=== PATIENT | female | born 1930 | race Caucasian/White ===

== ENCOUNTER → 2017-01-18 | Outpatient (CLI) | payer BC, MEDICARE ==
[~2017-01-18] MED LIST: AMLO5TAB2 PO; ASP81TEC PO; CAND16TA12 PO; CAND8TAB PO; CAND8TAB4 PO; CHOL100011 PO; CHOL500014 PO; CLOP75TA PO; CLOP75TA28 PO; CPR500T PO; CRAN450T9 PO; HCT25T PO; LRT10T PO; LVF500T PO; MECL-124 PO; MECL25TA56 PO; METO-272 PO; OMEG1CAP74 PO; RNT150T PO
--- NOTE | 2017-01-18 19:19 | Diagnostic Imaging Report ---
PA and lateral views of the chest. INDICATION: Cough. FINDINGS: The lungs are hyperinflated but clear of focal infiltrates. There is mild prominence of the interstitial markings. The heart size is normal. There is no effusion or pneumothorax. The mediastinum and nazia appear unremarkable. Surgical clips in the upper right abdomen are seen. IMPRESSION: COPD. Dictated by: Dictated on workstation # [id number]
== END ==
LOC: RAD 11:57
PROVIDERS: ATTEND Nurse Practitioner Family
DX: J44.9 Chronic obstructive pulmonary disease, unspecified (principal)
CPT/HCPCS: 71020

== ENCOUNTER 2018-06-18 13:35 | Emergency (ER) | payer BC, MEDICARE ==
[~2018-06-18] VITALS: Ht 152.4 cm; Wt 51.7 kg
[~2018-06-18 13:35] MED LIST changes: -AMLO5TAB2 PO; +AMLO5TAB7 PO
--- NOTE | 2018-06-18 14:11 | Diagnostic Imaging Report ---
Indication: Lower respiratory infection. PA and lateral chest Heart size and pulmonary vascularity are normal. Lungs are clear. There are no effusions or pneumothoraces. Impression: Negative chest. Dictated by: Dictated on workstation # [id number]
[2018-06-18] MEDS ORDERED: BENZ100C18 PO (14:26)
[2018-06-18] MEDS ORDERED: CEFU250T80 PO (14:26)
--- NOTE | 2018-06-18 14:27 | ED Cough/URI ---
General Chief Complaint: Cough/Cold/Flu Symptoms Stated Complaint: COUGH Nursing Triage Note: PATIENT STATES SHE HAS NOT FELT WELL FOR 3 DAYS. SHE HAS A NAGGING COUGH WITH SOB. IT IS NON-PRODUCTIVE COUGH. SHE ALSO HAS A RUNNY NOSE. Source: patient Exam Limitations: no limitations History of Present Illness Date Seen by Provider: Jun 18, 2018 Time Seen by Provider: 14:24 Initial Comments To ER with the general malaise for 3 days nonproductive cough and rhinorrhea. No fevers. Timing/Duration: just prior to arrival, constant Severity/Quality: dry cough Prior Episodes/Possible Cause: no prior episodes Associated Symptoms: cough Allergies and Home Medications Allergies Coded Allergies: Sulfa (Sulfonamide Antibiotics) (Verified Allergy, Severe, ITCH, 12/30/12) codeine (Verified Adverse Reaction, Unknown, "LOOPY", 07/06/14) Home Medications Amlodipine Besylate 5 Mg Tablet, 5 MG PO DAILY Prescribed by: JENNI LYNCH on 11/09/15 1651 Aspirin 81 Mg Tabec, 81 MG PO DAILY, (Reported) Candesartan Cilexetil 16 Mg Tab, 4 MG PO DAILY Prescribed by: TOBI NANCE on 07/07/14 1654 Cholecalciferol 1,000 Unit Capsule, 1,000 UNIT PO DAILY, (Reported) Clopidogrel Bisulfate 75 Mg Tablet, 75 MG PO DAILY, (Reported) Cranberry Fruit 450 Mg Tablet, 450 MG PO DAILY, (Reported) Levofloxacin 500 Mg Tab, 500 MG PO DAILY, (Reported) 7 DAY SUPPLY FILLED 07-01-14 [place]-3/Dha/Epa/Fish Oil 1,000 Mg Capsule, 1,000 MG PO DAILY, (Reported) Ranitidine Hcl 150 Mg Tablet, 150 MG PO DAILY, (Reported) Patient Home Medication List Home Medication List Reviewed: Yes Review of Systems Review of Systems Constitutional: see HPI; No chills, No fever EENTM: see HPI Respiratory: see HPI, cough Cardiovascular: no symptoms reported Genitourinary: no symptoms reported Musculoskeletal: no symptoms reported Skin: no symptoms reported Psychiatric/Neurological: No Symptoms Reported Past Ejbppbr-Iosxdy-Cvlsgm Hx Patient Social History Alcohol Use: Denies Use Recreational Drug Use: No Smoking Status: Never a Smoker 2nd Hand Smoke Exposure: No Recent Foreign Travel: No Contact w/Someone Who Travel: No Recent Infectious Disease Expo: No Physical Abuse: No Sexual Abuse: No Immunizations Up To Date Date of Pneumonia Vaccine: Jul 18, 2005 Seasonal Allergies Seasonal Allergies: Yes Past Medical History Surgeries: Yes (benign growth on head. , carpal tunnel x 2, hital hernia, appendectomy, ) Respiratory: No Cardiac: Yes Hypertension Neurological: Yes Reproductive Disorders: No Genitourinary: Yes Renal Failure Gastrointestinal: No Musculoskeletal: Yes Arthritis Endocrine: No HEENT: No Cancer: No Psychosocial: No Integumentary: No Blood Disorders: No Adverse Reaction/Blood Tranf: No Family Medical History Arthritis Cardiovascular disease 19 FATHER Colon cancer 19 FATHER Diabetes mellitus G8 BROTHER Hypercholesterolemia 19 FATHER Hypertension 19 FATHER Myocardial infarction 19 FATHER Osteoporosis 19 MOTHER No Family History of: AIDS Abdominal aortic aneurysm [place]'s disease Alcoholism Alzheimer's disease Aphasia Asthma Cancer of mouth Cataracts Completed stroke Congenital disease Congenital heart disease Coronary thrombosis Cystic fibrosis Deafness or hearing loss Dementia Drug abuse Dysphasia Fibrocystic disease of breast Gastroenteritis Glaucoma Headache disorder Infertility Kidney disease Neoplasm Not obtainable due to adoption Parkinson's disease Prostate cancer Psychosocial problem Respiratory disorder Seizure disorder Severe allergy Thyroid disease Tuberculosis Visual disorder No Pertinent Family Hx Physical Exam Vital Signs - First Documented 06/18/18 06/18/18 13:41 13:57 Temp 98.8 Pulse 67 Resp 18 B/P (MAP) 144/59 (87) Pulse Ox 98 O2 Delivery Room Air Capillary Refill : Less Than 3 Seconds Height: 5'0" Weight: 114lbs. 0oz. 51.631193hk; BMI Method:Stated General Appearance: WD/WN, no apparent distress Eyes: Bilateral Eye Normal Inspection, Bilateral Eye PERRL, Bilateral Eye EOMI HEENT: PERRL/EOMI, normal ENT inspection Neck: non-tender, full range of motion Respiratory: normal breath sounds, no respiratory distress, no accessory muscle use; No crackles, No rhonchi, No wheezing Cardiovascular: regular rate, rhythm, no murmur Gastrointestinal: normal bowel sounds, non tender, soft Neurologic/Psychiatric: alert, normal mood/affect, oriented x 3 Skin: normal color, warm/dry Progress/Results/Core Measures Suspected Sepsis Recent Fever Within 48 Hours: No Infection Criteria Present: Suspected New Infection New/Unexplained Altered Menta: No Sepsis Screen: No Definite Risk SIRS Temperature:98.8 Pulse: 67 Respiratory Rate: 18 Blood Pressure 144 /59 Mean: 87 Results/Orders My Orders Orders - KACEY SELLERS APRN Chest Pa/Lat (2 View) (06/18/18 13:47) Vital Signs/I&O 06/18/18 06/18/18 13:41 13:57 Temp 98.8 Pulse 67 Resp 18 B/P (MAP) 144/59 (87) Pulse Ox 98 O2 Delivery Room Air Capillary Refill : Less Than 3 Seconds Blood Pressure Mean: 87 Departure Communication (Admissions) 1426-likely viral etiology given her structural lung disease by history I will prescribe Ceftin. Impression Primary Impression: Bronchitis Disposition: HOME, SELF-CARE Condition: Stable Departure-Patient Inst. Decision time for Depature: 14:25 Referrals: RICHARD PERALTA MD (PCP/Family) Primary Care Physician Patient Instructions: Acute Bronchitis, Adult (DC) Add. Discharge Instructions: 1. Medication as directed 2. Follow-up with Daily later this week. Return to ER for any concerns. All discharge instructions reviewed with patient and/or family. Voiced understanding. Scripts Benzonatate (TESSALON PERLES) 100 Mg Capsule 100 MG PO TID, #14 CAP Prov: KACEY SELLERS APRN 06/18/18 Cefuroxime Axetil (Cefuroxime) 250 Mg Tablet 250 MG PO BID, #10 TAB Prov: KACEY SELLERS APRN 06/18/18 KACEY SELLERS APRN Jun 18, 2018 14:27
[2018-06-18 14:33] VITALS: BP 144/59
== END 2018-06-18 14:34 | disposition home or self-care (01) ==
LOC: EDUNIT# 13:35 → ER 13:36
DX: J40 Bronchitis, not specified as acute or chronic (principal); I10 Essential (primary) hypertension; Z82.49 Family history of ischemic heart disease and other diseases of the circulatory system; Z80.0 Family history of malignant neoplasm of digestive organs; Z87.448 Personal history of other diseases of urinary system; Z88.2 Allergy status to sulfonamides; Z88.5 Allergy status to narcotic agent; Z79.82 Long term (current) use of aspirin; Z79.02 Long term (current) use of antithrombotics/antiplatelets; Z90.49 Acquired absence of other specified parts of digestive tract; Z98.890 Other specified postprocedural states
CPT/HCPCS: 71046

== ENCOUNTER 2018-06-29 21:06 | Inpatient (IN) | payer MEDICARE ==
[~2018-06-29] VITALS: Ht 157.5 cm; Wt 48.1 kg
[~2018-06-29 21:06] MED LIST changes: -AMLO5TAB7 PO; +AMLO5TAB9 PO; +BENZ100C18 PO; +CEFU250T80 PO
[2018-06-29] MEDS ORDERED: KETOROLAC 30 MG/ML VIAL IVP ONE (21:15)
[2018-06-29] MEDS ORDERED: ONDANSETRON 4 MG/2 ML (SDV) Z0FRAN IVP ONE (21:15)
[2018-06-29] MEDS ORDERED: NS IV 500 ML 500 ML IV SCH (21:15)
--- NOTE | 2018-06-29 21:18 | ED General ---
General Stated Complaint: VOMITING Source of Information: Patient, Family Exam Limitations: No Limitations History of Present Illness Date Seen by Provider: Jun 29, 2018 Time Seen by Provider: 21:16 Initial Comments To ER accompanied by her daughter with reports of vomiting. Patient was seen here on 06/18/18 for a three-day history of cough and rhinorrhea. She was given a prescription for Ceftin and Tessalon pearls. Since then she's had persistent coughing, she is now had a frontal headache rated a 5 out of 10 for the past 3 days, she's had vomiting as well as diarrhea. Denies abdominal pain. She has followed up with her primary care provider Dr. Martinez who added a Medrol dose pack. Timing/Duration: Other (11 days) Severity: Moderate Associated Systoms: Cough, Nausea/Vomiting Allergies and Home Medications Allergies Coded Allergies: Sulfa (Sulfonamide Antibiotics) (Verified Allergy, Severe, ITCH, 12/30/12) codeine (Verified Adverse Reaction, Unknown, "LOOPY", 07/06/14) Home Medications Amlodipine Besylate 5 Mg Tablet, 5 MG PO DAILY Prescribed by: JENNI LYNCH on 11/09/15 1651 Aspirin 81 Mg Tabec, 81 MG PO DAILY, (Reported) Benzonatate 100 Mg Capsule, 100 MG PO TID Prescribed by: KACEY SELLERS on 06/18/18 1426 Candesartan Cilexetil 16 Mg Tab, 4 MG PO DAILY Prescribed by: TOBI NANCE on 07/07/14 1654 Cefuroxime Axetil 250 Mg Tablet, 250 MG PO BID Prescribed by: KACEY SELLRES on 06/18/18 1426 Cholecalciferol 1,000 Unit Capsule, 1,000 UNIT PO DAILY, (Reported) Clopidogrel Bisulfate 75 Mg Tablet, 75 MG PO DAILY, (Reported) Cranberry Fruit 450 Mg Tablet, 450 MG PO DAILY, (Reported) Levofloxacin 500 Mg Tab, 500 MG PO DAILY, (Reported) 7 DAY SUPPLY FILLED 07-01-14 [place]-3/Dha/Epa/Fish Oil 1,000 Mg Capsule, 1,000 MG PO DAILY, (Reported) Ranitidine Hcl 150 Mg Tablet, 150 MG PO DAILY, (Reported) Patient Home Medication List Home Medication List Reviewed: Yes Review of Systems Review of Systems Constitutional: see HPI EENTM: see HPI Respiratory: no symptoms reported Cardiovascular: see HPI; No chest pain, No Hx of Intervention, No palpitations Gastrointestinal: No abdominal pain; diarrhea Genitourinary: no symptoms reported Musculoskeletal: no symptoms reported Skin: no symptoms reported Psychiatric/Neurological: No Symptoms Reported Hematologic/Lymphatic: No Symptoms Reported Past Iwrulbi-Lcsqse-Tuocpn Hx Patient Social History 2nd Hand Smoke Exposure: No Recent Foreign Travel: No Contact w/Someone Who Travel: No Immunizations Up To Date Date of Pneumonia Vaccine: Jul 18, 2005 Seasonal Allergies Seasonal Allergies: Yes Past Medical History Surgeries: Yes (benign growth on head. , carpal tunnel x 2, hital hernia, appendectomy, ) Respiratory: No Cardiac: Yes Hypertension Neurological: Yes Reproductive Disorders: No Genitourinary: Yes Renal Failure Gastrointestinal: No Musculoskeletal: Yes Arthritis Endocrine: No HEENT: No Cancer: No Psychosocial: No Integumentary: No Blood Disorders: No Adverse Reaction/Blood Tranf: No Family Medical History Arthritis Cardiovascular disease 19 FATHER Colon cancer 19 FATHER Diabetes mellitus G8 BROTHER Hypercholesterolemia 19 FATHER Hypertension 19 FATHER Myocardial infarction 19 FATHER Osteoporosis 19 MOTHER No Family History of: AIDS Abdominal aortic aneurysm [place]'s disease Alcoholism Alzheimer's disease Aphasia Asthma Cancer of mouth Cataracts Completed stroke Congenital disease Congenital heart disease Coronary thrombosis Cystic fibrosis Deafness or hearing loss Dementia Drug abuse Dysphasia Fibrocystic disease of breast Gastroenteritis Glaucoma Headache disorder Infertility Kidney disease Neoplasm Not obtainable due to adoption Parkinson's disease Prostate cancer Psychosocial problem Respiratory disorder Seizure disorder Severe allergy Thyroid disease Tuberculosis Visual disorder No Pertinent Family Hx Physical Exam Vital Signs Vital Signs - First Documented 06/29/18 21:11 Temp 98.9 Pulse 86 Resp 18 B/P (MAP) 144/70 (94) Pulse Ox 98 O2 Delivery Room Air Capillary Refill : Height, Weight, BMI Height: 5'0" Weight: 114lbs. 0oz. 51.744249zo; BMI Method:Stated General Appearance: No Apparent Distress, WD/WN Eyes: Bilateral Eye Normal Inspection, Bilateral Eye PERRL, Bilateral Eye EOMI HEENT: PERRL/EOMI, TMs Normal Neck: Full Range of Motion, Normal Inspection Respiratory: No Accessory Muscle Use, No Respiratory Distress Cardiovascular: Regular Rate, Rhythm Gastrointestinal: Normal Bowel Sounds, Non Tender, Soft Neurologic/Psychiatric: Alert, Oriented x3 Skin: Normal Color, Warm/Dry Progress/Results/Core Measures Suspected Sepsis SIRS Temperature: Pulse: Respiratory Rate: Laboratory Tests 06/29/18 21:15: White Blood Count 11.9H Blood Pressure / Mean: Laboratory Tests 06/29/18 21:15: Creatinine 1.99H, Platelet Count 308, Total Bilirubin 0.8 Results/Orders Lab Results Laboratory Tests Test 06/29/18 21:15 06/29/18 21:20 Range/Units White Blood Count 11.9 H 4.3-11.0 10^3/uL Red Blood Count 4.33 L 4.35-5.85 10^6/uL Hemoglobin 12.9 11.5-16.0 G/DL Hematocrit 35 35-52 % Mean Corpuscular Volume 82 80-99 FL Mean Corpuscular Hemoglobin 30 25-34 PG Mean Corpuscular Hemoglobin Concent 36 32-36 G/DL Red Cell Distribution Width 11.8 10.0-14.5 % Platelet Count 308 130-400 10^3/uL Mean Platelet Volume 8.9 7.4-10.4 FL Neutrophils (%) (Auto) 80 H 42-75 % Lymphocytes (%) (Auto) 10 L 12-44 % Monocytes (%) (Auto) 10 0-12 % Eosinophils (%) (Auto) 0 0-10 % Basophils (%) (Auto) 0 0-10 % Neutrophils # (Auto) 9.5 H 1.8-7.8 X 10^3 Lymphocytes # (Auto) 1.2 1.0-4.0 X 10^3 Monocytes # (Auto) 1.1 H 0.0-1.0 X 10^3 Eosinophils # (Auto) 0.0 0.0-0.3 10^3/uL Basophils # (Auto) 0.0 0.0-0.1 10^3/uL Sodium Level 120 *L 135-145 MMOL/L Potassium Level 4.0 3.6-5.0 MMOL/L Chloride Level 85 L 98-107 MMOL/L Carbon Dioxide Level 20 L 21-32 MMOL/L Anion Gap 15 H 5-14 MMOL/L Blood Urea Nitrogen 27 H 7-18 MG/DL Creatinine 1.99 H 0.60-1.30 MG/DL Estimat Glomerular Filtration Rate 24 BUN/Creatinine Ratio 14 Glucose Level 126 H 70-105 MG/DL Calcium Level 10.1 8.5-10.1 MG/DL Corrected Calcium 9.7 8.5-10.1 MG/DL Total Bilirubin 0.8 0.1-1.0 MG/DL Aspartate Amino Transf (AST/SGOT) 15 5-34 U/L Alanine Aminotransferase (ALT/SGPT) 7 0-55 U/L Alkaline Phosphatase 63 40-136 U/L Troponin I < 0.028 <0.028 NG/ML Total Protein 7.1 6.4-8.2 GM/DL Albumin 4.5 3.2-4.5 GM/DL Lipase 26 8-78 U/L Urine Color YELLOW Urine Clarity SLIGHTLY CLOUDY Urine pH 6.5 5-9 Urine Specific [place] 1.010 L 1.016-1.022 Urine Protein 2+ H NEGATIVE Urine Glucose (UA) NEGATIVE NEGATIVE Urine Ketones NEGATIVE NEGATIVE Urine Nitrite NEGATIVE NEGATIVE Urine Bilirubin NEGATIVE NEGATIVE Urine Urobilinogen 1 NORMAL MG/DL Urine Leukocyte Esterase 3+ H NEGATIVE Urine RBC (Auto) 1+ H NEGATIVE Urine RBC 0-2 /HPF Urine WBC 25-50 H /HPF Urine Squamous Epithelial Cells 2-5 /HPF Urine Crystals NONE /LPF Urine Bacteria LARGE H /HPF Urine Casts NONE /LPF Urine Mucus NEGATIVE /LPF Urine Culture Indicated YES My Orders Orders - KACEY SELLERS APRN Troponin I (06/29/18 21:08) Cbc With Automated Diff (06/29/18 21:08) Comprehensive Metabolic Panel (06/29/18 21:08) Lipase (06/29/18 21:08) Ua Culture If Indicated (06/29/18 21:08) Iv He[place]ock-Insert (Order) (06/29/18 21:08) Ondansetron Injection (Zofran Injectio (06/29/18 21:15) Ns Iv 500 Ml (Sodium Chloride 0.9%) (06/29/18 21:15) Chest Pa/Lat (2 View) (06/29/18 21:14) Ct Head Wo (06/29/18 21:14) Ketorolac Injection (Toradol Injection) (06/29/18 21:15) Urine Culture (06/29/18 21:20) Ceftriaxone For Iv Use (Rocephin For I (06/29/18 21:45) Medications Given in ED Current Medications Medications Dose Ordered Sig/Pradeep Route Start Time Stop Time Status Last Admin Dose Admin Ceftriaxone Sodium 1000 mg/ Sodium Chloride 50 ml @ 100 mls/hr ONCE ONCE IV 06/29/18 21:45 06/29/18 22:14 06/29/18 21:46 100 MLS/HR Ketorolac Tromethamine 15 mg ONCE ONCE IVP 06/29/18 21:15 06/29/18 21:16 DC 06/29/18 21:19 15 MG Ondansetron HCl 4 mg ONCE ONCE IVP 06/29/18 21:15 06/29/18 21:16 DC 06/29/18 21:17 4 MG Vital Signs/I&O 06/29/18 21:11 Temp 98.9 Pulse 86 Resp 18 B/P (MAP) 144/70 (94) Pulse Ox 98 O2 Delivery Room Air Capillary Refill : Diagnostic Imaging Diagonstic Imaging: CT Comments NAME: RONAN GOTTI MED REC#: [id number] PT STATUS: REG ER : 1930 PHYSICIAN: KACEY SELLERS APRN ADMIT DATE: 06/29/18/ER Draft Date of Exam:06/29/18 CT HEAD WO PROCEDURE: CT head without contrast. TECHNIQUE: Multiple contiguous axial images were obtained through the brain without the use of intravenous contrast. INDICATION: Vomiting. COMPARISON: CT head without contrast 07/06/2014. 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 Moderate generalized cerebral and cerebellar parenchymal volume loss. Moderate leukoaraiosis. No CT evidence of a territorial infarction. No intracranial hemorrhage, mass effect, hydrocephalus or extra-axial fluid collections. No acute osseous findings. The paranasal sinuses and mastoids are clear. IMPRESSION: No acute intracranial CT findings. Chronic findings as above. Dictated on workstation # [id number] Dict: 06/29/[id number] Trans: 06/29/18 2147 [facility] [id number] Interpreted by: SHIRLEY ALCAZAR MD Electronically signed by: Departure Communication (Admissions) Time/Spoke to Admitting Phy: 21:[address] Mitchell who is on-call for Dr. Verdugo. We will admit the patient , free water restriction, IV normal saline. I will not give her hypertonic saline to rapidly replenish the sodium as I do not know how quickly it dropped. She is alert and oriented though a bit fatigued. I discussed the plan with the patient to be admitted, limit water intake and give IV antibiotics as well as IV saline. Patient states that she does not want to stay but is agreeable to staying. Discussed CODE STATUS with patient. She states "I do not want to be resuscitated" so she will be DO NOT RESUSCITATE status. Impression Primary Impression: Hyponatremia Additional Impressions: Urinary tract infection Qualified Codes: N30.00 - Acute cystitis without hematuria General weakness Bronchitis Disposition: ADMITTED INPATIENT Condition: Stable Admissions Decision to Admit Reason: Admit from ER (General) Decision to Admit/Date: Jun 29, 2018 Time/Decision to Admit Time: 21:44 Departure-Patient Inst. Referrals: RICHARD VERDUGO MD (PCP/Family) Primary Care Physician KACEY SELLERS APRN Jun 29, 2018 21:18
[2018-06-29 21:22] LABS: BASOPHILS % (AUTO) 0 % (0-10); EOSINOPHILS % (AUTO) 0 % (0-10); HEMATOCRIT 35 % (35-52); HEMOGLOBIN 12.9 G/DL (11.5-16.0); LYMPHOCYTES # (AUTO) 1.2 X 10^3 (1.0-4.0); LYMPHOCYTES % (AUTO) 10 % (12-44); MEAN CORPUSCULAR HEMOGLOBIN 30 PG (25-34); MEAN CORPUSCULAR HGB CONC 36 G/DL (32-36); MEAN CORPUSCULAR VOLUME 82 FL (80-99); MEAN PLATELET VOLUME 8.9 FL (7.4-10.4); MONOCYTES # (AUTO) 1.1 X 10^3 (0.0-1.0); MONOCYTES % (AUTO) 10 % (0-12); NEUTROPHILS # (AUTO) 9.5 X 10^3 (1.8-7.8); NEUTROPHILS % (AUTO) 80 % (42-75); PLATELET COUNT 308 10^3/uL (130-400); RED CELL DISTRIBUTION WIDTH 11.8 % (10.0-14.5); WHITE BLOOD COUNT 11.9 10^3/uL (4.3-11.0)
[2018-06-29 21:29] LABS: BILIRUBIN,URINE NEGATIVE (NEGATIVE); CLARITY,URINE SLIGHTLY CLOUDY; COLOR,URINE YELLOW; GLUCOSE, URINE (UA) NEGATIVE (NEGATIVE); KETONES,URINE NEGATIVE (NEGATIVE); LEUKOCYTE ESTERASE ,URINE 3+ (NEGATIVE); NITRITE,URINE NEGATIVE (NEGATIVE); PH,URINE 6.5 (5-9); PROTEIN,URINE 2+ (NEGATIVE); UROBILINOGEN,URINE 1 MG/DL (NORMAL)
[2018-06-29 21:36] LABS: BACTERIA,URINE LARGE /HPF; RBC,URINE 0-2 /HPF; WBC,URINE 25-50 /HPF
[2018-06-29 21:43] LABS: ALANINE AMINOTRANSFERASE 7 U/L (0-55); ALBUMIN 4.5 GM/DL (3.2-4.5); ALKALINE PHOSPHATASE 63 U/L (40-136); BILIRUBIN,TOTAL 0.8 MG/DL (0.1-1.0); BUN/CREATININE RATIO 14; CALCIUM 10.1 MG/DL (8.5-10.1); CARBON DIOXIDE 20 MMOL/L (21-32); CHLORIDE 85 MMOL/L (98-107); CREATININE SERUM 1.99 MG/DL (0.60-1.30); GFR ESTIMATED 24; GLUCOSE 126 MG/DL (70-105); LIPASE 26 U/L (8-78); TOTAL PROTEIN 7.1 GM/DL (6.4-8.2)
[2018-06-29 21:44] LABS: SODIUM 120 MMOL/L (135-145)
[2018-06-29] MEDS ORDERED: cefTRIAXone FOR IV USE 1,000 MG in NS (IVPB) 50 ML IV ONE (21:45)
--- NOTE | 2018-06-29 21:46 | Diagnostic Imaging Report ---
EXAM: Chest PA/LAT (2 view) INDICATION: Vomiting. COMPARISON: Chest regress 06/18/2017. FINDINGS: Normal heart size and central pulmonary vascularity. Calcified aorta. No focal pulmonary opacity, pleural effusion or pneumothorax. No acute osseous findings. Cholecystectomy clips. IMPRESSION: No acute cardiopulmonary findings. Dictated by: Dictated on workstation # [id number]
--- NOTE | 2018-06-29 21:47 | Diagnostic Imaging Report ---
PROCEDURE: CT head without contrast. TECHNIQUE: Multiple contiguous axial images were obtained through the brain without the use of intravenous contrast. INDICATION: Vomiting. COMPARISON: CT head without contrast 07/06/2014. 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 Moderate generalized cerebral and cerebellar parenchymal volume loss. Moderate leukoaraiosis. No CT evidence of a territorial infarction. No intracranial hemorrhage, mass effect, hydrocephalus or extra-axial fluid collections. No acute osseous findings. The paranasal sinuses and mastoids are clear. IMPRESSION: No acute intracranial CT findings. Chronic findings as above. Dictated by: Dictated on workstation # [id number]
[2018-06-29] MEDS ORDERED: ONDANSETRON 4 MG/2 ML (SDV) Z0FRAN IV PRN (23:15)
[2018-06-29] MEDS ORDERED: cefTRIAXone 1 GM/NS 50 ML IVPB IV SCH ×2 (23:15)
[2018-06-29] MEDS: NS IV 1000 ML 1,000 ML IV SCH (23:30)
[2018-06-30] VITALS: BP 147/57
[2018-06-30] MEDS ORDERED: RT-ALBUTEROL/IPRATROPIUM 3 ML (DUONEB) VIAL INH PRN (00:15)
[2018-06-30 00:45] VITALS: BP 152/76
[2018-06-30 03:49] VITALS: BP 118/78
[2018-06-30 04:35] LABS: BASOPHILS % (AUTO) 0 % (0-10); EOSINOPHILS % (AUTO) 1 % (0-10); HEMATOCRIT 29 % (35-52); HEMOGLOBIN 10.6 G/DL (11.5-16.0); LYMPHOCYTES # (AUTO) 1.2 X 10^3 (1.0-4.0); LYMPHOCYTES % (AUTO) 15 % (12-44); MEAN CORPUSCULAR HEMOGLOBIN 30 PG (25-34); MEAN CORPUSCULAR HGB CONC 36 G/DL (32-36); MEAN CORPUSCULAR VOLUME 84 FL (80-99); MEAN PLATELET VOLUME 8.9 FL (7.4-10.4); MONOCYTES % (AUTO) 14 % (0-12); NEUTROPHILS # (AUTO) 5.5 X 10^3 (1.8-7.8); NEUTROPHILS % (AUTO) 71 % (42-75); PLATELET COUNT 255 10^3/uL (130-400); WHITE BLOOD COUNT 7.7 10^3/uL (4.3-11.0)
[2018-06-30 04:49] LABS: CALCIUM 8.6 MG/DL (8.5-10.1); CREATININE SERUM 1.8 MG/DL (0.60-1.30); POTASSIUM 3.6 MMOL/L (3.6-5.0)
[2018-06-30] MEDS ORDERED: FLU QUADRIvalent (5+ YOA) 2018-2019 (AFLURIA) 0.5 ML IM ONE (07:30)
[2018-06-30 08:09] VITALS: BP 161/70
--- NOTE | 2018-06-30 09:02 | History & Physicial ---
History of Present Illness History of Present Illness Reason for visit/HPI PT IS AN 87 Y/O FEMALE WHO WAS A PREVIOUS PATIENT OF MY PRACTICE. SHE IS NOW SEEING DR. OCHOA IN [place] FOR HER PRIMARY CARE. SHE REPORTS THAT HE HAD PLACED HER ON ORAL ANTIBIOTICS AND SHE DID NOT IMPROVE AND SHE WAS AT THE ER IN [place] WHERE SHE GOT MEDICATION FOR NAUSEA AND HER COUGH. SHE HAS HISTORY OF RECENT URI WITH TREATMENT WITH ANTIBIOTICS, THEN SHE PRESENTED TO THE EMERGENCY DEPARTMENT WITH NAUSEA AND EMESIS WELL SOME LOOSE STOOLS AND WAS FOUND TO HAVE A SODIUM LEVEL OF 120. SHE WAS THUS ADMITTED TO THE HOSPITAL FOR IV HYDRATION, SODIUM REPLACEMENT, AND MONITORING OF SYMPTOMS. Date of Admission Jun 29, 2018 at 21:50 Date Seen by a Provider: Jun 30, 2018 Time Seen by a Provider: 09:10 I consulted on this patient on 06/30/18 08:57 Attending Physician RICHARD VERDUGO MD Admitting Physician Richard Verdugo MD Consult Allergies and Home Medications Allergies Coded Allergies: Sulfa (Sulfonamide Antibiotics) (Verified Allergy, Severe, ITCH, 12/30/12) codeine (Verified Adverse Reaction, Unknown, "LOOPY", 07/06/14) Home Medications Amlodipine Besylate 5 Mg Tablet, 5 MG PO DAILY, (Reported) Aspirin 81 Mg Tablet.dr, 81 MG PO DAILY, (Reported) Candesartan Cilexetil 8 Mg Tablet, 12 MG PO DAILY, (Reported) TAKES 1 & 1/2 (8MG) TABLET Cetirizine HCl 10 Mg Tablet, 10 MG PO DAILY, (Reported) Cholecalciferol (Vitamin D3) 5,000 Unit Capsule, 5,000 UNIT PO DAILY, (Reported) Clopidogrel Bisulfate 75 Mg Tablet, 75 MG PO DAILY, (Reported) Cranberry Conc/C/Bacill Coag 1 Each Tablet, 1 TAB PO DAILY, (Reported) Hydrochlorothiazide 25 Mg Tablet, 25 MG PO DAILY, (Reported) Levothyroxine Sodium 50 Mcg Tablet, 50 MCG PO DAILY, (Reported) [place]-3/Dha/Epa/Fish Oil 1 Each Capsule, 1 CAP PO DAILY, (Reported) Ondansetron 4 Mg Tab.rapdis, 4 MG PO Q4H PRN for NAUSEA/VOMITING-1ST LINE, ( Reported) Ranitidine HCl 150 Mg Tablet, 150 MG PO DAILY, (Reported) Patient Home Medication List Home Medication List Reviewed: Yes Past [place] Hx Patient Social History Marrital Status: Employed/Student: retired Alcohol Use: Denies Use Recreational Drug Use: No Smoking Status: Former Smoker Former Smoker, Quit: Jun 17, 1985 Type Used: Cigarettes 2nd Hand Smoke Exposure: No Physical Abuse Screen: No Sexual Abuse: No Recent Foreign Travel: No Contact w/other who traveled: No Recent Hopitalizations: No Recent Infectious Disease Expo: No Immunizations Up To Date Date of Pneumonia Vaccine: Jul 18, 2005 Seasonal Allergies Seasonal Allergies: Yes Surgeries Yes (benign growth on head. , carpal tunnel x 2, hital hernia, appendectomy, ) Respiratory Yes Cardiovascular Yes Hypertension Neurological Yes Reproductive System Hx Reproductive Disorders: No Genitourinary Yes Renal Failure Gastrointestinal No Musculoskeletal Yes Arthritis Endocrine History of Endocrine Disorders: No HEENT History of HEENT Disorders: No Cancer No Psychosocial History of Psychiatric Problem: No Integumentary History of Skin or Integumenta: No Blood Transfusions History of Blood Disorders: No Adverse Reaction to a Blood Tr: No Reviewed Nursing Assessment Reviewed/Agree w Nursing PMH: Yes Family Medical History Significant Family History: Heart Disease, Cancer, Diabetes, Hypertension Family Hx: Arthritis Cardiovascular disease 19 FATHER Colon cancer 19 FATHER Diabetes mellitus G8 BROTHER Hypercholesterolemia 19 FATHER Hypertension 19 FATHER Myocardial infarction 19 FATHER Osteoporosis 19 MOTHER No Family History of: AIDS Abdominal aortic aneurysm Justice's disease Alcoholism Alzheimer's disease Aphasia Asthma Cancer of mouth Cataracts Completed stroke Congenital disease Congenital heart disease Coronary thrombosis Cystic fibrosis Deafness or hearing loss Dementia Drug abuse Dysphasia Fibrocystic disease of breast Gastroenteritis Glaucoma Headache disorder Infertility Kidney disease Neoplasm Not obtainable due to adoption Parkinson's disease Prostate cancer Psychosocial problem Respiratory disorder Seizure disorder Severe allergy Thyroid disease Tuberculosis Visual disorder Review of Systems Constitutional: No chills, No fever; malaise, weakness EENTM: hoarseness, throat pain Respiratory: cough, short of breath Cardiovascular: No chest pain, No edema, No palpitations Gastrointestinal: No abdominal pain, No constipation, No loss of appetite Genitourinary: no symptoms reported Musculoskeletal: No back pain; muscle weakness Skin: no symptoms reported Psychiatric/Neurological: Denies Anxiety, Denies Depressed; Weakness All Other Systems Reviewed Negative Unless Noted: Yes Physical Exam Vital Signs Vital Signs - First Documented 06/29/18 06/30/18 21:11 00:00 Temp 98.9 Pulse 86 Resp 18 B/P (MAP) 144/70 (94) Pulse Ox 98 O2 Delivery Room Air FiO2 21 Capillary Refill : Less Than 3 Seconds Height, Weight, BMI Height: 5'2.00" Weight: 106lbs. 0.0oz. 48.965342br; 19.4 BMI Method:Stated General Appearance: WD/WN, Mild Distress (DUE TO COUGHING) Eyes: Bilateral Eye Normal Inspection, Bilateral Eye PERRL, Bilateral Eye EOMI HEENT: PERRL/EOMI, Pharynx Normal Neck: Full Range of Motion, Non Tender, Supple Respiratory: Chest Non Tender, Decreased Breath Sounds Cardiovascular: Regular Rate, Rhythm Gastrointestinal: Normal Bowel Sounds, No Organomegaly, No Pulsatile Mass, Non Tender, Soft Rectal: Deferred Back: Normal Inspection, No CVA Tenderness, No Vertebral Tenderness Extremity: Normal Capillary Refill, Normal Inspection, Normal Range of Motion, Non Tender, No Calf Tenderness, No Pedal Edema Neurologic/Psychiatric: Alert, Oriented x3, No Motor/Sensory Deficits, Normal 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 NAUSEA WITH POST-TUSSIVE EMESIS - ZOFRAN- MONITOR SYMPTOMS. COUGH - START TESSALON PERLES, ROBITUSSIN, MONITOR SYMPTOMS. LOOSE STOOLS - IF STOOLS WORSEN INTO DIARRHEA - THEN WE WILL CONSIDER CDIFF CHECK. HYPERTENSION - RESUME HOME MEDICATIONS. Admission Diagnosis SEVERE HYPONATREMIA NAUSEA POST-TUSSIVE EMESIS COUGH LOOSE STOOLS HYPERTENSION Admission Status: Inpatient Order (span 2 midnights) Reason for Inpatient Admission: PT ADMITTED TO THE HOSPITAL FOR SEVERE HYPONATREMIA - NEEDS GENTLE SLOW HYDRATION TO AVOID CEREBRAL EDEMA Clinical Quality Measures DVT/VTE Risk/Contraindication: Risk Factor Score Per Nursin RFS Level Per Nursing on Admit: 1=Low/No VTE PPX RICHARD VERDUGO MD Jun 30, 2018 09:02
[2018-06-30] MEDS ORDERED: methylPREDNISolone 125 MG (Solu-MEDROL) VIAL IV NR (09:45)
[2018-06-30] MEDS ORDERED: methylPREDNISolone 125 MG (Solu-MEDROL) VIAL IM NR (09:45)
[2018-06-30] MEDS: NS IV 1000 ML 1,000 ML IV SCH ×2 (10:14→19:45)
[2018-06-30] MEDS: amLODIPine 5 MG (NORVASC) TAB PO SCH (10:14)
[2018-06-30] MEDS: BENZONATATE 100 MG (TESSALON) CAPSULE PO SCH ×3 (10:14→21:34)
[2018-06-30] MEDS: ENOXAPARIN 30 MG/0.3 ML (LOVENOX) SYR SC SCH (10:15)
[2018-06-30] MEDS: guaiFENesin/DM (ROBITUSSIN DM) 10 ML UDC PO SCH ×4 (10:16→21:34)
[2018-06-30] MEDS ORDERED: CRAN1TAB4 PO (11:48)
[2018-06-30] MEDS ORDERED: RANI150T11 PO (11:48)
[2018-06-30] MEDS ORDERED: CHOL5000 PO (11:48)
[2018-06-30] MEDS ORDERED: ONDA4TAB11 PO (11:48)
[2018-06-30] MEDS ORDERED: OMEG-164 PO (11:48)
[2018-06-30] MEDS ORDERED: ASPI-983 PO (11:48)
[2018-06-30] MEDS ORDERED: CETI10TA20 PO (11:49)
[2018-06-30] MEDS ORDERED: LEVO50TA6 PO (11:49)
[2018-06-30] MEDS ORDERED: AMLO5TAB9 PO (11:49)
[2018-06-30] MEDS ORDERED: CLOP75TA28 PO (11:49)
[2018-06-30] MEDS ORDERED: CAND8TAB4 PO (11:49)
[2018-06-30] MEDS ORDERED: HYDR25TA4 PO (11:52)
--- NOTE | 2018-06-30 11:53 | NUR ---
WENT OVER THE EXT MED HX WITH THE PATIENT, SHE ALSO HAD A LIST WITH HER. SHE VERIFIED WHAT SHE IS TAKING. IN ADDITION TO WHAT IS SHOWN ON THE EXT MED HX [facility] HAS FILLED HCTZ 25MG DAILY #90 --. PATIENT TAKES THE FOLLOWING OTC: ASPIRIN 81MG DAILY ZYRTEC 10MG DAILY VITAMIN D 5000 UNITS DAILY AZO CRANBERRY DAILY FISH OIL DAILY ZANTAC 150MG DAILY
[2018-06-30 12:00] VITALS: BP 140/68
[2018-06-30 16:00] VITALS: BP 139/55
[2018-06-30] MEDS: methylPREDNISolone 125 MG (Solu-MEDROL) VIAL IVP SCH (17:34)
[2018-06-30] MEDS: cefTRIAXone 1 GM/NS 50 ML IVPB IV SCH ×2 (21:35)
[2018-07-01] VITALS: BP 128/57
[2018-07-01] MEDS: guaiFENesin/DM (ROBITUSSIN DM) 10 ML UDC PO SCH ×6 (00:13→21:26)
[2018-07-01] MEDS: methylPREDNISolone 125 MG (Solu-MEDROL) VIAL IVP SCH ×4 (00:13→18:38)
[2018-07-01 04:00] VITALS: BP 134/64
[2018-07-01] MEDS: NS IV 1000 ML 1,000 ML IV SCH ×2 (05:47→15:13)
[2018-07-01 06:11] LABS: HEMOGLOBIN 10.6 G/DL (11.5-16.0); MEAN PLATELET VOLUME 9.3 FL (7.4-10.4); WHITE BLOOD COUNT 5.9 10^3/uL (4.3-11.0)
[2018-07-01 06:39] LABS: ALBUMIN 3.6 GM/DL (3.2-4.5); BILIRUBIN,TOTAL 0.3 MG/DL (0.1-1.0); CALCIUM 8.4 MG/DL (8.5-10.1); CREATININE SERUM 1.46 MG/DL (0.60-1.30); MAGNESIUM 1.8 MG/DL (1.8-2.4); POTASSIUM 3.5 MMOL/L (3.6-5.0); TOTAL PROTEIN 5.6 GM/DL (6.4-8.2)
[2018-07-01 08:00] VITALS: BP 174/79
[2018-07-01] MEDS: BENZONATATE 100 MG (TESSALON) CAPSULE PO SCH ×3 (08:11→21:25)
[2018-07-01] MEDS: amLODIPine 5 MG (NORVASC) TAB PO SCH (08:11)
[2018-07-01] MEDS: ENOXAPARIN 30 MG/0.3 ML (LOVENOX) SYR SC SCH (08:12)
[2018-07-01] MEDS ORDERED: ONDANSETRON 4 MG (ZOFRAN) ORAL DISSOLVE TAB PO PRN (09:00)
--- NOTE | 2018-07-01 09:04 | Progress Note ---
Subjective Date Seen by a Provider: Jul 01, 2018 Time Seen by a Provider: 09:00 Subjective/Events-last exam PT IRRITABLE, DOES NOT ORIENT, PT CANNOT PARTICIPATE IN ROS OR HPI Review of Systems General: Fatigue Neurological: Weakness, Confusion Objective Exam Last Set of Vital Signs Vital Signs Date Time Temp Pulse Resp B/P (MAP) Pulse Ox O2 Delivery O2 Flow Rate FiO2 07/01/18 04:00 98.7 84 18 134/64 (87) 96 Room Air 06/30/18 00:00 21 Capillary Refill : Less Than 3 Seconds I&O Intake and Output 07/01/18 00:00 Intake Total 250 ml Output Total 660 ml Balance -410 ml Intake Oral 250 ml Output Urine Total 660 ml # Voids 8 General: Alert, Other (NOT ORIENTED) HEENT: Atraumatic Lungs: Clear to Auscultation, Other (POOR EFFORT) Heart: Regular Rate Abdomen: Normal Bowel Sounds, Soft Psych/Mental Status: Other (ALERT, NOT ORIENTED) Results Lab Laboratory Tests 07/01/18 05:45: White Blood Count 5.9, Red Blood Count 3.49L, Hemoglobin 10.6L, Hematocrit 30L, Mean Corpuscular Volume 85, Mean Corpuscular Hemoglobin 30, Mean Corpuscular Hemoglobin Concent 36, Red Cell Distribution Width 12.0, Platelet Count 240, Mean Platelet Volume 9.3, Sodium Level 131L, Potassium Level 3.5L, Chloride Level 103, Carbon Dioxide Level 18L, Anion Gap 10, Blood Urea Nitrogen 20H, Creatinine 1.46H, Estimat Glomerular Filtration Rate 34, BUN/Creatinine Ratio 14 , Glucose Level 162H, Calcium Level 8.4L, Corrected Calcium 8.7, Magnesium Level 1.8, Total Bilirubin 0.3, Aspartate Amino Transf (AST/SGOT) 11, Alanine Aminotransferase (ALT/SGPT) 6, Alkaline Phosphatase 50, Total Protein 5.6L, Albumin 3.6 Microbiology 06/29/18 Urine Culture - Preliminary, Resulted Escherichia coli Assessment/Plan Assessment/Plan Assess & Plan/Chief Complaint SEPSIS NITRITE POSITIVE UTI ADVANCED DEMENTIA INFILTRATED IV WITH RIGHT ARM PAIN HYPERGLYCEMIA LEUKOCYTOSIS SEPSIS FROM NITRITE POSITIVE UTI- CONTINUE WITH IV ANTIBIOTICS - SUPPORTIVE CARE MONITOR SYMPTOMS. ADVANCED DEMENTIA - SUPPORTIVE CARE INFILTRATED IV WITH RIGHT ARM PAIN - CHANGE IV SITE HYPERGLYCEMIA - NO TREATMENT CHANGES AT THIS TIME LEUKOCYTOSIS Clinical Quality Measures Admission Status Admission Dx SEVERE HYPONATREMIA NAUSEA POST-TUSSIVE EMESIS COUGH LOOSE STOOLS HYPERTENSION DVT/VTE Risk/Contraindication: Risk Factor Score Per Nursin RFS Level Per Nursing on Admit: 1=Low/No VTE PPX RICHARD PERALTA MD Jul 01, 2018 09:04
[2018-07-01] MEDS: ASPIRIN E.C. 81 MG (ECOTRIN) TAB PO SCH (10:46)
[2018-07-01] MEDS: LORATADINE (CLARITIN) 10 MG TAB PO SCH (10:46)
[2018-07-01] MEDS: FAMOTIDINE 20 MG (PEPCID) TABLET PO SCH (10:46)
[2018-07-01] MEDS: VITAMIN D3 5,000 UNITS (CHOLECALCIFEROL ) CAPSULE PO SCH (10:47)
[2018-07-01] MEDS: CLOPIDOGREL 75 MG (PLAVIX) TABLET PO SCH (10:47)
[2018-07-01] MEDS: LOSARTAN 50 MG (COZAAR) TAB PO SCH (10:47)
[2018-07-01] MEDS: LEVOTHYROXINE 50 MCG (LEVOTHROID) TAB PO SCH (11:43)
--- NOTE | 2018-07-01 12:41 | Physician Query Clarification ---
PQ-Uncertain Diagnosis Admission/Discharge Admission Date: Jun 29, 2018 at 21:50 Discharge Date: The medical record reflects the following clinical scenario: History/Risk Factors: Personal history of renal failure. Acute cystitis without hematuria diagnosed by Colt Sainz APRN in ED. Clinical Findings: UA showed Urine Specific [place] 1.010, Urine protein 2+, Urine leuocyte esterase 3+, Urine RBC 1+, Urine WBC 25-50, Urine bacteria Large. Urine culture-showing Escherichia coli >100,000/ML. Treatment: IV Ceftriaxone Sodium 1,000mg/Sodium Chloride. Question: Is Acute cystitis without hematuria a clinically valid diagnosis? was documented in the ED Impression by Colt Sainz APRN. Please document a response below. PHYSICIAN RESPONSE Diagnosis clinically valid: Yes, Conditon resolved In responding to this query, please exercise your independent professional judgment. The purpose of this communication is to more accurately reflect the complexity of your patients condition. The fact that a question is asked does not imply that any particular answer is desired or expected. Thank you for your timely response to this clarification. Requestors name: Bita Mc [facility] Phone # ext [phone] or [phone] THIS PHYSICIAN QUERY FORM IS A PERMANENT PART OF THE MEDICAL RECORD [facility] Jul 01, 2018 12:41 RICHARD PERALTA MD Jul 15, 2018 17:13
--- NOTE | 2018-07-01 12:55 | Physician Query Clarification ---
PQ-Uncertain Diagnosis Admission/Discharge Admission Date: Jun 29, 2018 at 21:50 Discharge Date: The medical record reflects the following clinical scenario: History/Risk Factors: History of recent URI. Clinical Findings: Cough, Post-tussive Emesis, Nausea. Treatment:IV Solu Medrol, Robitussin DM syrup, Tessalon Perles and IV Ceftriaxone Sodium. Question: Is Bronchitis a clinically valid diagnosis? Bronchitis was documented in the ED record impression by Colt Sainz APRN. Please document a response below. PHYSICIAN RESPONSE Diagnosis clinically valid: Yes, Conditon resolved In responding to this query, please exercise your independent professional judgment. The purpose of this communication is to more accurately reflect the complexity of your patients condition. The fact that a question is asked does not imply that any particular answer is desired or expected. Thank you for your timely response to this clarification. Requestors name: Bita Mc [facility] Phone # ext [phone] or [phone] THIS PHYSICIAN QUERY FORM IS A PERMANENT PART OF THE MEDICAL RECORD [facility] Jul 01, 2018 12:55 RICHARD PERALTA MD Jul 15, 2018 17:14
--- NOTE | 2018-07-01 14:31 | Physical Therapy Evaluation ---
PT Evaluation-General Medical Diagnosis Admission Date Jun 29, 2018 at 21:50 Medical Diagnosis: UTI/weakness/hyponatremia Onset Date: Jun 29, 2018 Therapy Diagnosis Therapy Diagnosis: debility Height/Weight Height (Feet): 5 Height (Inches): 2.00 Weight (Pounds): 106 Weight (Ounces): 0.0 Precautions Precautions/Isolations: Fall Prevention, Standard Precautions Referral Physician: Kartik Reason for Referral: Evaluation/Treatment Medical History Pertinent Medical History: HTN, Renal Insufficiency Current History ER secondary to vomiting/cough Reviewed History: Yes Social History Home: Single Level Current Living Status: Other Family Entry Into Home: Stairs With Railing PT Steps Into Home: 2 Prior/Core FIM Prior Level of Function Therapy Code Descriptions/Definitions Functional [place] Measure: 0=Not Assessed/NA 4=Minimal Assistance 1=Total Assistance 5=Supervision or Setup 2=Maximal Assistance 6=Modified [place] 3=Moderate Assistance 7=Complete [place] Therapy Quality Codes: 6 Independent with activity with or without an assistive device 5 Patient requires set up or clean up by helper. Patient completes activity by themselves 4 Supervision or touching assist (CGA). Tiger provide cues , steadying assist 3 The helper provides less than half the effort to complete the activity 2 The helper provides more than half the effort to complete the activity 1 Dependent. The helper does all the effort to complete an activity 7 Patient refused to complete or attempt activity 9 The patient did not perform the activity before the current illness or injury 88 Not attempted due to Medical conditions or safety concerns Functional Abilities and Goals: Independent: Patient completed the activities by him/herself, with or without an assistive device, with no assistance from a helper. Needed Some Help: Patient needed partial assistance from another person to complete activities. Dependent: A helper completed the activities for the patient. Unknown: Not Applicable: Bed Mobility: 7 Transfers (B,C,W/C) (FIM): 7 Gait: 7 Indoor Mobility (Ambulation): Independent Stairs: Independent Prior Devices Use: None PT Evaluation-Current Subjective Patient agrees to PT. Objective Patient Orientation: Normal For Age Problem Solving: Good Attachments: IV ROM/Strength ROM Lower Extremities bilateral LE WFL Strength Lower Extremities 4/5 grossly bilaterally Integumentary/Posture Bowel Incontinence: No Bladder Incontinence: No Posture kyphotic Neuromuscular (Tone, Coordination, Reflexes) grossly intact Sensory Vision: Wears Glasses Hearing: Functional Sensation Right Lower Extremit: Intact Sensation Left Lower Extremity: Intact Transfers Therapy Code Descriptions/Definitions Functional [place] Measure: 0=Not Assessed/NA 4=Minimal Assistance 1=Total Assistance 5=Supervision or Setup 2=Maximal Assistance 6=Modified [place] 3=Moderate Assistance 7=Complete [place] Transfers (B, C, W/C) (FIM): 7 Scootin Rollin Supine to/from Sit: 7 Sit to/from Stand: 7 Gait Mode of Locomotion: Walk Anticipated Mode of Locomotion: Walk Gait (FIM): 7 Distance (FIM): 3=150 ft Distance: >400' Gait Level of Assist: 7 Gait Assistive Device: None Comments/Gait Description safe and functional Balance Sitting Static: Normal Sitting Dynamic: Normal Standing Static: Normal Standing Dynamic: Normal Assessment/Needs 87 y.o. female, is currently at [facility] with all gross motor skills and does not require skilled PT intervention. Patient has been instructed to ambulate PRN in hallway. Rehab Potential: Fair PT Plan Treatment/Plan Treatment Plan: Continue Plan of Care Treatment Plan: Other Treatment Duration: Jul 01, 2018 Frequency: 1 time per week Estimated Hrs Per Day: .25 hour per day Patient and/or Family Agrees t: Yes Discharge Recommendations Therapy D/C Recommendations: Home w/ Family Support Time/GCodes Time In: 1325 Time Out: 1335 Total Billed Treatment Time: 10 Total Billed Treatment 1 visit EVLow 10 min MARIANNE ZAMAN PT Jul 01, 2018 14:31
[2018-07-01 16:00] VITALS: BP 153/69
[2018-07-01] MEDS: cefTRIAXone 1 GM/NS 50 ML IVPB IV SCH ×2 (21:27)
[2018-07-02 00:15] VITALS: BP 156/66
[2018-07-02] MEDS: methylPREDNISolone 125 MG (Solu-MEDROL) VIAL IVP SCH ×2 (00:53→06:24)
[2018-07-02] MEDS: guaiFENesin/DM (ROBITUSSIN DM) 10 ML UDC PO SCH ×6 (00:58→21:20)
[2018-07-02] MEDS: NS IV 1000 ML 1,000 ML IV SCH ×3 (00:58→21:20)
[2018-07-02 05:46] LABS: HEMOGLOBIN 9.5 G/DL (11.5-16.0); MEAN PLATELET VOLUME 9.1 FL (7.4-10.4); RED CELL DISTRIBUTION WIDTH 12.6 % (10.0-14.5); WHITE BLOOD COUNT 10.1 10^3/uL (4.3-11.0)
[2018-07-02 06:04] LABS: ALBUMIN 3.1 GM/DL (3.2-4.5); BILIRUBIN,TOTAL 0.2 MG/DL (0.1-1.0); CALCIUM 8.1 MG/DL (8.5-10.1); CREATININE SERUM 1.18 MG/DL (0.60-1.30); POTASSIUM 3.6 MMOL/L (3.6-5.0); TOTAL PROTEIN 4.9 GM/DL (6.4-8.2)
[2018-07-02] MEDS: LEVOTHYROXINE 50 MCG (LEVOTHROID) TAB PO SCH (06:29)
[2018-07-02 08:26] VITALS: BP 172/76
--- NOTE | 2018-07-02 09:10 | Progress Note ---
Subjective Date Seen by a Provider: Jul 02, 2018 Time Seen by a Provider: 09:00 Subjective/Events-last exam PT REPORTS THAT SHE IS OKAY - BUT STAFF REPORTS THAT SHE IS CONFUSED. Review of Systems General: Fatigue, Malaise Pulmonary: No Dyspnea; Cough Cardiovascular: No: Chest Pain Gastrointestinal: No: Nausea, Abdominal Pain Neurological: Weakness, Confusion Objective Exam Last Set of Vital Signs Vital Signs Date Time Temp Pulse Resp B/P (MAP) Pulse Ox O2 Delivery O2 Flow Rate FiO2 07/02/18 08:26 98.9 92 18 172/76 (108) 98 Room Air 06/30/18 00:00 21 Capillary Refill : Less Than 3 Seconds I&O Intake and Output 07/02/18 00:00 Intake Total 1950 ml Balance 1950 ml Intake Oral 950 ml IV Total 1000 ml # Voids 8 # Bowel Movements 1 General: Alert, Cooperative, No Acute Distress HEENT: Atraumatic Neck: Supple Lungs: Clear to Auscultation Heart: Regular Rate Abdomen: Normal Bowel Sounds, Soft Psych/Mental Status: Mood NL, Other (CONFUSED) Results Lab Laboratory Tests 07/02/18 05:35: White Blood Count 10.1, Red Blood Count 3.11L, Hemoglobin 9.5L, Hematocrit 27L, Mean Corpuscular Volume 86, Mean Corpuscular Hemoglobin 31, Mean Corpuscular Hemoglobin Concent 35, Red Cell Distribution Width 12.6, Platelet Count 254, Mean Platelet Volume 9.1, Sodium Level 134L, Potassium Level 3.6, Chloride Level 106, Carbon Dioxide Level 19L, Anion Gap 9, Blood Urea Nitrogen 19H, Creatinine 1.18, Estimat Glomerular Filtration Rate 44, BUN/Creatinine Ratio 16 , Glucose Level 161H, Calcium Level 8.1L, Corrected Calcium 8.8, Total Bilirubin 0.2, Aspartate Amino Transf (AST/SGOT) 13, Alanine Aminotransferase ( ALT/SGPT) 6, Alkaline Phosphatase 60, Total Protein 4.9L, Albumin 3.1L Microbiology 06/29/18 Urine Culture - Final, Complete Escherichia coli Mixed Bacterial Caron Assessment/Plan Assessment/Plan Assess & Plan/Chief Complaint SEPSIS NITRITE POSITIVE UTI ADVANCED DEMENTIA INFILTRATED IV WITH RIGHT ARM PAIN HYPERGLYCEMIA LEUKOCYTOSIS SEPSIS FROM NITRITE POSITIVE UTI- CONTINUE WITH IV ANTIBIOTICS - SUPPORTIVE CARE MONITOR SYMPTOMS. ADVANCED DEMENTIA - SUPPORTIVE CARE INFILTRATED IV WITH RIGHT ARM PAIN - CHANGED IV SITE - MONITOR SYMPTOMS HYPERGLYCEMIA - NO TREATMENT CHANGES AT THIS TIME LEUKOCYTOSIS Clinical Quality Measures Admission Status Admission Dx SEVERE HYPONATREMIA NAUSEA POST-TUSSIVE EMESIS COUGH LOOSE STOOLS HYPERTENSION DVT/VTE Risk/Contraindication: Risk Factor Score Per Nursin RFS Level Per Nursing on Admit: 1=Low/No VTE PPX RICHARD PERALTA MD Jul 02, 2018 09:10
[2018-07-02] MEDS: FAMOTIDINE 20 MG (PEPCID) TABLET PO SCH ×2 (09:11→11:00)
[2018-07-02] MEDS: CLOPIDOGREL 75 MG (PLAVIX) TABLET PO SCH (09:11)
[2018-07-02] MEDS: BENZONATATE 100 MG (TESSALON) CAPSULE PO SCH ×3 (09:11→21:16)
[2018-07-02] MEDS: amLODIPine 5 MG (NORVASC) TAB PO SCH (09:11)
[2018-07-02] MEDS: LORATADINE (CLARITIN) 10 MG TAB PO SCH (09:11)
[2018-07-02] MEDS: LOSARTAN 50 MG (COZAAR) TAB PO SCH (09:11)
[2018-07-02] MEDS: ASPIRIN E.C. 81 MG (ECOTRIN) TAB PO SCH (09:11)
[2018-07-02] MEDS: ENOXAPARIN 30 MG/0.3 ML (LOVENOX) SYR SC SCH (09:12)
[2018-07-02] MEDS: VITAMIN D3 5,000 UNITS (CHOLECALCIFEROL ) CAPSULE PO SCH (09:24)
[2018-07-02] MEDS: SUCRALFATE 1 GM (CARAFATE) TAB PO SCH ×4 (11:00→21:16)
--- NOTE | 2018-07-02 11:15 | NUR ---
REPORT RECEIVED FROM ALLISON ROSARIO RN, THIS RN TO ASSUME PATIENT CARE.
[2018-07-02 14:25] VITALS: BP 172/76
[2018-07-02 16:00] VITALS: BP 158/74
[2018-07-02] MEDS ORDERED: methylPREDNISolone 125 MG (Solu-MEDROL) VIAL IVP SCH (21:00)
[2018-07-02] MEDS: cefTRIAXone 1 GM/NS 50 ML IVPB IV SCH ×2 (22:32)
[2018-07-03] VITALS: BP 187/80
[2018-07-03] MEDS: guaiFENesin/DM (ROBITUSSIN DM) 10 ML UDC PO SCH ×3 (00:39→08:47)
[2018-07-03 05:54] LABS: HEMOGLOBIN 10.5 G/DL (11.5-16.0); RED CELL DISTRIBUTION WIDTH 12.7 % (10.0-14.5); WHITE BLOOD COUNT 10.1 10^3/uL (4.3-11.0)
[2018-07-03 06:15] LABS: ALANINE AMINOTRANSFERASE < 6 U/L (0-55); ALBUMIN 3.3 GM/DL (3.2-4.5); ALKALINE PHOSPHATASE 60 U/L (40-136); BILIRUBIN,TOTAL 0.2 MG/DL (0.1-1.0); BUN/CREATININE RATIO 16; CALCIUM 8.3 MG/DL (8.5-10.1); CARBON DIOXIDE 21 MMOL/L (21-32); CHLORIDE 106 MMOL/L (98-107); CREATININE SERUM 1.15 MG/DL (0.60-1.30); GFR ESTIMATED 45; GLUCOSE 147 MG/DL (70-105); POTASSIUM 3.2 MMOL/L (3.6-5.0); SODIUM 136 MMOL/L (135-145); TOTAL PROTEIN 5.3 GM/DL (6.4-8.2)
[2018-07-03] MEDS: SUCRALFATE 1 GM (CARAFATE) TAB PO SCH (06:28)
[2018-07-03] MEDS: LEVOTHYROXINE 50 MCG (LEVOTHROID) TAB PO SCH (06:28)
[2018-07-03] MEDS ORDERED: predniSONE 20 MG TAB PO SCH (07:00)
[2018-07-03] MEDS: NS IV 1000 ML 1,000 ML IV SCH (07:27)
[2018-07-03 07:38] VITALS: BP 198/81
[2018-07-03] MEDS ORDERED: KCL 20 MEQ TAB (K-DUR) PO NR (08:45)
[2018-07-03] MEDS ORDERED: amLODIPine 5 MG (NORVASC) TAB PO NR (08:45)
[2018-07-03] MEDS: CLOPIDOGREL 75 MG (PLAVIX) TABLET PO SCH (08:46)
[2018-07-03] MEDS: amLODIPine 5 MG (NORVASC) TAB PO SCH (08:46)
[2018-07-03] MEDS: BENZONATATE 100 MG (TESSALON) CAPSULE PO SCH (08:46)
[2018-07-03] MEDS: LOSARTAN 50 MG (COZAAR) TAB PO SCH (08:46)
[2018-07-03] MEDS: LORATADINE (CLARITIN) 10 MG TAB PO SCH (08:46)
[2018-07-03] MEDS: ASPIRIN E.C. 81 MG (ECOTRIN) TAB PO SCH (08:46)
[2018-07-03] MEDS: FAMOTIDINE 20 MG (PEPCID) TABLET PO SCH (08:46)
[2018-07-03] MEDS: VITAMIN D3 5,000 UNITS (CHOLECALCIFEROL ) CAPSULE PO SCH (08:55)
[2018-07-03] MEDS: ENOXAPARIN 30 MG/0.3 ML (LOVENOX) SYR SC SCH (09:11)
--- NOTE | 2018-07-03 09:21 | Discharge Summary ---
Diagnosis/Chief Complaint Date of Admission Jun 29, 2018 at 21:50 Date of Discharge Discharge Date: Jul 03, 2018 Discharge Time: 09:20 Admission Diagnosis Admission Diagnosis SEPSIS NITRITE POSITIVE UTI ADVANCED DEMENTIA INFILTRATED IV WITH RIGHT ARM PAIN HYPERGLYCEMIA LEUKOCYTOSIS Discharge Diagnosis SEPSIS NITRITE POSITIVE UTI ADVANCED DEMENTIA INFILTRATED IV WITH RIGHT ARM PAIN HYPERGLYCEMIA LEUKOCYTOSIS Reason Hospital Visit PT IS AN 87 Y/O FEMALE WHO WAS A PREVIOUS PATIENT OF MY PRACTICE. SHE IS NOW SEEING DR. OCHOA IN [place] FOR HER PRIMARY CARE. SHE REPORTS THAT HE HAD PLACED HER ON ORAL ANTIBIOTICS AND SHE DID NOT IMPROVE AND SHE WAS AT THE ER IN [place] WHERE SHE GOT MEDICATION FOR NAUSEA AND HER COUGH. SHE HAS HISTORY OF RECENT URI WITH TREATMENT WITH ANTIBIOTICS, THEN SHE PRESENTED TO THE EMERGENCY DEPARTMENT WITH NAUSEA AND EMESIS WELL SOME LOOSE STOOLS AND WAS FOUND TO HAVE A SODIUM LEVEL OF 120. SHE WAS THUS ADMITTED TO THE HOSPITAL FOR IV HYDRATION, SODIUM REPLACEMENT, AND MONITORING OF SYMPTOMS. Discharge Summary Discharge Physical Examination Allergies: Coded Allergies: Sulfa (Sulfonamide Antibiotics) (Verified Allergy, Severe, ITCH, 12/30/12) codeine (Verified Adverse Reaction, Unknown, "LOOPY", 07/06/14) Vitals & I&Os General Appearance: Alert, Oriented X3, Cooperative HEENT: Atraumatic Respiratory: Clear to Auscultation Cardiovascular: Regular Rate Abdominal: Normal Bowel Sounds, Soft, No Tenderness Extremities: No Clubbing, No Cyanosis Skin: No Rashes, No Breakdown Neuro: Strength at 5/5 X4 Ext, Cranial Nerves 3-12 NL Psych/Mental Status: Mental Status NL, Mood NL Hospital Course SEPSIS NITRITE POSITIVE UTI ADVANCED DEMENTIA INFILTRATED IV WITH RIGHT ARM PAIN HYPERGLYCEMIA LEUKOCYTOSIS SEPSIS FROM NITRITE POSITIVE UTI- CONTINUE WITH IV ANTIBIOTICS - SUPPORTIVE CARE MONITOR SYMPTOMS. - FINISH ROUND OF ANTIBIOTIC - PT WILL CONTINUE WITH PROBIOTICS AND REPEAT LABS. ADVANCED DEMENTIA - SUPPORTIVE CARE INFILTRATED IV WITH RIGHT ARM PAIN - CHANGED IV SITE HYPERGLYCEMIA - NO TREATMENT CHANGES AT THIS TIME LEUKOCYTOSIS - IMPROVING. Pending Labs Discharge Condition at discharge IMPROVING Instructions to patient/family Please see electronic discharge instructions given to patient. Discharge Medications Reviewed and agree with Discharge Medication list on patient's Discharge Instruction sheet Clinical Quality Measures DVT/VTE Risk/Contraindication: Risk Factor Score Per Nursin RFS Level Per Nursing on Admit: 1=Low/No VTE PPX RICHARD PERALTA MD Jul 03, 2018 09:21
[2018-07-03] MEDS ORDERED: LACT1CAP87 PO (09:26)
[2018-07-03] MEDS ORDERED: CEPH-507 PO (09:26)
[2018-07-03] MEDS ORDERED: SUCR1TAB PO (09:26)
--- NOTE | 2018-07-03 09:28 | Discharge Inst-Complex ---
PDI Med Rec & Follow Up Appt. New Medications: Cephalexin (Keflex) 500 Mg Capsule 500 MG PO QID, #28 CAP Lactobacillus Acidophilus (Acidophilus Lactobacilli) 1 Each Capsule 1 EACH PO TID, #30 CAP Sucralfate (Sucralfate) 1 Gm Tablet 1 GM PO ACHS, #120 TAB 1 Refill DISSOLVE IN 2 TABLESPOONS WATER THEN DRINK THE DISSOLVED PILLS Continued Medications: Amlodipine Besylate (Amlodipine Besylate) 5 Mg Tablet 5 MG PO DAILY, TAB Aspirin (Aspirin EC) 81 Mg Tablet.dr 81 MG PO DAILY, TAB Candesartan Cilexetil (Candesartan Cilexetil) 8 Mg Tablet 12 MG PO DAILY, TAB TAKES 1 & 1/2 (8MG) TABLET Cetirizine HCl (Zyrtec) 10 Mg Tablet 10 MG PO DAILY, TAB Cholecalciferol (Vitamin D3) (Vitamin D3) 5,000 Unit Capsule 5000 UNIT PO DAILY, CAP Clopidogrel Bisulfate (Clopidogrel) 75 Mg Tablet 75 MG PO DAILY, TAB Cranberry Conc/C/Bacill Coag (Azo Cranberry Tablet) 1 Each Tablet 1 TAB PO DAILY, TAB Levothyroxine Sodium (Levothyroxine Sodium) 50 Mcg Tablet 50 MCG PO DAILY, TAB [place]-3/Dha/Epa/Fish Oil (Fish Oil 1,360 mg Softgel) 1 Each Capsule 1 CAP PO DAILY, CAP Ondansetron (Ondansetron Odt) 4 Mg Tab.rapdis 4 MG PO Q4H PRN for NAUSEA/VOMITING-1ST LINE, TAB Ranitidine HCl (Ranitidine HCl) 150 Mg Tablet 150 MG PO DAILY, TAB Discontinued Medications: Hydrochlorothiazide (Hydrochlorothiazide) 25 Mg Tablet 25 MG PO DAILY, TAB Prescription: Transmitted to Pharmacy Patient Instructions: GET A CHEMISTRY PANEL AT MY OFFICE IN ONE WEEK FROM DISCHARGE AND YOUR FOLLOW UP APPT IS IN 10 DAYS FROM DISCHARGE 07/14/18 @ 2:45pm WITH dR. PERALTA Activity, Diet and PDI Resume Normal Activity: Yes Discharge Diet: Regular Diet Drink 6-8 Glasses of Fluid/Day: Yes Symptoms to Reoprt to : Appetite Changes, Fever Over 101 Degrees F, Pain/ Pressure in Chest, Shortness of Breath For Problems or Questions: Contact Your Physician, Go to Emergency Room Infection Signs and Symptoms: Temperature Above 101 F RICHARD PERALTA MD Jul 03, 2018 09:28
[2018-07-03 10:45] VITALS: BP 168/88
--- NOTE | 2018-07-03 10:45 | NUR ---
RONAN GOTTI demonstrates understanding of discharge instructions and accurately returns instructions upon questioning. Copy of Post-Discharge Instructions given to PT. RONAN GOTTI is able to manage continuing needs after discharge. Patients belongings returned to PT. Patient discharged from [facility]- on 07/03/17 at 10:45. RONAN GOTTI left floor via W/C, accompanied by STAFF AND S-I-L.
--- NOTE | 2018-07-22 13:20 | Physician Query Clarification ---
PQ-Uncertain Diagnosis Admission/Discharge Admission Date: Jun 29, 2018 at 21:50 Discharge Date: Jul 03, 2018 at 10:45 The medical record reflects the following clinical scenario: History/Risk Factors: Hyponatremia, UTI Clinical Findings: T 98.9, P 86, R 18, WBC 11.9 Treatment: IV Ceftriaxone Question: Is Sepsis a clinically valid diagnosis? Sepsis was documented in the 07/01 PN with no further documentation in the medical record. If yes, was it present on admission or developed after admission ? Please document a response below. PHYSICIAN RESPONSE Diagnosis clinically valid: Yes, Conditon resolved In responding to this query, please exercise your independent professional judgment. The purpose of this communication is to more accurately reflect the complexity of your patients condition. The fact that a question is asked does not imply that any particular answer is desired or expected. Thank you for your timely response to this clarification. Requestors name: Luis THIS PHYSICIAN QUERY FORM IS A PERMANENT PART OF THE MEDICAL RECORD LUIS PETERSON Jul 22, 2018 13:20 RICHARD PERALTA MD Jul 23, 2018 12:32
== END 2018-07-03 10:45 | disposition home or self-care (01) | DRG 872 ==
LOC: EDUNIT# 21:06 → ER 21:07 → 4TH 21:50 → EDPENDDISTM 07-03 09:20
PROVIDERS: ADMIT Internal Medicine; ATTEND Internal Medicine
DX: A41.9 Sepsis, unspecified organism (principal); N30.00 Acute cystitis without hematuria; E87.1 Hypo-osmolality and hyponatremia; J40 Bronchitis, not specified as acute or chronic; I10 Essential (primary) hypertension; F03.90 Unspecified dementia, unspecified severity, without behavioral disturbance, psychotic disturbance, mood disturbance, and anxiety; R73.9 Hyperglycemia, unspecified; T80.1XXA Vascular complications following infusion, transfusion and therapeutic injection, initial encounter; Z66 Do not resuscitate; M79.601 Pain in right arm; R19.8 Other specified symptoms and signs involving the digestive system and abdomen; J34.89 Other specified disorders of nose and nasal sinuses; M19.91 Primary osteoarthritis, unspecified site; J30.2 Other seasonal allergic rhinitis; B96.20 Unspecified Escherichia coli [E. coli] as the cause of diseases classified elsewhere; Z87.891 Personal history of nicotine dependence; Z88.2 Allergy status to sulfonamides; Z88.5 Allergy status to narcotic agent
CPT/HCPCS: 36415; 70450; 71046; 80048; 80053; 81000; 83690; 83735; 84484; 85025; 85027; 86738; 87077; 87088; 87186; 96361; 96365; 96375

== ENCOUNTER 2018-09-26 05:52 | Outpatient (CLI) | payer MEDICARE ==
[~2018-09-26] VITALS: Ht 157.5 cm; Wt 48.1 kg
[~2018-09-26 05:52] MED LIST changes: +ASPI-983 PO; +CEPH-507 PO; +CETI10TA20 PO; +CHOL5000 PO; +CRAN1TAB4 PO; +HYDR25TA4 PO; +LACT1CAP87 PO; +LEVO50TA6 PO; +OMEG-164 PO; +ONDA4TAB11 PO; +RANI150T11 PO; +SUCR1TAB PO
== END 2018-09-26 11:35 | disposition home or self-care (01) ==
LOC: PREOP 05:52
PROVIDERS: ATTEND Surgery
DX: Z01.818 Encounter for other preprocedural examination (principal)

== ENCOUNTER 2018-10-01 10:35 | Day surgery (SDC) | payer MEDICARE ==
[~2018-10-01] VITALS: Ht 157.5 cm; Wt 48.1 kg
[2018-10-01] MEDS ORDERED: LIDOCAINE JELLY 2% 6 ML SYRINGE MM PRN (10:45)
[2018-10-01] MEDS ORDERED: MIDAZOLAM 2 MG/2 ML (VERSED) VIAL IVP ONE (10:45)
[2018-10-01] MEDS ORDERED: fentaNYL INJECTION 100 MCG/2 ML AMP IVP ONE (10:45)
[2018-10-01] MEDS: NS IV 500 ML 500 ML IV PRN ×2 (11:10→14:02)
[2018-10-01 11:20] VITALS: BP 172/81
--- NOTE | 2018-10-01 11:27 | Conscious Sedation/ASA ---
Conscious Sedation Pre-Proced Time 11:20 ASA Score 2 For ASA 3 and 4: Consider anesthesia and medical clearance. Also, for patients with a history of failed moderate sedation consider anesthesia. Airway Lungs Heart ASA score ASA 1: a normal healthy patient ASA 2: a patient with a mild systemic disease (mid diabetes, controlled hypertension, obesity ASA 3: a patient with a severe systemic disease that limits activity (angina , COPD, prior Myocardial infarction) ASA 4: a patient with an incapacitating disease that is a constant threat to life (CHF, renal failure) ASA 5: a moribund patient not expected to survive 24 hrs. (ruptured aneurysm) ASA 6: a declared brain- patient whose organs are being harvested. For emergent operations, add the letter E after the classification Mallampati Classification Grade 2 Sedation Plan Analgesia, Amnesia, Plan communicated to team members, Discussed options with patient/fam, Discussed risks with patient/fam The patient is an appropriate candidate to undergo the planned procedure, sedation, and anesthesia. The patient immediately re-assessed prior to indication. RADHA CUBA MD Oct 01, 2018 11:27
--- NOTE | 2018-10-01 11:29 | Progress Note-Pre Operative ---
Pre-Operative Progress Note H&P Reviewed The H&P was reviewed, patient examined and no changes noted. Date Seen by Provider: Oct 01, 2018 Time Seen by Provider: 11:20 Date H&P Reviewed: Oct 01, 2018 Time H&P Reviewed: :20 Pre-Operative Diagnosis: rectal bleed, family hx colon ca RADHA CUBA MD Oct 01, 2018 11:28
[2018-10-01] MEDS ORDERED: ONDANSETRON 4 MG/2 ML (SDV) Z0FRAN IV PRN (11:30)
[2018-10-01] MEDS ORDERED: morphine INJ 10 MG/ML 1ML (SYR OR VIAL) IV PRN (11:30)
[2018-10-01] MEDS ORDERED: ACETAMINOPHEN 325 MG TABLET PO PRN (11:30)
[2018-10-01] MEDS ORDERED: HYDROcodone/APAP 5 MG/325 MG (LORTAB) TAB PO PRN (11:30)
--- NOTE | 2018-10-01 11:30 | Discharge Inst-Surgical ---
D/C Lap Instructions-BEREKET Follow Up Activity as tolerated High Fiber Diet 25g or more per day Avoid Alcohol, Caffeine, Spicy [place] and Acid foods. Drink 64 fluid oz or more of fluids per day. Symptoms to Report: Fever over 101 degree F, Nausea/Vomiting If any problems/questions: Contact your physician or go to Emergency Room RADHA CUBA MD Oct 01, 2018 11:30
[2018-10-01] MEDS ORDERED: NS IV 500 ML 500 ML ONE (13:36)
[2018-10-01] MEDS ORDERED: fentaNYL INJECTION 100 MCG/2 ML AMP ONE (13:37)
[2018-10-01] MEDS ORDERED: MIDAZOLAM 2 MG/2 ML (VERSED) VIAL ONE ×4 (13:37→13:38)
[2018-10-01] MEDS ORDERED: LIDOCAINE JELLY 2% 6 ML SYRINGE ONE (13:38)
--- NOTE | 2018-10-01 14:47 | Progress Note-Post Operative ---
Post-Operative Progess Note Surgeon (s)/Passenger Brakeman (s) Surgeon RADHA CUBA MD Passenger Brakeman: none Pre-Operative Diagnosis rectal bleed, family hx colon ca Post-Operative Diagnosis chronic stage 2 ext and int hemorrhoids, moderate sigmoid diverticulosis. Procedure & Operative Findings Date of Procedure 10/01/18 Procedure Performed/Findings Colonoscopy. Anesthesia Type cs Estimated Blood Loss Estimated blood loss (mL): minimal Specimens/Packing Specimens Removed none RADHA CUBA MD Oct 01, 2018 14:47
[2018-10-01 14:55] VITALS: BP 106/56
[2018-10-01 15:21] VITALS: BP 134/77
[2018-10-01 15:24] VITALS: BP 134/77
--- NOTE | 2018-10-02 01:16 | OPERATIVE REPORT ---
DATE OF SERVICE: 10/01/2018 ATTENDING PRIMARY CARE PHYSICIAN: Alena Verdugo MD. PREOPERATIVE DIAGNOSIS: Rectal bleeding, family history of colon cancer. POSTOPERATIVE DIAGNOSIS: Chronic stage II external and internal hemorrhoids, moderate sigmoid diverticulosis, no active bleeding sources identified. PROCEDURE: Colonoscopy. SURGEON: Radha Cuba MD. ANESTHESIA: Conscious sedation. ESTIMATED BLOOD LOSS: Minimal. FINDINGS: Chronic stage II external and internal hemorrhoids with mild edema of the internal hemorrhoidal cushion; however, there was no active bleeding identified. There was moderate sigmoid diverticulosis with no mucosal inflammatory change to indicate any active diverticulitis. There was also no bleeding identified. DISPOSITION: The patient tolerated the procedure well. INDICATIONS: The patient is an 87-year-old female referred over to us for a colonoscopy. In a period of 10 days, she had two episodes of bright red blood per rectum. She was seen by her physician and a Hemoccult stool had been done, which was positive. She also does report a family history of colon cancer with her father having the disease. She states it has been several years since her last colonoscopy. She is on anticoagulation with aspirin and Plavix. DESCRIPTION OF PROCEDURE: The patient was brought to the endoscopy suite, laid in the left lateral decubitus position. After adequate IV pain and sedative medications and conscious sedation anesthesia, a digital rectal examination was performed. Chronic stage II external and internal hemorrhoids were identified with some mild edema of an internal hemorrhoidal cushion; however, no bleeding. Normal sphincter tone was felt and there were no palpable masses. The endoscope was then intubated to the anus and rectum gently insufflated. The endoscope was then advanced to the valves of [place] in the rectum with no polyps or any neoplasms identified. Through the sigmoid colon, a moderate sigmoid diverticulosis identified. There were no mucosal inflammatory changes to indicate any active diverticulitis as well as no chronic or acute bleeding. The endoscope was then advanced to the remainder of the descending, transverse and ascending colon to cecum. These segments were normal. There were no polyps or any neoplasms or any active bleeding source identified throughout the entire colon or rectum. The endoscope was then slowly withdrawn while taking a second look and suctioning residual air with no additional findings. The patient tolerated the procedure well. Most likely etiology of bleeding was internal hemorrhoidal irritation as well as being on anticoagulation. We will recommend conservative management with a high fiber diet with at least 25 to 30 grams of fiber supplementation on a daily basis to promote a soft stool on a daily basis as well. Most likely etiology of her bleeding was the internal hemorrhoidal cushion. However, may also be due to diverticulosis; however, both are treated with soft stools and high fiber. If she wants to proceed with the colonoscopy, we will recommend another one in 5 years. Job ID: [id number] DocumentID: [id number] Dictated Date: 10/01/2018 14:52:36 Cylinder Dyer Date: 10/02/2018 01:15:44 Dictated By: RADHA CUBA MD
== END 2018-10-01 15:26 | disposition home or self-care (01) ==
LOC: ENDO 10:35
PROVIDERS: ATTEND Surgery
DX: K57.30 Diverticulosis of large intestine without perforation or abscess without bleeding (principal); K64.1 Second degree hemorrhoids; R19.5 Other fecal abnormalities; K62.5 Hemorrhage of anus and rectum; Z80.0 Family history of malignant neoplasm of digestive organs; I12.9 Hypertensive chronic kidney disease with stage 1 through stage 4 chronic kidney disease, or unspecified chronic kidney disease; N18.9 Chronic kidney disease, unspecified; J44.9 Chronic obstructive pulmonary disease, unspecified; E03.9 Hypothyroidism, unspecified; Z87.19 Personal history of other diseases of the digestive system; Z88.2 Allergy status to sulfonamides; Z88.5 Allergy status to narcotic agent; Z79.899 Other long term (current) drug therapy; Z79.82 Long term (current) use of aspirin; Z87.891 Personal history of nicotine dependence

== ENCOUNTER 2019-04-23 13:26 | Emergency (ER) | payer MEDICARE ==
[~2019-04-23] VITALS: Ht 157 cm; Wt 50.0 kg
[2019-04-23] MEDS ORDERED: ASPIRIN 81 MG CHEW (CHILDREN'S ASA) PO ONE (13:30)
[2019-04-23] MEDS ORDERED: methylPREDNISolone 125 MG (Solu-MEDROL) VIAL IV STA (13:35)
--- NOTE | 2019-04-23 13:39 | ED Chest Pain ---
General Chief Complaint: Chest Pain Stated Complaint: CP Source: patient History of Present Illness Date Seen by Provider: Apr 23, 2019 Time Seen by Provider: 13:30 Initial Comments 88-year-old female presents with chest pain. Reports the chest pain started today. Reports that she's been having a cough that makes it worse for about 3 days. She has inhalers at home with a history of COPD. She denies any fevers or chills. She does have some bruising on her forehead from a fall a few days ago. She does report that she is on a blood thinner. Patient reports some chills but no known fever. She has some mild congestion. No abdominal pain, nausea vomiting or diarrhea. Allergies and Home Medications Allergies Coded Allergies: Sulfa (Sulfonamide Antibiotics) (Verified Allergy, Severe, ITCH, 12/30/12) codeine (Verified Adverse Reaction, Unknown, "LOOPY", 07/06/14) Home Medications Amlodipine Besylate 5 Mg Tablet, 5 MG PO DAILY, (Reported) Aspirin 81 Mg Tablet.dr, 81 MG PO DAILY, (Reported) Azithromycin 250 Mg Tablet, 250 MG PO UD TAKE 2 TABLETS ON DAY ONE THEN TAKE 1 TABLET DAILY FOR FOUR MORE DAYS Prescribed by: ISRRAEL DALE on 04/23/19 161 Candesartan Cilexetil 8 Mg Tablet, 12 MG PO DAILY, (Reported) TAKES 1 & 1/2 (8MG) TABLET Cetirizine HCl 10 Mg Tablet, 10 MG PO DAILY, (Reported) Cholecalciferol (Vitamin D3) 5,000 Unit Capsule, 5,000 UNIT PO DAILY, (Reported) Clopidogrel Bisulfate 75 Mg Tablet, 75 MG PO DAILY, (Reported) Cranberry Conc/C/Bacill Coag 1 Each Tablet, 1 TAB PO DAILY, (Reported) Levothyroxine Sodium 50 Mcg Tablet, 50 MCG PO DAILY, (Reported) Laurel-3/Dha/Epa/Fish Oil 1 Each Capsule, 1 CAP PO DAILY, (Reported) Prednisone 20 Mg Tab, 40 MG PO DAILY Prescribed by: ISRRAEL DALE on 04/23/19 1615 Ranitidine HCl 150 Mg Tablet, 150 MG PO DAILY, (Reported) Sucralfate 1 Gm Tablet, 1 GM PO ACHS DISSOLVE IN 2 TABLESPOONS WATER THEN DRINK THE DISSOLVED PILLS Prescribed by: RICHARD PERALTA on 07/03/18 3592 Patient Home Medication List Home Medication List Reviewed: Yes Review of Systems Review of Systems Constitutional: chills; No fever; malaise Respiratory: Cough, Shortness of Air Cardiovascular: Chest Pain Gastrointestinal: Denies Blood Streaked Stools, Denies Diarrhea, Denies Nausea, Denies Vomiting Skin: no symptoms reported Psychiatric/Neurological: No Symptoms Reported Past Jzsdtiw-Abtqwi-Rltepa Hx Past Med/Social Hx: Reviewed Nursing Past Med/Soc Hx Patient Social History Type Used: Cigarettes Former Smoker, Quit: Jun 17, 1985 2nd Hand Smoke Exposure: No Recent Hopitalizations: No Immunizations Up To Date Date of Pneumonia Vaccine: Jul 18, 2005 Date of Influenza Vaccine: Mar 17, 2018 Seasonal Allergies Seasonal Allergies: Yes Past Medical History Surgeries: Yes (benign growth on head. , carpal tunnel x 2, hital hernia, appendectomy, ) Respiratory: Yes Asthma Cardiac: Yes Hypertension Neurological: Yes Reproductive Disorders: No Genitourinary: Yes Renal Failure Gastrointestinal: No Musculoskeletal: Yes Arthritis Endocrine: No HEENT: No Cancer: No Psychosocial: No Integumentary: No Blood Disorders: No Adverse Reaction/Blood Tranf: No Family Medical History Arthritis Cardiovascular disease 19 FATHER Colon cancer 19 FATHER Diabetes mellitus G8 BROTHER Hypercholesterolemia 19 FATHER Hypertension 19 FATHER Myocardial infarction 19 FATHER Osteoporosis 19 MOTHER No Family History of: AIDS Abdominal aortic aneurysm Central's disease Alcoholism Alzheimer's disease Aphasia Asthma Cancer of mouth Cataracts Completed stroke Congenital disease Congenital heart disease Coronary thrombosis Cystic fibrosis Deafness or hearing loss Dementia Drug abuse Dysphasia Fibrocystic disease of breast Gastroenteritis Glaucoma Headache disorder Infertility Kidney disease Neoplasm Not obtainable due to adoption Parkinson's disease Prostate cancer Psychosocial problem Respiratory disorder Seizure disorder Severe allergy Thyroid disease Tuberculosis Visual disorder Heart Disease, Cancer, Diabetes, Hypertension Physical Exam Vital Signs Vital Signs - First Documented 04/23/19 13:30 Temp 36.6 Pulse 90 Resp 22 B/P (MAP) 195/85 (121) O2 Delivery Room Air Capillary Refill : Height, Weight, BMI Height: 5'2.00" Weight: 106lbs. 0.0oz. 48.773664ji; 19.4 BMI Method:Stated General Appearance: Other (Frail ) HEENT: PERRL/EOMI, TMs Normal Respiratory: Decreased Breath Sounds (mild diffuse ) Cardiovascular: Regular Rate, Rhythm, No Edema Gastrointestinal: Non Tender Extremity: Normal Capillary Refill Skin: Normal Color, Warm/Dry, Ecchymosis (forehead ) Progress/Results/Core Measures Results/Orders Lab Results Laboratory Tests Test 04/23/19 13:35 04/23/19 15:39 Range/Units White Blood Count 5.4 4.3-11.0 10^3/uL Red Blood Count 3.91 L 4.35-5.85 10^6/uL Hemoglobin 11.8 11.5-16.0 G/DL Hematocrit 34 L 35-52 % Mean Corpuscular Volume 88 80-99 FL Mean Corpuscular Hemoglobin 30 25-34 PG Mean Corpuscular Hemoglobin Concent 34 32-36 G/DL Red Cell Distribution Width 12.8 10.0-14.5 % Platelet Count 241 130-400 10^3/uL Mean Platelet Volume 8.9 7.4-10.4 FL Neutrophils (%) (Auto) 53 42-75 % Lymphocytes (%) (Auto) 28 12-44 % Monocytes (%) (Auto) 14 H 0-12 % Eosinophils (%) (Auto) 5 0-10 % Basophils (%) (Auto) 1 0-10 % Neutrophils # (Auto) 2.9 1.8-7.8 X 10^3 Lymphocytes # (Auto) 1.5 1.0-4.0 X 10^3 Monocytes # (Auto) 0.7 0.0-1.0 X 10^3 Eosinophils # (Auto) 0.3 0.0-0.3 10^3/uL Basophils # (Auto) 0.0 0.0-0.1 10^3/uL Prothrombin Time 12.9 12.2-14.7 SEC INR Comment 0.9 0.8-1.4 Activated Partial Thromboplast Time 35 24-35 SEC Sodium Level 131 L 135-145 MMOL/L Potassium Level 4.2 3.6-5.0 MMOL/L Chloride Level 99 98-107 MMOL/L Carbon Dioxide Level 21 21-32 MMOL/L Anion Gap 11 5-14 MMOL/L Blood Urea Nitrogen 17 7-18 MG/DL Creatinine 1.41 H 0.60-1.30 MG/DL Estimat Glomerular Filtration Rate 35 BUN/Creatinine Ratio 12 Glucose Level 109 H 70-105 MG/DL Calcium Level 10.2 H 8.5-10.1 MG/DL Corrected Calcium 10.0 8.5-10.1 MG/DL Magnesium Level 2.0 1.6-2.4 MG/DL Total Bilirubin 0.4 0.1-1.0 MG/DL Aspartate Amino Transf (AST/SGOT) 20 5-34 U/L Alanine Aminotransferase (ALT/SGPT) 12 0-55 U/L Alkaline Phosphatase 86 40-136 U/L Troponin I < 0.028 < 0.028 <0.028 NG/ML Total Protein 6.7 6.4-8.2 GM/DL Albumin 4.3 3.2-4.5 GM/DL Micro Results Microbiology 04/23/19 Influenza Types A,B Antigen (SACHIN) - Final, Complete My Orders Orders - DALECIROISRRAEL L DO Ekg Tracing (04/23/19 13:28) Cbc With Automated Diff (04/23/19 13:30) Magnesium (04/23/19 13:30) Chest 1 View, Ap/Pa Only (04/23/19 13:30) Cardiac Profile 1 (04/23/19 13:30) Comprehensive Metabolic Panel (04/23/19 13:30) Protime With Inr (04/23/19 13:30) Partial Thromboplastin Time (04/23/19 13:30) Monitor-Rhythm Ecg Trace Only (04/23/19 13:30) Ed Iv/Invasive Line Start (04/23/19 13:30) Aspirin Chewable Tablet (Baby Aspirin Ch (04/23/19 13:30) Albuterol/Ipra Inhalation Soln (Duoneb I (04/23/19 13:45) Methylprednisolone Sod Succ (Solu-Medrol (04/23/19 13:35) Svn Small Volume Nebulizer (04/23/19 13:35) Influenza A And B Antigens (04/23/19 13:35) Ct Head Wo (04/23/19 13:39) Troponin I (04/23/19 15:29) Albuterol/Ipra Inhalation Soln (Duoneb I (04/23/19 15:30) Svn Small Volume Nebulizer (04/23/19 15:29) Medications Given in ED Current Medications Medications Dose Ordered Sig/Pradeep Route Start Time Stop Time Status Last Admin Dose Admin Albuterol/ Ipratropium 3 ml ONCE ONCE INH 04/23/19 13:45 04/23/19 13:46 DC 04/23/19 13:53 3 ML Albuterol/ Ipratropium 3 ml ONCE ONCE INH 04/23/19 15:30 04/23/19 15:31 DC 04/23/19 15:44 3 ML Aspirin 324 mg ONCE ONCE PO 04/23/19 13:30 04/23/19 13:33 DC 04/23/19 13:42 324 MG Vital Signs/I&O 04/23/19 04/23/19 13:30 13:50 Temp 36.6 Pulse 90 Resp 22 B/P (MAP) 195/85 (121) O2 Delivery Room Air Room Air Progress Progress Note : Time: 16:13 Progress Note Patient symptoms improved with DuoNeb have a steroid. Patient with 2 negative troponins and a negative EKG. Patient doing seemingly better. Patient with what appears to be a COPD exacerbation. We will start her on azithromycin and prednisone she will be discharged home in stable condition. Initial ECG Impression Date: Apr 23, 2019 Initial ECG Impression Time: 13:32 Initial ECG Rhythm: Normal Sinus Initial ECG Intervals: Normal Initial ECG Impression: Nonspecific Changes Departure Impression Primary Impression: COPD (chronic obstructive pulmonary disease) with acute bronchitis Disposition: 01 HOME, SELF-CARE Condition: Improved Departure-Patient Inst. Referrals: ESTRELLA TREVIÑO MD (PCP/Family) Primary Care Physician Patient Instructions: COPD Including Emphysema (DC), Exacerbation of COPD Scripts Azithromycin (Azithromycin) 250 Mg Tablet 250 MG PO UD, #6 TAB TAKE 2 TABLETS ON DAY ONE THEN TAKE 1 TABLET DAILY FOR FOUR MORE DAYS Prov: ISRRAEL DALE DO 04/23/19 Prednisone (Prednisone) 20 Mg Tab 40 MG PO DAILY, #6 TAB 0 Refills Prov: ISRRAEL DALE DO 04/23/19 ISRRAEL DALE DO Apr 23, 2019 13:39 POS
[2019-04-23] MEDS ORDERED: RT-ALBUTEROL/IPRATROPIUM 3 ML (DUONEB) VIAL INH ONE ×2 (13:45→15:30)
[2019-04-23 13:47] LABS: BASOPHILS % (AUTO) 1 % (0-10); EOSINOPHILS # (AUTO) 0.3 10^3/uL (0.0-0.3); EOSINOPHILS % (AUTO) 5 % (0-10); HEMATOCRIT 34 % (35-52); HEMOGLOBIN 11.8 G/DL (11.5-16.0); LYMPHOCYTES # (AUTO) 1.5 X 10^3 (1.0-4.0); LYMPHOCYTES % (AUTO) 28 % (12-44); MEAN CORPUSCULAR HEMOGLOBIN 30 PG (25-34); MEAN CORPUSCULAR HGB CONC 34 G/DL (32-36); MEAN CORPUSCULAR VOLUME 88 FL (80-99); MEAN PLATELET VOLUME 8.9 FL (7.4-10.4); MONOCYTES # (AUTO) 0.7 X 10^3 (0.0-1.0); MONOCYTES % (AUTO) 14 % (0-12); NEUTROPHILS # (AUTO) 2.9 X 10^3 (1.8-7.8); NEUTROPHILS % (AUTO) 53 % (42-75); PLATELET COUNT 241 10^3/uL (130-400); RED CELL DISTRIBUTION WIDTH 12.8 % (10.0-14.5); WHITE BLOOD COUNT 5.4 10^3/uL (4.3-11.0)
[2019-04-23 14:04] LABS: ALANINE AMINOTRANSFERASE 12 U/L (0-55); ALBUMIN 4.3 GM/DL (3.2-4.5); ALKALINE PHOSPHATASE 86 U/L (40-136); BILIRUBIN,TOTAL 0.4 MG/DL (0.1-1.0); BUN/CREATININE RATIO 12; CALCIUM 10.2 MG/DL (8.5-10.1); CARBON DIOXIDE 21 MMOL/L (21-32); CHLORIDE 99 MMOL/L (98-107); CREATININE SERUM 1.41 MG/DL (0.60-1.30); GFR ESTIMATED 35; GLUCOSE 109 MG/DL (70-105); INR 0.9 (0.8-1.4); POTASSIUM 4.2 MMOL/L (3.6-5.0); PROTHROMBIN TIME PATIENT 12.9 SEC (12.2-14.7); SODIUM 131 MMOL/L (135-145); TOTAL PROTEIN 6.7 GM/DL (6.4-8.2)
--- NOTE | 2019-04-23 14:07 | Diagnostic Imaging Report ---
INDICATION: Cough, left chest pain. FINDINGS: The lungs are clear. The heart size and vascularity normal. There is no effusion or pneumothorax. IMPRESSION: No acute-appearing abnormality. Dictated by: Dictated on workstation # [id number]
--- NOTE | 2019-04-23 14:48 | Diagnostic Imaging Report ---
PROCEDURE: CT head without contrast. TECHNIQUE: Multiple contiguous axial images were obtained through the brain without the use of intravenous contrast. Auto Exposure Controls were utilized during the CT exam to meet ALARA standards for radiation dose reduction. INDICATION: Recent fall. History of previous surgery. COMPARISON: 06/29/2018. FINDINGS: Patient is status post suboccipital craniectomy on the right. 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 Adjacent surgical clips are noted. Overall, appearance is stable compared to prior exam. There is no new loss of wong-white matter junction differentiation to suggest new acute territorial infarct. There are scattered and confluent areas of decreased attenuation within the periventricular and subcortical deep white matter consistent with underlying chronic small vessel ischemic changes. Ventricles and cortical sulci are also mildly diffusely prominent consistent with background age-related parenchymal volume loss. There is no new mass effect or midline shift. No evidence of intra- or extra-axial intracranial hemorrhage is seen. No other extra-axial masses or fluid collections are identified. The remainder of the bony calvarium is intact. Included portions of the paranasal sinuses and mastoid air cells are clear. IMPRESSION: 1. 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 2. No new acute infarct, mass, nor hemorrhage. 3. Background age-related parenchymal volume loss and chronic small vessel ischemic changes. Dictated by: Dictated on workstation # [id number]
[2019-04-23] MEDS ORDERED: PRD20T PO (16:15)
[2019-04-23] MEDS ORDERED: AZIT250T12 PO (16:15)
[2019-04-23 16:26] VITALS: BP 126/53
== END 2019-04-23 16:26 | disposition home or self-care (01) ==
LOC: EDUNIT# 13:26 → ER 13:27
DX: J44.0 Chronic obstructive pulmonary disease with (acute) lower respiratory infection (principal); J20.9 Acute bronchitis, unspecified; J45.909 Unspecified asthma, uncomplicated; I10 Essential (primary) hypertension; Z90.49 Acquired absence of other specified parts of digestive tract; Z88.2 Allergy status to sulfonamides; Z88.5 Allergy status to narcotic agent; Z79.82 Long term (current) use of aspirin; Z79.02 Long term (current) use of antithrombotics/antiplatelets; Z87.891 Personal history of nicotine dependence; Z82.49 Family history of ischemic heart disease and other diseases of the circulatory system; Z80.0 Family history of malignant neoplasm of digestive organs
CPT/HCPCS: 36415; 70450; 71045; 80053; 83735; 84484; 85025; 85610; 85730; 87804; 93005; 93041

== ENCOUNTER → 2019-11-05 | Outpatient (CLI) | payer MEDICARE ==
[~2019-11-05] MED LIST changes: +AZIT250T12 PO; -CETI10TA20 PO; +CETI10TA21 PO; +FISH OIL 1,3601 EACH PO; -OMEG-164 PO; +PRD20T PO
--- NOTE | 2019-11-05 11:30 | Diagnostic Imaging Report ---
EXAMINATION: Chest 2 view INDICATION: Persistent cough. History of COPD. COMPARISON: Chest radiograph on 04/23/2019. FINDINGS: The lung volumes are hyperexpanded. No focal consolidation is seen. No large pleural effusion or pneumothorax is seen. The cardiomediastinal silhouette is normal in size and contour. No acute osseous abnormality is seen. IMPRESSION: 1. No acute pleuroparenchymal process. 2. Hyperexpanded lungs, which can be seen with COPD. Dictated by: Dictated on workstation # [id number]
== END ==
LOC: RAD 11:12
PROVIDERS: ATTEND Family Medicine
DX: J44.9 Chronic obstructive pulmonary disease, unspecified (principal)
CPT/HCPCS: 71046

== ENCOUNTER 2021-04-13 17:51 | Inpatient (IN) | payer MEDICARE ==
[~2021-04-13] VITALS: Ht 157.5 cm; Wt 56.0 kg
[~2021-04-13 17:51] MED LIST changes: +ACET-2267 PO; +ACYC400T21 PO; +AMLO-250 PO; -AMLO5TAB9 PO; +ASPI-1238 PO; -ASPI-983 PO; +CARB200T6; +CEFU500T63 PO; -CETI10TA21 PO; +CETI10TA49 PO; +CHOL200074 PO; +GUAI5SYR PO; +LACT1CAP57 PO; +Lidocaine 4% Patch TOP; +OMEG-109 PO; +PANT40TA52 PO
--- NOTE | 2021-04-13 18:07 | ED Cough/URI ---
General Chief Complaint: Respiratory Problems Stated Complaint: SOB Nursing Triage Note: PT TO RM 9 BY WHEELCHAIR WITH COMPLAINT OF DIFFICULTY BREATHING, COUGH, LOW O2 FOR TWO DAYS. PT HAD PACEMAKER PLACED SATURDAY. Source: patient Exam Limitations: no limitations History of Present Illness Date Seen by Provider: Apr 13, 2021 Time Seen by Provider: 18:04 Initial Comments To ER by family per private vehicle with reports of shortness of breath and cough for 2 days. No fever. She was admitted here from 04/01/2021 to 04/07/2021 for hyponatremia with metabolic encephalopathy and bradycardia from [facility]. She underwent permanent pacemaker placement by Dr. Lara here on 04/06/2021. Timing/Duration: just prior to arrival Severity/Quality: severe Prior Episodes/Possible Cause: no prior episodes Associated Symptoms: cough, shortness of breath Allergies and Home Medications Allergies Coded Allergies: Sulfa (Sulfonamide Antibiotics) (Verified Allergy, Severe, ITCH, 12/30/12) carbamazepine (Verified Adverse Reaction, Severe, 04/05/21) codeine (Verified Adverse Reaction, Unknown, "LOOPY", 07/06/14) Patient Home Medication List Home Medication List Reviewed: Yes Acetaminophen (Tylenol Extra Strength) 500 Mg Tablet, 1,000 MG PO Q8H PRN for PAIN-MILD (1-4), (Reported) Entered as Reported by: ANNEL MANN on 04/03/21 1034 Acyclovir (Acyclovir) 400 Mg Tablet, 800 MG PO TID Prescribed by: RICHARD VERDUGO on 04/07/21 0947 Amlodipine Besylate (Amlodipine Besylate) 5 Mg Tablet, 10 MG PO DAILY Prescribed by: RICHARD VERDUGO on 04/07/21 0947 Aspirin (Aspirin EC) 81 Mg Tablet.dr, 81 MG PO DAILY, (Reported) Entered as Reported by: ANNEL MANN on 04/03/21 1034 Candesartan Cilexetil (Candesartan Cilexetil) 8 Mg Tablet, 8 MG PO DAILY, (Reported) Entered as Reported by: TO AMBROSIO on 06/30/18 1149 Cefuroxime Axetil (Cefuroxime) 500 Mg Tablet, 500 MG PO BID Prescribed by: RICHARD VERDUGO on 04/07/21 0947 Cetirizine HCl (Zyrtec) 10 Mg Tablet, 10 MG PO DAILY, (Reported) Entered as Reported by: TO AMBROSIO on 06/30/18 1149 Cholecalciferol (Vitamin D3) (Vitamin D3) 50 Mcg Capsule, 50 MCG PO DAILY, (Reported) Entered as Reported by: ANNEL MANN on 04/03/21 103 Clopidogrel Bisulfate (Clopidogrel) 75 Mg Tablet, 75 MG PO DAILY, (Reported) Entered as Reported by: TO AMBROSIO on 06/30/18 1149 Cranberry Conc/C/Bacill Coag (Azo Cranberry Tablet) 1 Each Tablet, 1 TAB PO DAILY, (Reported) Entered as Reported by: TO AMBROSIO on 06/30/18 1148 Guaifenesin/Dextromethorphan (Guaifenesin Dm Syrup) 5 Ml Syrup, 10 ML PO Q4H PRN for COUGH Prescribed by: RICHARD VERDUGO on 04/07/21 09 Lactobac Cmb #3/Fos/Pantethine (Probiotic & Acidophilus Cap) 1 Each Capsule, 1 EACH PO BID Prescribed by: RICHARD VERDUGO on 04/07/21 09 Levothyroxine Sodium (Levothyroxine Sodium) 50 Mcg Tablet, 50 MCG PO DAILY, (Reported) Entered as Reported by: TO AMBROSIO on 06/30/18 114 [place]-3 Fatty Acids/Fish Oil (Fish Oil 1,200 mg Softgel) 1 Each Capsule, 1 EACH PO DAILY, (Reported) Entered as Reported by: ANNEL MANN on 04/03/21 103 Pantoprazole Sodium (Pantoprazole Sodium) 40 Mg Tablet.dr, 40 MG PO BID Prescribed by: RICHARD VERDUGO on 04/07/21946 Sucralfate (Sucralfate) 1 Gm Tablet, 1 GM PO ACHS Prescribed by: RICHARD VERDUGO on 04/07/21946 [Lidocaine 4% Patch] 1 EA PATCH, 1 EA TOP DAILY Prescribed by: RICHARD VERDUGO on 04/07/21946 Discontinued Medications Amlodipine Besylate (Amlodipine Besylate) 5 Mg Tablet, 5 MG PO DAILY, (Reported) Entered as Reported by: TO AMBROSIO on 06/30/18 114 Review of Systems Review of Systems Constitutional: see HPI, chills, fever EENTM: see HPI Respiratory: see HPI, cough, short of breath Cardiovascular: no symptoms reported Genitourinary: no symptoms reported Musculoskeletal: no symptoms reported Skin: no symptoms reported Psychiatric/Neurological: No Symptoms Reported Hematologic/Lymphatic: No Symptoms Reported Immunological/Allergic: no symptoms reported Past Egrschp-Galdis-Iarifa Hx Patient Social History Tobacco Use?: No Use of E-Cig and/or Vaping dev: No Substance use?: No Alcohol Use?: No Pt feels they are or have been: No Immunizations Up To Date First/Initial COVID19 Vaccinat: SEPTEMBER 2020 Second COVID19 Vaccination Celestine: SEPTEMBER 2020 Third COVID19 Vaccination Date: SEPTEMBER 2020 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 , carpal tunnel x 2, hital hernia, appendectomy, ) Abdominal, Appendectomy, Gallbladder Respiratory: Yes Asthma Cardiac: Yes Hypertension Neurological: Yes Stroke Reproductive Disorders: No Genitourinary: Yes Renal Failure Gastrointestinal: No Musculoskeletal: Yes Arthritis Endocrine: No HEENT: No Cancer: No Psychosocial: No Integumentary: No Blood Disorders: No Adverse Reaction/Blood Tranf: No Family Medical History Arthritis Cardiovascular disease 19 FATHER Colon cancer 19 FATHER Diabetes mellitus G8 BROTHER Hypercholesterolemia 19 FATHER Hypertension 19 FATHER Myocardial infarction 19 FATHER Osteoporosis 19 MOTHER No Family History of: AIDS Abdominal aortic aneurysm Richard's disease Alcoholism Alzheimer's disease Aphasia Asthma Cancer of mouth Cataracts Completed stroke Congenital disease Congenital heart disease Coronary thrombosis Cystic fibrosis Deafness or hearing loss Dementia Drug abuse Dysphasia Fibrocystic disease of breast Gastroenteritis Glaucoma Headache disorder Infertility Kidney disease Neoplasm Not obtainable due to adoption Parkinson's disease Prostate cancer Psychosocial problem Respiratory disorder Seizure disorder Severe allergy Thyroid disease Tuberculosis Visual disorder Heart Disease, Cancer, Diabetes, Hypertension Physical Exam Vital Signs - First Documented 04/13/21 17:54 Pulse 119 Resp 25 B/P (MAP) 123/63 (83) Pulse Ox 94 O2 Delivery Room Air Capillary Refill : Less Than 3 Seconds Height: 5'2.00" Weight: 106lbs. 0.0oz. 48.734530ky; 23.00 BMI Method:Stated General Appearance: WD/WN, no apparent distress, thin (Frail alert oriented), other (On arrival to the room her oxygen saturation is 92% on room air) Eyes: Bilateral Eye Normal Inspection, Bilateral Eye PERRL, Bilateral Eye EOMI HEENT: PERRL/EOMI, normal ENT inspection Neck: non-tender, full range of motion Respiratory: no respiratory distress, no accessory muscle use, other (Bibasilar crackles but otherwise equal lung sounds bilaterally) Cardiovascular: tachycardia, irregularly irregular Gastrointestinal: normal bowel sounds, non tender, soft Neurologic/Psychiatric: alert, normal mood/affect, oriented x 3 Skin: normal color, warm/dry, other (Crusted lesion to the right cheek without surrounding erythema at the previous site of her herpes zoster) Focused Exam Lactate Level 04/13/21 17:59: Lactic Acid Level 0.93 Lactic Acid Level Laboratory Tests Test 04/13/21 17:59 Lactic Acid Level 0.93 MMOL/L (0.50-2.00) Progress/Results/Core Measures Suspected Sepsis SIRS Temperature: Pulse: 119 Respiratory Rate: 25 Laboratory Tests 04/13/21 17:59: White Blood Count 8.1 Blood Pressure 123 /63 Mean: 83 04/13/21 17:59: Lactic Acid Level 0.93 Laboratory Tests 04/13/21 17:59: Creatinine 1.76H, INR Comment 1.1, Platelet Count 338, Total Bilirubin 0.5 Results/Orders Lab Results Laboratory Tests Test 04/13/21 17:59 Range/Units White Blood Count 8.1 4.3-11.0 10^3/uL Red Blood Count 2.41 L 3.80-5.11 10^6/uL Hemoglobin 7.4 L 11.5-16.0 g/dL Hematocrit 21 L 35-52 % Mean Corpuscular Volume 89 80-99 fL Mean Corpuscular Hemoglobin 31 25-34 pg Mean Corpuscular Hemoglobin Concent 35 32-36 g/dL Red Cell Distribution Width 13.5 10.0-14.5 % Platelet Count 338 130-400 10^3/uL Mean Platelet Volume 9.6 9.0-12.2 fL Immature Granulocyte % (Auto) 1 % Neutrophils (%) (Auto) 72 42-75 % Lymphocytes (%) (Auto) 11 L 12-44 % Monocytes (%) (Auto) 15 H 0-12 % Eosinophils (%) (Auto) 1 0-10 % Basophils (%) (Auto) 0 0-10 % Neutrophils # (Auto) 5.8 1.8-7.8 10^3/uL Lymphocytes # (Auto) 0.9 L 1.0-4.0 10^3/uL Monocytes # (Auto) 1.3 H 0.0-1.0 10^3/uL Eosinophils # (Auto) 0.1 0.0-0.3 10^3/uL Basophils # (Auto) 0.0 0.0-0.1 10^3/uL Immature Granulocyte # (Auto) 0.1 0.0-0.1 10^3/uL Prothrombin Time 14.3 12.2-14.7 SEC INR Comment 1.1 0.8-1.4 Activated Partial Thromboplast Time 40 H 24-35 SEC Sodium Level 121 *L 135-145 MMOL/L Potassium Level 5.1 H 3.6-5.0 MMOL/L Chloride Level 92 L 98-107 MMOL/L Carbon Dioxide Level 18 L 21-32 MMOL/L Anion Gap 11 5-14 MMOL/L Blood Urea Nitrogen 41 H 7-18 MG/DL Creatinine 1.76 H 0.60-1.30 MG/DL Estimat Glomerular Filtration Rate 27 BUN/Creatinine Ratio 23 Glucose Level 114 H 70-105 MG/DL Lactic Acid Level 0.93 0.50-2.00 MMOL/L Calcium Level 10.3 H 8.5-10.1 MG/DL Corrected Calcium 10.9 H 8.5-10.1 MG/DL Total Bilirubin 0.5 0.1-1.0 MG/DL Aspartate Amino Transf (AST/SGOT) 20 5-34 U/L Alanine Aminotransferase (ALT/SGPT) 9 0-55 U/L Alkaline Phosphatase 63 40-136 U/L B-Type Natriuretic Peptide 386.5 H <100.0 PG/ML Total Protein 6.2 L 6.4-8.2 GM/DL Albumin 3.3 3.2-4.5 GM/DL SARS-CoV-2 RNA (RT-PCR) Not Detected Not Detecte My Orders Orders - KACEY SELLERS APRN Cbc With Automated Diff (04/13/21 18:00) Comprehensive Metabolic Panel (04/13/21 18:00) Blood Culture (04/13/21 18:00) Sputum Culture (04/13/21 18:00) Urinalysis (04/13/21 18:00) Urine Culture (04/13/21 18:00) Protime With Inr (04/13/21 18:00) Partial Thromboplastin Time (04/13/21 18:00) Chest 1 View, Ap/Pa Only (04/13/21 18:00) Ed Iv/Invasive Line Start (04/13/21 18:00) Ed Iv/Invasive Line Start (04/13/21 18:00) Vital Signs Adult Sepsis Patie Q15M (04/13/21 18:00) O2 (04/13/21 18:00) Remove Rings In Anticipation O (04/13/21 18:00) Lactic Acid Analyzer (04/13/21 18:00) BNP (04/13/21 18:00) Covid 19 Inhouse Test (04/13/21 18:00) Ekg Tracing (04/13/21 18:10) Diltiazem Drip Pre-Mix (Cardizem Drip Pr (04/13/21 18:15) Iron Tibc %Sat & Ferritin (04/13/21 18:59) Iron Test (Fe) (04/13/21 18:59) Reticulocyte Count (04/13/21 18:59) Occult Blood Stool (04/13/21 19:29) Vital Signs/I&O 04/13/21 04/13/21 17:54 17:54 Pulse 119 Resp 25 B/P (MAP) 123/63 (83) Pulse Ox 94 O2 Delivery Room Air Room Air Capillary Refill : Less Than 3 Seconds 2 Blood Pressure Mean: 83 Diagnostic Imaging Diagonstic Imaging: Xray Plain Films/CT/US/NM/MRI: chest Comments NAME: RONAN GOTTI MED REC#: [id number] PT STATUS: REG ER : 1932 PHYSICIAN: KACEY SELLERS APRN ADMIT DATE: 04/13/21/ER Draft Date of Exam:04/13/21 CHEST 1 VIEW, AP/PA ONLY INDICATION: Sepsis and cough. Comparison made to the prior study from April 06, 2021. FINDINGS: Pacemaker device is present. There is enlargement of the cardiac silhouette. There are chronic interstitial changes within the lungs and there appears to be some mild central pulmonary vascular congestion. There are minimal discoid opacities at the left base likely reflecting atelectasis. There is no dense alveolar consolidation suggesting a pneumonia. No large effusion is evident. No findings of a pneumothorax. IMPRESSION: Enlarged cardiac silhouette and central pulmonary vascular congestion and background interstitial changes within the lungs without significant change from prior exam. There appears to be some minimal discoid atelectasis at the left base. There is no dense consolidation or large effusion evident. Dictated on workstation # [id number] Dict: 04/13/211829 Trans: 04/13/211832 CVB [id number] Interpreted by: JALYN FLOOD MD Electronically signed by: Departure Communication (Admissions) 1822-EKG shows atrial flutter with a rate varying between 113 and 145. Blood pressure is adequate at 130 systolic. She has not anticoagulated and has no history of this. Because of her low weight and advanced age she will get a low dose of Eliquis and we have initiated Cardizem drip. 1825-patient is alert and oriented to person place time and situation. She states that she is not short of breath if she lays flat. I discussed with her that she will need to be admitted. I posed the question "if your heart stops unexpectedly to you want us to try to bring you back or let you go?". She replies "just let me go". As such we will make her DO NOT RESUSCITATE status. 1909-I discussed with Dr. Verdugo will admit the patient, limit free water and replace sodium IV. Discussed with Dr. Guerrero, will withhold anticoagulation at this time until we determine the cause of the progressive anemia. Her fecal o ccult blood test in the emergency room is positive. Impression Primary Impression: Atrial flutter with rapid ventricular response Disposition: ADMITTED INPATIENT Condition: Stable Admissions Decision to Admit Reason: Admit from ER (General) Decision to Admit/Date: Apr 13, 2021 Time/Decision to Admit Time: 18:23 Departure-Patient Inst. Referrals: RICHARD VERDUGO MD (PCP/Family) Primary Care Physician KACEY SELLERS APRN Apr 13, 2021 18:07
[2021-04-13] MEDS ORDERED: dilTIAZem DRIP PRE-MIX 125 ML IV SCH ×2 (18:15→20:15)
[2021-04-13 18:19] LABS: BASOPHILS % (AUTO) 0 % (0-10); EOSINOPHILS # (AUTO) 0.1 10^3/uL (0.0-0.3); EOSINOPHILS % (AUTO) 1 % (0-10); HEMATOCRIT 21 % (35-52); HEMOGLOBIN 7.4 g/dL (11.5-16.0); LYMPHOCYTES # (AUTO) 0.9 10^3/uL (1.0-4.0); LYMPHOCYTES % (AUTO) 11 % (12-44); MEAN CORPUSCULAR HEMOGLOBIN 31 pg (25-34); MEAN CORPUSCULAR HGB CONC 35 g/dL (32-36); MEAN CORPUSCULAR VOLUME 89 fL (80-99); MEAN PLATELET VOLUME 9.6 fL (9.0-12.2); MONOCYTES # (AUTO) 1.3 10^3/uL (0.0-1.0); MONOCYTES % (AUTO) 15 % (0-12); NEUTROPHILS # (AUTO) 5.8 10^3/uL (1.8-7.8); NEUTROPHILS % (AUTO) 72 % (42-75); PLATELET COUNT 338 10^3/uL (130-400); WHITE BLOOD COUNT 8.1 10^3/uL (4.3-11.0)
[2021-04-13 18:30] LABS: ALBUMIN 3.3 GM/DL (3.2-4.5); POTASSIUM 5.1 MMOL/L (3.6-5.0)
[2021-04-13 18:31] LABS: CALCIUM 10.3 MG/DL (8.5-10.1); INR 1.1 (0.8-1.4); PROTHROMBIN TIME PATIENT 14.3 SEC (12.2-14.7)
[2021-04-13 18:32] LABS: TOTAL PROTEIN 6.2 GM/DL (6.4-8.2)
--- NOTE | 2021-04-13 18:33 | Diagnostic Imaging Report ---
INDICATION: Sepsis and cough. Comparison made to the prior study from April 06, 2021. FINDINGS: Pacemaker device is present. There is enlargement of the cardiac silhouette. There are chronic interstitial changes within the lungs and there appears to be some mild central pulmonary vascular congestion. There are minimal discoid opacities at the left base likely reflecting atelectasis. There is no dense alveolar consolidation suggesting a pneumonia. No large effusion is evident. No findings of a pneumothorax. IMPRESSION: Enlarged cardiac silhouette and central pulmonary vascular congestion and background interstitial changes within the lungs without significant change from prior exam. There appears to be some minimal discoid atelectasis at the left base. There is no dense consolidation or large effusion evident. Dictated by: Dictated on workstation # [id number]
[2021-04-13 18:34] LABS: BILIRUBIN,TOTAL 0.5 MG/DL (0.1-1.0)
[2021-04-13 18:36] LABS: CREATININE SERUM 1.76 MG/DL (0.60-1.30)
--- NOTE | 2021-04-13 20:10 | Tele-ICU Consult ---
History of Present Illness History of Present Illness Date Seen by Provider: Apr 13, 2021 Time Seen by Provider: 19:45 Date of Admission This virtual visit was conducted using real time audio/video. Thank you for asking us to see this patient for afib/RVR, anemia and hyponatremia. PMH: PM, asthma, htn., hypothyroid, CVA, CKD. SH: No smoking history. FH: Non-contributory. ROS: as in HPI. PE: Frail, cachectic. HR 121 irreg. BP 123/63 RR 20 O2 sat 94% on RA HEENT: No obvious masses, adenopathy or JVD. Chest: crackles on auscultation. CV: Irreg S1 S2 No murmur or added sounds. Abd: Non-tender. Bowel sounds Y. : Unremarkable. 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 No obvious focal findings. Extremities: edema. Capillary refill < 3 seconds. Skin: pale. Results: Elevated K 5.1, BUN 41, Creat. 1.76. Decreased HB 7.4. CXR w CM, vasc. congestion. A/P: Available chart/ vitals / labs / images reviewed. Video assessment done using teleICU camera, rest of exam as per RN. Monitor for any increasing oxygenation needs. Critical Care: critically ill patient. Cont Diltiazem, anticoags held due to anemia. IVF for low NA. Discussed with HARRISON Ramesh. Asked RN to reach out to eICU if any questions or concerns later. Time spent with patient/coordination of care with other health professionals (mins):25 Allergies and Home Medications Allergies Coded Allergies: Sulfa (Sulfonamide Antibiotics) (Verified Allergy, Severe, ITCH, 12/30/12) carbamazepine (Verified Adverse Reaction, Severe, 04/05/21) codeine (Verified Adverse Reaction, Unknown, "LOOPY", 07/06/14) Home Medications Acetaminophen 500 Mg Tablet, 1,000 MG PO Q8H PRN for PAIN-MILD (1-4), (Reported) Acyclovir 400 Mg Tablet, 800 MG PO TID Prescribed by: RICHARD PERALTA on 04/07/21 09 Amlodipine Besylate 5 Mg Tablet, 10 MG PO DAILY Prescribed by: RICHARD PERALTA on 04/07/21 0947 Aspirin 81 Mg Tablet.dr, 81 MG PO DAILY, (Reported) Candesartan Cilexetil 8 Mg Tablet, 8 MG PO DAILY, (Reported) Cefuroxime Axetil 500 Mg Tablet, 500 MG PO BID Prescribed by: RICHARD PERALTA on 04/07/21946 Cetirizine HCl 10 Mg Tablet, 10 MG PO DAILY, (Reported) Cholecalciferol (Vitamin D3) 50 Mcg Capsule, 50 MCG PO DAILY, (Reported) Clopidogrel Bisulfate 75 Mg Tablet, 75 MG PO DAILY, (Reported) Cranberry Conc/C/Bacill Coag 1 Each Tablet, 1 TAB PO DAILY, (Reported) Guaifenesin/Dextromethorphan 5 Ml Syrup, 10 ML PO Q4H PRN for COUGH Prescribed by: RICHARD PERALTA on 04/07/21946 Lactobac Cmb #3/Fos/Pantethine 1 Each Capsule, 1 EACH PO BID Prescribed by: RICHARD PERALTA on 04/07/21946 Levothyroxine Sodium 50 Mcg Tablet, 50 MCG PO DAILY, (Reported) [place]-3 Fatty Acids/Fish Oil 1 Each Capsule, 1 EACH PO DAILY, (Reported) Pantoprazole Sodium 40 Mg Tablet.dr, 40 MG PO BID Prescribed by: RICHARD PERALTA on 04/07/21946 Sucralfate 1 Gm Tablet, 1 GM PO ACHS Prescribed by: RICHARD PERALTA on 04/07/21946 [Lidocaine 4% Patch] 1 EA PATCH, 1 EA TOP DAILY CUT TO FIT ON RIGHT CHEEK - LEAVE ON FOR 12 HOURS, OFF FOR 12 HOURS Prescribed by: RICHARD PERALTA on 04/07/21946 Past Medical/Social/Family Hx Patient Social History Tobacco Use?: No Use of E-Cig and/or Vaping dev: No Substance use?: No Alcohol Use?: No Pt stated abuse/neglect: No Immunizations Up To Date First/Initial COVID19 Vaccinat: SEPTEMBER 2020 Second COVID19 Vaccination Celestine: SEPTEMBER 2020 Tetanus Booster (TDap): Unknown Date of Pneumonia Vaccine: Jul 18, 2005 Current Status status: No Advance Directives: No Primary Language: [place] Preferred Spoken Language: [place] Review of Systems Constitutional: see HPI EENTM: see HPI Respiratory: dyspnea on exertion (see free text) Cardiovascular: see HPI Gastrointestinal: see HPI Genitourinary: see HPI Musculoskeletal: see HPI Skin: see HPI Psychiatric/Neurological: See HPI (see free text) Sepsis Event Evaluation Height, Weight, BMI Height: 5'2.00" Weight: 106lbs. 0.0oz. 48.198197vf; 23.00 BMI Method:Stated Exam Exam Patient acknowledged, consented, and participated in this virtual visit which was conducted using real time audio/video Vital Signs Date Time Temp Pulse Resp B/P (MAP) Pulse Ox O2 Delivery O2 Flow Rate FiO2 04/13/21 19:56 36.6 86 18 123/47 93 Room Air 04/13/21 17:54 119 25 123/63 (83) 94 Room Air 04/13/21 17:54 Room Air Height & Weight Height: 5'2.00" Weight: 106lbs. 0.0oz. 48.676761hp; 23.00 BMI Method:Stated General Appearance: Chronically ill, Cachetic Capillary Refill: Less Than 3 Seconds Peripheral Pulses: 1+ Dorsalis Pedis (R), 1+ Left Dors-Pedis (L) Gastrointestinal: normal bowel sounds, non tender, soft Results Lab Laboratory Tests 04/13/21 17:59 Assessment/Plan Assessment/Plan See free text Critical Care: Critically Ill Patient ALVARO STROUD MD Apr 13, 2021 20:10
[2021-04-13 20:11] LABS: BILIRUBIN,URINE NEGATIVE (NEGATIVE); CLARITY,URINE CLEAR; COLOR,URINE YELLOW; GLUCOSE, URINE (UA) NEGATIVE (NEGATIVE); KETONES,URINE NEGATIVE (NEGATIVE); LEUKOCYTE ESTERASE ,URINE NEGATIVE (NEGATIVE); NITRITE,URINE NEGATIVE (NEGATIVE); PH,URINE 5.5 (5-9); PROTEIN,URINE TRACE (NEGATIVE)
[2021-04-13 20:11] LABS: RETICULOCYTE % 2.88 % (0.50-2.40)
[2021-04-13] MEDS ORDERED: CATHETER FLUSH 10 ML SYR IV PRN (20:15)
[2021-04-13 20:18] LABS: BACTERIA,URINE TRACE /HPF
[2021-04-13 20:19] LABS: HYALINE CASTS, URINE 0-2 /LPF
[2021-04-13] MEDS: NS IV 1000 ML 1,000 ML IV SCH (20:26)
--- NOTE | 2021-04-13 21:29 | CONSULTATION REPORT ---
DATE OF SERVICE: 04/13/2021 ATTENDING PRIMARY CARE PHYSICIAN: Alena Verdugo MD. HISTORY OF PRESENT ILLNESS: The patient is an 89-year-old female, who was brought by her family members to the Emergency Department for shortness of breath and cough for the past two days. She does not report any fever, no chills as well as no sputum production. She was here recently for hyponatremia as well as metabolic encephalopathy as well as bradycardia from sick sinus syndrome. She underwent a pacemaker implantation on 04/06/2021. She again presented with shortness of breath. A chest x-ray did show central pulmonary consolidation as well as atelectasis. Coronavirus-19 testing was negative. She was also found to be anemic with a hemoglobin of 7.4 and a Hemoccult test that was positive. She does not report any red blood per rectum nor any dark tarry stools. She does have a history of gastroesophageal reflux disease and peptic ulcer disease. She does not remember when her last colonoscopy was. PAST MEDICAL HISTORY: History of brain aneurysm, hypertension, renal failure, history of cerebrovascular accident, degenerative joint disease, sick sinus syndrome, asthma, and history of metabolic encephalopathy. PAST SURGICAL HISTORY: Bilateral carpal tunnel release, hiatal hernia repair, appendectomy, and cholecystectomy. ALLERGIES: SULFA, CARBAMAZEPINE, and CODEINE. MEDICATIONS: Acyclovir 800 mg t.i.d., amlodipine 5 mg daily, aspirin 81 mg daily, candesartan 8 mg daily, cefuroxime 500 mg b.i.d., cetirizine 10 mg daily, Plavix 75 mg daily, levothyroxine 50 mcg daily, Protonix 40 mg b.i.d., Carafate 1 gram q.i.d., and amlodipine 5 mg daily. SOCIAL HISTORY: Negative smoke and negative alcohol. FAMILY HISTORY: Father, colon cancer and myocardial infarction. REVIEW OF SYSTEMS: This is a well-nourished female, currently in no acute distress. She is not experiencing any shortness of breath or difficulty in breathing. No chest pain, palpitations or diaphoresis. No nausea or vomiting. No hematemesis and no coffee ground emesis. She does not report any red blood per rectum nor any dark tarry stools. No fever, chills, no recent inadvertent weight loss. All other review of systems negative. PHYSICAL EXAMINATION: VITAL SIGNS: Temperature 36.6, blood pressure 123/61, pulse 107, respirations 24, and pulse ox 94% on 2 liters nasal cannula. CHEST: A few scattered rales and rhonchi bilaterally. HEART: Regular and no murmurs. EXTREMITIES: A +1/3 bilateral lower extremity edema and negative Homans sign. HEENT: No scleral icterus. NECK: No cervical lymphadenopathy. ABDOMEN: Soft, nontender, and nondistended. SKIN: Warm and dry. LABORATORY DATA: WBC 8.1, hemoglobin 7.4, hematocrit 21, and platelets 338. Sodium 121, potassium 5.1, BUN 41, and creatinine 1.76. ASSESSMENT AND PLAN: An 89-year-old female with blood loss anemia as well as cough and worsening shortness of breath and hyponatremia. Once she is resuscitated and her electrolytes are corrected and hemoglobin stable at some point on this admission, we will proceed with an EGD and colonoscopy to look for potential blood loss sources and potential intervention or therapeutics. 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
[2021-04-13] MEDS: guaiFENesin/DM (ROBITUSSIN DM) 10 ML UDC PO PRN (23:21)
[2021-04-14 05:02] LABS: BASOPHILS % (AUTO) 0 % (0-10); EOSINOPHILS # (AUTO) 0.2 10^3/uL (0.0-0.3); EOSINOPHILS % (AUTO) 2 % (0-10); LYMPHOCYTES # (AUTO) 0.8 10^3/uL (1.0-4.0); LYMPHOCYTES % (AUTO) 11 % (12-44); MEAN CORPUSCULAR HEMOGLOBIN 31 pg (25-34); MEAN CORPUSCULAR HGB CONC 34 g/dL (32-36); MEAN CORPUSCULAR VOLUME 89 fL (80-99); MEAN PLATELET VOLUME 9.4 fL (9.0-12.2); MONOCYTES # (AUTO) 1.1 10^3/uL (0.0-1.0); MONOCYTES % (AUTO) 15 % (0-12); NEUTROPHILS # (AUTO) 5.1 10^3/uL (1.8-7.8); NEUTROPHILS % (AUTO) 72 % (42-75); PLATELET COUNT 313 10^3/uL (130-400); WHITE BLOOD COUNT 7.1 10^3/uL (4.3-11.0)
[2021-04-14 05:03] LABS: HEMATOCRIT 21 % (35-52)
[2021-04-14 05:13] LABS: ALBUMIN 3.1 GM/DL (3.2-4.5)
[2021-04-14 05:14] LABS: POTASSIUM 4.3 MMOL/L (3.6-5.0)
[2021-04-14 05:15] LABS: CALCIUM 9.6 MG/DL (8.5-10.1)
[2021-04-14 05:16] LABS: TOTAL PROTEIN 5.6 GM/DL (6.4-8.2)
[2021-04-14 05:18] LABS: BILIRUBIN,TOTAL 0.5 MG/DL (0.1-1.0)
[2021-04-14 05:19] LABS: PHOSPHORUS 3.1 MG/DL (2.3-4.7)
[2021-04-14 05:20] LABS: CREATININE SERUM 1.59 MG/DL (0.60-1.30)
[2021-04-14 05:23] LABS: MAGNESIUM 2.3 MG/DL (1.6-2.4)
[2021-04-14] MEDS: POTASSIUM CL 10MEQ/50ML IVPB 50 ML IV SCH (05:32)
[2021-04-14] MEDS: KCL 20 MEQ TAB (K-DUR) PO SCH (05:32)
[2021-04-14] MEDS: MAGNESIUM 1 GM/100 ML IVPB 100 ML IV SCH (05:32)
[2021-04-14] MEDS: guaiFENesin/DM (ROBITUSSIN DM) 10 ML UDC PO PRN (05:35)
[2021-04-14] MEDS: NS IV 1000 ML 1,000 ML IV SCH ×2 (05:42→17:13)
--- NOTE | 2021-04-14 09:51 | History & Physical ---
History of Present Illness History of Present Illness Reason for visit/HPI PT IS AN 89 Y/O FEMALE WHO IS KNOWN TO ME FROM CLINIC. SHE PRESENTED TO THE HOSPITAL FOR WEAKNESS, PERSISTENT COUGH AND SHORTNESS OF BREATH. SHE WAS FOUND TO HAVE A PERICARDIAL EFFUSION ON IMAGING WELL HAS HAVING RECURRENT HYPONATREMIA. PT HAD AN EPISODE ABOUT A WEEK AGO WITH HYPONATREMIA THAT WAS ATTRIBUTED TO CARBAMAZEPINE, BUT THIS IS NOT LIKELY TO BE THE SOURCE SINCE SHE HAS HAD A RECURRENT EPISODE OFF OF THE MEDICATION. Date of Admission Apr 13, 2021 at 19:12 Date Seen by a Provider: Apr 14, 2021 Time Seen by a Provider: 09:40 Attending Physician Richard Verdugo MD Admitting Physician Richard Verdugo MD Consult PULMONARY CRITICAL TELEMED PHYSICIAN DR. LUNA, CARDIOLOGY DR. CUBA, SURGEON Allergies and Home Medications Allergies Coded Allergies: Sulfa (Sulfonamide Antibiotics) (Verified Allergy, Severe, ITCH, 12/30/12) carbamazepine (Verified Adverse Reaction, Severe, 04/05/21) codeine (Verified Adverse Reaction, Unknown, "LOOPY", 07/06/14) Patient Home Medication List Home Medication List Reviewed: Yes Acetaminophen (Tylenol Extra Strength) 500 Mg Tablet, 1,000 MG PO Q8H PRN for PAIN-MILD (1-4), (Reported) Entered as Reported by: ANNEL MANN on 04/03/21 1034 Last Action: Reviewed Amlodipine Besylate (Amlodipine Besylate) 5 Mg Tablet, 10 MG PO DAILY, (Reported) Entered as Reported by: ANNEL MANN on 04/14/21 1155 Last Action: Reviewed Aspirin (Aspirin EC) 81 Mg Tablet., 81 MG PO DAILY, (Reported) Entered as Reported by: ANNEL MANN on 04/03/21 1034 Last Action: Reviewed Candesartan Cilexetil (Candesartan Cilexetil) 8 Mg Tablet, 8 MG PO DAILY, (Reported) Entered as Reported by: TO AMBROSIO on 06/30/18 1149 Last Action: Reviewed Cetirizine HCl (Zyrtec) 10 Mg Tablet, 10 MG PO DAILY, (Reported) Entered as Reported by: TO AMBROSIO on 06/30/18 1149 Last Action: Reviewed Cholecalciferol (Vitamin D3) (Vitamin D3) 50 Mcg Capsule, 50 MCG PO DAILY, (Reported) Entered as Reported by: ANNEL MANN on 04/03/21 1034 Last Action: Reviewed Clopidogrel Bisulfate (Clopidogrel) 75 Mg Tablet, 75 MG PO DAILY, (Reported) Entered as Reported by: TO AMBROSIO on 06/30/18 1149 Last Action: Reviewed Cranberry Conc/C/Bacill Coag (Azo Cranberry Tablet) 1 Each Tablet, 1 TAB PO DAILY, (Reported) Entered as Reported by: TO AMBROSIO on 06/30/18 1148 Last Action: Reviewed Guaifenesin/Dextromethorphan (Guaifenesin Dm Syrup) 5 Ml Syrup, 10 ML PO Q4H PRN for COUGH, (Reported) Entered as Reported by: ANNEL MANN on 04/14/21 115 Last Action: Reviewed Levalbuterol Tartrate (Levalbuterol Tartrate Hfa) 15 Gm Hfa.aer.ad, 2 PUFF INH Q6H PRN for SHORTNESS OF BREATH, (Reported) Entered as Reported by: ANNEL MANN on 04/14/21 1200 Last Action: Reviewed Levothyroxine Sodium (Levothyroxine Sodium) 50 Mcg Tablet, 50 MCG PO DAILY, (Reported) Entered as Reported by: TO AMBROSIO on 06/30/18 1149 Last Action: Reviewed [place]-3 Fatty Acids/Fish Oil (Fish Oil 1,200 mg Softgel) 1 Each Capsule, 1 EACH PO DAILY, (Reported) Entered as Reported by: ANNEL MANN on 04/03/21 1034 Last Action: Reviewed Pantoprazole Sodium (Pantoprazole Sodium) 40 Mg Tablet.dr, 40 MG PO BID, (Reported) Entered as Reported by: ANNEL MANN on 04/14/21 115 Last Action: Reviewed Sucralfate (Carafate) 1 Gm Tablet, 1 GM PO ACHS, (Reported) Entered as Reported by: ANNEL MANN on 04/14/21 115 Last Action: Reviewed Discontinued Medications Acyclovir (Acyclovir) 400 Mg Tablet, 800 MG PO TID Discontinued Reason: No Longer Taking Prescribed by: RICHARD VERDUGO on 04/07/21 0928 Last Action: Discontinued Amlodipine Besylate (Amlodipine Besylate) 5 Mg Tablet, 5 MG PO DAILY, (Reported) Entered as Reported by: TO AMBROSIO on 06/30/18 1149 Amlodipine Besylate (Amlodipine Besylate) 5 Mg Tablet, 10 MG PO DAILY Discontinued Reason: Duplicate Order Prescribed by: RICHARD VERDUGO on 04/07/21946 Last Action: Discontinued Cefuroxime Axetil (Cefuroxime) 500 Mg Tablet, 500 MG PO BID Discontinued Reason: No Longer Taking Prescribed by: RICHARD VERDUGO on 04/07/21946 Last Action: Discontinued Guaifenesin/Dextromethorphan (Guaifenesin Dm Syrup) 5 Ml Syrup, 10 ML PO Q4H PRN for COUGH Discontinued Reason: Duplicate Order Prescribed by: RICHARD VERDUGO on 04/07/21946 Last Action: Discontinued Lactobac Cmb #3/Fos/Pantethine (Probiotic & Acidophilus Cap) 1 Each Capsule, 1 EACH PO BID Discontinued Reason: No Longer Taking Prescribed by: RICHARD VERDUGO on 04/07/21946 Last Action: Discontinued Pantoprazole Sodium (Pantoprazole Sodium) 40 Mg Tablet.dr, 40 MG PO BID Discontinued Reason: Duplicate Order Prescribed by: RICHARD VERDUGO on 04/07/21946 Last Action: Discontinued Sucralfate (Sucralfate) 1 Gm Tablet, 1 GM PO ACHS Discontinued Reason: Duplicate Order Prescribed by: RICHARD VERDUGO on 04/07/21946 Last Action: Discontinued [Lidocaine 4% Patch] 1 EA PATCH, 1 EA TOP DAILY Discontinued Reason: Duplicate Order Prescribed by: RICHARD VERDUGO on 04/07/21946 Last Action: Discontinued Past Cfufbut-Fvlfvp-Fbzbqk Hx Patient Social History Marrital Status: Living Status: LIVES WITH HER DTR IN THEIR SHARED HOME Employed/Student: retired Tobacco Use?: No Smoking Status: Former Smoker Use of E-Cig and/or Vaping dev: No Use of E-Cig and/or Vaping Alvin: Never a User Substance use?: No Alcohol Use?: No Pt feels they are or have been: No Immunizations Up To Date Date of Influenza Vaccine: Mar 17, 2018 First/Initial COVID19 Vaccinat: SEPTEMBER 2020 Second COVID19 Vaccination Celestine: SEPTEMBER 2020 Tetanus Booster (TDap): Unknown Date of Pneumonia Vaccine: Jul 18, 2005 Seasonal Allergies Seasonal Allergies: Yes Current Status status: No Advance Directives: No Primary Language: [place] Preferred Spoken Language: [place] Sensory deficits: Vision impairment, Hearing impairment Implanted or Applied Medical D: Pacemaker (PLACED MARCH 2021) Past Medical History Surgeries: Abdominal, Appendectomy, Gallbladder Asthma Currently Using CPAP: No Currently Using BIPAP: No Hypertension Stroke Renal Failure Arthritis Hearing Impairment: Hard of Hearing Blood Disorders: No Adverse Reaction/Blood Tranf: No Family Medical History Reviewed and Corrections made Arthritis Cardiovascular disease 19 FATHER Colon cancer 19 FATHER Diabetes mellitus G8 BROTHER Hypercholesterolemia 19 FATHER Hypertension 19 FATHER Myocardial infarction 19 FATHER Osteoporosis 19 MOTHER No Family History of: AIDS Abdominal aortic aneurysm Rich's disease Alcoholism Alzheimer's disease Aphasia Asthma Cancer of mouth Cataracts Completed stroke Congenital disease Congenital heart disease Coronary thrombosis Cystic fibrosis Deafness or hearing loss Dementia Drug abuse Dysphasia Fibrocystic disease of breast Gastroenteritis Glaucoma Headache disorder Infertility Kidney disease Neoplasm Not obtainable due to adoption Parkinson's disease Prostate cancer Psychosocial problem Respiratory disorder Seizure disorder Severe allergy Thyroid disease Tuberculosis Visual disorder Heart Disease, Cancer, COPD, Diabetes, Hypertension, Other Conditions/Hx (OSTEOPOROSIS) Review of Systems Constitutional: No chills, No fever; malaise, weakness EENTM: hearing loss; No hoarseness, No throat pain Respiratory: cough; No dyspnea on exertion, No hemoptysis; short of breath Cardiovascular: No edema; Hx of Intervention (RECENT PACEMAKER), palpitations; No syncope Gastrointestinal: No abdominal pain, No constipation, No diarrhea, No dysphagia, No hematemesis, No heartburn, No melena, No nausea, No vomiting; other (DECREASED APPETITE) Genitourinary: no symptoms reported Musculoskeletal: muscle weakness (GENERALIZED) Skin: lesions (SCABBED LESION ON RIGHT CHEEK AND CHIN); No rash Psychiatric/Neurological: Denies Anxiety, Denies Depressed, Denies Headache; Weakness (FATIGUE/WEAKNESS) All Other Systems Reviewed Negative Unless Noted: Yes Physical Exam Vital Signs Vital Signs - First Documented 04/13/21 04/13/21 04/13/21 17:54 19:56 20:14 Temp 36.6 Pulse 119 Resp 25 B/P (MAP) 123/63 (83) Pulse Ox 94 O2 Delivery Room Air O2 Flow Rate 2.00 Capillary Refill : Less Than 3 Seconds Height, Weight, BMI Height: 5'2.00" Weight: 106lbs. 0.0oz. 48.701142og; 23.78 BMI Method:Stated General Appearance: WD/WN, Other (PERSISTENT COUGHING) Eyes: Bilateral Eye Normal Inspection, Bilateral Eye PERRL, Bilateral Eye EOMI HEENT: PERRL/EOMI Neck: Full Range of Motion, Non Tender, Supple Respiratory: Chest Non Tender, No Accessory Muscle Use, Decreased Breath Sounds (DIFFUSELY DECREASED, DISTANT BREATH SOUNDS THROUGHOUT); No Respiratory Distress, No Rhonci, No Wheezing Cardiovascular: Normal Peripheral Pulses, Irregularly Irregular, Other (PERICARDIAL RUB) Gastrointestinal: Normal Bowel Sounds, Non Tender, Soft Rectal: Deferred Back: Normal Inspection Extremity: Non Tender, No Pedal Edema Neurologic/Psychiatric: Alert, Oriented x3, No Motor/Sensory Deficits, Normal Mood/Affect, scientist engineer II-XII Norm as Tested (HEARING LOSS, FULL FACIAL MOTION, EYE MOTION NORMAL, NORMAL MOVEMENT HEAD/NECK, SCAB ON CHIN AND CHEEK ON RIGHT, NORMAL SENSATION) Skin: Normal Color, Warm/Dry, Other (SCAB ON CHEEK AND CHIN) Lymphatic: No Adenopathy Assessment/Plan Assessment and Plan ACUTE ATRIAL FIBRILLATION ACUTE ANEMIA PERICARDIAL EFFUSION HYPONATREMIA CHRONIC COUGH DYSPNEA ON EXERTION ACUTE RENAL INSUFFICIENCY ELEVATED BNP ACUTE ATRIAL FIBRILLATION - DEFER TO CARDIOLOGY - PT WAS STARTED ON CARDIZEM DRIP ON ADMISSION ACUTE ANEMIA - CONSULT TO SURGEON - WILL WAIT ON EGD AND COLONOSCOPE AFTER PATIENT IS MEDICALLY STABLE. - TRANSFUSE ONE UNIT PRBC TODAY - REPEAT H AND H THIS EVENING AND IF NEEDED WILL REPEAT A ONE UNIT TRANSFUSION. - HEMOCCULT STOOLS PERICARDIAL EFFUSION - DEFER TO DR. LUNA - CARDIOLOGY - - PLANNING ON INTERVENTION IN INJECTION MOLD TECHNICIAN TODAY WITH DRAIN TO BE PLACED TO SLOWLY DRAIN THE EFFUSION HYPONATREMIA - DISCUSSED WITH PT AND HER DTR - WE WILL CONTINUE TO WORK THIS UP - FLUID RESTRICTION ORALLY - MONITOR LABS CHRONIC COUGH WITH DYSPNEA ON EXERTION - PT ON OXYGEN - CT ON LAST ADMISSION NEGATIVE ACUTE RENAL INSUFFICIENCY - IMPROVED - MONITOR LABS SINCE PT HAS BEEN PLACED ON IV FLUID ELEVATED BNP - DUE TO AFIB AND PERICARDIAL EFFUSION. CANNOT START ANTICOAG DUE TO ANEMIA AND CONCERN FOR GI BLEED. GI PROPHYLAXIS WITH PPI AND CARAFATE. Admission Diagnosis ACUTE ATRIAL FIBRILLATION ACUTE ANEMIA PERICARDIAL EFFUSION HYPONATREMIA CHRONIC COUGH DYSPNEA ON EXERTION ACUTE RENAL INSUFFICIENCY ELEVATED BNP Admission Status: Inpatient Order (span 2 midnights) Reason for Inpatient Admission: INPT ADMISSION FOR PERICARDIAL EFFUSION, ACUTE ATRIAL FIBRILLATION AND ANEMIA RICHARD VERDUGO MD Apr 14, 2021 09:51
--- NOTE | 2021-04-14 09:53 | Tele-ICU Consult ---
History of Present Illness History of Present Illness Date Seen by Provider: Apr 14, 2021 Time Seen by Provider: 08:18 Date of Admission Allergies and Home Medications Allergies Coded Allergies: Sulfa (Sulfonamide Antibiotics) (Verified Allergy, Severe, ITCH, 12/30/12) carbamazepine (Verified Adverse Reaction, Severe, 04/05/21) codeine (Verified Adverse Reaction, Unknown, "LOOPY", 07/06/14) Home Medications Acetaminophen 500 Mg Tablet, 1,000 MG PO Q8H PRN for PAIN-MILD (1-4), (Reported) Acyclovir 400 Mg Tablet, 800 MG PO TID Prescribed by: RICHARD PERALTA on 04/07/21946 Amlodipine Besylate 5 Mg Tablet, 10 MG PO DAILY Prescribed by: RICHARD PERALTA on 04/07/21946 Aspirin 81 Mg Tablet.dr, 81 MG PO DAILY, (Reported) Candesartan Cilexetil 8 Mg Tablet, 8 MG PO DAILY, (Reported) Cefuroxime Axetil 500 Mg Tablet, 500 MG PO BID Prescribed by: RICHARD PERALTA on 04/07/21946 Cetirizine HCl 10 Mg Tablet, 10 MG PO DAILY, (Reported) Cholecalciferol (Vitamin D3) 50 Mcg Capsule, 50 MCG PO DAILY, (Reported) Clopidogrel Bisulfate 75 Mg Tablet, 75 MG PO DAILY, (Reported) Cranberry Conc/C/Bacill Coag 1 Each Tablet, 1 TAB PO DAILY, (Reported) Guaifenesin/Dextromethorphan 5 Ml Syrup, 10 ML PO Q4H PRN for COUGH Prescribed by: RICHARD PERALTA on 04/07/21946 Lactobac Cmb #3/Fos/Pantethine 1 Each Capsule, 1 EACH PO BID Prescribed by: RICHARD PERALTA on 04/07/21946 Levothyroxine Sodium 50 Mcg Tablet, 50 MCG PO DAILY, (Reported) [place]-3 Fatty Acids/Fish Oil 1 Each Capsule, 1 EACH PO DAILY, (Reported) Pantoprazole Sodium 40 Mg Tablet.dr, 40 MG PO BID Prescribed by: RICHARD PERALTA on 04/07/21946 Sucralfate 1 Gm Tablet, 1 GM PO ACHS Prescribed by: RICHARD PERALTA on 04/07/21946 [Lidocaine 4% Patch] 1 EA PATCH, 1 EA TOP DAILY CUT TO FIT ON RIGHT CHEEK - LEAVE ON FOR 12 HOURS, OFF FOR 12 HOURS Prescribed by: RICHARD PERALTA on 04/07/21 0983 Past Medical/Social/Family Hx Patient Social History Tobacco Use?: No Use of E-Cig and/or Vaping dev: No Substance use?: No Alcohol Use?: No Pt stated abuse/neglect: No Immunizations Up To Date Influenza Vaccine Up-to-Date: Yes; Up-to-Date First/Initial COVID19 Vaccinat: SEPTEMBER 2020 Second COVID19 Vaccination Celestine: SEPTEMBER 2020 Tetanus Booster (TDap): Unknown Date of Pneumonia Vaccine: Jul 18, 2005 Current Status status: No Advance Directives: No Primary Language: Ghanaian Preferred Spoken Language: Ghanaian Sensory deficits: Vision impairment, Hearing impairment Implanted or Applied Medical D: Pacemaker Review of Systems Constitutional: see HPI Sepsis Event Evaluation Height, Weight, BMI Height: 5'2.00" Weight: 106lbs. 0.0oz. 48.541260jo; 23.78 BMI Method:Stated Exam Exam Patient acknowledged, consented, and participated in this virtual visit which was conducted using real time audio/video Vital Signs Date Time Temp Pulse Resp B/P (MAP) Pulse Ox O2 Delivery O2 Flow Rate FiO2 04/14/21 09:00 71 28 122/52 95 Nasal Cannula 2.00 04/14/21 08:00 69 19 118/69 96 Nasal Cannula 2.00 04/14/21 07:45 36.4 04/14/21 07:00 79 20 125/62 96 Nasal Cannula 2.00 04/14/21 07:00 86 04/14/21 06:00 78 22 121/60 96 Nasal Cannula 2.00 04/14/21 05:00 90 26 121/62 97 Nasal Cannula 2.00 04/14/21 04:57 36.8 04/14/21 04:32 Nasal Cannula 2.00 04/14/21 04:00 88 23 119/56 95 Nasal Cannula 2.00 04/14/21 03:00 86 28 126/66 96 Nasal Cannula 2.00 04/14/21 02:00 87 27 115/54 94 Nasal Cannula 2.00 04/14/21 01:00 82 20 114/60 91 Nasal Cannula 2.00 04/14/21 01:00 82 04/14/21 00:00 81 27 110/60 98 Nasal Cannula 2.00 04/13/21 23:23 Nasal Cannula 2.00 04/13/21 23:00 90 28 109/67 97 Nasal Cannula 2.00 04/13/21 22:00 98 20 97/51 90 Nasal Cannula 2.00 04/13/21 21:30 80 20 73/58 98 Nasal Cannula 2.00 04/13/21 21:00 93 18 108/67 91 Nasal Cannula 2.00 04/13/21 20:45 94 18 113/61 91 Nasal Cannula 2.00 04/13/21 20:45 Nasal Cannula 2.00 04/13/21 20:30 94 20 121/55 95 Nasal Cannula 2.00 04/13/21 20:15 96 20 129/54 94 Nasal Cannula 2.00 04/13/21 20:14 36.4 107 24 123/61 94 Nasal Cannula 2.00 04/13/21 20:11 100 04/13/21 19:56 36.6 86 18 123/47 93 Room Air 04/13/21 17:54 119 25 123/63 (83) 94 Room Air 04/13/21 17:54 Room Air I & O 04/14/21 07:00 Intake Total 400 ml Output Total 225 ml Balance 175 ml Height & Weight Height: 5'2.00" Weight: 106lbs. 0.0oz. 48.324850rs; 23.78 BMI Method:Stated General Appearance: No Apparent Distress, Chronically ill, Cachetic, Mild Distress Capillary Refill: Less Than 3 Seconds Peripheral Pulses: 1+ Dorsalis Pedis (R), 1+ Left Dors-Pedis (L) Gastrointestinal: normal bowel sounds, non tender, soft Results Lab Laboratory Tests 04/13/21 17:59 04/14/21 04:13 Assessment/Plan Assessment/Plan (Tele-ICU Physician , consultation) Available chart/ vitals / labs / Images reviewed H&P is from ER notes Patient's information available about PMH, Shx, Fhx allergy reviewed in EMR. ROS as per chart and RN report Now in ICU, hemodynamically stable , 2 L nc Video assessment done using teleICU camera, rest of exam as per RN Discussed with RN. Consultants: cards Hospital course: 04/13 ER to ICU with afib/RVR, anemia and hyponatremia. A/P A fib RVR with recent admission with SSS - s/p pacemaker 04/06/21- SINUS now - cards consulted - cardizem gtt - ECHO pending - AC on hold with anemia Anemia Acute on chronic - ECHO pending ( post pacemaker ) - ? 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 ICS/LABA trail - as per PCP Lines : periph (Central Line Necessity Reviewed) Carrera: + OG: Nutrition: Analgesia: Anxiety/ delirium VTE Prophylaxis: scd , AC on hold Stress Ulcer Prophylaxis: Glycemic Control: Plans in collaboration with bedside consultants and IM MDs. Discussed with RN to reach out if any questions or concerns A total of 35 minutes of critical care time was devoted to this patient today, required to treat and/or prevent further deterioration of critical care condition ( as above ) . GEOVANNY PIERCE MD Apr 14, 2021 09:53
[2021-04-14] MEDS ORDERED: FUROSEMIDE 40 MG/4 ML INJ (LASIX) ONE (10:04)
[2021-04-14] MEDS ORDERED: FUROSEMIDE 40 MG/4 ML INJ (LASIX) IVP NR (10:30)
--- NOTE | 2021-04-14 10:58 | Consultation-Cardiology ---
HPI-Cardiology Cardiology Consultation: Date of Consultation 04/14/2021 Date of Admission 04/13/2021 Attending Physician Richard Verdugo MD Admitting Physician Richard Verdugo MD Consulting Physician ADALBERTO LUNA JR, MD HPI: Time Seen by a Provider: 10:00 Chief Complaint: Reason for consultation: Atrial flutter I had the pleasure of seeing Marcia in the intensive care unit at [facility] in [place], [place] this morning. I know her from a previous hospitalization last week when she was found to have sick sinus syndrome and underwent permanent pacemaker implantation on 04/07/2021. She was discharged home the following day. When she first went home, she felt fine. However, over the past few days she has been developing increasing dyspnea on exertion as well as paroxysmal nocturnal dyspnea and orthopnea. She has had a chronic cough but this became worse. Last evening she was so short of breath she came to the hospital for further evaluation. She was found to be in atrial flutter. She was started on intravenous diltiazem and admitted to the intensive care unit for further evaluation. Overnight, she converted to sinus rhythm. She is still fairly short of breath. She denies any chest discomfort. She denies palpitations. She has had some lightheaded spells but denies any syncope. She denies any lower extremity edema. Certain portions of this document may have been dictated utilizing voice recognition technology. Inherent to this technology, typographical and grammatical errors may exist. As much as I am diligent to identify and correct these mistakes, some errors may remain in the document. Review of Systems-Cardiology Review of Systems Other comments Review of 10 organ systems is as per the history of present illness, otherwise negative. [id number] Hx Patient Social History Former smoker/When Quit: Jun 17, 1985 2nd Hand Smoke Exposure: No Have you traveled recently?: No Alcohol Use?: No Pt feels they are or have been: No Immunizations Up To Date Date of Pneumonia Vaccine: Jul 18, 2005 Date of Influenza Vaccine: Mar 17, 2018 Past Medical History PMH As described under Assessment. Family Medical History Family History: Arthritis Cardiovascular disease 19 FATHER Colon cancer 19 FATHER Diabetes mellitus G8 BROTHER Hypercholesterolemia 19 FATHER Hypertension 19 FATHER Myocardial infarction 19 FATHER Osteoporosis 19 MOTHER No Family History of: AIDS Abdominal aortic aneurysm Richard's disease Alcoholism Alzheimer's disease Aphasia Asthma Cancer of mouth Cataracts Completed stroke Congenital disease Congenital heart disease Coronary thrombosis Cystic fibrosis Deafness or hearing loss Dementia Drug abuse Dysphasia Fibrocystic disease of breast Gastroenteritis Glaucoma Headache disorder Infertility Kidney disease Neoplasm Not obtainable due to adoption Parkinson's disease Prostate cancer Psychosocial problem Respiratory disorder Seizure disorder Severe allergy Thyroid disease Tuberculosis Visual disorder Allergies and Home Medications Allergies Coded Allergies: Sulfa (Sulfonamide Antibiotics) (Verified Allergy, Severe, ITCH, 12/30/12) carbamazepine (Verified Adverse Reaction, Severe, 04/05/21) codeine (Verified Adverse Reaction, Unknown, "LOOPY", 07/06/14) Patient Home Medication List Home Medication List Reviewed: Yes Acetaminophen (Tylenol Extra Strength) 500 Mg Tablet, 1,000 MG PO Q8H PRN for PAIN-MILD (1-4), (Reported) Entered as Reported by: ANNEL MANN on 04/03/21 1034 Last Action: Reviewed Amlodipine Besylate (Amlodipine Besylate) 5 Mg Tablet, 10 MG PO DAILY, (Reported) Entered as Reported by: ANNEL MANN on 04/14/21 1155 Last Action: Reviewed Aspirin (Aspirin EC) 81 Mg Tablet.dr, 81 MG PO DAILY, (Reported) Entered as Reported by: ANNEL MANN on 04/03/21 1034 Last Action: Reviewed Candesartan Cilexetil (Candesartan Cilexetil) 8 Mg Tablet, 8 MG PO DAILY, (Reported) Entered as Reported by: TO AMBROSIO on 06/30/18 1149 Last Action: Reviewed Cetirizine HCl (Zyrtec) 10 Mg Tablet, 10 MG PO DAILY, (Reported) Entered as Reported by: TO AMBROSIO on 06/30/18 1149 Last Action: Reviewed Cholecalciferol (Vitamin D3) (Vitamin D3) 50 Mcg Capsule, 50 MCG PO DAILY, (Reported) Entered as Reported by: ANNEL MANN on 04/03/21 1034 Last Action: Reviewed Clopidogrel Bisulfate (Clopidogrel) 75 Mg Tablet, 75 MG PO DAILY, (Reported) Entered as Reported by: TO AMBROSIO on 06/30/18 1149 Last Action: Reviewed Cranberry Conc/C/Bacill Coag (Azo Cranberry Tablet) 1 Each Tablet, 1 TAB PO DAILY, (Reported) Entered as Reported by: TO AMBROSIO on 06/30/18 1148 Last Action: Reviewed Guaifenesin/Dextromethorphan (Guaifenesin Dm Syrup) 5 Ml Syrup, 10 ML PO Q4H PRN for COUGH, (Reported) Entered as Reported by: ANNEL MANN on 04/14/21 1155 Last Action: Reviewed Levalbuterol Tartrate (Levalbuterol Tartrate Hfa) 15 Gm Hfa.aer.ad, 2 PUFF INH Q6H PRN for SHORTNESS OF BREATH, (Reported) Entered as Reported by: ANNEL MANN on 04/14/21 1200 Last Action: Reviewed Levothyroxine Sodium (Levothyroxine Sodium) 50 Mcg Tablet, 50 MCG PO DAILY, (Reported) Entered as Reported by: TO AMBROSIO on 06/30/18 1149 Last Action: Reviewed [place]-3 Fatty Acids/Fish Oil (Fish Oil 1,200 mg Softgel) 1 Each Capsule, 1 EACH PO DAILY, (Reported) Entered as Reported by: ANNEL MANN on 04/03/21 1034 Last Action: Reviewed Pantoprazole Sodium (Pantoprazole Sodium) 40 Mg Tablet.dr, 40 MG PO BID, (Reported) Entered as Reported by: ANNEL MANN on 04/14/21 115 Last Action: Reviewed Sucralfate (Carafate) 1 Gm Tablet, 1 GM PO ACHS, (Reported) Entered as Reported by: ANNEL MANN on 04/14/21 115 Last Action: Reviewed Discontinued Medications Acyclovir (Acyclovir) 400 Mg Tablet, 800 MG PO TID Discontinued Reason: No Longer Taking Prescribed by: RICHARD VERDUGO on 04/07/21946 Last Action: Discontinued Amlodipine Besylate (Amlodipine Besylate) 5 Mg Tablet, 5 MG PO DAILY, (Reported) Entered as Reported by: TO AMBROSIO on 06/30/18 114 Amlodipine Besylate (Amlodipine Besylate) 5 Mg Tablet, 10 MG PO DAILY Discontinued Reason: Duplicate Order Prescribed by: RICHARD VERDUGO on 04/07/21946 Last Action: Discontinued Cefuroxime Axetil (Cefuroxime) 500 Mg Tablet, 500 MG PO BID Discontinued Reason: No Longer Taking Prescribed by: RICHARD VERDUGO on 04/07/21946 Last Action: Discontinued Guaifenesin/Dextromethorphan (Guaifenesin Dm Syrup) 5 Ml Syrup, 10 ML PO Q4H PRN for COUGH Discontinued Reason: Duplicate Order Prescribed by: RICHARD VERDUGO on 04/07/21946 Last Action: Discontinued Lactobac Cmb #3/Fos/Pantethine (Probiotic & Acidophilus Cap) 1 Each Capsule, 1 EACH PO BID Discontinued Reason: No Longer Taking Prescribed by: RICHARD VERDUGO on 04/07/21946 Last Action: Discontinued Pantoprazole Sodium (Pantoprazole Sodium) 40 Mg Tablet.dr, 40 MG PO BID Discontinued Reason: Duplicate Order Prescribed by: RICHARD VERDUGO on 04/07/21946 Last Action: Discontinued Sucralfate (Sucralfate) 1 Gm Tablet, 1 GM PO ACHS Discontinued Reason: Duplicate Order Prescribed by: RICHARD VERDUGO on 04/07/21946 Last Action: Discontinued [Lidocaine 4% Patch] 1 EA PATCH, 1 EA TOP DAILY Discontinued Reason: Duplicate Order Prescribed by: RICHARD VERDUGO on 04/07/21946 Last Action: Discontinued Exam Vital Signs Vital Signs Date Time Temp Pulse Resp B/P (MAP) Pulse Ox O2 Delivery O2 Flow Rate FiO2 04/14/21 16:24 35.5 04/14/21 16:00 62 17 121/66 97 Nasal Cannula 2.00 Physical Exam General: Alert. No acute distress. Well nourished and appears stated age. Eye: Extraocular movements are intact. Conjunctivae are clear. There are no xanthelasma. HENT: Normocephalic. Atraumatic. Carotid pulsations 2/2 without bruits. Neck: Jugular venous pressure does not appear elevated. No thyromegaly appreciated. Respiratory: Lungs are clear to auscultation. Respirations are non-labored. Breath sounds are equal. Symmetrical chest wall expansion. Cardiovascular: Normal rate. Regular rhythm. No murmur. No gallop. Point of maximal impulse is not appear displaced. Good pulses equal in all extremities. No edema. Gastrointestinal: Soft. Normal bowel sounds. Skin: Skin turgor is normal. There is no pallor. Musculoskeletal: No kyphosis or scoliosis appreciated. Neurologic: Alert and oriented to person, place, time. Cranial nerves 3-12 appear grossly intact. The patient has good motor tone strength in the upper and lower extremities bilaterally. Psychiatric: Cooperative. Appropriate mood & affect. Labs Laboratory Tests Test 04/13/21 17:54 04/13/21 17:59 04/13/21 19:15 04/13/21 19:46 Range/Units Iron Level White Blood Count 8.1 4.3-11.0 10^3/uL Red Blood Count 2.41 L 2.90 L 3.80-5.11 10^6/uL Hemoglobin 7.4 L 11.5-16.0 g/dL Hematocrit 21 L 35-52 % Mean Corpuscular Volume 89 80-99 fL Mean Corpuscular Hemoglobin 31 25-34 pg Mean Corpuscular Hemoglobin Concent 35 32-36 g/dL Red Cell Distribution Width 13.5 10.0-14.5 % Platelet Count 338 130-400 10^3/uL Mean Platelet Volume 9.6 9.0-12.2 fL Immature Granulocyte % (Auto) 1 % Neutrophils (%) (Auto) 72 42-75 % Lymphocytes (%) (Auto) 11 L 12-44 % Monocytes (%) (Auto) 15 H 0-12 % Eosinophils (%) (Auto) 1 0-10 % Basophils (%) (Auto) 0 0-10 % Neutrophils # (Auto) 5.8 1.8-7.8 10^3/uL Lymphocytes # (Auto) 0.9 L 1.0-4.0 10^3/uL Monocytes # (Auto) 1.3 H 0.0-1.0 10^3/uL Eosinophils # (Auto) 0.1 0.0-0.3 10^3/uL Basophils # (Auto) 0.0 0.0-0.1 10^3/uL Immature Granulocyte # (Auto) 0.1 0.0-0.1 10^3/uL Prothrombin Time 14.3 12.2-14.7 SEC INR Comment 1.1 0.8-1.4 Activated Partial Thromboplast Time 40 H 24-35 SEC Sodium Level 121 *L 135-145 MMOL/L Potassium Level 5.1 H 3.6-5.0 MMOL/L Chloride Level 92 L 98-107 MMOL/L Carbon Dioxide Level 18 L 21-32 MMOL/L Anion Gap 11 5-14 MMOL/L Blood Urea Nitrogen 41 H 7-18 MG/DL Creatinine 1.76 H 0.60-1.30 MG/DL Estimat Glomerular Filtration Rate 27 BUN/Creatinine Ratio 23 Glucose Level 114 H 70-105 MG/DL Lactic Acid Level 0.93 0.50-2.00 MMOL/L Calcium Level 10.3 H 8.5-10.1 MG/DL Corrected Calcium 10.9 H 8.5-10.1 MG/DL Total Bilirubin 0.5 0.1-1.0 MG/DL Aspartate Amino Transf (AST/SGOT) 20 5-34 U/L Alanine Aminotransferase (ALT/SGPT) 9 0-55 U/L Alkaline Phosphatase 63 40-136 U/L B-Type Natriuretic Peptide 386.5 H <100.0 PG/ML Total Protein 6.2 L 6.4-8.2 GM/DL Albumin 3.3 3.2-4.5 GM/DL SARS-CoV-2 RNA (RT-PCR) Not Detected Not Detecte Urine Color YELLOW Urine Clarity CLEAR Urine pH 5.5 5-9 Urine Specific [place] 1.025 H 1.016-1.022 Urine Protein TRACE H NEGATIVE Urine Glucose (UA) NEGATIVE NEGATIVE Urine Ketones NEGATIVE NEGATIVE Urine Nitrite NEGATIVE NEGATIVE Urine Bilirubin NEGATIVE NEGATIVE Urine Urobilinogen 0.2 < = 1.0 MG/DL Urine Leukocyte Esterase NEGATIVE NEGATIVE Urine RBC (Auto) NEGATIVE NEGATIVE Urine RBC NONE /HPF Urine WBC NONE /HPF Urine Squamous Epithelial Cells 2-5 /HPF Urine Crystals NONE /LPF Urine Bacteria TRACE /HPF Urine Casts PRESENT /LPF Urine Hyaline Casts 0-2 H /LPF Urine Mucus SMALL H /LPF Urine Culture Indicated CULTURE PENDING Absolute Reticulocyte Count 84 24-90 10e9/uL Percent Reticulocyte Count 2.88 H 0.50-2.40 % Test 04/14/21 04:13 04/14/21 14:28 04/14/21 16:24 Range/Units White Blood Count 7.1 8.0 4.3-11.0 10^3/uL Red Blood Count 2.26 L 3.12 L 3.80-5.11 10^6/uL Hemoglobin 7.0 L 9.4 #L 11.5-16.0 g/dL Hematocrit 21 L 28 L 35-52 % Mean Corpuscular Volume 89 89 80-99 fL Mean Corpuscular Hemoglobin 31 30 25-34 pg Mean Corpuscular Hemoglobin Concent 34 34 32-36 g/dL Red Cell Distribution Width 13.4 13.2 10.0-14.5 % Platelet Count 313 338 130-400 10^3/uL Mean Platelet Volume 9.4 8.8 L 9.0-12.2 fL Immature Granulocyte % (Auto) 1 % Neutrophils (%) (Auto) 72 42-75 % Lymphocytes (%) (Auto) 11 L 12-44 % Monocytes (%) (Auto) 15 H 0-12 % Eosinophils (%) (Auto) 2 0-10 % Basophils (%) (Auto) 0 0-10 % Neutrophils # (Auto) 5.1 1.8-7.8 10^3/uL Lymphocytes # (Auto) 0.8 L 1.0-4.0 10^3/uL Monocytes # (Auto) 1.1 H 0.0-1.0 10^3/uL Eosinophils # (Auto) 0.2 0.0-0.3 10^3/uL Basophils # (Auto) 0.0 0.0-0.1 10^3/uL Immature Granulocyte # (Auto) 0.1 0.0-0.1 10^3/uL Sodium Level 122 *L 125 *L 135-145 MMOL/L Potassium Level 4.3 4.4 3.6-5.0 MMOL/L Chloride Level 94 L 95 L 98-107 MMOL/L Carbon Dioxide Level 16 L 16 L 21-32 MMOL/L Anion Gap 12 14 5-14 MMOL/L Blood Urea Nitrogen 40 H 37 H 7-18 MG/DL Creatinine 1.59 H 1.48 H 0.60-1.30 MG/DL Estimat Glomerular Filtration Rate 31 33 BUN/Creatinine Ratio 25 25 Glucose Level 106 H 105 70-105 MG/DL Uric Acid 8.5 H 2.6-7.2 MG/DL Calcium Level 9.6 9.9 8.5-10.1 MG/DL Corrected Calcium 10.3 H 8.5-10.1 MG/DL Phosphorus Level 3.1 2.3-4.7 MG/DL Magnesium Level 2.3 1.6-2.4 MG/DL Total Bilirubin 0.5 0.1-1.0 MG/DL Aspartate Amino Transf (AST/SGOT) 13 5-34 U/L Alanine Aminotransferase (ALT/SGPT) 8 0-55 U/L Alkaline Phosphatase 66 40-136 U/L Total Protein 5.6 L 6.4-8.2 GM/DL Albumin 3.1 L 3.2-4.5 GM/DL Thyroid Stimulating Hormone (TSH) 2.16 0.35-4.94 UIU/ML Body Fluid Glucose 75 MG/DL Body Fluid Total Protein 5.0 G/DL Radiology ECHOCARDIOGRAM FOLLOWING PERICARDIOCENTESIS: 1. This is a limited study to assess pericardial effusion following pericardiocentesis. 2. Left ventricle: Systolic function is normal. The estimated ejection fraction is 60-65%. 3. Pericardium, extracardiac: There is no pericardial effusion. 4. Compared to the previous study from earlier today, there is no significant pericardial effusion at this time. ECHOCARDIOGRAM PRIOR TO PERICARDIOCENTESIS 1. Left ventricle: The cavity size is normal. Wall thickness is normal. Systolic function is normal. The estimated ejection fraction is 60-65%. There were no regional wall motion abnormalities identified. The left ventricular diastolic function is indeterminate. 2. Right ventricle: The cavity size is mildly increased measuring 3.5 cm mid cavity. 3. Left atrium: The left atrium is moderately to severely dilated with a volume index ranging from 42-57 mL/m. 4. Right atrium: The right atrium is mildly dilated at 22 cm. 5. Aortic root: The aortic root is mildly dilated at 3.4 cm. 6. Pericardium, extracardiac: A large pericardial effusion is identified circumferential to the heart. 7. Pulmonary arteries: The estimated pulmonary artery systolic pressure is 25 mmHg assuming a right atrial pressure of 5 mmHg. 8. Compared to the previous study from 04/03/2021, the pericardial effusion is new. Diagnosis/Problems Diagnosis/Problems (1) Typical atrial flutter Assessment & Plan: When she presented to the emergency room, she had atrial flutter. This has now converted to sinus rhythm with intravenous diltiazem. I suspect this was brought on by the pericardial effusion noted on her echocardiog she. Given that she had bloody pericardial fluid at the time of pericardiocentesis, I do not plan to start her on oral anticoagulation at this time. (2) Pericardial effusion Assessment & Plan: She had a large pericardial effusion. This was most likely related to manipulation of the atrial lead at the time of pacemaker implantation last week. The brasswind instrument repairer who was performing the pacemaker implantation had to relocate the atrial lead multiple times to find an area that was getting adequate capture. I suspect all of his manipulation may have caused a microperforation with the development of a pericardial effusion. I would leave the pigtail catheter in the pericardial space overnight. The pigtail should remain on suction. I will obtain a follow-up echocardiogram in the morning and if there is no reaccumulation of fluid, I will remove the pigtail catheter and sheath. (3) Sick sinus syndrome Assessment & Plan: She underwent permanent pacemaker implantation last week and as far as we can tell, the device appears to be functioning normally. (4) Primary hypertension Assessment & Plan: I have started her on metoprolol succinate due to the atrial flutter. We will continue to monitor her blood pressures and resume her other outpatient antihypertensive medication if needed. (5) Cardiac pacemaker in situ Assessment & Plan: The implant site is without hematoma and dressing is in place which is dry. ADALBERTO LUNA JR, MD Apr 14, 2021 10:58
[2021-04-14] MEDS ORDERED: CATHETER FLUSH 10 ML SYR IV PRN (11:00)
[2021-04-14] MEDS ORDERED: CHLORASEPTIC LOZENGE MM NR (11:30)
[2021-04-14 11:40] VITALS: BP 116/39
[2021-04-14] MEDS: PANTOPRAZOLE 40 MG (PROTONIX) VIAL IV SCH (11:40)
[2021-04-14 11:54] VITALS: BP 135/53
[2021-04-14] MEDS ORDERED: GUAI5SYR PO (11:55)
[2021-04-14] MEDS ORDERED: PANT40TA52 PO (11:55)
[2021-04-14] MEDS ORDERED: SUCR1TAB36 PO (11:55)
[2021-04-14] MEDS ORDERED: AMLO-250 PO (11:55)
[2021-04-14] MEDS ORDERED: LEVA15HF5 INH (12:00)
[2021-04-14 12:39] LABS: URIC ACID 8.5 MG/DL (2.6-7.2)
[2021-04-14 14:34] LABS: HEMATOCRIT 28 % (35-52); HEMOGLOBIN 9.4 g/dL (11.5-16.0); MEAN CORPUSCULAR HEMOGLOBIN 30 pg (25-34); MEAN CORPUSCULAR HGB CONC 34 g/dL (32-36); MEAN CORPUSCULAR VOLUME 89 fL (80-99); MEAN PLATELET VOLUME 8.8 fL (9.0-12.2); PLATELET COUNT 338 10^3/uL (130-400)
[2021-04-14] MEDS: RT--FLUTICASONE/SALMETEROL 113-14 (AIRDUO RespiCLICK) IH SCH (14:39)
[2021-04-14 14:50] LABS: POTASSIUM 4.4 MMOL/L (3.6-5.0)
[2021-04-14 14:51] LABS: CALCIUM 9.9 MG/DL (8.5-10.1)
[2021-04-14 14:55] LABS: CREATININE SERUM 1.48 MG/DL (0.60-1.30)
[2021-04-14] MEDS ORDERED: NS IV 1000 ML 1,000 ML ONE (15:42)
[2021-04-14] MEDS ORDERED: LIDOCAINE 1% INJ 20 ML 20 ML VIAL ONE (15:42)
[2021-04-14] MEDS ORDERED: HEParin (CATH LAB) 1,000 ML IV ONE (15:42)
[2021-04-14] MEDS ORDERED: MIDAZOLAM 5 MG/5 ML (VERSED) VIAL ONE (15:42)
[2021-04-14] MEDS ORDERED: fentaNYL INJ 100 MCG/2 ML AMP ONE (15:42)
--- NOTE | 2021-04-14 16:09 | Pre-Op Note & Conscious Sedat ---
Pre-Operative Progress Note H&P Reviewed The H&P was reviewed, patient examined and no changes noted. Date H&P Reviewed: Apr 14, 2021 Time H&P Reviewed: 16:09 Pre-Op Diagnosis: Pericardial effusion Conscious Sedation Pre-Proced ASA Score 3 For ASA 3 and 4: Consider anesthesia and medical clearance. Also, for patients with a history of failed moderate sedation consider anesthesia. Airway Lungs Heart ASA score ASA 1: a normal healthy patient ASA 2: a patient with a mild systemic disease (mid diabetes, controlled hypertension, obesity ASA 3: a patient with a severe systemic disease that limits activity (angina, COPD, prior Myocardial infarction) ASA 4: a patient with an incapacitating disease that is a constant threat to life (CHF, renal failure) ASA 5: a moribund patient not expected to survive 24 hrs. (ruptured aneurysm) ASA 6: a declared brain- patient whose organs are being harvested. For emergent operations, add the letter E after the classification Mallampati Classification Grade 2 Sedation Plan Analgesia, Amnesia, Plan communicated to team members, Discussed options with patient/fam, Discussed risks with patient/fam The patient is an appropriate candidate to undergo the planned procedure, sedation, and anesthesia. The patient immediately re-assessed prior to indication. ADALBERTO LUNA JR, MD Apr 14, 2021 16:09
[2021-04-14 17:08] LABS: GLUCOSE,BODY FLUID 75 MG/DL
[2021-04-14 17:22] LABS: LDH,BODY FLUID 1224 U/L
[2021-04-14 17:26] LABS: BF OTHER CELLS 0 %; BODY FLUID APPEARENCE MKD BLDY; BODY FLUID COLOR RED; BODY FLUID RBC COUNT 2375000 /uL; BODY FLUID SOURCE THORACEN; BODY FLUID WBC TOTAL COUNT 1000 /uL; LYMPHOCYTES,BODY FLUID 34 %
--- NOTE | 2021-04-14 17:27 | Cardiac Procedure Note ---
Cardiology Procedures Date of Procedure 04/14/2021 PERICARDIOCENTESIS INDICATION: Large pericardial effusion. PROCEDURE: After informed consent and in the fasting state, the subcostal area was prepped and draped in the usual sterile fashion. The skin and subcutaneous tissues just inferior and to the left of the xiphoid process were infiltrated wi th 2% lidocaine. Using a micropuncture needle, I accessed the pericardial space under fluoroscopic guidance. A micropuncture wire was advanced into the pericardial space and the needle was removed. A micropuncture sheath was then placed into the pericardial space. This was exchanged for a 6 Y[place] standard femoral sheath. Pericardial fluid was withdrawn from the side-port and the sheath was flushed with sterile saline solution. Over a standard J-wire, a short pigtail catheter was advanced into the pericardial space. The wire was removed and a stopcock was placed on the end of the pigtail catheter. 60 mL of bloody fluid was withdrawn and sent to the laboratory for analysis. The pigtail catheter was then attached to a vacuum bottle and an additional 350 mL of bloody fluid was withdrawn. A follow-up echocardiogram at that time showed no residual pericardial fluid. The sheath and pigtail catheter were sutured in place to the skin and will remain overnight. A sterile dressing was applied. IMPRESSION: 1. Status post successful pericardiocentesis under fluoroscopic guidance with 410 mL of bloody fluid withdrawn. An echocardiogram following the procedure showed no residual pericardial fluid. The pericardial drain will be left in place overnight. Certain portions of this document may have been dictated utilizing voice recognition technology. Inherent to this technology, typographical and grammatical errors may exist. As much as I am diligent to identify and correct these mistakes, some errors may remain in the document. ADALBERTO LUNA JR, MD Apr 14, 2021 17:27
[2021-04-14] MEDS ORDERED: ASPIRIN E.C. 81 MG (ECOTRIN) TAB PO NR (17:30)
[2021-04-14] MEDS ORDERED: ACETAMINOPHEN 325 MG TABLET PO PRN (17:30)
[2021-04-14 17:32] LABS: HEMOGLOBIN 8.8 g/dL (11.5-16.0)
--- NOTE | 2021-04-14 17:36 | Diagnostic Imaging Report ---
INDICATION: Post catheterization. EXAMINATION: Chest, 04/14/2021. COMPARISON: 04/13/2021. FINDINGS: Lung apices excluded. Within the visualized lungs, there is atelectasis versus mild infiltrate at the left lung base. There are no significant effusions. No pneumothorax is appreciated. Heart is prominent. Pulmonary vasculature is unremarkable. Left-sided pacemaker is stable. No acute osseous abnormality. Coarsened markings throughout the remaining lungs. IMPRESSION: 1. Atelectasis versus infiltrate at the left lung base with otherwise chronic changes within the lungs. 2. Cardiomegaly. Dictated by: Dictated on workstation # [id number]
[2021-04-14 17:40] LABS: BODY FLUID PH 7.09
[2021-04-15 04:38] LABS: BASOPHILS % (AUTO) 1 % (0-10); EOSINOPHILS # (AUTO) 0.2 10^3/uL (0.0-0.3); EOSINOPHILS % (AUTO) 4 % (0-10); HEMATOCRIT 27 % (35-52); HEMOGLOBIN 9.3 g/dL (11.5-16.0); LYMPHOCYTES # (AUTO) 0.5 10^3/uL (1.0-4.0); LYMPHOCYTES % (AUTO) 8 % (12-44); MEAN CORPUSCULAR HEMOGLOBIN 30 pg (25-34); MEAN CORPUSCULAR HGB CONC 35 g/dL (32-36); MEAN CORPUSCULAR VOLUME 88 fL (80-99); MEAN PLATELET VOLUME 8.7 fL (9.0-12.2); MONOCYTES # (AUTO) 0.8 10^3/uL (0.0-1.0); MONOCYTES % (AUTO) 12 % (0-12); NEUTROPHILS # (AUTO) 4.7 10^3/uL (1.8-7.8); NEUTROPHILS % (AUTO) 74 % (42-75); PLATELET COUNT 363 10^3/uL (130-400); WHITE BLOOD COUNT 6.3 10^3/uL (4.3-11.0)
[2021-04-15 04:52] LABS: ALBUMIN 2.9 GM/DL (3.2-4.5)
[2021-04-15 04:53] LABS: POTASSIUM 4.1 MMOL/L (3.6-5.0)
[2021-04-15 04:54] LABS: CALCIUM 9.4 MG/DL (8.5-10.1)
[2021-04-15 04:55] LABS: TOTAL PROTEIN 5.3 GM/DL (6.4-8.2)
[2021-04-15 04:57] LABS: BILIRUBIN,TOTAL 0.4 MG/DL (0.1-1.0)
[2021-04-15 04:59] LABS: CREATININE SERUM 1.37 MG/DL (0.60-1.30)
[2021-04-15 05:01] LABS: MAGNESIUM 2.1 MG/DL (1.6-2.4)
[2021-04-15] MEDS: MAGNESIUM 1 GM/100 ML IVPB 100 ML IV SCH (05:16)
[2021-04-15] MEDS: POTASSIUM CL 10MEQ/50ML IVPB 50 ML IV SCH (05:16)
[2021-04-15] MEDS: KCL 20 MEQ TAB (K-DUR) PO SCH (05:16)
[2021-04-15] MEDS: RT--FLUTICASONE/SALMETEROL 113-14 (AIRDUO RespiCLICK) IH SCH ×2 (07:33→18:49)
[2021-04-15] MEDS: PANTOPRAZOLE 40 MG (PROTONIX) VIAL IV SCH (08:27)
[2021-04-15] MEDS: ASPIRIN E.C. 81 MG (ECOTRIN) TAB PO SCH (08:27)
--- NOTE | 2021-04-15 09:05 | Cardiology Progress Note ---
Progress Note-Cardiology Events since last exam Date Seen by Provider: Apr 15, 2021 Time Seen by Provider: 09:01 Events since last exam I am following her for pericardial effusion, atrial flutter and sick sinus s yndrome. Her breathing is much improved this morning. She denies chest pain, palpitations, syncope, or ankle edema. Her pericardial drain only drained about an additional 25 mL since last evening. Certain portions of this document may have been dictated utilizing voice recognition technology. Inherent to this technology, typographical and grammatical errors may exist. As much as I am diligent to identify and correct these mistakes, some errors may remain in the document. Vitals Last set of Vitals Signs Vital Signs 04/15/21 04/15/21 08:00 08:43 Temp 36.4 Pulse 85 Resp 15 B/P (MAP) 123/57 Pulse Ox 92 O2 Delivery Nasal Cannula O2 Flow Rate 3.00 Labs Labs Laboratory Tests 04/14/21 14:28 04/14/21 17:24 04/15/21 04:17 Exam Vital Signs Vital Signs Date Time Temp Pulse Resp B/P (MAP) Pulse Ox O2 Delivery O2 Flow Rate FiO2 04/15/21 08:43 36.4 04/15/21 08:00 85 15 123/57 92 Nasal Cannula 3.00 Physical Exam General: Alert. No acute distress. Eye: No xanthelasma. HENT: Normocephalic. Neck: Jugular venous pressure does not appear elevated. Respiratory: Lungs are clear to auscultation. Respirations are non-labored. Breath sounds are equal. Symmetrical chest wall expansion. Cardiovascular: Normal rate. Regular rhythm. No murmur. No gallop. No edema. There is a pericardial rub. Gastrointestinal: Soft. Normal bowel sounds. Skin: Warm. Dry. Neurologic: Alert and oriented to person, place, time. Cranial nerves 3-11 grossly intact. Psychiatric: Cooperative. Appropriate mood & affect. Labs Laboratory Tests Test 04/14/21 14:28 04/14/21 16:24 04/14/21 17:24 04/15/21 04:17 Range/Units White Blood Count 8.0 6.3 4.3-11.0 10^3/uL Red Blood Count 3.12 L 3.07 L 3.80-5.11 10^6/uL Hemoglobin 9.4 #L 8.8 L 9.3 L 11.5-16.0 g/dL Hematocrit 28 L 26 L 27 L 35-52 % Mean Corpuscular Volume 89 88 80-99 fL Mean Corpuscular Hemoglobin 30 30 25-34 pg Mean Corpuscular Hemoglobin Concent 34 35 32-36 g/dL Red Cell Distribution Width 13.2 13.2 10.0-14.5 % Platelet Count 338 363 130-400 10^3/uL Mean Platelet Volume 8.8 L 8.7 L 9.0-12.2 fL Sodium Level 125 *L 128 L 135-145 MMOL/L Potassium Level 4.4 4.1 3.6-5.0 MMOL/L Chloride Level 95 L 100 98-107 MMOL/L Carbon Dioxide Level 16 L 19 L 21-32 MMOL/L Anion Gap 14 9 5-14 MMOL/L Blood Urea Nitrogen 37 H 34 H 7-18 MG/DL Creatinine 1.48 H 1.37 H 0.60-1.30 MG/DL Estimat Glomerular Filtration Rate 33 36 BUN/Creatinine Ratio 25 25 Glucose Level 105 108 H 70-105 MG/DL Calcium Level 9.9 9.4 8.5-10.1 MG/DL Body Fluid Source THORACEN Body Fluid Color RED Body Fluid Appearance MKD BLDY Body Fluid pH 7.09 Body Fluid WBC 1000 /uL Body Fluid RBC 3807055 /uL Body Fluid Polynuclear WBCs 38 % Body Fluid Mononuclear WBCs 28 % Body Fluid Lymphocytes 34 % Body Fluid Eosinophils 0 % Body Fluid Other Cells 0 % Body Fluid Glucose 75 MG/DL Body Fluid Total Protein 5.0 G/DL Body Fluid Lactate Dehydrogenase 1224 U/L Immature Granulocyte % (Auto) 2 % Neutrophils (%) (Auto) 74 42-75 % Lymphocytes (%) (Auto) 8 L 12-44 % Monocytes (%) (Auto) 12 0-12 % Eosinophils (%) (Auto) 4 0-10 % Basophils (%) (Auto) 1 0-10 % Neutrophils # (Auto) 4.7 1.8-7.8 10^3/uL Lymphocytes # (Auto) 0.5 L 1.0-4.0 10^3/uL Monocytes # (Auto) 0.8 0.0-1.0 10^3/uL Eosinophils # (Auto) 0.2 0.0-0.3 10^3/uL Basophils # (Auto) 0.0 0.0-0.1 10^3/uL Immature Granulocyte # (Auto) 0.1 0.0-0.1 10^3/uL Corrected Calcium 10.3 H 8.5-10.1 MG/DL Phosphorus Level 3.0 2.3-4.7 MG/DL Magnesium Level 2.1 1.6-2.4 MG/DL Total Bilirubin 0.4 0.1-1.0 MG/DL Aspartate Amino Transf (AST/SGOT) 15 5-34 U/L Alanine Aminotransferase (ALT/SGPT) 8 0-55 U/L Alkaline Phosphatase 65 40-136 U/L Total Protein 5.3 L 6.4-8.2 GM/DL Albumin 2.9 L 3.2-4.5 GM/DL Diagnosis/Problems Diagnosis/Problems (1) Typical atrial flutter Assessment & Plan: When she presented to the emergency room, she had atrial flutter. This has now converted to sinus rhythm with intravenous diltiazem. I suspect this was brought on by the pericardial effusion noted on her echocardiogram. I have changed her intravenous diltiazem over to oral metoprolol succinate. Given that she had bloody pericardial fluid at the time of pericardiocentesis, I do not plan to start her on oral anticoagulation at this time. For the same reason, I have stopped her clopidogrel. Aspirin has been resumed. I have asked her family to find out which doctor has been prescribing clopidogrel as an outpatient. Given her advanced age, I am not sure she is a good candidate for prolonged dual antiplatelet therapy as the risk of hemorrhagic complications could out weigh any benefit. (2) Pericardial effusion Assessment & Plan: She had a large pericardial effusion. This was most likely related to manipulation of the atrial lead at the time of pacemaker implantation last week. The dividend deposit voucher clerk who was performing the pacemaker implantation had to relocate the atrial lead multiple times to find an area that was getting adequate capture. I suspect all of his manipulation may have caused a microperforation with the development of a pericardial effusion. I have now c lamped the pericardial drain. I will obtain a follow-up echocardiogram later this morning. If there is no significant residual pericardial effusion, I will plan to pull the drain today. I will then obtain a follow-up echocardiogram tomorrow and if there has been no reaccumulation, she can likely be discharged home tomorrow. Laboratories are pending on the fluid. (3) Anemia Assessment & Plan: She has drained about 450 mL of bloody fluid from the per icardial space. I suspect she had a hemorrhagic pericardial effusion that caused the anemia. She received 1 unit of packed red blood cells and her hemoglobin appears to have stabilized. (4) Sick sinus syndrome Assessment & Plan: She underwent permanent pacemaker implantation last week and as far as we can tell, the device appears to be functioning normally. (5) Primary hypertension Assessment & Plan: I have started her on metoprolol succinate due to the atrial flutter. We will continue to monitor her blood pressures and resume her other outpatient antihypertensive medication if needed. (6) Cardiac pacemaker in situ Assessment & Plan: I removed the sterile dressing this morning. Steri-Strips are intact. The implant site is healing well without hematoma. ADALBERTO LUNA JR, MD Apr 15, 2021 09:05
--- NOTE | 2021-04-15 09:20 | Progress Note ---
Subjective Subjective Date Seen by Provider: Apr 15, 2021 Time Seen by Provider: 10:00 PT REPORTS THAT SHE IS FEELING BETTER, BUT SHE IS STILL COUGHING A LOT. FAMILY REPORTS PT WAS COMPLAINING EARLIER OF STOMACH PAIN WHEN SHE COUGHS. PT FEELS LIKE THE INHALER MAY HAVE HELPED A LITTLE (FAMILY HAS NOT SEEN MUCH OF AN IMPROVEMENT) DISCUSSED WITH RETENTION MANAGER - AROUND 400ML OF BLOODY DISCHARGE FROM PERICARDIAL DRAIN. Review of Systems General: No Chills; Fatigue HEENT: No Head Aches Pulmonary: Dyspnea, Cough Cardiovascular: No: Chest Pain, Palpitations Gastrointestinal: No: Nausea, Abdominal Pain Genitourinary: No Dysuria Neurological: Weakness; No: Confusion All Other Systems Reviewed All Other Systems Reviewed: Yes Objective Exam Vital Signs Vital Signs Date Time Temp Pulse Resp B/P (MAP) Pulse Ox O2 Delivery O2 Flow Rate FiO2 04/15/21 09:00 89 18 135/62 95 Nasal Cannula 3.00 04/15/21 08:43 36.4 04/15/21 08:00 85 15 123/57 92 Nasal Cannula 3.00 04/15/21 07:34 92 Nasal Cannula 3.00 04/15/21 07:00 84 29 109/98 Nasal Cannula 3.00 04/15/21 07:00 83 04/15/21 06:00 80 15 126/51 93 Nasal Cannula 3.00 04/15/21 05:00 78 22 112/49 92 Nasal Cannula 3.00 04/15/21 04:00 Nasal Cannula 3.00 04/15/21 04:00 75 22 118/56 90 Nasal Cannula 3.00 04/15/21 04:00 36.5 04/15/21 03:00 77 19 119/49 92 Nasal Cannula 3.00 04/15/21 02:00 79 17 122/60 95 Nasal Cannula 3.00 04/15/21 01:00 77 23 119/54 95 Nasal Cannula 3.00 04/15/21 01:00 80 04/15/21 00:00 70 26 119/40 91 Nasal Cannula 3.00 04/15/21 00:00 36.3 Nasal Cannula 3.00 04/15/21 00:00 Nasal Cannula 3.00 04/14/21 23:00 71 19 98/64 91 Nasal Cannula 2.00 04/14/21 22:00 74 18 109/46 92 Nasal Cannula 2.00 04/14/21 21:00 71 26 132/48 93 Nasal Cannula 2.00 04/14/21 20:00 73 28 112/63 95 Nasal Cannula 2.00 04/14/21 20:00 36.4 04/14/21 19:45 Nasal Cannula 2.00 04/14/21 19:00 72 04/14/21 19:00 71 25 128/57 95 Nasal Cannula 2.00 04/14/21 18:00 71 14 117/48 93 Nasal Cannula 2.00 04/14/21 17:00 64 28 106/55 95 Nasal Cannula 2.00 04/14/21 16:24 35.5 04/14/21 16:00 Nasal Cannula 2.00 04/14/21 16:00 62 17 121/66 97 Nasal Cannula 2.00 04/14/21 15:00 63 126/52 100 Nasal Cannula 2.00 04/14/21 14:40 97 04/14/21 14:00 64 27 137/57 98 Nasal Cannula 2.00 04/14/21 13:00 60 19 111/63 97 Nasal Cannula 2.00 04/14/21 12:49 60 04/14/21 12:00 67 19 130/50 97 Nasal Cannula 2.00 04/14/21 12:00 Nasal Cannula 2.00 04/14/21 11:54 36.4 67 28 135/53 96 Nasal Cannula 2.00 04/14/21 11:40 36.3 67 23 116/39 96 Nasal Cannula 2.00 04/14/21 11:00 70 31 99/33 97 Nasal Cannula 2.00 04/14/21 10:00 69 32 112/57 96 Nasal Cannula 2.00 I & O 04/15/21 07:00 Intake Total 2025 ml Output Total 2800 ml Balance -775 ml General Appearance: WD/WN, Other (PERSISTENT COUGHING) Eyes: Bilateral Eye Normal Inspection, Bilateral Eye PERRL, Bilateral Eye EOMI HEENT: PERRL/EOMI Neck: Full Range of Motion, Non Tender, Supple Respiratory: Chest Non Tender, No Accessory Muscle Use, Decreased Breath Sounds (DIFFUSELY DECREASED, DISTANT BREATH SOUNDS THROUGHOUT); No Respiratory Distress, No Rhonci, No Wheezing Cardiovascular: Normal Peripheral Pulses, Irregularly Irregular, Other (PERICARDIAL RUB) Gastrointestinal: Normal Bowel Sounds, Non Tender, Soft Rectal: Deferred Back: Normal Inspection Extremity: Non Tender, No Pedal Edema Neurologic/Psychiatric: Alert, Oriented x3, No Motor/Sensory Deficits, Normal Mood/Affect, yolk spray drier II-XII Norm as Tested (HEARING LOSS, FULL FACIAL MOTION, EYE MOTION NORMAL, NORMAL MOVEMENT HEAD/NECK, SCAB ON CHIN AND CHEEK ON RIGHT, NORMAL SENSATION) Skin: Normal Color, Warm/Dry, Other (SCAB ON CHEEK AND CHIN) Lymphatic: No Adenopathy Results Lab Laboratory Tests 04/14/21 14:28: White Blood Count 8.0, Red Blood Count 3.12L, Hemoglobin 9.4#L, Hematocrit 28L, Mean Corpuscular Volume 89, Mean Corpuscular Hemoglobin 30, Mean Corpuscular Hemoglobin Concent 34, Red Cell Distribution Width 13.2, Platelet Count 338, Mean Platelet Volume 8.8L, Sodium Level 125*L, Potassium Level 4.4, Chloride Level 95L, Carbon Dioxide Level 16L, Anion Gap 14, Blood Urea Nitrogen 37H, Creatinine 1.48H, Estimat Glomerular Filtration Rate 33, BUN/Creatinine Ratio 25, Glucose Level 105, Calcium Level 9.9 04/14/21 16:24: Body Fluid Source THORACEN, Body Fluid Color RED, Body Fluid Appearance MKD BL DY, Body Fluid pH 7.09, Body Fluid WBC 1000, Body Fluid RBC [id number], Body Fluid Polynuclear WBCs 38, Body Fluid Mononuclear WBCs 28, Body Fluid Lymphocytes 34, Body Fluid Eosinophils 0, Body Fluid Other Cells 0, Body Fluid Glucose 75, Body Fluid Total Protein 5.0, Body Fluid Lactate Dehydrogenase 1224 04/14/21 17:24: Hemoglobin 8.8L, Hematocrit 26L 04/15/21 04:17: White Blood Count 6.3, Red Blood Count 3.07L, Hemoglobin 9.3L, Hematocrit 27L, Mean Corpuscular Volume 88, Mean Corpuscular Hemoglobin 30, Mean Corpuscular Hemoglobin Concent 35, Red Cell Distribution Width 13.2, Platelet Count 363, Mean Platelet Volume 8.7L, Sodium Level 128L, Potassium Level 4.1, Chloride Level 100, Carbon Dioxide Level 19L, Anion Gap 9, Blood Urea Nitrogen 34H, Creatinine 1.37H, Estimat Glomerular Filtration Rate 36, BUN/Creatinine Ratio 25, Glucose Level 108H, Calcium Level 9.4, Immature Granulocyte % (Auto) 2, Neutrophils (%) (Auto) 74, Lymphocytes (%) (Auto) 8L, Monocytes (%) (Auto) 12, Eosinophils (%) (Auto) 4, Basophils (%) (Auto) 1, Neutrophils # (Auto) 4.7, Lymphocytes # (Auto) 0.5L, Monocytes # (Auto) 0.8, Eosinophils # (Auto) 0.2, Basophils # (Auto) 0.0, Immature Granulocyte # (Auto) 0.1, Corrected Calcium 10.3H, Phosphorus Level 3.0, Magnesium Level 2.1, Total Bilirubin 0.4, Aspartate Amino Transf (AST/SGOT) 15, Alanine Aminotransferase (ALT/SGPT) 8, Alkaline Phosphatase 65, Total Protein 5.3L, Albumin 2.9L Microbiology 04/13/21 Urine Culture - Preliminary, Resulted Probable Enterococcus Species YEAST 04/13/21 Blood Culture - Preliminary, Resulted No growth Assessment/Plan Assessment/Plan Admission Dx ACUTE ATRIAL FIBRILLATION ACUTE ANEMIA PERICARDIAL EFFUSION HYPONATREMIA CHRONIC COUGH DYSPNEA ON EXERTION ACUTE RENAL INSUFFICIENCY ELEVATED BNP Assessment and Plan ACUTE ATRIAL FIBRILLATION ACUTE ANEMIA PERICARDIAL EFFUSION HYPONATREMIA CHRONIC COUGH DYSPNEA ON EXERTION ACUTE RENAL INSUFFICIENCY ELEVATED BNP URINARY TRACT INFECTION - ENTEROCOCCUS AND YEAST ACUTE ATRIAL FIBRILLATION - DEFER TO CARDIOLOGY - PT WAS STARTED ON CARDIZEM DRIP ON ADMISSION, PT NOW ON METOPROLOL. - RATE CONTROLLED ACUTE ANEMIA - CONSULT TO SURGEON - DISCUSSED WITH ON-CALL SURGEON - HE WILL PERFORM AN EGD TOMORROW. - TRANSFUSED ONE UNIT PRBC WITH IMPROVED HGB FROM 7 TO 9.4 - HEMOCCULT STOOLS PERICARDIAL EFFUSION - DEFER TO DR. LUNA - CARDIOLOGY - - STATUS POST PERICARDIAL DRAIN PLACEMENT - PULLED THIS MORNING 04/15/31. URINARY TRACT INFECTION - ENTEROCOCCUS AND YEAST - PT STARTED ON ZOSYN AND DIFLUCAN - MONITOR CULTURES HYPONATREMIA - DISCUSSED WITH PT AND HER DTR - WE WILL CONTINUE TO WORK THIS UP - FLUID RESTRICTION ORALLY - MONITOR LABS CHRONIC COUGH WITH DYSPNEA ON EXERTION - PT ON OXYGEN - CT ON LAST ADMISSION NEGATIVE - PT ON ADVAIR. ACUTE RENAL INSUFFICIENCY - IMPROVED - MONITOR LABS SINCE PT HAS BEEN PLACED ON IV FLUID ELEVATED BNP - DUE TO AFIB AND PERICARDIAL EFFUSION. CANNOT START ANTICOAG DUE TO ANEMIA AND CONCERN FOR GI BLEED. GI PROPHYLAXIS WITH PPI AND CARAFATE. Admission Dx ACUTE ATRIAL FIBRILLATION ACUTE ANEMIA PERICARDIAL EFFUSION HYPONATREMIA CHRONIC COUGH DYSPNEA ON EXERTION ACUTE RENAL INSUFFICIENCY ELEVATED BNP Clinical Quality Measures Admission Status Admission Dx ACUTE ATRIAL FIBRILLATION ACUTE ANEMIA PERICARDIAL EFFUSION HYPONATREMIA CHRONIC COUGH DYSPNEA ON EXERTION ACUTE RENAL INSUFFICIENCY ELEVATED BNP RICHARD PERALTA MD Apr 15, 2021 09:20
[2021-04-15] MEDS ORDERED: PIPERACILLIN/TAZOBACTAM (BULK) 4.5 GM in NS (IVPB) 100 ML IV SCH (09:30)
[2021-04-15] MEDS: fluCOnazole (DIFLUCAN) 100 MG TAB PO SCH (09:54)
[2021-04-15] MEDS: CHLORASEPTIC LOZENGE MM PRN ×2 (09:59→15:37)
[2021-04-15] MEDS ORDERED: PIPERACILLIN/TAZO 4.5 GM/NS 100 ML IV ONE ×2 (10:00)
--- NOTE | 2021-04-15 10:14 | Diagnostic Imaging Report ---
CLINICAL INDICATION: Patient with pericardial drain removed. EXAM: Portable chest x-ray, upright view. COMPARISON: Portable chest x-ray, supine view dated 04/14/2021. FINDINGS: There is interval removal of the previously seen drain overlying the left heart border region. There is stable cardiomegaly. There is pulmonary vascular congestion noted. There is slight progression of consolidation in the left lung base concerning for atelectasis versus infiltrate. There is a small left pleural effusion developing. There is mild right basilar atelectasis versus infiltrate which has progressed in the interim. There is no pneumothorax. Cardiac pacemaker again seen overlying the chest. The remainder of this exam shows no significant interval change compared to the prior study of comparison. IMPRESSION: 1: Interval removal of drain overlying the left heart border region. 2: There is a developing small left pleural effusion and left lung base atelectasis versus infiltrate. 3: There is interval progression of right basilar atelectasis versus infiltrate. Dictated by: Dictated on workstation # [id number]
[2021-04-15] MEDS ORDERED: FUROSEMIDE 20 MG (LASIX) TAB PO ONE (11:00)
--- NOTE | 2021-04-15 11:11 | Progress Note - Surgery ---
Subjective Time Seen by a Provider: 09:56 Subjective/Events-last exam Pt is an 89 yo female with persistent cough; daughter says has not changed in 6 months and nothing helps it. Dr. Verdugo asked me to see pt regarding EGD, wants it done as an inpt. Pt denies abdominal pain and denies SOB. Review of Systems General: Fatigue HEENT: Other (hard of hearing) Pulmonary: Cough Cardiovascular: No: Chest Pain, Palpitations Gastrointestinal: No: Nausea, Vomiting, Abdominal Pain Focused Exam Lactate Level 04/13/21 17:59: Lactic Acid Level 0.93 Objective Exam Vital Signs Date Time Temp Pulse Resp B/P (MAP) Pulse Ox O2 Delivery O2 Flow Rate FiO2 04/15/21 10:00 73 114/57 90 Nasal Cannula 3.00 04/15/21 09:00 89 18 135/62 95 Nasal Cannula 3.00 04/15/21 08:43 36.4 04/15/21 08:00 85 15 123/57 92 Nasal Cannula 3.00 04/15/21 08:00 Nasal Cannula 3.00 93 04/15/21 07:34 92 Nasal Cannula 3.00 04/15/21 07:00 84 29 109/98 Nasal Cannula 3.00 04/15/21 07:00 83 04/15/21 06:00 80 15 126/51 93 Nasal Cannula 3.00 04/15/21 05:00 78 22 112/49 92 Nasal Cannula 3.00 04/15/21 04:00 Nasal Cannula 3.00 04/15/21 04:00 75 22 118/56 90 Nasal Cannula 3.00 04/15/21 04:00 36.5 04/15/21 03:00 77 19 119/49 92 Nasal Cannula 3.00 04/15/21 02:00 79 17 122/60 95 Nasal Cannula 3.00 04/15/21 01:00 77 23 119/54 95 Nasal Cannula 3.00 04/15/21 01:00 80 04/15/21 00:00 70 26 119/40 91 Nasal Cannula 3.00 04/15/21 00:00 36.3 Nasal Cannula 3.00 04/15/21 00:00 Nasal Cannula 3.00 04/14/21 23:00 71 19 98/64 91 Nasal Cannula 2.00 04/14/21 22:00 74 18 109/46 92 Nasal Cannula 2.00 04/14/21 21:00 71 26 132/48 93 Nasal Cannula 2.00 04/14/21 20:00 73 28 112/63 95 Nasal Cannula 2.00 04/14/21 20:00 36.4 04/14/21 19:45 Nasal Cannula 2.00 04/14/21 19:00 72 04/14/21 19:00 71 25 128/57 95 Nasal Cannula 2.00 04/14/21 18:00 71 14 117/48 93 Nasal Cannula 2.00 04/14/21 17:00 64 28 106/55 95 Nasal Cannula 2.00 04/14/21 16:24 35.5 04/14/21 16:00 Nasal Cannula 2.00 04/14/21 16:00 62 17 121/66 97 Nasal Cannula 2.00 04/14/21 15:00 63 126/52 100 Nasal Cannula 2.00 04/14/21 14:40 97 04/14/21 14:00 64 27 137/57 98 Nasal Cannula 2.00 04/14/21 13:00 60 19 111/63 97 Nasal Cannula 2.00 04/14/21 12:49 60 04/14/21 12:00 67 19 130/50 97 Nasal Cannula 2.00 04/14/21 12:00 Nasal Cannula 2.00 04/14/21 11:54 36.4 67 28 135/53 96 Nasal Cannula 2.00 04/14/21 11:40 36.3 67 23 116/39 96 Nasal Cannula 2.00 I & O 04/15/21 07:00 Intake Total 2025 ml Output Total 2800 ml Balance -775 ml Capillary Refill : Less Than 3 Seconds General Appearance: Thin, Other (PERSISTENT COUGHING) HEENT: PERRL/EOMI Respiratory: No Accessory Muscle Use, Decreased Breath Sounds (DIFFUSELY DECREASED, DISTANT BREATH SOUNDS THROUGHOUT); No Respiratory Distress, No Rhonci, No Wheezing Cardiovascular: Regular Rate, Rhythm, No Murmur, Other (PERICARDIAL RUB) Peripheral Pulses: 1+ Dorsalis Pedis (R), 1+ Left Dors-Pedis (L) Gastrointestinal: normal bowel sounds, non tender, soft, no organomegaly Extremity: No Pedal Edema Neurologic/Psychiatric: Alert, Oriented x3 Skin: Other (SCAB ON CHEEK AND CHIN) Results Lab Laboratory Tests 04/14/21 14:28: White Blood Count 8.0, Red Blood Count 3.12L, Hemoglobin 9.4#L, Hematocrit 28L, Mean Corpuscular Volume 89, Mean Corpuscular Hemoglobin 30, Mean Corpuscular Hemoglobin Concent 34, Red Cell Distribution Width 13.2, Platelet Count 338, Mean Platelet Volume 8.8L, Sodium Level 125*L, Potassium Level 4.4, Chloride Level 95L, Carbon Dioxide Level 16L, Anion Gap 14, Blood Urea Nitrogen 37H, Creatinine 1.48H, Estimat Glomerular Filtration Rate 33, BUN/Creatinine Ratio 25, Glucose Level 105, Calcium Level 9.9 04/14/21 16:24: Body Fluid Source THORACEN, Body Fluid Color RED, Body Fluid Appearance MKD BLDY, Body Fluid pH 7.09, Body Fluid WBC 1000, Body Fluid RBC [id number], Body Fluid Polynuclear WBCs 38, Body Fluid Mononuclear WBCs 28, Body Fluid Lymphocytes 34, Body Fluid Eosinophils 0, Body Fluid Other Cells 0, Body Fluid Glucose 75, Body Fluid Total Protein 5.0, Body Fluid Lactate Dehydrogenase 1224 04/14/21 17:24: Hemoglobin 8.8L, Hematocrit 26L 04/15/21 04:17: White Blood Count 6.3, Red Blood Count 3.07L, Hemoglobin 9.3L, Hematocrit 27L, Mean Corpuscular Volume 88, Mean Corpuscular Hemoglobin 30, Mean Corpuscular Hemoglobin Concent 35, Red Cell Distribution Width 13.2, Platelet Count 363, Mean Platelet Volume 8.7L, Sodium Level 128L, Potassium Level 4.1, Chloride Level 100, Carbon Dioxide Level 19L, Anion Gap 9, Blood Urea Nitrogen 34H, Creatinine 1.37H, Estimat Glomerular Filtration Rate 36, BUN/Creatinine Ratio 25, Glucose Level 108H, Calcium Level 9.4, Immature Granulocyte % (Auto) 2, Neutrophils (%) (Auto) 74, Lymphocytes (%) (Auto) 8L, Monocytes (%) (Auto) 12, Eosinophils (%) (Auto) 4, Basophils (%) (Auto) 1, Neutrophils # (Auto) 4.7, Lymphocytes # (Auto) 0.5L, Monocytes # (Auto) 0.8, Eosinophils # (Auto) 0.2, Basophils # (Auto) 0.0, Immature Granulocyte # (Auto) 0.1, Corrected Calcium 10.3H, Phosphorus Level 3.0, Magnesium Level 2.1, Total Bilirubin 0.4, Aspartate Amino Transf (AST/SGOT) 15, Alanine Aminotransferase (ALT/SGPT) 8, Alkaline Phosphatase 65, Total Protein 5.3L, Albumin 2.9L Microbiology 04/13/21 Urine Culture - Preliminary, Resulted Enterococcus faecium YEAST 04/13/21 Blood Culture - Preliminary, Resulted No growth Assessment/Plan Assessment/Plan Assessment/Plan Persistent Cough Hx of Hiatal hernia Afib with recent pacemaker implant Pericardial effusion - drained Pt could be having microaspirations from eating or possibly hiatal hernia con tributing to this; Dr. Verdugo would like to get this worked up while pt is in the hospital and pt agrees. Will make pt NPO after MN and plan for EGD tomorrow. Discussed risks and complications not limited to pain, bleeding, infection or even esophageal perforation. All questions answered to pt and her family's satisfaction. I reviewed the CT myself (does not appear to be a large hiatal hernia or at least not a lot of stomach up in the chest) and discussed case with Dr. Verdugo. FLORIAN FRAZIER DO Apr 15, 2021 11:11
--- NOTE | 2021-04-15 12:23 | Tele-ICU Progress Note ---
Subjective Date Seen by a Provider: Apr 15, 2021 Time Seen by a Provider: 12:19 Subjective/Events-last exam This patient currently in sinus rhythm. Patient had removal of the pericardial tissue. She is breathing fine no chest pain. Patient apparently had pacemaker insertion about a week ago for sick sinus syndrome. She came back with the atrial flutter and found to have a large pericardial effusion which was tapped and removed about 410 mL of bloody fluid. Now breathing much better. Review of Systems ros per attending Sepsis Event Evaluation Height, Weight, BMI Height: 5'2.00" Weight: 106lbs. 0.0oz. 48.989449ke; 23.78 BMI Method:Stated Focused Exam Lactate Level 04/13/21 17:59: Lactic Acid Level 0.93 Exam Exam Patient acknowledged, consented, and participated in this virtual visit which was conducted using real time audio/video Vital Signs Date Time Temp Pulse Resp B/P (MAP) Pulse Ox O2 Delivery O2 Flow Rate FiO2 04/15/21 12:00 74 10 132/61 96 Nasal Cannula 3.00 04/15/21 11:00 84 18 129/66 93 Nasal Cannula 3.00 04/15/21 10:00 73 114/57 90 Nasal Cannula 3.00 04/15/21 09:00 89 18 135/62 95 Nasal Cannula 3.00 04/15/21 08:43 36.4 04/15/21 08:00 85 15 123/57 92 Nasal Cannula 3.00 04/15/21 08:00 Nasal Cannula 3.00 93 04/15/21 07:34 92 Nasal Cannula 3.00 04/15/21 07:00 84 29 109/98 Nasal Cannula 3.00 04/15/21 07:00 83 04/15/21 06:00 80 15 126/51 93 Nasal Cannula 3.00 04/15/21 05:00 78 22 112/49 92 Nasal Cannula 3.00 04/15/21 04:00 Nasal Cannula 3.00 04/15/21 04:00 75 22 118/56 90 Nasal Cannula 3.00 04/15/21 04:00 36.5 04/15/21 03:00 77 19 119/49 92 Nasal Cannula 3.00 04/15/21 02:00 79 17 122/60 95 Nasal Cannula 3.00 04/15/21 01:00 77 23 119/54 95 Nasal Cannula 3.00 04/15/21 01:00 80 04/15/21 00:00 70 26 119/40 91 Nasal Cannula 3.00 04/15/21 00:00 36.3 Nasal Cannula 3.00 04/15/21 00:00 Nasal Cannula 3.00 04/14/21 23:00 71 19 98/64 91 Nasal Cannula 2.00 04/14/21 22:00 74 18 109/46 92 Nasal Cannula 2.00 04/14/21 21:00 71 26 132/48 93 Nasal Cannula 2.00 04/14/21 20:00 73 28 112/63 95 Nasal Cannula 2.00 04/14/21 20:00 36.4 04/14/21 19:45 Nasal Cannula 2.00 04/14/21 19:00 72 04/14/21 19:00 71 25 128/57 95 Nasal Cannula 2.00 04/14/21 18:00 71 14 117/48 93 Nasal Cannula 2.00 04/14/21 17:00 64 28 106/55 95 Nasal Cannula 2.00 04/14/21 16:24 35.5 04/14/21 16:00 Nasal Cannula 2.00 04/14/21 16:00 62 17 121/66 97 Nasal Cannula 2.00 04/14/21 15:00 63 126/52 100 Nasal Cannula 2.00 04/14/21 14:40 97 04/14/21 14:00 64 27 137/57 98 Nasal Cannula 2.00 04/14/21 13:00 60 19 111/63 97 Nasal Cannula 2.00 04/14/21 12:49 60 I & O 04/15/21 07:00 Intake Total 2025 ml Output Total 2800 ml Balance -775 ml Height & Weight Height: 5'2.00" Weight: 106lbs. 0.0oz. [id number]; 23.78 BMI Method:Stated General Appearance: WD/WN, Other (PERSISTENT COUGHING) HEENT: PERRL/EOMI Neck: Full Range of Motion, Non Tender, Supple Respiratory: Chest Non Tender, No Accessory Muscle Use, Decreased Breath Sounds (DIFFUSELY DECREASED, DISTANT BREATH SOUNDS THROUGHOUT); No Respiratory Distress, No Rhonci, No Wheezing Cardiovascular: Normal Peripheral Pulses, Irregularly Irregular, Other (PERICARDIAL RUB) Capillary Refill: Less Than 3 Seconds Peripheral Pulses: 1+ Dorsalis Pedis (R), 1+ Left Dors-Pedis (L) Gastrointestinal: normal bowel sounds, non tender, soft, no organomegaly Extremity: Non Tender, No Pedal Edema Neurologic/Psychiatric: Alert, Oriented x3, No Motor/Sensory Deficits, Normal Mood/Affect, 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 Atrial flutter with rapid ventricular rate now converted to sinus rhythm. 2. Anemia probably due to hemorrhagic pericardial effusion status post transfusion. 3. Hemorrhagic pericardial effusion probably due to post procedure complication with insertion of pacemaker 4. Acute kidney injury improving. Recommendations 1. Antiarrhythmics per cardiology 2. Hold off anticoagulants for now 3. Anemia work-up for general surgery 4. From critical care point of view she may be transferred to telemetry unit. Critical Care: Critically Ill Patient Time spent with patient (mins): 25 PADMINI SEPULVEDA MD Apr 15, 2021 12:23
[2021-04-15] MEDS: guaiFENesin/DM (ROBITUSSIN DM) 10 ML UDC PO PRN (15:39)
[2021-04-15] MEDS: PIPERACILLIN/TAZO 4.5 GM/NS 100 ML IV SCH ×2 (15:39)
[2021-04-16] MEDS: PIPERACILLIN/TAZO 4.5 GM/NS 100 ML IV SCH ×6 (00:25→16:29)
[2021-04-16 05:23] LABS: BASOPHILS % (AUTO) 1 % (0-10); EOSINOPHILS # (AUTO) 0.3 10^3/uL (0.0-0.3); EOSINOPHILS % (AUTO) 4 % (0-10); HEMATOCRIT 29 % (35-52); HEMOGLOBIN 9.9 g/dL (11.5-16.0); LYMPHOCYTES % (AUTO) 12 % (12-44); MEAN CORPUSCULAR HEMOGLOBIN 30 pg (25-34); MEAN CORPUSCULAR HGB CONC 34 g/dL (32-36); MEAN CORPUSCULAR VOLUME 88 fL (80-99); MEAN PLATELET VOLUME 8.6 fL (9.0-12.2); MONOCYTES % (AUTO) 11 % (0-12); NEUTROPHILS # (AUTO) 6.1 10^3/uL (1.8-7.8); NEUTROPHILS % (AUTO) 71 % (42-75); PLATELET COUNT 420 10^3/uL (130-400); WHITE BLOOD COUNT 8.5 10^3/uL (4.3-11.0)
[2021-04-16 05:36] LABS: POTASSIUM 4.5 MMOL/L (3.6-5.0)
[2021-04-16 05:37] LABS: CALCIUM 9.5 MG/DL (8.5-10.1)
[2021-04-16 05:39] LABS: TOTAL PROTEIN 5.4 GM/DL (6.4-8.2)
[2021-04-16] MEDS: KCL 20 MEQ TAB (K-DUR) PO SCH (05:39)
[2021-04-16] MEDS: POTASSIUM CL 10MEQ/50ML IVPB 50 ML IV SCH (05:39)
[2021-04-16 05:40] LABS: BILIRUBIN,TOTAL 0.3 MG/DL (0.1-1.0)
[2021-04-16 05:42] LABS: CREATININE SERUM 1.36 MG/DL (0.60-1.30); PHOSPHORUS 2.7 MG/DL (2.3-4.7)
[2021-04-16 05:45] LABS: MAGNESIUM 1.9 MG/DL (1.6-2.4)
[2021-04-16] MEDS: MAGNESIUM 1 GM/100 ML IVPB 100 ML IV SCH (05:49)
[2021-04-16] MEDS: RT--FLUTICASONE/SALMETEROL 113-14 (AIRDUO RespiCLICK) IH SCH ×2 (07:17→20:04)
[2021-04-16] MEDS: PANTOPRAZOLE 40 MG (PROTONIX) VIAL IV SCH (08:17)
--- NOTE | 2021-04-16 10:33 | Progress Note ---
Subjective Subjective Date Seen by Provider: Apr 16, 2021 Time Seen by Provider: 10:20 PT IS AN 89 Y/O FEMALE WHO IS KNOWN TO ME FROM CLINIC. SHE HAS PERSISTENT COUGH, SHE DENIES SHORTNESS OF BREATH. SHE COMPLAINS OF ABDOMINAL PAIN WITH COUGHING. RONAN REPORTS THAT SHE DOES NOT FEEL LIKE THE ADVAIR IS HELPING WITH HER COUGH OR SHORTNESS OF BREATH. SHE IS UPSET/FRUSTRATED THAT SHE IS BEING AWAKENED IN THE EVENING/NIGHT WHEN SHE IS ASLEEP AND SHE HAS NOT HAD MUCH REST OVER THE PAST FEW DAYS. Review of Systems General: No Chills; Fatigue HEENT: No Head Aches, No Dysphasia, No Sore Throat Pulmonary: Dyspnea, Cough Cardiovascular: No: Chest Pain, Palpitations Gastrointestinal: No: Nausea, Abdominal Pain Genitourinary: No Dysuria Neurological: Weakness; No: Confusion All Other Systems Reviewed All Other Systems Reviewed: Yes Objective Exam Vital Signs Vital Signs Date Time Temp Pulse Resp B/P (MAP) Pulse Ox O2 Delivery O2 Flow Rate FiO2 04/16/21 08:00 Nasal Cannula 3.00 93 04/16/21 07:53 36.3 99 24 136/74 91 Nasal Cannula 3.00 04/16/21 07:17 96 Nasal Cannula 3.00 04/16/21 03:38 36.0 101 24 136/58 94 Nasal Cannula 3.00 04/16/21 01:00 95 04/16/21 00:00 36.6 97 18 136/64 94 Nasal Cannula 3.00 04/15/21 20:17 Nasal Cannula 3.00 04/15/21 19:47 36.1 92 22 122/70 96 Nasal Cannula 3.00 04/15/21 19:00 82 04/15/21 18:50 93 Nasal Cannula 3.00 04/15/21 17:03 36.2 04/15/21 17:00 86 20 120/48 93 Nasal Cannula 3.00 04/15/21 16:31 Nasal Cannula 3.00 98 04/15/21 16:00 71 24 107/56 93 Nasal Cannula 3.00 04/15/21 15:00 70 27 121/52 97 Nasal Cannula 3.00 04/15/21 14:00 71 14 122/56 97 Nasal Cannula 3.00 04/15/21 13:00 73 27 139/69 96 Nasal Cannula 3.00 04/15/21 12:58 Nasal Cannula 3.00 98 04/15/21 12:55 74 04/15/21 12:47 36.5 04/15/21 12:00 74 10 132/61 96 Nasal Cannula 3.00 04/15/21 11:00 84 18 129/66 93 Nasal Cannula 3.00 I & O 04/16/21 07:00 Intake Total 1267 ml Output Total 1225 ml Balance 42 ml General Appearance: No Apparent Distress, WD/WN, Other (PERSISTENT COUGHING) Eyes: Bilateral Eye Normal Inspection, Bilateral Eye PERRL, Bilateral Eye EOMI HEENT: PERRL/EOMI Neck: Full Range of Motion, Non Tender, Supple Respiratory: Chest Non Tender, No Accessory Muscle Use, Decreased Breath Sounds (DIFFUSELY DECREASED, DISTANT BREATH SOUNDS THROUGHOUT); No Respiratory Distress, No Rhonci, No Wheezing Cardiovascular: Regular Rate, Rhythm, Normal Peripheral Pulses, Other (PERICARDIAL RUB) Gastrointestinal: Normal Bowel Sounds, Non Tender, Soft Rectal: Deferred Back: Normal Inspection Extremity: Non Tender, No Pedal Edema Neurologic/Psychiatric: Alert, Oriented x3, No Motor/Sensory Deficits, Normal 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/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, 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 Norm as Tested (HEARING LOSS, FULL FACIAL MOTION, EYE MOTION NORMAL, NORMAL MOVEMENT HEAD/NECK, SCAB ON CHIN AND CHEEK ON RIGHT, NORMAL SENSATION) Skin: Normal Color, Warm/Dry, Other (SCAB ON CHEEK AND CHIN) Lymphatic: No Adenopathy Results Lab Laboratory Tests 04/16/21 05:01: White Blood Count 8.5, Red Blood Count 3.30L, Hemoglobin 9.9L, Hematocrit 29L, Mean Corpuscular Volume 88, Mean Corpuscular Hemoglobin 30, Mean Corpuscular Hemoglobin Concent 34, Red Cell Distribution Width 13.3, Platelet Count 420H, Mean Platelet Volume 8.6L, Immature Granulocyte % (Auto) 1, Neutrophils (%) (Auto) 71, Lymphocytes (%) (Auto) 12, Monocytes (%) (Auto) 11, Eosinophils (%) (Auto) 4, Basophils (%) (Auto) 1, Neutrophils # (Auto) 6.1, Lymphocytes # (Auto) 1.0, Monocytes # (Auto) 1.0, Eosinophils # (Auto) 0.3, Basophils # (Auto) 0.0, Immature Granulocyte # (Auto) 0.1, Sodium Level 131L, Potassium Level 4.5, Chloride Level 98, Carbon Dioxide Level 21, Anion Gap 12, Blood Urea Nitrogen 37H, Creatinine 1.36H, Estimat Glomerular Filtration Rate 37, BUN/Creatinine Ratio 27, Glucose Level 119H, Calcium Level 9.5, Corrected Calcium 10.3H, Phosphorus Level 2.7, Magnesium Level 1.9, Total Bilirubin 0.3, Aspartate Amino Transf (AST/SGOT) 15, Alanine Aminotransferase (ALT/SGPT) 8, Alkaline Phosphatase 68, Total Protein 5.4L, Albumin 3.0L Microbiology 04/14/21 Gram Stain - Final, Resulted 04/14/21 Anaerobic Culture, Resulted Pending 04/14/21 Body Fluid Culture - Preliminary, Resulted No growth 04/13/21 Urine Culture - Preliminary, Resulted Enterococcus faecium YEAST 04/13/21 Blood Culture - Preliminary, Resulted No growth Assessment/Plan Assessment/Plan Admission Dx ACUTE ATRIAL FIBRILLATION ACUTE ANEMIA PERICARDIAL EFFUSION HYPONATREMIA CHRONIC COUGH DYSPNEA ON EXERTION ACUTE RENAL INSUFFICIENCY ELEVATED BNP Assessment and Plan ACUTE ATRIAL FIBRILLATION ACUTE ANEMIA PERICARDIAL EFFUSION HYPONATREMIA CHRONIC COUGH DYSPNEA ON EXERTION ACUTE RENAL INSUFFICIENCY ELEVATED BNP URINARY TRACT INFECTION - ENTEROCOCCUS AND YEAST ACUTE ATRIAL FIBRILLATION - DEFER TO CARDIOLOGY - PT WAS STARTED ON CARDIZEM DRIP ON ADMISSION, PT NOW ON ORAL METOPROLOL. - RATE CONTROLLED ACUTE ANEMIA - CONSULT TO SURGEON - DISCUSSED WITH ON-CALL SURGEON - HE WILL PERFORM AN EGD TOMORROW. - TRANSFUSED ONE UNIT PRBC WITH IMPROVED HGB FROM 7 TO 9.9 - HEMOCCULT STOOLS PERICARDIAL EFFUSION - DEFER TO DR. LUNA - CARDIOLOGY - - STATUS POST PERICARDIAL DRAIN PLACEMENT - PULLED THIS MORNING 04/15/31. URINARY TRACT INFECTION - ENTEROCOCCUS AND YEAST - PT STARTED ON ZOSYN AND DIFLUCAN - MONITOR CULTURES - SENSITIVITIES PENDING HYPONATREMIA - DISCUSSED WITH PT AND HER DTR - WE WILL CONTINUE TO WORK THIS UP - FLUID RESTRICTION ORALLY - MONITOR LABS CHRONIC COUGH WITH DYSPNEA ON EXERTION - PT ON OXYGEN - CT ON LAST ADMISSION NEGATIVE - PT ON ADVAIR. ACUTE RENAL INSUFFICIENCY - IMPROVED - MONITOR LABS SINCE PT HAS BEEN PLACED ON IV FLUIDS ELEVATED BNP - DUE TO AFIB AND PERICARDIAL EFFUSION. CANNOT START ANTICOAG DUE TO ANEMIA AND CONCERN FOR GI BLEED. GI PROPHYLAXIS WITH PPI AND CARAFATE. Admission Dx ACUTE ATRIAL FIBRILLATION ACUTE ANEMIA PERICARDIAL EFFUSION HYPONATREMIA CHRONIC COUGH DYSPNEA ON EXERTION ACUTE RENAL INSUFFICIENCY ELEVATED BNP Clinical Quality Measures Admission Status Admission Dx ACUTE ATRIAL FIBRILLATION ACUTE ANEMIA PERICARDIAL EFFUSION HYPONATREMIA CHRONIC COUGH DYSPNEA ON EXERTION ACUTE RENAL INSUFFICIENCY ELEVATED BNP RICHARD PERALTA MD Apr 16, 2021 10:33
--- NOTE | 2021-04-16 10:53 | Cardiology Progress Note ---
Progress Note-Cardiology Events since last exam Date Seen by Provider: Apr 16, 2021 Time Seen by Provider: 10:53 Events since last exam She was transferred to the medical floor on 04/15. She feels a little out of breath. She denies chest pain, palpitations, syncope, or ankle edema. She is hungry. She is waiting to get her endoscopy due to the anemia. Certain portions of this document may have been dictated utilizing voice recognition technology. Inherent to this technology, typographical and grammatical errors may exist. As much as I am diligent to identify and correct these mistakes, some errors may remain in the document. Vitals Last set of Vitals Signs Vital Signs 04/16/21 04/16/21 07:53 08:00 Temp 36.3 Pulse 99 Resp 24 B/P (MAP) 136/74 Pulse Ox 91 O2 Delivery Nasal Cannula O2 Flow Rate 3.00 FiO2 93 Labs Labs Laboratory Tests 04/16/21 05:01 Exam Vital Signs Vital Signs Date Time Temp Pulse Resp B/P (MAP) Pulse Ox O2 Delivery O2 Flow Rate FiO2 04/16/21 08:00 Nasal Cannula 3.00 93 04/16/21 07:53 36.3 99 24 136/74 91 Physical Exam General: Alert. No acute distress. Eye: No xanthelasma. HENT: Normocephalic. Neck: Jugular venous pressure does not appear elevated. Respiratory: Lungs are clear to auscultation. Respirations are non-labored. Breath sounds are equal. Symmetrical chest wall expansion. Cardiovascular: Normal rate. Regular rhythm. No murmur. No gallop. No edema. There is a slight pericardial friction rub. Gastrointestinal: Soft. Normal bowel sounds. Skin: Warm. Dry. Neurologic: Alert and oriented to person, place, time. Cranial nerves 3-11 grossly intact. Psychiatric: Cooperative. Appropriate mood & affect. Labs Laboratory Tests Test 04/16/21 05:01 Range/Units White Blood Count 8.5 4.3-11.0 10^3/uL Red Blood Count 3.30 L 3.80-5.11 10^6/uL Hemoglobin 9.9 L 11.5-16.0 g/dL Hematocrit 29 L 35-52 % Mean Corpuscular Volume 88 80-99 fL Mean Corpuscular Hemoglobin 30 25-34 pg Mean Corpuscular Hemoglobin Concent 34 32-36 g/dL Red Cell Distribution Width 13.3 10.0-14.5 % Platelet Count 420 H 130-400 10^3/uL Mean Platelet Volume 8.6 L 9.0-12.2 fL Immature Granulocyte % (Auto) 1 % Neutrophils (%) (Auto) 71 42-75 % Lymphocytes (%) (Auto) 12 12-44 % Monocytes (%) (Auto) 11 0-12 % Eosinophils (%) (Auto) 4 0-10 % Basophils (%) (Auto) 1 0-10 % Neutrophils # (Auto) 6.1 1.8-7.8 10^3/uL Lymphocytes # (Auto) 1.0 1.0-4.0 10^3/uL Monocytes # (Auto) 1.0 0.0-1.0 10^3/uL Eosinophils # (Auto) 0.3 0.0-0.3 10^3/uL Basophils # (Auto) 0.0 0.0-0.1 10^3/uL Immature Granulocyte # (Auto) 0.1 0.0-0.1 10^3/uL Sodium Level 131 L 135-145 MMOL/L Potassium Level 4.5 3.6-5.0 MMOL/L Chloride Level 98 98-107 MMOL/L Carbon Dioxide Level 21 21-32 MMOL/L Anion Gap 12 5-14 MMOL/L Blood Urea Nitrogen 37 H 7-18 MG/DL Creatinine 1.36 H 0.60-1.30 MG/DL Estimat Glomerular Filtration Rate 37 BUN/Creatinine Ratio 27 Glucose Level 119 H 70-105 MG/DL Calcium Level 9.5 8.5-10.1 MG/DL Corrected Calcium 10.3 H 8.5-10.1 MG/DL Phosphorus Level 2.7 2.3-4.7 MG/DL Magnesium Level 1.9 1.6-2.4 MG/DL Total Bilirubin 0.3 0.1-1.0 MG/DL Aspartate Amino Transf (AST/SGOT) 15 5-34 U/L Alanine Aminotransferase (ALT/SGPT) 8 0-55 U/L Alkaline Phosphatase 68 40-136 U/L Total Protein 5.4 L 6.4-8.2 GM/DL Albumin 3.0 L 3.2-4.5 GM/DL Radiology ECHOCARDIOGRAM (04/16/2021): 1. This is a limited study to assess pericardial effusion. 2. Left ventricle: Systolic function is normal. The estimated ejection fraction is 60-65%. 3. Pericardium, extracardiac: A small pericardial effusion is identified anterior to the heart. There is a left pleural effusion. 4. When compared to the study from 04/15/2021, the pericardial effusion appears unchanged. Diagnosis/Problems Diagnosis/Problems (1) Typical atrial flutter Assessment & Plan: When she presented to the emergency room, she had atrial flutter. This converted to sinus rhythm with intravenous diltiazem. I suspect this was brought on by the pericardial effusion noted on her echocardiogram. I have changed her intravenous diltiazem over to oral metoprolol succinate. Given that she had bloody pericardial fluid at the time of pericardiocentesis, I do not plan to start her on oral anticoagulation at this time. For the same reason, I have stopped her clopidogrel. Aspirin has been resumed. (2) Pericardial effusion Assessment & Plan: She had a large pericardial effusion. This was most likely related to manipulation of the atrial lead at the time of pacemaker implantation last week. The clinical lab specialist who was performing the pacemaker implantation had to relocate the atrial lead multiple times to find an area that was getting adequate capture. I suspect all of his manipulation may have caused a m icroperforation with the development of a pericardial effusion. The pericardial drain was removed on 04/15. The pericardial effusion appears small, anterior, and unchanged today. This small residual pericardial effusion should resolve spontaneously. I recommend starting her on low-dose enoxaparin for prophylaxis of deep venous thrombosis at this time. Cytology is still pending on the pericardial effusion. Cultures are negative so far. (3) Sick sinus syndrome Assessment & Plan: She underwent permanent pacemaker implantation last week and as far as we can tell, the device appears to be functioning normally. (4) Primary hypertension Assessment & Plan: I have started her on metoprolol succinate due to the atrial flutter. Her blood pressures are reasonably controlled with this medication but slightly elevated at times. We will continue to monitor her blood pressures and resume her other outpatient antihypertensive medication if needed. (5) Anemia Assessment & Plan: She drained about 450 mL of bloody fluid from the pericardial space. I suspect she had a hemorrhagic pericardial effusion that caused the anemia. She received 1 unit of packed red blood cells and her hemoglobin appears to have stabilized. She will be undergoing an endoscopy today to investigate for gastrointestinal sources of blood loss. (6) Cardiac pacemaker in situ Assessment & Plan: I removed the sterile dressing this morning. Steri-Strips are intact. The implant site is healing well without hematoma. ADALBERTO LUNA JR, MD Apr 16, 2021 10:53
[2021-04-16] MEDS ORDERED: PROPOFOL INJECTION 50 ML IV ONE (11:32)
[2021-04-16] MEDS ORDERED: LACTATED RINGERS 1,000 ML IV ONE (11:39)
[2021-04-16] MEDS ORDERED: HURRICAINE EXT TUBE (BENZOCAINE) ONE (11:40)
[2021-04-16] MEDS ORDERED: HYDROcodone/Chlorpen 10MG/5 ML (TUSSIONEX) 5ML UDC PO ONE (11:45)
--- NOTE | 2021-04-16 12:10 | Progress Note - Surgery ---
Subjective Time Seen by a Provider: 11:10 Subjective/Events-last exam Pt seen and examined, no new changes. Still has cough and is hungry because she didn't eat after midnight. Review of Systems General: No Chills, No Night Sweats Pulmonary: No Dyspnea; Cough Cardiovascular: No: Chest Pain, Palpitations Gastrointestinal: No: Nausea, Vomiting Focused Exam Lactate Level 04/13/21 17:59: Lactic Acid Level 0.93 Objective Exam Vital Signs Date Time Temp Pulse Resp B/P (MAP) Pulse Ox O2 Delivery O2 Flow Rate FiO2 04/16/21 11:42 36.2 117 20 136/74 96 Nasal Cannula 3.00 04/16/21 08:00 Nasal Cannula 3.00 93 04/16/21 07:53 36.3 99 24 136/74 91 Nasal Cannula 3.00 04/16/21 07:17 96 Nasal Cannula 3.00 04/16/21 03:38 36.0 101 24 136/58 94 Nasal Cannula 3.00 04/16/21 01:00 95 04/16/21 00:00 36.6 97 18 136/64 94 Nasal Cannula 3.00 04/15/21 20:17 Nasal Cannula 3.00 04/15/21 19:47 36.1 92 22 122/70 96 Nasal Cannula 3.00 04/15/21 19:00 82 04/15/21 18:50 93 Nasal Cannula 3.00 04/15/21 17:03 36.2 04/15/21 17:00 86 20 120/48 93 Nasal Cannula 3.00 04/15/21 16:31 Nasal Cannula 3.00 98 04/15/21 16:00 71 24 107/56 93 Nasal Cannula 3.00 04/15/21 15:00 70 27 121/52 97 Nasal Cannula 3.00 04/15/21 14:00 71 14 122/56 97 Nasal Cannula 3.00 04/15/21 13:00 73 27 139/69 96 Nasal Cannula 3.00 04/15/21 12:58 Nasal Cannula 3.00 98 04/15/21 12:55 74 04/15/21 12:47 36.5 I & O 04/16/21 07:00 Intake Total 1267 ml Output Total 1225 ml Balance 42 ml Capillary Refill : Less Than 3 Seconds General Appearance: No Apparent Distress, Thin, Other (PERSISTENT COUGHING) HEENT: PERRL/EOMI Respiratory: Chest Non Tender, No Accessory Muscle Use, Decreased Breath Sounds (DIFFUSELY DECREASED, DISTANT BREATH SOUNDS THROUGHOUT); No Respiratory Distress, No Rhonci, No Wheezing Cardiovascular: Regular Rate, Rhythm, Normal Peripheral Pulses, Other (PERICARDIAL RUB) Peripheral Pulses: 1+ Dorsalis Pedis (R), 1+ Left Dors-Pedis (L) Gastrointestinal: normal bowel sounds, non tender, soft, no organomegaly Extremity: Non Tender, No Pedal Edema Neurologic/Psychiatric: Alert, Oriented x3 Skin: Other (SCAB ON CHEEK AND CHIN) Results Lab Laboratory Tests 04/16/21 05:01: White Blood Count 8.5, Red Blood Count 3.30L, Hemoglobin 9.9L, Hematocrit 29L, Mean Corpuscular Volume 88, Mean Corpuscular Hemoglobin 30, Mean Corpuscular Hemoglobin Concent 34, Red Cell Distribution Width 13.3, Platelet Count 420H, Mean Platelet Volume 8.6L, Immature Granulocyte % (Auto) 1, Neutrophils (%) (Auto) 71, Lymphocytes (%) (Auto) 12, Monocytes (%) (Auto) 11, Eosinophils (%) (Auto) 4, Basophils (%) (Auto) 1, Neutrophils # (Auto) 6.1, Lymphocytes # (Auto) 1.0, Monocytes # (Auto) 1.0, Eosinophils # (Auto) 0.3, Basophils # (Auto) 0.0, Immature Granulocyte # (Auto) 0.1, Sodium Level 131L, Potassium Level 4.5, Chloride Level 98, Carbon Dioxide Level 21, Anion Gap 12, Blood Urea Nitrogen 37H, Creatinine 1.36H, Estimat Glomerular Filtration Rate 37, BUN/Creatinine Ratio 27, Glucose Level 119H, Calcium Level 9.5, Corrected Calcium 10.3H, Phosphorus Level 2.7, Magnesium Level 1.9, Total Bilirubin 0.3, Aspartate Amino Transf (AST/SGOT) 15, Alanine Aminotransferase (ALT/SGPT) 8, Alkaline Phosphatase 68, Total Protein 5.4L, Albumin 3.0L Microbiology 04/14/21 Gram Stain - Final, Resulted 04/14/21 Anaerobic Culture, Resulted Pending 04/14/21 Body Fluid Culture - Preliminary, Resulted No growth 04/13/21 Urine Culture - Preliminary, Resulted Enterococcus faecium YEAST 04/13/21 Blood Culture - Preliminary, Resulted No growth Assessment/Plan Assessment/Plan Assessment/Plan Chronic Cough AFib GERD Anemia Pericardial effusion s/p pacemaker implant Acute renal insufficiency Plan EGD today, possible biopsy, possible esophageal dilation. [facility]. FLORIAN FRAZIER DO Apr 16, 2021 12:10
[2021-04-16 12:25] VITALS: BP 68/43
[2021-04-16 12:30] VITALS: BP 70/47
--- NOTE | 2021-04-16 12:34 | Progress Note-Post Operative ---
Post-Operative Progess Note Surgeon (s)/It Applications Manager (s) Surgeon FLORIAN FRAZIER DO It Applications Manager: none Pre-Operative Diagnosis persistent cough, anemia Post-Operative Diagnosis same plus Gastritis Hiatal hernia Procedure & Operative Findings Date of Procedure 04/16/21 Procedure Performed/Findings EGD with bx PROCEDURE NOTE: After informed consent was obtained, the patient was brought to the endoscopy suite, placed in bed in left lateral decubitus position. She was administered IV sedation by the DIETIST who then monitored vitals the entire time, heart rate, blood pressure and pulse ox and the scope was inserted down the mouth through the esophagus into the stomach. On the way down took a picture of the vocal chords; they looked normal. Pushed into the stomach, pushed past the antrum into the duodenum; duodenum looked good. Antrum appeared to have some mild Gastritis and elected to do a biopsy of antrum. Then retroflexed the scope, saw a small hiatal hernia and took a picture of this and then pulled the scope into the GE junction. Took another picture of the GE junction, questionable very mild changes of acid reflux. Pushed the scope back into the stomach, suctioned all the air out of the stomach. At this point pulled the scope up the esophagus and took pictures on the way up; did not see any strictures or other changes. Finally pullled scope completley out of the mouth. The patient tolerated the procedure, and she recovered in endoscopy suite. Anesthesia Type IV sedation by DIETIST Estimated Blood Loss Estimated blood loss (mL): scant Specimens/Packing Specimens Removed antral bx FLORIAN FRAZIER DO Apr 16, 2021 12:34
[2021-04-16 12:35] VITALS: BP 86/53
[2021-04-16] MEDS: ENOXAPARIN 30 MG/0.3 ML (LOVENOX) SYR SC SCH (12:55)
[2021-04-16] MEDS: ASPIRIN E.C. 81 MG (ECOTRIN) TAB PO SCH (12:55)
[2021-04-16] MEDS: fluCOnazole (DIFLUCAN) 100 MG TAB PO SCH (12:55)
[2021-04-16] MEDS: FUROSEMIDE 20 MG (LASIX) TAB PO SCH (12:55)
[2021-04-16] MEDS ORDERED: LACTATED RINGERS 1,000 ML IV STA (13:12)
[2021-04-16] MEDS ORDERED: HURRICAINE EXT TUBE (BENZOCAINE) XX PRN (13:15)
[2021-04-16] MEDS ORDERED: HYDROcodone/Chlorpen 10MG/5 ML (TUSSIONEX) 5ML UDC PO SCH (21:00)
[2021-04-17] MEDS: PIPERACILLIN/TAZO 4.5 GM/NS 100 ML IV SCH ×6 (00:58→16:24)
[2021-04-17 06:15] LABS: BASOPHILS # (AUTO) 0.1 10^3/uL (0.0-0.1); BASOPHILS % (AUTO) 1 % (0-10); EOSINOPHILS # (AUTO) 0.4 10^3/uL (0.0-0.3); EOSINOPHILS % (AUTO) 7 % (0-10); HEMATOCRIT 29 % (35-52); HEMOGLOBIN 9.7 g/dL (11.5-16.0); LYMPHOCYTES # (AUTO) 1.2 10^3/uL (1.0-4.0); LYMPHOCYTES % (AUTO) 19 % (12-44); MEAN CORPUSCULAR HEMOGLOBIN 31 pg (25-34); MEAN CORPUSCULAR HGB CONC 34 g/dL (32-36); MEAN CORPUSCULAR VOLUME 90 fL (80-99); MEAN PLATELET VOLUME 8.5 fL (9.0-12.2); MONOCYTES # (AUTO) 0.7 10^3/uL (0.0-1.0); MONOCYTES % (AUTO) 11 % (0-12); NEUTROPHILS # (AUTO) 3.9 10^3/uL (1.8-7.8); NEUTROPHILS % (AUTO) 61 % (42-75); PLATELET COUNT 393 10^3/uL (130-400); WHITE BLOOD COUNT 6.4 10^3/uL (4.3-11.0)
[2021-04-17 06:35] LABS: BILIRUBIN,TOTAL 0.3 MG/DL (0.1-1.0); CALCIUM 9.6 MG/DL (8.5-10.1); CREATININE SERUM 1.46 MG/DL (0.60-1.30); MAGNESIUM 1.9 MG/DL (1.6-2.4); PHOSPHORUS 4.1 MG/DL (2.3-4.7); POTASSIUM 4.4 MMOL/L (3.6-5.0); TOTAL PROTEIN 5.6 GM/DL (6.4-8.2)
[2021-04-17] MEDS: POTASSIUM CL 10MEQ/50ML IVPB 50 ML IV SCH (06:42)
[2021-04-17] MEDS: MAGNESIUM 1 GM/100 ML IVPB 100 ML IV SCH (06:42)
[2021-04-17] MEDS: KCL 20 MEQ TAB (K-DUR) PO SCH (06:43)
--- NOTE | 2021-04-17 08:39 | Anesthesia-General Post-Op ---
MAC Patient Condition Mental Status/LOC: Same as Preop Cardiovascular: Satisfactory Nausea/Vomiting: Absent Respiratory: Satisfactory Pain: Controlled Complications: Absent Post Op Complications Complications None Follow Up Care/Instructions Patient Instructions None needed. Anesthesiology Discharge Order Discharge Order Patient is doing well, no complaints, stable vital signs, no apparent adverse anesthesia problems. No complications reported per nursing. GERMAN BOURGEOIS CRNA Apr 17, 2021 08:39
[2021-04-17] MEDS: PANTOPRAZOLE 40 MG (PROTONIX) TAB PO SCH (09:12)
[2021-04-17] MEDS: ASPIRIN E.C. 81 MG (ECOTRIN) TAB PO SCH (09:12)
[2021-04-17] MEDS: FUROSEMIDE 20 MG (LASIX) TAB PO SCH (09:12)
[2021-04-17] MEDS: fluCOnazole (DIFLUCAN) 100 MG TAB PO SCH (09:12)
--- NOTE | 2021-04-17 09:13 | Progress Note ---
Subjective Subjective Date Seen by Provider: Apr 17, 2021 Time Seen by Provider: 08:30 PT IS AN 89 Y/O FEMALE WHO IS KNOWN TO ME FROM CLINIC. TODAY SHE REPORTS THAT SHE IS FATIGUED, HAVING TROUBLE WAKING UP. SHE CONTINUES TO HAVE A COUGH, FAMILY REPORTS MAY BE A LITTLE BETTER. FAMILY HAS MANY QUESTIONS TODAY, BROUGHT IN HER MEDICATION TO SEE IF SOMEONE CAN HELP THEM FIGURE OUT HOW TO BETTER MANAGE HER PILLS. Review of Systems General: No Chills, No Night Sweats; Fatigue HEENT: No Head Aches, No Dysphasia, No Sore Throat Pulmonary: No Dyspnea; Cough Cardiovascular: No: Chest Pain, Palpitations Gastrointestinal: No: Nausea, Vomiting Genitourinary: No Dysuria Neurological: Weakness; No: Confusion All Other Systems Reviewed All Other Systems Reviewed: Yes Objective Exam Vital Signs Vital Signs Date Time Temp Pulse Resp B/P (MAP) Pulse Ox O2 Delivery O2 Flow Rate FiO2 04/17/21 08:00 36.2 92 20 135/63 96 Nasal Cannula 3.00 04/17/21 07:00 100 04/17/21 04:00 36.6 97 20 135/71 95 Nasal Cannula 3.00 04/17/21 01:00 93 04/17/21 00:22 36.8 95 21 118/63 100 Nasal Cannula 3.00 04/16/21 20:29 36.1 75 24 120/71 98 Nasal Cannula 3.00 04/16/21 20:26 Nasal Cannula 3.00 04/16/21 19:02 92 04/16/21 16:16 35.9 84 22 113/65 97 Nasal Cannula 3.00 04/16/21 13:00 89 04/16/21 12:55 99 116/58 04/16/21 12:35 90 16 93 OxyMask 3 04/16/21 12:30 91 16 98 OxyMask 10 04/16/21 12:25 87 16 97 OxyMask 10 04/16/21 11:42 36.2 117 20 136/74 96 Nasal Cannula 3.00 I & O 04/17/21 07:00 Intake Total 730 ml Output Total 1460 ml Balance -730 ml General Appearance: No Apparent Distress, WD/WN, Other Eyes: Bilateral Eye Normal Inspection, Bilateral Eye PERRL, Bilateral Eye EOMI Respiratory: Chest Non Tender, No Accessory Muscle Use, Decreased Breath Sounds (IMPROVED AIR MOVEMENT IN BASES, DECREASED IN UPPER LUNGS BILATERALLY); No Respiratory Distress, No Rhonci, No Wheezing Cardiovascular: Normal Peripheral Pulses, Irregularly Irregular Gastrointestinal: Normal Bowel Sounds, Non Tender, Soft Rectal: Deferred Back: Normal Inspection Extremity: Non Tender, No Pedal Edema Neurologic/Psychiatric: Alert, Oriented x3, Normal Mood/Affect Skin: Normal Color, Warm/Dry, Other (SCAB ON CHEEK AND CHIN) Results Lab Laboratory Tests 04/17/21 06:08: White Blood Count 6.4, Red Blood Count 3.18L, Hemoglobin 9.7L, Hematocrit 29L, Mean Corpuscular Volume 90, Mean Corpuscular Hemoglobin 31, Mean Corpuscular Hemoglobin Concent 34, Red Cell Distribution Width 13.7, Platelet Count 393, Mean Platelet Volume 8.5L, Immature Granulocyte % (Auto) 2, Neutrophils (%) (Auto) 61, Lymphocytes (%) (Auto) 19, Monocytes (%) (Auto) 11, Eosinophils (%) (Auto) 7, Basophils (%) (Auto) 1, Neutrophils # (Auto) 3.9, Lymphocytes # (Auto) 1.2, Monocytes # (Auto) 0.7, Eosinophils # (Auto) 0.4H, Basophils # (Auto) 0.1, Immature Granulocyte # (Auto) 0.1, Sodium Level 133L, Potassium Level 4.4, Chloride Level 97L, Carbon Dioxide Level 23, Anion Gap 13, Blood Urea Nitrogen 30H, Creatinine 1.46H, Estimat Glomerular Filtration Rate 34, BUN/Creatinine Ratio 21, Glucose Level 100, Calcium Level 9.6, Corrected Calcium 10.4H, Phosphorus Level 4.1, Magnesium Level 1.9, Total Bilirubin 0.3, Aspartate Amino Transf (AST/SGOT) 16, Alanine Aminotransferase (ALT/SGPT) 6, Alkaline Phosphatase 57, Total Protein 5.6L, Albumin 3.0L Microbiology 04/14/21 Gram Stain - Final, Resulted 04/14/21 Anaerobic Culture, Resulted Pending 04/14/21 Body Fluid Culture - Preliminary, Resulted No growth 04/13/21 Urine Culture - Preliminary, Resulted Enterococcus faecium YEAST 04/13/21 Blood Culture - Preliminary, Resulted No growth Assessment/Plan Assessment/Plan Admission Dx ACUTE ATRIAL FIBRILLATION ACUTE ANEMIA PERICARDIAL EFFUSION HYPONATREMIA CHRONIC COUGH DYSPNEA ON EXERTION ACUTE RENAL INSUFFICIENCY ELEVATED BNP Assessment and Plan ACUTE ATRIAL FIBRILLATION ACUTE ANEMIA PERICARDIAL EFFUSION HYPONATREMIA CHRONIC COUGH DYSPNEA ON EXERTION ACUTE RENAL INSUFFICIENCY ELEVATED BNP URINARY TRACT INFECTION - ENTEROCOCCUS AND YEAST ACUTE ATRIAL FIBRILLATION - DEFER TO CARDIOLOGY - PT WAS STARTED ON CARDIZEM DRIP ON ADMISSION, PT NOW ON ORAL METOPROLOL. - RATE CONTROLLED ACUTE ANEMIA - CONSULT TO SURGEON - DISCUSSED WITH ON-CALL SURGEON - HE WILL PERFORM AN EGD TOMORROW. - TRANSFUSED ONE UNIT PRBC WITH IMPROVED HGB FROM 7 TO 9.9 PERICARDIAL EFFUSION - DEFER TO DR. LUNA - CARDIOLOGY - - STATUS POST PERICARDIAL DRAIN PLACEMENT - PULLED ON 04/15/31. URINARY TRACT INFECTION - ENTEROCOCCUS AND YEAST - PT STARTED ON ZOSYN AND DIFLUCAN - MONITOR CULTURES - SENSITIVITIES PENDING HYPONATREMIA - DISCUSSED WITH PT AND HER DTR - WE WILL CONTINUE TO WORK THIS UP - FLUID RESTRICTION ORALLY - MONITOR LABS CHRONIC COUGH WITH DYSPNEA ON EXERTION - PT ON OXYGEN - CT ON LAST ADMISSION NEGATIVE - PT ON ADVAIR. - PT STARTED ON COUGH MEDICATION - WILL DECREASE DOSE DUE TO GROGGINESS - BARIUM SWALLOW STUDY TODAY ACUTE RENAL INSUFFICIENCY - IMPROVED - MONITOR LABS SINCE PT HAS BEEN PLACED ON IV FLUIDS ELEVATED BNP - DUE TO AFIB AND PERICARDIAL EFFUSION. CANNOT START ANTICOAG DUE TO ANEMIA AND CONCERN FOR GI BLEED. GI PROPHYLAXIS WITH PPI AND CARAFATE. Admission Dx ACUTE ATRIAL FIBRILLATION ACUTE ANEMIA PERICARDIAL EFFUSION HYPONATREMIA CHRONIC COUGH DYSPNEA ON EXERTION ACUTE RENAL INSUFFICIENCY ELEVATED BNP Clinical Quality Measures Admission Status Admission Dx ACUTE ATRIAL FIBRILLATION ACUTE ANEMIA PERICARDIAL EFFUSION HYPONATREMIA CHRONIC COUGH DYSPNEA ON EXERTION ACUTE RENAL INSUFFICIENCY ELEVATED BNP RICHARD PERALTA MD Apr 17, 2021 09:13
[2021-04-17] MEDS: HYDROcodone/Chlorpen 10MG/5 ML (TUSSIONEX) 5ML UDC PO SCH ×2 (09:34→21:35)
--- NOTE | 2021-04-17 10:02 | Diagnostic Imaging Report ---
Indication: Pleural effusion and cough. PA and lateral chest obtained at 0901 a.m. compared to 04/15/2021. There is cardiomegaly and central vascular congestion. There is some patchy infiltrate in the lung bases left greater than right. There is no pneumothorax. There are trace bilateral pleural effusions. There is no change in the pacemaker device. IMPRESSION: Unchanged cardiomegaly and central vascular congestion with mild bibasilar infiltrates left greater than right. Trace bilateral pleural effusions. Dictated by: Dictated on workstation # [id number]
[2021-04-17] MEDS: RT--FLUTICASONE/SALMETEROL 113-14 (AIRDUO RespiCLICK) IH SCH ×2 (11:23→19:17)
[2021-04-17] MEDS: ENOXAPARIN 30 MG/0.3 ML (LOVENOX) SYR SC SCH (12:05)
--- NOTE | 2021-04-17 14:32 | ST Mod Barium Swallow ---
Speech Evaluation-General Medical Diagnosis Acute Atrial Fibrilation, Chronic Cough Onset Date: Apr 13, 2021 Therapy Diagnosis Therapy Diagnosis: Oropharyngeal Dysphagia Precautions Precautions: Aspiration Referral Referring Physician: Dr. Verdugo Medical History Pertinent Medical History: HTN, Renal Insufficiency Reviewed History: Yes Speech Mod Barium Swallow Prior Level of Function Patient was able to eat and drink what she wants. She states her appetite has changed over the past year or so. She is currently on a general/regular diet level with thin liquids. Oral Motor Skills Dentition Natural Dentures: Full Lingual Protrusion: Normal Lingual Strength: Normal Velum: Normal Volitional Dry Swallow: Yes Voluntary Cough: Yes Voluntary Cough Comments: Patient is noted to frequently cough, C/O dry mouth Can Clear Throat Volitionally: Yes Textures-Lateral View Lateral View Food Presentation: Thin Liquid via Spoon, Thin Liquid via Straw, Pureed Solids, Ground Solids, Mechanial Soft Solids, Regular Solids Oral Phase Labial Closure: No Impairment (WFL) Bolus Formation Pooling L/R: No Impairment (WFL) Bolus Formation Placement: No Impairment (WFL) Mastication Rotary Chew: No Impairment (WFL) A/P Lingual Propulsion: Minimal Impairment Consistencies presented with barium paste difficult to onset 2* to sticking Lingual Movement: No Impairment (WFL) Oral Phase Residue: No Impairment (WFL) Pharyngeal Phase Swallow Response: No Impairment (WFL) Base of Tongue: No Impairment (WFL) Epiglottic Movement: No Impairment (WFL) Laryngeal Elevation: No Impairment (WFL) Vallecular Residue: No Impairment (WFL) Pharyngeal Wall Residue: No Impairment (WFL) Piriform Sinus Residue: No Impairment (WFL) Laryngeal Penetration: None Aspiration Observations: None Esophageal Phase Peristalsis: WFL A/P Esophageal Propulsion Time: Less Than 5 Seconds Normal Performed-A/P View Not Applicable/Performed Summary/Impressions Oral Phase Impression: No Impairment (WFL) Patient is a pleasant 89 y/o female who was admitted to the hospital due to SOB, Atrial Fib and Chronic Cough. Patient was referred to the for MBS completion due to cough. Patient was noted to cough before, during and after the MBS. Patient is on a general/regular diet level with thin liquids. Patient was presented thin liquids at 1/2 tsp via spoon and small sip via straw without difficulty. The patient also was presented 1/2 tsp of puree, mechanical soft, ground meats and regular consistencies without difficulty. No penetration/ aspiration noted. Patient is recommended to continue on current diet level as ordered. Speech-Plan Patient/Family Goals Patient/Family Goals: Patient plans on returning to her prior living status. Treatment Plan Speech Therapy Treatment Plan: Discontinue ST Treatment Duration: Apr 17, 2021 Frequency: 1 time per week Estimated Hrs Per Day: .5 hour per day Rehab Potential: Good Barriers to Learning: None identified Pt/Family Agrees to Plan: Yes Safety Risks/Education Teaching Recipient: Patient Teaching Methods: Discussion Response to Teaching: Verbalize Understanding Education Topics Provided: Safety of oral intake, diet level Time Speech Therapy Time In: 14:00 Speech Therapy Time Out: 14:30 Total Billed Time: 30 Billed Treatment Time 1, MOD, DYST No (WRONG BILLING CODE) JOSE CRUZ BOLDEN Apr 17, 2021 14:32
--- NOTE | 2021-04-17 14:56 | ST Mod Barium Swallow ---
Speech Evaluation-General Medical Diagnosis Acute Atrial Fibrilation, Chronic Cough Onset Date: Apr 13, 2021 Therapy Diagnosis Therapy Diagnosis: Oropharyngeal Dysphagia Referral Referring Physician: Dr. Verdugo Medical History Pertinent Medical History: Atrial Fib, HTN, Renal Insufficiency Reviewed History: Yes Speech Mod Barium Swallow Prior Level of Function Patient was able to and drink what she wanted. She states her appetite has changed over the past year or so. She is currently on a general/regular diet level with thin liquids. Oral Motor Skills Dentition Natural Dentures: Full Lingual Protrusion: Normal Lingual ROM: Normal Lingual Strength: Normal Velum: Normal Volitional Dry Swallow: Yes Gag Reflex: Yes Voluntary Cough: Yes Voluntary Cough Comments: Patient is noted to frequently cough. C/O dry mouth Can Clear Throat Volitionally: Yes Textures-Lateral View Lateral View Food Presentation: Thin Liquid via Spoon, Thin Liquid via Straw, Pureed Solids, Ground Solids, Mechanial Soft Solids, Regular Solids Oral Phase Labial Closure: No Impairment (WFL) Bolus Formation Pooling L/R: No Impairment (WFL) Bolus Formation Placement: No Impairment (WFL) Mastication Rotary Chew: No Impairment (WFL) A/P Lingual Propulsion: No Impairment (WFL) Consistencies presented with barium paste difficult to onset 2* to sticking Lingual Movement: No Impairment (WFL) Oral Phase Residue: No Impairment (WFL) Pharyngeal Phase Swallow Response: No Impairment (WFL) Base of Tongue: No Impairment (WFL) Epiglottic Movement: No Impairment (WFL) Laryngeal Elevation: No Impairment (WFL) Vallecular Residue: No Impairment (WFL) Pharyngeal Wall Residue: No Impairment (WFL) Piriform Sinus Residue: No Impairment (WFL) Laryngeal Penetration: None Aspiration Observations: None Summary/Impressions Patient is a pleasant 89 y/o female who was admitted to the hospital due to SOB, Atrial Fib and Chronic Cough. Patient was referred to the for MBS completion due to cough. Patient was noted to cough before, during and after the MBS. Patient is on a general/regular diet level with thin liquids. Patient was presented thin liquids at 1/2 tsp via spoon and small sip via straw without difficulty. The patient also was presented 1/2 tsp of puree, mechanical soft, ground meats and regular consistencies without difficulty. No penetr ation/aspiration noted. Patient is recommended to continue on current diet level as ordered. Speech-Plan Patient/Family Goals Patient/Family Goals: Patient plans on returning to her prior living status. Treatment Plan Speech Therapy Treatment Plan: Discontinue ST Treatment Duration: Apr 17, 2021 Frequency: 1 time per week Estimated Hrs Per Day: .5 hour per day Rehab Potential: Good Barriers to Learning: None identified Pt/Family Agrees to Plan: Yes Safety Risks/Education Teaching Recipient: Patient Teaching Methods: Discussion Response to Teaching: Verbalize Understanding Education Topics Provided: Safety of oral intake, diet level Time Speech Therapy Time In: 14:00 Speech Therapy Time Out: 14:30 Total Billed Time: 30 Billed Treatment Time 1, MOD, DYST No JOSE CRUZ BOLDEN Apr 17, 2021 14:56
--- NOTE | 2021-04-17 15:02 | Diagnostic Imaging Report ---
INDICATION: Dysphagia. TECHNIQUE: The procedure was performed in conjunction with Speech Pathology. Video fluoroscopy was performed during the swallowing of barium in multiple consistencies. FINDINGS: The patient ingested thin liquid with a spoon and straw. The patient was also given applesauce, banana, ground meat, and cracker consistencies. A total of 1 minute and 42 seconds of fluoroscopic time was utilized. There is normal epiglottic tilt and laryngeal elevation. No laryngeal penetration or aspiration was observed during the swallowing of any consistency. IMPRESSION: Unremarkable modified barium swallow study. Dictated by: Dictated on workstation # [id number]
[2021-04-18] MEDS: PIPERACILLIN/TAZO 4.5 GM/NS 100 ML IV SCH ×4 (00:47→09:01)
[2021-04-18 05:50] LABS: BASOPHILS % (AUTO) 1 % (0-10); EOSINOPHILS # (AUTO) 0.5 10^3/uL (0.0-0.3); EOSINOPHILS % (AUTO) 8 % (0-10); HEMATOCRIT 29 % (35-52); HEMOGLOBIN 9.4 g/dL (11.5-16.0); LYMPHOCYTES # (AUTO) 0.9 10^3/uL (1.0-4.0); LYMPHOCYTES % (AUTO) 15 % (12-44); MEAN CORPUSCULAR HEMOGLOBIN 30 pg (25-34); MEAN CORPUSCULAR HGB CONC 33 g/dL (32-36); MEAN CORPUSCULAR VOLUME 91 fL (80-99); MEAN PLATELET VOLUME 8.6 fL (9.0-12.2); MONOCYTES # (AUTO) 0.5 10^3/uL (0.0-1.0); MONOCYTES % (AUTO) 8 % (0-12); NEUTROPHILS # (AUTO) 4.4 10^3/uL (1.8-7.8); NEUTROPHILS % (AUTO) 67 % (42-75); PLATELET COUNT 407 10^3/uL (130-400); WHITE BLOOD COUNT 6.5 10^3/uL (4.3-11.0)
[2021-04-18 06:10] LABS: ALANINE AMINOTRANSFERASE < 6 U/L (0-55); ALBUMIN 3.1 GM/DL (3.2-4.5); ALKALINE PHOSPHATASE 62 U/L (40-136); BILIRUBIN,TOTAL 0.3 MG/DL (0.1-1.0); BUN/CREATININE RATIO 24; CALCIUM 9.6 MG/DL (8.5-10.1); CARBON DIOXIDE 24 MMOL/L (21-32); CHLORIDE 93 MMOL/L (98-107); CREATININE SERUM 1.35 MG/DL (0.60-1.30); GFR ESTIMATED 37; GLUCOSE 106 MG/DL (70-105); MAGNESIUM 1.9 MG/DL (1.6-2.4); PHOSPHORUS 3.5 MG/DL (2.3-4.7); POTASSIUM 4.8 MMOL/L (3.6-5.0); SODIUM 130 MMOL/L (135-145); TOTAL PROTEIN 5.6 GM/DL (6.4-8.2)
[2021-04-18] MEDS: POTASSIUM CL 10MEQ/50ML IVPB 50 ML IV SCH (06:11)
[2021-04-18] MEDS: KCL 20 MEQ TAB (K-DUR) PO SCH (06:12)
[2021-04-18] MEDS: MAGNESIUM 1 GM/100 ML IVPB 100 ML IV SCH (06:12)
[2021-04-18] MEDS: PANTOPRAZOLE 40 MG (PROTONIX) TAB PO SCH (09:00)
[2021-04-18] MEDS: ASPIRIN E.C. 81 MG (ECOTRIN) TAB PO SCH (09:00)
[2021-04-18] MEDS: fluCOnazole (DIFLUCAN) 100 MG TAB PO SCH (09:00)
[2021-04-18] MEDS: FUROSEMIDE 20 MG (LASIX) TAB PO SCH (09:00)
[2021-04-18] MEDS: HYDROcodone/Chlorpen 10MG/5 ML (TUSSIONEX) 5ML UDC PO SCH (09:01)
--- NOTE | 2021-04-18 09:12 | Discharge Summary ---
Diagnosis/Chief Complaint Date of Admission Apr 13, 2021 at 19:12 Date of Discharge Admission Diagnosis Admission Diagnosis ACUTE ATRIAL FIBRILLATION ACUTE ANEMIA PERICARDIAL EFFUSION HYPONATREMIA CHRONIC COUGH DYSPNEA ON EXERTION ACUTE RENAL INSUFFICIENCY ELEVATED BNP URINARY TRACT INFECTION - ENTEROCOCCUS AND YEAST Reason Hospital Visit PT IS AN 89 Y/O FEMALE WHO IS KNOWN TO ME FROM CLINIC. SHE PRESENTED TO THE HOSPITAL FOR WEAKNESS, PERSISTENT COUGH AND SHORTNESS OF BREATH. SHE WAS FOUND TO HAVE A PERICARDIAL EFFUSION ON IMAGING WELL HAS HAVING RECURRENT HYPONATREMIA. PT HAD AN EPISODE ABOUT A WEEK AGO WITH HYPONATREMIA THAT WAS ATTRIBUTED TO CARBAMAZEPINE, BUT THIS IS NOT LIKELY TO BE THE SOURCE SINCE SHE HAS HAD A RECURRENT EPISODE OFF OF THE MEDICATION. Discharge Summary Discharge Physical Examination Allergies: Coded Allergies: Sulfa (Sulfonamide Antibiotics) (Verified Allergy, Severe, ITCH, 12/30/12) carbamazepine (Verified Adverse Reaction, Severe, 04/05/21) codeine (Verified Adverse Reaction, Unknown, "LOOPY", 07/06/14) Vitals & I&Os Vital Signs Date Time Temp Pulse Resp B/P (MAP) Pulse Ox O2 Delivery O2 Flow Rate FiO2 04/18/21 08:08 35.9 85 18 143/74 98 Nasal Cannula 2.00 04/16/21 08:00 93 Hospital Course ACUTE ATRIAL FIBRILLATION ACUTE ANEMIA PERICARDIAL EFFUSION HYPONATREMIA CHRONIC COUGH DYSPNEA ON EXERTION ACUTE RENAL INSUFFICIENCY ELEVATED BNP URINARY TRACT INFECTION - ENTEROCOCCUS AND YEAST ACUTE ATRIAL FIBRILLATION - DEFER TO CARDIOLOGY - PT WAS STARTED ON CARDIZEM DRIP ON ADMISSION, PT NOW ON ORAL METOPROLOL. - RATE CONTROLLED ACUTE ANEMIA - CONSULT TO SURGEON - DISCUSSED WITH ON-CALL SURGEON - HE WILL PERFORM AN EGD TOMORROW. - TRANSFUSED ONE UNIT PRBC WITH IMPROVED HGB FROM 7 TO 9.9 PERICARDIAL EFFUSION - DEFER TO DR. LUNA - CARDIOLOGY - - STATUS POST PERICARDIAL DRAIN PLACEMENT - PULLED ON 04/15/31. URINARY TRACT INFECTION - ENTEROCOCCUS AND YEAST - PT STARTED ON ZOSYN AND DIFLUCAN - MONITOR CULTURES - SENSITIVITIES PENDING HYPONATREMIA - DISCUSSED WITH PT AND HER DTR - WE WILL CONTINUE TO WORK THIS UP - FLUID RESTRICTION ORALLY - MONITOR LABS CHRONIC COUGH WITH DYSPNEA ON EXERTION - PT ON OXYGEN - CT ON LAST ADMISSION NEGATIVE - PT ON ADVAIR. - PT STARTED ON COUGH MEDICATION - WILL DECREASE DOSE DUE TO GROGGINESS - BARIUM SWALLOW STUDY TODAY ACUTE RENAL INSUFFICIENCY - IMPROVED - MONITOR LABS SINCE PT HAS BEEN PLACED ON IV FLUIDS ELEVATED BNP - DUE TO AFIB AND PERICARDIAL EFFUSION. CANNOT START ANTICOAG DUE TO ANEMIA AND CONCERN FOR GI BLEED. GI PROPHYLAXIS WITH PPI AND CARAFATE Pending Labs Laboratory Tests 04/18/21 05:27: White Blood Count 6.5, Red Blood Count 3.14, Hemoglobin 9.4, Hematocrit 29, Mean Corpuscular Volume 91, Mean Corpuscular Hemoglobin 30, Mean Corpuscular Hemoglobin Concent 33, Red Cell Distribution Width 13.6, Platelet Count 407, Mean Platelet Volume 8.6, Immature Granulocyte % (Auto) 2, Neutrophils (%) (Auto) 67, Lymphocytes (%) (Auto) 15, Monocytes (%) (Auto) 8, Eosinophils (%) (Auto) 8, Basophils (%) (Auto) 1, Neutrophils # (Auto) 4.4, Lymphocytes # (Auto) 0.9, Monocytes # (Auto) 0.5, Eosinophils # (Auto) 0.5, Basophils # (Auto) 0.0, Immature Granulocyte # (Auto) 0.2, Sodium Level 130, Potassium Level 4.8, Chloride Level 93, Carbon Dioxide Level 24, Anion Gap 13, Blood Urea Nitrogen 33, Creatinine 1.35, Estimat Glomerular Filtration Rate 37, BUN/Creatinine Ratio 24, Glucose Level 106, Calcium Level 9.6, Corrected Calcium 10.3, Phosphorus Level 3.5, Magnesium Level 1.9, Total Bilirubin 0.3, Aspartate Amino Transf (AST/SGOT) 18, Alanine Aminotransferase (ALT/SGPT) < 6, Alkaline Phosphatase 62, Total Protein 5.6, Albumin 3.1 Discharge Instructions to patient/family Please see electronic discharge instructions given to patient. Discharge Medications Reviewed and agree with Discharge Medication list on patient's Discharge I nstruction sheet RICHARD PERALTA MD Apr 18, 2021 09:12
[2021-04-18] MEDS ORDERED: FLUT1AER4 IH (09:18)
[2021-04-18] MEDS ORDERED: FLUC100T6 PO (09:18)
[2021-04-18] MEDS ORDERED: FURO20TA4 PO (09:18)
[2021-04-18] MEDS ORDERED: MTP25TSR PO (09:18)
[2021-04-18] MEDS ORDERED: HYDR473S61 PO (09:18)
[2021-04-18] MEDS ORDERED: LNZ600T PO (09:18)
[2021-04-18] MEDS ORDERED: POTA-51 PO (09:18)
[2021-04-18] MEDS ORDERED: LACT1CAP57 PO (09:18)
--- NOTE | 2021-04-18 09:24 | D/C HH Face to Face Order ---
D/C Face to Face Orders Reconcile Patient Problems Problems Reviewed?: Yes Instructions for Patient Via [facility], Patient Instructions/FollowUp: 04/20/2021 @[address] [place] [address] clinic will need appt with dr. reddy via [facility] will need appt with dr. jay or dr. bowden at [facility] in [place] Physician to follow Patient: paz Discharge Diet for Home: Regular Diet Patient Problems: ACUTE ATRIAL FIBRILLATION ACUTE ANEMIA PERICARDIAL EFFUSION HYPONATREMIA CHRONIC COUGH DYSPNEA ON EXERTION ACUTE RENAL INSUFFICIENCY ELEVATED BNP URINARY TRACT INFECTION - ENTEROCOCCUS AND YEAST Goals for Patient: improved strength - attempt to wean off of oxygen as able, improved coughing Patient Data-Allergies,Ht & Wt Patient Allergies: Coded Allergies: Sulfa (Sulfonamide Antibiotics) (Verified Allergy, Severe, ITCH, 12/30/12) carbamazepine (Verified Adverse Reaction, Severe, 04/05/21) codeine (Verified Adverse Reaction, Unknown, "LOOPY", 07/06/14) Height (Feet): 5 Height (Inches): 2.00 Weight (Pounds): 106 Weight (Ounces): 0.0 Home Health Need/Face to Face Date of Face to Face: Apr 18, 2021 Clinical Findings: Generalized weakness and fatigue, Muscle weakness, Shortness of breath I have seen Pt [id number]: Yes Discharged To: Home Diagnosis/Conditions: ACUTE ATRIAL FIBRILLATION ACUTE ANEMIA PERICARDIAL EFFUSION HYPONATREMIA CHRONIC COUGH DYSPNEA ON EXERTION ACUTE RENAL INSUFFICIENCY ELEVATED BNP URINARY TRACT INFECTION - ENTEROCOCCUS AND YEAST Patient is Homebound due to: Muscle weakness, Shortness of breath/distress Homebound Status Due to the above stated illness, injury or surgical procedure (medical condition or diagnosis) and associated clinical findings, the patient is homebound because of his/her inability to leave home except with aid of a supportive device and/or person AND leaving the home requires a considerable and taxing effort or is medically contraindicated. Pt req the following assistanc: [facility] Nursing Orders Home Health Services Order: Nursing Services, Physical Therapy-Evaluate & Treat cbc, cmp, magnesium level on 04/21/2021 Home Health Infusion Therapy Line Start Date: Apr 13, 2021 Therapy Orders Therapy Orders: PT to assess for OT Therapy Specific Orders: Eval assistive deivces, Teach enviro modifications/safety, Increase strength/endurance home health aide for bathing help Certify Stmt I certify that this patient is under my care and that I, a nurse practitioner or a physician; a cardiology physician assistant working with me, had a face to face encounter that - meets the physician face to face encounter requirements with this patient as dated. Medication List: Active Scripts Active Probiotic & Acidophilus Cap (Lactobac Cmb #3/Fos/Pantethine) 1 Each Capsule 1 Each PO TID x 10 days Linezolid 600 Mg Tablet 600 Mg PO BID x 5 days Potassium Chloride 20 Meq Tablet.er 20 Meq PO DAILY Hydrocodone-Chlorphen ER Susp (Hydrocodone/Chlorphen P-Stirex) 473 Ml Ayanna.er.12h 2.5 Ml PO Q12HR Fluticasone-Salmeterol 113-14 (Fluticasone/Salmeterol) 1 Each Aer.pow.ba 1 Each IH BID Furosemide 20 Mg Tablet 20 Mg PO DAILY Metoprolol Succinate 25 Mg Tab.er.24h 25 Mg PO DAILY Fluconazole 100 Mg Tablet 100 Mg PO DAILY x 5 days Reported Levalbuterol Tartrate Hfa (Levalbuterol Tartrate) 15 Gm Hfa.aer.ad 2 Puff INH Q6H PRN Pantoprazole Sodium 40 Mg Tablet.dr 40 Mg PO BID Guaifenesin Dm Syrup (Guaifenesin/Dextromethorphan) 5 Ml Syrup 10 Ml PO Q4H PRN Aspirin EC (Aspirin) 81 Mg Tablet.dr 81 Mg PO DAILY Tylenol Extra Strength (Acetaminophen) 500 Mg Tablet 1,000 Mg PO Q8H PRN Vitamin D3 (Cholecalciferol (Vitamin D3)) 50 Mcg Capsule 50 Mcg PO DAILY Zyrtec (Cetirizine HCl) 10 Mg Tablet 10 Mg PO DAILY Levothyroxine Sodium 50 Mcg Tablet 50 Mcg PO DAILY Azo Cranberry Tablet (Cranberry Conc/C/Bacill Coag) 1 Each Tablet 1 Tab PO DAILY Lab results: Laboratory Tests Test 04/18/21 05:27 Range/Units White Blood Count 6.5 4.3-11.0 10^3/uL Red Blood Count 3.14 L 3.80-5.11 10^6/uL Hemoglobin 9.4 L 11.5-16.0 g/dL Hematocrit 29 L 35-52 % Mean Corpuscular Volume 91 80-99 fL Mean Corpuscular Hemoglobin 30 25-34 pg Mean Corpuscular Hemoglobin Concent 33 32-36 g/dL Red Cell Distribution Width 13.6 10.0-14.5 % Platelet Count 407 H 130-400 10^3/uL Mean Platelet Volume 8.6 L 9.0-12.2 fL Immature Granulocyte % (Auto) 2 % Neutrophils (%) (Auto) 67 42-75 % Lymphocytes (%) (Auto) 15 12-44 % Monocytes (%) (Auto) 8 0-12 % Eosinophils (%) (Auto) 8 0-10 % Basophils (%) (Auto) 1 0-10 % Neutrophils # (Auto) 4.4 1.8-7.8 10^3/uL Lymphocytes # (Auto) 0.9 L 1.0-4.0 10^3/uL Monocytes # (Auto) 0.5 0.0-1.0 10^3/uL Eosinophils # (Auto) 0.5 H 0.0-0.3 10^3/uL Basophils # (Auto) 0.0 0.0-0.1 10^3/uL Immature Granulocyte # (Auto) 0.2 H 0.0-0.1 10^3/uL Sodium Level 130 L 135-145 MMOL/L Potassium Level 4.8 3.6-5.0 MMOL/L Chloride Level 93 L 98-107 MMOL/L Carbon Dioxide Level 24 21-32 MMOL/L Anion Gap 13 5-14 MMOL/L Blood Urea Nitrogen 33 H 7-18 MG/DL Creatinine 1.35 H 0.60-1.30 MG/DL Estimat Glomerular Filtration Rate 37 BUN/Creatinine Ratio 24 Glucose Level 106 H 70-105 MG/DL Calcium Level 9.6 8.5-10.1 MG/DL Corrected Calcium 10.3 H 8.5-10.1 MG/DL Phosphorus Level 3.5 2.3-4.7 MG/DL Magnesium Level 1.9 1.6-2.4 MG/DL Total Bilirubin 0.3 0.1-1.0 MG/DL Aspartate Amino Transf (AST/SGOT) 18 5-34 U/L Alanine Aminotransferase (ALT/SGPT) < 6 0-55 U/L Alkaline Phosphatase 62 40-136 U/L Total Protein 5.6 L 6.4-8.2 GM/DL Albumin 3.1 L 3.2-4.5 GM/DL My orders: Orders - RICHARD PERALTA MD [facility] (04/17/21 14:00) Patient Visit (04/17/21 ) Dysphagia Asmnt-Mod Barium (04/17/21 ) Dysphagia Therapy (04/17/21 ) Attending Discharge Inpt/Inobs (04/18/21 09:12) [facility] Dischage (04/18/21 09:12) RICHARD PERALTA MD Apr 18, 2021 09:24
--- NOTE | 2021-04-18 10:09 | Cardiology Progress Note ---
Progress Note-Cardiology Events since last exam Date Seen by Provider: Apr 18, 2021 Time Seen by Provider: 10:08 Events since last exam I am following her for pericardial effusion and sick sinus syndrome. She is b eing discharged today. Her breathing is improved but not completely back to baseline. She denies chest pain, palpitations, syncope, or ankle edema. Certain portions of this document may have been dictated utilizing voice recognition technology. Inherent to this technology, typographical and gramma tical errors may exist. As much as I am diligent to identify and correct these mistakes, some errors may remain in the document. Vitals Last set of Vitals Signs Vital Signs 04/18/21 04/18/21 10:32 14:00 Temp 36.7 Pulse 77 Resp 18 B/P (MAP) 150/65 Pulse Ox 98 O2 Delivery Nasal Cannula O2 Flow Rate 2.00 FiO2 94 Labs Labs Laboratory Tests 04/18/21 05:27 Exam Vital Signs Vital Signs Date Time Temp Pulse Resp B/P (MAP) Pulse Ox O2 Delivery O2 Flow Rate FiO2 04/18/21 14:00 36.7 77 18 150/65 98 Nasal Cannula 2.00 04/18/21 10:32 94 Physical Exam General: Alert. No acute distress. Eye: No xanthelasma. HENT: Normocephalic. Neck: Jugular venous pressure does not appear elevated. Respiratory: Lungs are clear to auscultation. Respirations are non-labored. Breath sounds are equal. Symmetrical chest wall expansion. Cardiovascular: Normal rate. Regular rhythm. No murmur. No gallop. No edema. Gastrointestinal: Soft. Normal bowel sounds. Skin: Warm. Dry. Pacemaker site has Steri-Strips intact and is clean and dry. Neurologic: Alert and oriented to person, place, time. Cranial nerves 3-11 grossly intact. Psychiatric: Cooperative. Appropriate mood & affect. Labs Laboratory Tests Test 04/18/21 05:27 Range/Units White Blood Count 6.5 4.3-11.0 10^3/uL Red Blood Count 3.14 L 3.80-5.11 10^6/uL Hemoglobin 9.4 L 11.5-16.0 g/dL Hematocrit 29 L 35-52 % Mean Corpuscular Volume 91 80-99 fL Mean Corpuscular Hemoglobin 30 25-34 pg Mean Corpuscular Hemoglobin Concent 33 32-36 g/dL Red Cell Distribution Width 13.6 10.0-14.5 % Platelet Count 407 H 130-400 10^3/uL Mean Platelet Volume 8.6 L 9.0-12.2 fL Immature Granulocyte % (Auto) 2 % Neutrophils (%) (Auto) 67 42-75 % Lymphocytes (%) (Auto) 15 12-44 % Monocytes (%) (Auto) 8 0-12 % Eosinophils (%) (Auto) 8 0-10 % Basophils (%) (Auto) 1 0-10 % Neutrophils # (Auto) 4.4 1.8-7.8 10^3/uL Lymphocytes # (Auto) 0.9 L 1.0-4.0 10^3/uL Monocytes # (Auto) 0.5 0.0-1.0 10^3/uL Eosinophils # (Auto) 0.5 H 0.0-0.3 10^3/uL Basophils # (Auto) 0.0 0.0-0.1 10^3/uL Immature Granulocyte # (Auto) 0.2 H 0.0-0.1 10^3/uL Sodium Level 130 L 135-145 MMOL/L Potassium Level 4.8 3.6-5.0 MMOL/L Chloride Level 93 L 98-107 MMOL/L Carbon Dioxide Level 24 21-32 MMOL/L Anion Gap 13 5-14 MMOL/L Blood Urea Nitrogen 33 H 7-18 MG/DL Creatinine 1.35 H 0.60-1.30 MG/DL Estimat Glomerular Filtration Rate 37 BUN/Creatinine Ratio 24 Glucose Level 106 H 70-105 MG/DL Calcium Level 9.6 8.5-10.1 MG/DL Corrected Calcium 10.3 H 8.5-10.1 MG/DL Phosphorus Level 3.5 2.3-4.7 MG/DL Magnesium Level 1.9 1.6-2.4 MG/DL Total Bilirubin 0.3 0.1-1.0 MG/DL Aspartate Amino Transf (AST/SGOT) 18 5-34 U/L Alanine Aminotransferase (ALT/SGPT) < 6 0-55 U/L Alkaline Phosphatase 62 40-136 U/L Total Protein 5.6 L 6.4-8.2 GM/DL Albumin 3.1 L 3.2-4.5 GM/DL Diagnosis/Problems Diagnosis/Problems (1) Typical atrial flutter Assessment & Plan: When she presented to the emergency room, she had atrial flutter. This converted to sinus rhythm with intravenous diltiazem. I suspect this was brought on by the pericardial effusion noted on her echocardiogram. She should continue on metoprolol succinate. Given that she had bloody peric ardial fluid at the time of pericardiocentesis, I do not plan to start her on oral anticoagulation at this time. For the same reason, I have stopped her clopidogrel. Aspirin has been resumed. (2) Acute diastolic congestive heart failure Assessment & Plan: I suspect she has some degree of heart failure based on her chest x-ray and symptoms. I would suggest she goes home on a low-dose of furosemide. I will plan to follow-up on this as an outpatient. I recommend a follow-up basic metabolic panel in 1 week. (3) Pericardial effusion Assessment & Plan: She had a large pericardial effusion. This was most likely related to manipulation of the atrial lead at the time of pacemaker implantation last week. The guest associate who was performing the pacemaker implantation had to relocate the atrial lead multiple times to find an area that was getting adequate capture. I suspect all of his manipulation may have caused a microperforation with the development of a pericardial effusion. The pericardial drain was removed on 04/15. The residual pericardial effusion appears small, anterior, and unchanged on 04/16. This small residual pericardial effusion should resolve spontaneously. Aerobic and anaerobic cultures were negative. I had thought I placed an electronic order for cytology but apparently, the order needs to be handwritten and since the pericardiocentesis was done late Saturday, I was not made aware of this until just now. Any remaining sample would not be suitable for cytology. (4) Sick sinus syndrome Assessment & Plan: She underwent permanent pacemaker implantation last week and as far as we can tell, the device appears to be functioning normally. (5) Primary hypertension Assessment & Plan: I started her on metoprolol succinate due to the atrial flutter. Her blood pressures are reasonably controlled with this medication but slightly elevated at times. This can be followed as an outpatient. (6) Anemia Assessment & Plan: She drained about 450 mL of bloody fluid from the pericardial space. I suspect she had a hemorrhagic pericardial effusion that caused the anemia. She received 1 unit of packed red blood cells and her hemoglobin appears to have stabilized. She will be undergoing an endoscopy today to investigate for gastrointestinal sources of blood loss. (7) Cardiac pacemaker in situ Assessment & Plan: I removed the sterile dressing this morning. Steri-Strips are intact. The implant site is healing well without hematoma. ADALBERTO LUNA JR, MD Apr 18, 2021 10:09
[2021-04-18] MEDS: RT--FLUTICASONE/SALMETEROL 113-14 (AIRDUO RespiCLICK) IH SCH (10:28)
[2021-04-18] MEDS: ENOXAPARIN 30 MG/0.3 ML (LOVENOX) SYR SC SCH (11:55)
[2021-04-18 14:00] VITALS: BP 150/65
== END 2021-04-18 14:00 | disposition home health service (06) | DRG 919 ==
LOC: EDUNIT# 17:51 → ER 17:53 → ICU 19:12 → 4TH 04-15 18:10
PROVIDERS: ADMIT Family Medicine; ATTEND Family Medicine
PROC: 0W9D30Z Drainage of Pericardial Cavity with Drainage Device, Percutaneous Approach (ICD-10-PCS; principal; 2021-04-14)
PROC: 0DB78ZX Excision of Stomach, Pylorus, Via Natural or Artificial Opening Endoscopic, Diagnostic (ICD-10-PCS; 2021-04-16)
DX: I97.51 Accidental puncture and laceration of a circulatory system organ or structure during a circulatory system procedure (principal); I50.31 Acute diastolic (congestive) heart failure; I31.3 Pericardial effusion (noninflammatory); I48.92 Unspecified atrial flutter; E87.1 Hypo-osmolality and hyponatremia; N17.9 Acute kidney failure, unspecified; N39.0 Urinary tract infection, site not specified; B37.49 Other urogenital candidiasis; Z20.822 Contact with and (suspected) exposure to COVID-19; I48.91 Unspecified atrial fibrillation; D50.0 Iron deficiency anemia secondary to blood loss (chronic); I11.0 Hypertensive heart disease with heart failure; E03.9 Hypothyroidism, unspecified; J45.909 Unspecified asthma, uncomplicated; I49.5 Sick sinus syndrome; Z95.0 Presence of cardiac pacemaker; B95.2 Enterococcus as the cause of diseases classified elsewhere; Z66 Do not resuscitate; M19.91 Primary osteoarthritis, unspecified site; Z79.82 Long term (current) use of aspirin; Z88.6 Allergy status to analgesic agent; Z88.2 Allergy status to sulfonamides; Z88.8 Allergy status to other drugs, medicaments and biological substances; Z82.61 Family history of arthritis; Z82.49 Family history of ischemic heart disease and other diseases of the circulatory system
CPT/HCPCS: 33016; 36415; 71045; 71046; 74230; 80048; 80053; 81000; 82728; 82945; 83540; 83550; 83605; 83615; 83735; 83880; 83935; 83986; 84100; 84157; 84443; 84550; 85014; 85018; 85025; 85027; 85045; 85610; 85730; 86850; 86900; 86901; 86920; 87040; 87070; 87075; 87077; 87088; 87186; 87205; 87636; 89051; 93005; 93306; 93308; 94640; 94664; 94760; 94761; 96365

== ENCOUNTER 2021-04-26 11:57 | Inpatient (IN) | payer MEDICARE ==
[~2021-04-26] VITALS: Ht 152 cm; Wt 48.7 kg
[~2021-04-26 11:57] MED LIST changes: +CAND8TAB14 PO; +FLUC100T6 PO; +FLUT1AER4 IH; +FURO20TA4 PO; +HYDR473S61 PO; +LEVA15HF5 INH; +LNZ600T PO; +MTP25TSR PO; +POTA-51 PO; +SUCR1TAB36 PO
--- NOTE | 2021-04-26 12:18 | ED Dyspnea ---
General Stated Complaint: SOB Source of Information: Patient, Family Exam Limitations: Physical Impairments, Other History of Present Illness Date Seen by Provider: Apr 26, 2021 Time Seen by Provider: 12:00 Initial Comments Patient is an 89-year-old female who presents to the emergency department by private vehicle with a chief complaint of shortness of breath. Her daughter is available to provide history as the patient does not seem to be able to provide any of the HPI, review of systems, past medical family or social history. Patient was recently in the hospital about 2 weeks ago and had a pacemaker cassidy carlos eduardo. She has also been recently treated for a urinary tract infection, she has chronic kidney disease. Patient's daughter states that she has been doing very well, got up and around this morning had her morning medications was not having any problems and then called them about 20 or 30 minutes prior to arrival and complained to them "I cannot breathe". Patient's daughter states that she kept hanging up on them so they had to call her back multiple times. Finally they went over and got her and brought her to the emergency department. Patient is quite tachypneic breathing at 38 times a minute, her oxygen saturation is 100%. Her blood pressure is great, her heart rate is in the 70s and appears to be pacing on telemetry. Patient does not answer if she is having any pain. She seems quite distressed. The only thing that she will say is "I cannot breathe". Patient was recently taken off of her blood thinning medications. Her daughter tells me that she is currently on antibiotics for a bladder infection. No reported fevers. She did have some diarrhea yesterday. Her daughter also states that she seems to be "not quite right" over the last couple of days. No reported trauma or falls. All other review of systems reviewed and negative except as stated. Review of systems is done with the daughter as the patient cannot or will not answer questions at this time. Timing/Duration: 1/2 Hour Severity: Severe Activities at Onset: Other (unknown) Allergies and Home Medications Allergies Coded Allergies: Sulfa (Sulfonamide Antibiotics) (Verified Allergy, Severe, ITCH, 12/30/12) carbamazepine (Verified Adverse Reaction, Severe, 04/05/21) codeine (Verified Adverse Reaction, Unknown, "LOOPY", 07/06/14) Patient Home Medication List Home Medication List Reviewed: Yes Acetaminophen (Tylenol Extra Strength) 500 Mg Tablet, 1,000 MG PO Q8H PRN for PAIN-MILD (1-4), (Reported) Entered as Reported by: ANNEL MANN on 04/03/21 1034 Last Action: Continued Aspirin (Aspirin EC) 81 Mg Tablet.dr, 81 MG PO DAILY, (Reported) Entered as Reported by: ANNEL MANN on 04/03/21 1034 Last Action: Continued Cetirizine HCl (Zyrtec) 10 Mg Tablet, 10 MG PO DAILY, (Reported) Entered as Reported by: TO AMBROSIO on 06/30/18 1149 Last Action: Converted Cholecalciferol (Vitamin D3) (Vitamin D3) 50 Mcg Capsule, 50 MCG PO DAILY, (Reported) Entered as Reported by: ANNEL MANN on 04/03/21 103 Last Action: Held Cranberry Conc/C/Bacill Coag (Azo Cranberry Tablet) 1 Each Tablet, 1 TAB PO DAILY, (Reported) Entered as Reported by: TO AMBROSIO on 06/30/18 1148 Last Action: Held Fluticasone/Salmeterol (Fluticasone-Salmeterol 113-14) 1 Each Aer.pow.ba, 1 EACH IH BID, (Reported) Entered as Reported by: ANNEL MANN on 04/28/21 0953 Last Action: Continued Furosemide (Furosemide) 20 Mg Tablet, 20 MG PO DAILY, (Reported) Entered as Reported by: ANNEL MANN on 04/28/21 0953 Last Action: Held Guaifenesin/Dextromethorphan (Guaifenesin Dm Syrup) 5 Ml Syrup, 10 ML PO Q4H PRN for COUGH, (Reported) Entered as Reported by: ANNEL MANN on 04/14/21 1155 Last Action: Continued Lactobac Cmb #3/Fos/Pantethine (Probiotic & Acidophilus Cap) 1 Each Capsule, 1 EACH PO TID, (Reported) Entered as Reported by: ANNEL MANN on 04/28/21 09 Last Action: Converted Levalbuterol Tartrate (Levalbuterol Tartrate Hfa) 15 Gm Hfa.aer.ad, 2 PUFF INH Q6H PRN for SHORTNESS OF BREATH, (Reported) Entered as Reported by: ANNEL MANN on 04/14/21 1200 Last Action: Held Levothyroxine Sodium (Levothyroxine Sodium) 50 Mcg Tablet, 50 MCG PO DAILY, (Reported) Entered as Reported by: TO AMBROSIO on 06/30/18 1149 Last Action: Continued Metoprolol Succinate (Metoprolol Succinate) 25 Mg Tab.er.24h, 25 MG PO DAILY, (Reported) Entered as Reported by: ANNEL MANN on 04/28/21952 Last Action: Continued Pantoprazole Sodium (Pantoprazole Sodium) 40 Mg Tablet.dr, 40 MG PO BID, (Reported) Entered as Reported by: ANNEL MANN on 04/14/21 115 Last Action: Continued Potassium Chloride (Potassium Chloride) 20 Meq Tab.er.prt, 20 MEQ PO DAILY, (Reported) Entered as Reported by: ANNEL MANN on 04/28/21952 Last Action: Held Discontinued Medications Fluconazole (Fluconazole) 100 Mg Tablet, 100 MG PO DAILY Discontinued Reason: No Longer Taking Prescribed by: RICHARD VERDUGO on 04/18/21917 Last Action: Discontinued Fluticasone/Salmeterol (Fluticasone-Salmeterol 113-14) 1 Each Aer.pow.ba, 1 EACH IH BID Discontinued Reason: Duplicate Order Prescribed by: RICHARD VERDUGO on 04/18/21917 Last Action: Discontinued Furosemide (Furosemide) 20 Mg Tablet, 20 MG PO DAILY Discontinued Reason: Duplicate Order Prescribed by: RICHARD VERDUGO on 04/18/21917 Last Action: Discontinued Lactobac Cmb #3/Fos/Pantethine (Probiotic & Acidophilus Cap) 1 Each Capsule, 1 EACH PO TID Discontinued Reason: Duplicate Order Prescribed by: RICHARD VERDUGO on 04/18/21917 Last Action: Discontinued Metoprolol Succinate (Metoprolol Succinate) 25 Mg Tab.er.24h, 25 MG PO DAILY Discontinued Reason: Duplicate Order Prescribed by: RICHARD VERDUGO on 04/18/21917 Last Action: Discontinued Potassium Chloride (Potassium Chloride) 20 Meq Tablet.er, 20 MEQ PO DAILY Discontinued Reason: No Longer Taking Prescribed by: RICHARD VERDUGO on 04/18/21917 Last Action: Discontinued Review of Systems Review of Systems Constitutional: see HPI Respiratory: short of breath ROS limited from the patient as she can not or will not answer questions Past Zygluzk-Uvtqsy-Rdpdrt Hx Immunizations Up To Date First/Initial COVID19 Vaccinat: SEPTEMBER 2020 Second COVID19 Vaccination Celestine: SEPTEMBER 2020 Third COVID19 Vaccination Date: SEPTEMBER 2020 Seasonal Allergies Seasonal Allergies: Yes Past Medical History Surgery/Hospitalization HX: HX BRAIN ANEURYSM Surgeries: Yes (benign growth on head. , carpal tunnel x 2, hital hernia, appendectomy, ) Abdominal, Appendectomy, Gallbladder Respiratory: Yes Asthma Currently Using CPAP: No Currently Using BIPAP: No Cardiac: Yes Hypertension Neurological: Yes Stroke Reproductive Disorders: No Genitourinary: Yes Renal Failure Gastrointestinal: No Musculoskeletal: Yes Arthritis Endocrine: No HEENT: No Hearing Impairment: Hard of Hearing Cancer: No Psychosocial: No Integumentary: No Blood Disorders: No Adverse Reaction/Blood Tranf: No Family Medical History Arthritis Cardiovascular disease 19 FATHER Colon cancer 19 FATHER Diabetes mellitus G8 BROTHER Hypercholesterolemia 19 FATHER Hypertension 19 FATHER Myocardial infarction 19 FATHER Osteoporosis 19 MOTHER No Family History of: AIDS Abdominal aortic aneurysm Richard's disease Alcoholism Alzheimer's disease Aphasia Asthma Cancer of mouth Cataracts Completed stroke Congenital disease Congenital heart disease Coronary thrombosis Cystic fibrosis Deafness or hearing loss Dementia Drug abuse Dysphasia Fibrocystic disease of breast Gastroenteritis Glaucoma Headache disorder Infertility Kidney disease Neoplasm Not obtainable due to adoption Parkinson's disease Prostate cancer Psychosocial problem Respiratory disorder Seizure disorder Severe allergy Thyroid disease Tuberculosis Visual disorder Heart Disease, Cancer, COPD, Diabetes, Hypertension, Other Conditions/Hx Physical Exam Vital Signs Vital Signs - First Documented 04/26/21 12:00 Temp 36.6 Pulse 61 Resp 22 B/P (MAP) 177/84 (115) Pulse Ox 100 O2 Delivery Room Air Capillary Refill : Height, Weight, BMI Height: 5'2.00" Weight: 106lbs. 0.0oz. [id number]; 23.78 BMI Method:Stated General Appearance: Moderate Distress, Thin HEENT: PERRL/EOMI, Other (appears adequately hydrated with moist oral mucosa) Neck: Normal Inspection Respiratory: Lungs Clear, No Accessory Muscle Use, Other (labored breathing and tachypnea o2 sats 100% on RA; no wheezing) Cardiovascular: Regular Rate, Rhythm, Normal Peripheral Pulses Gastrointestinal: Non Tender, Soft Extremity: Normal Inspection, Normal Range of Motion, Non Tender, No Calf Tenderness, No Pedal Edema Neurologic/Psychiatric: Alert, Disoriented (?); No EOM Palsy, No Facial Droop, No Motor Weakness Skin: Normal Color, Warm/Dry Progress/Results/Core Measures Results/Orders Lab Results Laboratory Tests Test 04/26/21 12:25 04/26/21 13:20 Range/Units White Blood Count 7.5 4.3-11.0 10^3/uL Red Blood Count 3.72 L 3.80-5.11 10^6/uL Hemoglobin 11.3 L 11.5-16.0 g/dL Hematocrit 32 L 35-52 % Mean Corpuscular Volume 87 80-99 fL Mean Corpuscular Hemoglobin 30 25-34 pg Mean Corpuscular Hemoglobin Concent 35 32-36 g/dL Red Cell Distribution Width 13.1 10.0-14.5 % Platelet Count 294 130-400 10^3/uL Mean Platelet Volume 8.8 L 9.0-12.2 fL Immature Granulocyte % (Auto) 1 % Neutrophils (%) (Auto) 62 42-75 % Lymphocytes (%) (Auto) 22 12-44 % Monocytes (%) (Auto) 12 0-12 % Eosinophils (%) (Auto) 3 0-10 % Basophils (%) (Auto) 0 0-10 % Neutrophils # (Auto) 4.6 1.8-7.8 10^3/uL Lymphocytes # (Auto) 1.6 1.0-4.0 10^3/uL Monocytes # (Auto) 0.9 0.0-1.0 10^3/uL Eosinophils # (Auto) 0.2 0.0-0.3 10^3/uL Basophils # (Auto) 0.0 0.0-0.1 10^3/uL Immature Granulocyte # (Auto) 0.1 0.0-0.1 10^3/uL D-Dimer 3.66 H 0.00-0.49 UG/ML Sodium Level 120 *L 135-145 MMOL/L Potassium Level 6.7 *H 3.6-5.0 MMOL/L Chloride Level 91 L 98-107 MMOL/L Carbon Dioxide Level 16 L 21-32 MMOL/L Anion Gap 13 5-14 MMOL/L Blood Urea Nitrogen 30 H 7-18 MG/DL Creatinine 1.93 H 0.60-1.30 MG/DL Estimat Glomerular Filtration Rate 25 BUN/Creatinine Ratio 16 Glucose Level 96 70-105 MG/DL Calcium Level 10.2 H 8.5-10.1 MG/DL Troponin I < 0.028 <0.028 NG/ML Urine Color YELLOW Urine Clarity CLEAR Urine pH 8.0 5-9 Urine Specific [place] 1.015 L 1.016-1.022 Urine Protein NEGATIVE NEGATIVE Urine Glucose (UA) NEGATIVE NEGATIVE Urine Ketones NEGATIVE NEGATIVE Urine Nitrite NEGATIVE NEGATIVE Urine Bilirubin NEGATIVE NEGATIVE Urine Urobilinogen 0.2 < = 1.0 MG/DL Urine Leukocyte Esterase NEGATIVE NEGATIVE Urine RBC (Auto) NEGATIVE NEGATIVE Urine RBC NONE /HPF Urine WBC NONE /HPF Urine Squamous Epithelial Cells NONE /HPF Urine Crystals NONE /LPF Urine Bacteria NEGATIVE /HPF Urine Casts NONE /LPF Urine Mucus NEGATIVE /LPF Urine Culture Indicated NO My Orders Orders - AUGIE RAY MD Ekg Tracing (04/26/21 12:12) Fibrin Degradation Products (04/26/21 12:12) Chest 1 View, Ap/Pa Only (04/26/21 12:12) Troponin I (04/26/21 12:12) Cbc With Automated Diff (04/26/21 12:12) Basic Metabolic Panel (04/26/21 12:12) Ua Culture If Indicated (04/26/21 12:12) Catheter(Urinary) Insert & Ass 03,15 (04/26/21 13:04) D50w (Emergency) Syringe (Dextrose 50% 5 (04/26/21 13:30) Insulin (Regular) Human (Novolin R (Per (04/26/21 13:30) Sodium Bicarbonate 8.4% Vial (Sodium Bic (04/26/21 13:30) Albuterol Pre-Mix Nebs (Rt) (Proventil (04/26/21 13:30) Svn Small Volume Nebulizer (04/26/21 13:25) Sodium Polystyrene (Bulk Btl) (Kayexalat (04/26/21 13:30) Sodium Chloride 3% (Hypertonic Sodium Ch (04/26/21 13:30) Sodium Polystyrene Sulfonate (Kayexalate (04/26/21 13:37) Sodium Bicarbonate 8.4% Syr (Sodium Bica (04/26/21 13:43) Vital Signs/I&O 04/26/21 12:00 Temp 36.6 Pulse 61 Resp 22 B/P (MAP) 177/84 (115) Pulse Ox 100 O2 Delivery Room Air Admisison Planning May Need Admission (Planning): 13:22 Progress Progress Note #1: Time: 13:08 Progress Note I called the lab, was finally able to get her sodium and potassium results released, sodium is 120, potassium is 6.7. This is consistent with the EKG findings of peaked T waves on her EKG. I then turned around and call Dr. Verdugo and made her aware of these lab values. She does recommend starting her on 3% sodium at 30 cc an hour, over 6 hours to repeat a sodium and potassium level at 7 hours. We will go ahead and treat her potassium with an amp of D50, 10 units of regular insulin, 1 amp of bicarb, and albuterol treatment as well as Kayexalate. Patient remains somewhat altered, vital signs are stable. I disc ussed all of these findings with her daughter, I offered to transfer her to a facility that has nephrology as the patient has chronic kidney disease. Her daughters can go talk to the rest of the family and see how aggressive they want to be a treatment. Patient's daughter also states that she would like to talk to Dr. Verdugo. Progress Note #2: Time: 14:05 Progress Note Spoke extensively with Sabiha the patient's daughter who the patient lives with. She states that she knows that her mother would not want transfer to or extraordinary care. She does have an older brother who she states has not really been a part of their lives for many years and she states that she will be making the medical decisions for her mother as she does live with her. Patient is currently getting her Kayexalate rectally as she cannot tolerate orally. Blood pressure remains good. Oxygen remains good. Patient is still quite altered and poorly communicative. ICU bed obtained for admission at this facility. I did go ahead and call both [facility] and they are on divert. Sabiha has no interest in transferring her to [facility] or to . Initial ECG Impression Date: Apr 26, 2021 Initial ECG Impression Time: 12:13 Initial ECG Rate: 62 Initial ECG Rhythm: Normal Sinus Initial ECG Intervals UT interval 207 QRS 93 QTc 424 Peaked T waves noted on EKG Initial ECG Impression: Normal Diagnostic Imaging Diagonstic Imaging: Xray Plain Films/CT/US/NM/MRI: chest Comments [facility] [place], [place] NAME: RONAN GOTTI [facility] REC#: [id number] PT STATUS: REG ER : 1930 PHYSICIAN: AUGIE RAY MD ADMIT DATE: 04/26/21/ER Draft Date of Exam:04/26/21 CHEST 1 VIEW, AP/PA ONLY INDICATION: Shortness of breath. TECHNIQUE/COMPARISON: A frontal chest was obtained at 12:32 PM and compared to 04/17/2021. FINDINGS: The heart is mildly enlarged. The mediastinal silhouette is unremarkable. There is a pacemaker device, unchanged compared to the prior study. There is no focal infiltrate, pneumothorax, or pleural fluid. IMPRESSION: No focal infiltrate, pneumothorax, or pleural fluid. Stable pacemaker device. Dictated on workstation # [id number] Dict: 04/26/21 1245 Trans: 04/26/21 1247 [id number] Interpreted by: BARBIE GARDINER MD Electronically signed by: Critical Care Note Critical Care Start Time: 12:00 Stop Time: 13:57 Total Time (minutes) 40 minutes critical care time in the evaluation and management of this 89-year-old female with altered mental status/shortness of breath. Time involved includes management of profound hyponatremia with 3% saline, telemetry, repeated neuro status checks, review of the medical record, multiple discussions with family as well as admitting provider Departure Communication (Admissions) Time/Spoke to Admitting Phy: 13:[address] Verdugo; 3% NACl at 30cc/hr for 6 hours. repeat BMP at 5pm Impression Primary Impression: Hyponatremia Additional Impressions: Hyperkalemia Chronic kidney disease (CKD) Qualified Codes: N18.9 - Chronic kidney disease, unspecified Disposition: ADMITTED INPATIENT Condition: Critical Admissions Decision to Admit Reason: Admit from ER (General) Decision to Admit/Date: Apr 26, 2021 Time/Decision to Admit Time: 13:57 Departure-Patient Inst. Referrals: RICHARD VERDUGO MD (PCP/Family) Primary Care Physician AUGIE RAY MD Apr 26, 2021 12:18
[2021-04-26 12:34] LABS: BASOPHILS % (AUTO) 0 % (0-10); EOSINOPHILS # (AUTO) 0.2 10^3/uL (0.0-0.3); EOSINOPHILS % (AUTO) 3 % (0-10); HEMATOCRIT 32 % (35-52); HEMOGLOBIN 11.3 g/dL (11.5-16.0); LYMPHOCYTES # (AUTO) 1.6 10^3/uL (1.0-4.0); LYMPHOCYTES % (AUTO) 22 % (12-44); MEAN CORPUSCULAR HEMOGLOBIN 30 pg (25-34); MEAN CORPUSCULAR HGB CONC 35 g/dL (32-36); MEAN CORPUSCULAR VOLUME 87 fL (80-99); MEAN PLATELET VOLUME 8.8 fL (9.0-12.2); MONOCYTES # (AUTO) 0.9 10^3/uL (0.0-1.0); MONOCYTES % (AUTO) 12 % (0-12); NEUTROPHILS # (AUTO) 4.6 10^3/uL (1.8-7.8); NEUTROPHILS % (AUTO) 62 % (42-75); PLATELET COUNT 294 10^3/uL (130-400); WHITE BLOOD COUNT 7.5 10^3/uL (4.3-11.0)
--- NOTE | 2021-04-26 12:47 | Diagnostic Imaging Report ---
INDICATION: Shortness of breath. TECHNIQUE/COMPARISON: A frontal chest was obtained at 12:32 PM and compared to 04/17/2021. FINDINGS: The heart is mildly enlarged. The mediastinal silhouette is unremarkable. There is a pacemaker device, unchanged compared to the prior study. There is no focal infiltrate, pneumothorax, or pleural fluid. IMPRESSION: No focal infiltrate, pneumothorax, or pleural fluid. Stable pacemaker device. Dictated by: Dictated on workstation # [id number]
[2021-04-26 12:49] LABS: CHLORIDE 91 MMOL/L (98-107)
[2021-04-26 12:50] LABS: CALCIUM 10.2 MG/DL (8.5-10.1); GLUCOSE 96 MG/DL (70-105)
[2021-04-26 12:52] LABS: CARBON DIOXIDE 16 MMOL/L (21-32)
[2021-04-26 12:54] LABS: CREATININE SERUM 1.93 MG/DL (0.60-1.30); GFR ESTIMATED 25
[2021-04-26 12:55] LABS: BUN/CREATININE RATIO 16
[2021-04-26 13:11] LABS: POTASSIUM 6.7 MMOL/L (3.6-5.0); SODIUM 120 MMOL/L (135-145)
[2021-04-26 13:29] LABS: BILIRUBIN,URINE NEGATIVE (NEGATIVE); CLARITY,URINE CLEAR; COLOR,URINE YELLOW; GLUCOSE, URINE (UA) NEGATIVE (NEGATIVE); KETONES,URINE NEGATIVE (NEGATIVE); LEUKOCYTE ESTERASE ,URINE NEGATIVE (NEGATIVE); NITRITE,URINE NEGATIVE (NEGATIVE); PROTEIN,URINE NEGATIVE (NEGATIVE)
[2021-04-26] MEDS ORDERED: SODIUM CHLORIDE 3% 500 ML IV SCH (13:30)
[2021-04-26] MEDS ORDERED: DEXTROSE 50% 50 ML (IMS) SYR IV ONE (13:30)
[2021-04-26] MEDS ORDERED: SODIUM BICARB 8.4% 50 MEQ/50 ML VIAL IV ONE (13:30)
[2021-04-26] MEDS ORDERED: SOD POLYSTYRENE 30 GM/120 ML (KAYEXALATE) BULK BOTTLE PR ONE (13:30)
[2021-04-26] MEDS ORDERED: inSUlin (REGULAR) HUMAN 1 UNIT/0.01 ML (CHARGE PER UNIT) IV ONE (13:30)
[2021-04-26] MEDS ORDERED: RT-ALBUTEROL SULF 2.5 MG/3 ML PRE-MIX VIAL INH ONE (13:30)
[2021-04-26] MEDS ORDERED: SOD POLYSTERENE 15 GM/60 ML (KAYEXALATE) UNIT DOSE ONE (13:37)
[2021-04-26 13:40] LABS: BACTERIA,URINE NEGATIVE /HPF
[2021-04-26] MEDS ORDERED: SODIUM BICARB 8.4% 50 MEQ/50 ML (ABBOTT) SYR ONE (13:43)
[2021-04-26 17:43] VITALS: BP 177/84
[2021-04-26] MEDS ORDERED: RT-ALBUTEROL SULF 2.5 MG/3 ML PRE-MIX VIAL INH PRN (17:45)
--- NOTE | 2021-04-26 17:50 | Tele-ICU Consult ---
History of Present Illness History of Present Illness Date Seen by Provider: Apr 26, 2021 Time Seen by Provider: 17:50 Date of Admission Allergies and Home Medications Allergies Coded Allergies: Sulfa (Sulfonamide Antibiotics) (Verified Allergy, Severe, ITCH, 12/30/12) carbamazepine (Verified Adverse Reaction, Severe, 04/05/21) codeine (Verified Adverse Reaction, Unknown, "LOOPY", 07/06/14) Home Medications Acetaminophen 500 Mg Tablet, 1,000 MG PO Q8H PRN for PAIN-MILD (1-4), (Reported) Aspirin 81 Mg Tablet.dr, 81 MG PO DAILY, (Reported) Cetirizine HCl 10 Mg Tablet, 10 MG PO DAILY, (Reported) Cholecalciferol (Vitamin D3) 50 Mcg Capsule, 50 MCG PO DAILY, (Reported) Cranberry Conc/C/Bacill Coag 1 Each Tablet, 1 TAB PO DAILY, (Reported) Fluconazole 100 Mg Tablet, 100 MG PO DAILY Prescribed by: RICHARD PERALTA on 04/18/21917 Fluticasone/Salmeterol 1 Each Aer.pow.ba, 1 EACH IH BID Prescribed by: RICHARD PERALTA on 04/18/21917 Furosemide 20 Mg Tablet, 20 MG PO DAILY Prescribed by: RICHARD PERALTA on 04/18/21917 Guaifenesin/Dextromethorphan 5 Ml Syrup, 10 ML PO Q4H PRN for COUGH, (Reported) Hydrocodone/Chlorphen P-Stirex 473 Ml Ayanna.er.12h, 2.5 ML PO Q12HR Prescribed by: RICHARD PERALTA on 04/18/21918 Lactobac Cmb #3/Fos/Pantethine 1 Each Capsule, 1 EACH PO TID Prescribed by: RICHARD PERALTA on 04/18/21917 Levalbuterol Tartrate 15 Gm Hfa.aer.ad, 2 PUFF INH Q6H PRN for SHORTNESS OF BREATH, (Reported) Levothyroxine Sodium 50 Mcg Tablet, 50 MCG PO DAILY, (Reported) Linezolid 600 Mg Tablet, 600 MG PO BID Prescribed by: RICHARD PERALTA on 04/18/21917 Metoprolol Succinate 25 Mg Tab.er.24h, 25 MG PO DAILY Prescribed by: RICHARD PERALTA on 11/2/21 0918 Pantoprazole Sodium 40 Mg Tablet.dr, 40 MG PO BID, (Reported) Potassium Chloride 20 Meq Tablet.er, 20 MEQ PO DAILY Prescribed by: RICHARD PERALTA on 04/18/21 0918 Past Medical/Social/Family Hx Patient Social History Tobacco Use?: No Use of E-Cig and/or Vaping dev: No Substance use?: No Alcohol Use?: No Pt stated abuse/neglect: No Immunizations Up To Date Influenza Vaccine Up-to-Date: No; Not Current First/Initial COVID19 Vaccinat: OCTOBER 2020- J&J VACCINE Second COVID19 Vaccination Celestine: SEPTEMBER 2020 Tetanus Booster (TDap): Unknown Date of Pneumonia Vaccine: Jul 18, 2005 Current Status status: No Advance Directives: No Communicates: Verbally Primary Language: Pakistani Preferred Spoken Language: Pakistani Is interpretation needed?: No Sensory deficits: Vision impairment Implanted or Applied Medical D: Pacemaker Review of Systems Constitutional: see HPI Sepsis Event Evaluation Height, Weight, BMI Height: 5'2.00" Weight: 106lbs. 0.0oz. 48.269356uv; 24.23 BMI Method:Stated Exam Exam Patient acknowledged, consented, and participated in this virtual visit which was conducted using real time audio/video Vital Signs Date Time Temp Pulse Resp B/P (MAP) Pulse Ox O2 Delivery O2 Flow Rate FiO2 04/26/21 17:43 36.3 61 100 04/26/21 17:00 102 15 158/79 Room Air 04/26/21 16:07 93 Room Air 04/26/21 16:00 108 142/75 89 Room Air 04/26/21 16:00 35.3 04/26/21 15:53 113 04/26/21 15:45 134/74 04/26/21 14:26 99 Room Air 04/26/21 12:00 36.6 61 22 177/84 (115) 100 Room Air Height & Weight Height: 5'2.00" Weight: 106lbs. 0.0oz. 48.514773ku; 24.23 BMI Method:Stated General Appearance: No Apparent Distress, Moderate Distress, Thin HEENT: PERRL/EOMI, Other (appears adequately hydrated with moist oral mucosa) Neck: Normal Inspection Respiratory: Lungs Clear, No Accessory Muscle Use, Other (labored breathing and tachypnea o2 sats 100% on RA; no wheezing) Cardiovascular: Regular Rate, Rhythm, Normal Peripheral Pulses Capillary Refill: Less Than 3 Seconds Extremity: Normal Inspection, Normal Range of Motion, Non Tender, No Calf Tenderness, No Pedal Edema Neurologic/Psychiatric: Alert, Disoriented (?); No EOM Palsy, No Facial Droop, No Motor Weakness Skin: Normal Color, Warm/Dry Results Lab Laboratory Tests 04/26/21 12:25 Assessment/Plan Assessment/Plan (Tele-ICU Physician , consultation) Available chart/ vitals / labs / Images reviewed H&P is from ER notes Patient's information available about PMH, Shx, Fhx allergy reviewed in EMR. ROS as per chart and RN report Now in ICU, hemodynamically stable Video assessment done using teleICU camera, rest of exam as per RN Discussed with RN. Consultants: Hospital course: 04/26 - to ER with SOB - > dx with hyponatremia 122 on admission and hyperkalemia A/P Hyponatremia - 120 on admission ( with baseline 130 (recurrent , admission on 04/01 with na 123 and similar episode 06/2018 -received 100 ml of 3% - chacking BMP now - most likely will need NS resuci tation DINO - CT 1.9 with baseline 1.3 - await repeted BMP - anticipate need for NS resuscitation Hyperkalemia due to DINO - 6.7 - treated with IV insulin and Ca , kayaxalate [place] - follow closely Elev d dimer 3.66 A fib - rate controlled -- not candidate for AC with recent hemopericardium Anemia - stable s/p pericardial effusion drained - catheter remived 04/15/21, cultures were negative Persistent cough - CT chest 3 week ago - NO PNA - ICS/LABA trail, swallow eval done - no couth now Lines : periph (Central Line Necessity Reviewed) Carrera: 04/26 - placed in ER OG: Nutrition: Analgesia: Anxiety/ delirium VTE Prophylaxis: SCD for today Stress Ulcer Prophylaxis: Glycemic Control: Plans in collaboration with bedside consultants and IM MDs. Discussed with RN to reach out if any questions or concerns A total of 33 minutes of critical care time was devoted to this patient today, required to treat and/or prevent further deterioration of critical care condition ( as above ) . GEOVANNY PIERCE MD Apr 26, 2021 17:50
[2021-04-26 17:56] LABS: POTASSIUM 5.4 MMOL/L (3.6-5.0)
[2021-04-26 17:57] LABS: CALCIUM 10.1 MG/DL (8.5-10.1)
[2021-04-26 18:01] LABS: CREATININE SERUM 1.84 MG/DL (0.60-1.30)
--- NOTE | 2021-04-26 18:29 | History & Physical ---
History of Present Illness History of Present Illness Reason for visit/HPI PT IS AN 89 Y/O FEMALE WHO IS KNOWN TO ME FROM CLINIC. SHE REPORTS THAT SHE IS FEELING BETTER THIS EVENING COMPARED TO EARLIER TODAY. PER PATIENT'S DTRS SHE HAS BEEN DOING WELL AT HOME AND THEN THIS MORNING SHE HAD SOME CHEST DISCOMFORT THAT WORSENED AND SHE WAS ACUTELY SHORT OF BREATH, SO HER FAMILY BROUGHT HER TO THE HOSPITAL. Date of Admission Apr 26, 2021 at 13:55 Date Seen by a Provider: Apr 26, 2021 Time Seen by a Provider: 18:00 Attending Physician Richard Verdugo MD Admitting Physician Richard Verdugo MD Consult Allergies and Home Medications Allergies Coded Allergies: Sulfa (Sulfonamide Antibiotics) (Verified Allergy, Severe, ITCH, 12/30/12) carbamazepine (Verified Adverse Reaction, Severe, 04/05/21) codeine (Verified Adverse Reaction, Unknown, "LOOPY", 07/06/14) Patient Home Medication List Home Medication List Reviewed: Yes Acetaminophen (Tylenol Extra Strength) 500 Mg Tablet, 1,000 MG PO Q8H PRN for PAIN-MILD (1-4), (Reported) Entered as Reported by: ANNEL MANN on 04/03/21 1034 Last Action: Continued Aspirin (Aspirin EC) 81 Mg Tablet.dr, 81 MG PO DAILY, (Reported) Entered as Reported by: ANNEL MANN on 04/03/21 103 Last Action: Continued Cetirizine HCl (Zyrtec) 10 Mg Tablet, 10 MG PO DAILY, (Reported) Entered as Reported by: TO AMBROSIO on 06/30/18 1149 Last Action: Converted Cholecalciferol (Vitamin D3) (Vitamin D3) 50 Mcg Capsule, 50 MCG PO DAILY, (Reported) Entered as Reported by: ANNEL MANN on 04/03/21 1034 Last Action: Held Cranberry Conc/C/Bacill Coag (Azo Cranberry Tablet) 1 Each Tablet, 1 TAB PO DAILY, (Reported) Entered as Reported by: TO AMBROSIO on 06/30/18 1148 Last Action: Held Fluticasone/Salmeterol (Fluticasone-Salmeterol 113-14) 1 Each Aer.pow.ba, 1 EACH IH BID, (Reported) Entered as Reported by: ANNEL MANN on 04/28/21 8239 Last Action: Continued Furosemide (Furosemide) 20 Mg Tablet, 20 MG PO DAILY, (Reported) Entered as Reported by: ANNEL MANN on 04/28/21952 Last Action: Held Guaifenesin/Dextromethorphan (Guaifenesin Dm Syrup) 5 Ml Syrup, 10 ML PO Q4H PRN for COUGH, (Reported) Entered as Reported by: ANNEL MANN on 04/14/211154 Last Action: Continued Lactobac Cmb #3/Fos/Pantethine (Probiotic & Acidophilus Cap) 1 Each Capsule, 1 EACH PO TID, (Reported) Entered as Reported by: ANNEL MANN on 04/28/21952 Last Action: Converted Levalbuterol Tartrate (Levalbuterol Tartrate Hfa) 15 Gm Hfa.aer.ad, 2 PUFF INH Q6H PRN for SHORTNESS OF BREATH, (Reported) Entered as Reported by: ANNEL MANN on 04/14/21 1200 Last Action: Held Levothyroxine Sodium (Levothyroxine Sodium) 50 Mcg Tablet, 50 MCG PO DAILY, (Reported) Entered as Reported by: TO AMBORSIO on 06/30/18 1149 Last Action: Continued Metoprolol Succinate (Metoprolol Succinate) 25 Mg Tab.er.24h, 25 MG PO DAILY, (Reported) Entered as Reported by: ANNEL MANN on 04/28/21952 Last Action: Continued Pantoprazole Sodium (Pantoprazole Sodium) 40 Mg Tablet.dr, 40 MG PO BID, (Reported) Entered as Reported by: ANNEL MANN on 04/14/211154 Last Action: Continued Potassium Chloride (Potassium Chloride) 20 Meq Tab.er.prt, 20 MEQ PO DAILY, (Re ported) Entered as Reported by: ANNEL MANN on 04/28/21952 Last Action: Held Discontinued Medications Fluconazole (Fluconazole) 100 Mg Tablet, 100 MG PO DAILY Discontinued Reason: No Longer Taking Prescribed by: RICHARD VERDUGO on 04/18/21917 Last Action: Discontinued Fluticasone/Salmeterol (Fluticasone-Salmeterol 113-14) 1 Each Aer.pow.ba, 1 EACH IH BID Discontinued Reason: Duplicate Order Prescribed by: RICHARD VERDUGO on 04/18/21917 Last Action: Discontinued Furosemide (Furosemide) 20 Mg Tablet, 20 MG PO DAILY Discontinued Reason: Duplicate Order Prescribed by: RICHARD VERDUGO on 04/18/21917 Last Action: Discontinued Lactobac Cmb #3/Fos/Pantethine (Probiotic & Acidophilus Cap) 1 Each Capsule, 1 EACH PO TID Discontinued Reason: Duplicate Order Prescribed by: RICHARD VERDUGO on 04/18/21917 Last Action: Discontinued Metoprolol Succinate (Metoprolol Succinate) 25 Mg Tab.er.24h, 25 MG PO DAILY Discontinued Reason: Duplicate Order Prescribed by: RICHARD VERDUGO on 04/18/21917 Last Action: Discontinued Potassium Chloride (Potassium Chloride) 20 Meq Tablet.er, 20 MEQ PO DAILY Discontinued Reason: No Longer Taking Prescribed by: RICHARD VERDUGO on 04/18/21917 Last Action: Discontinued Past Obtyjuc-Jikeji-Kyxbjm Hx Patient Social History Marrital Status: Living Status: LIVES WITH HER DTR AND SON IN LAW Employed/Student: retired Tobacco Use?: No Smoking Status: Former Smoker Use of E-Cig and/or Vaping dev: No Substance use?: No Alcohol Use?: No Pt feels they are or have been: No Immunizations Up To Date Date of Influenza Vaccine: Mar 17, 2018 First/Initial COVID19 Vaccinat: OCTOBER 2020- J&J VACCINE Second COVID19 Vaccination Celestine: SEPTEMBER 2020 Tetanus Booster (TDap): Unknown Date of Pneumonia Vaccine: Jul 18, 2005 Seasonal Allergies Seasonal Allergies: Yes Current Status status: No Advance Directives: No Communicates: Verbally Primary Language: Malagasy Preferred Spoken Language: Malagasy Is interpretation needed?: No Sensory deficits: Vision impairment Implanted or Applied Medical D: Pacemaker Past Medical History Surgeries: Abdominal, Appendectomy, Gallbladder Asthma Currently Using CPAP: No Currently Using BIPAP: No Hypertension Stroke Renal Failure Arthritis Hearing Impairment: Hard of Hearing Blood Disorders: No Adverse Reaction/Blood Tranf: No Family Medical History Reviewed Nursing Family Hx Arthritis Cardiovascular disease 19 FATHER Colon cancer 19 FATHER Diabetes mellitus G8 BROTHER Hypercholesterolemia 19 FATHER Hypertension 19 FATHER Myocardial infarction 19 FATHER Osteoporosis 19 MOTHER No Family History of: AIDS Abdominal aortic aneurysm Hand's disease Alcoholism Alzheimer's disease Aphasia Asthma Cancer of mouth Cataracts Completed stroke Congenital disease Congenital heart disease Coronary thrombosis Cystic fibrosis Deafness or hearing loss Dementia Drug abuse Dysphasia Fibrocystic disease of breast Gastroenteritis Glaucoma Headache disorder Infertility Kidney disease Neoplasm Not obtainable due to adoption Parkinson's disease Prostate cancer Psychosocial problem Respiratory disorder Seizure disorder Severe allergy Thyroid disease Tuberculosis Visual disorder Heart Disease, Cancer, COPD, Diabetes, Hypertension, Other Conditions/Hx Review of Systems Constitutional: No chills; fever, malaise, weakness EENTM: hearing loss; No throat pain Respiratory: cough, dyspnea on exertion, short of breath Cardiovascular: No chest pain, No edema Gastrointestinal: No abdominal pain, No constipation, No diarrhea, No loss of appetite, No nausea, No vomiting Genitourinary: no symptoms reported Musculoskeletal: No back pain; muscle weakness Psychiatric/Neurological: Anxiety, Depressed All Other Systems Reviewed Negative Unless Noted: Yes Physical Exam Vital Signs Vital Signs - First Documented 04/26/21 12:00 Temp 36.6 Pulse 61 Resp 22 B/P (MAP) 177/84 (115) Pulse Ox 100 O2 Delivery Room Air Capillary Refill : Less Than 3 Seconds Height, Weight, BMI Height: 5'2.00" Weight: 106lbs. 0.0oz. 48.502877tm; 24.23 BMI Method:Stated General Appearance: No Apparent Distress, WD/WN HEENT: PERRL/EOMI, Pharynx Normal Neck: Full Range of Motion, Normal Inspection, Non Tender, Supple Respiratory: Chest Non Tender, Lungs Clear, Normal Breath Sounds, No Accessory Muscle Use Cardiovascular: Irregularly Irregular Gastrointestinal: Normal Bowel Sounds, Non Tender, Soft Rectal: Deferred Back: Normal Inspection Extremity: Normal Capillary Refill, Non Tender, No Calf Tenderness, No Pedal Edema Neurologic/Psychiatric: Alert, Oriented x3, Normal Mood/Affect Skin: Normal Color, Warm/Dry Lymphatic: No Adenopathy Assessment/Plan Assessment and Plan HYPONATREMIA ACUTE RENAL FAILURE HYPERKALEMIA ATRIAL FIBRILLATION CHRONIC ANEMIA CHRONIC COUGH HYPONATREMIA - HYPERTONIC SALINE SOLUTION - WILL RUN FOR A SHORT TIME, MONITOR SODIUM LEVEL. HYPERKALEMIA - PT GIVEN KAYEXALATE IN THE ER, MONITOR OUTPUT AND POTASSIUM LEVELS SERIALLY. ACUTE RENAL FAILURE - REPLENISH WITH FLUIDS - - REPEAT LABS SERIALLY ATRIAL FIBRILLATION - MONITOR HEART RATE, WILL RESTART HOME MEDS IF NEEDED - BP AND HEART RATE LOW ON ADMIT CHRONIC ANEMIA - MONITOR LABS, SUPPORTIVE CARE ONLY AT THIS TIME. CHRONIC COUGH - SUPPORTIVE CARE DYSPNEA ON EXERTION - CONCERN FOR PULMONARY EMBOLUS - DISCUSSED WITH PT'S DTRS - CANNOT GIVE LOVENOX DUE TO HER RECENT HEMOPERICARDIUM, CANNOT CHECK CT ANGIOGRAM DUE TO HER RENAL FUNCTION. PT'S FAMILY AWARE OF DIAGNOSIS - AND WE WILL DISCUSS, AFTER STABILIZATION IF WE WILL CONSIDER HOSPICE OR COMFORT CARE IN THE HOSPITAL VERSUS AT HOME. I WOULD ADVOCATE FOR TREATMENT OF HER HYPONATREMIA AND MONITORING OF HER LABS. Admission Diagnosis HYPONATREMIA ACUTE RENAL FAILURE HYPERKALEMIA ATRIAL FIBRILLATION CHRONIC ANEMIA CHRONIC COUGH Admission Status: Inpatient Order (span 2 midnights) Reason for Inpatient Admission: INPT ADMISSION FOR LOW SODIUM, RENAL FAILURE - WILL REQUIRE AT LEAST 72 HOURS IN THE HOSPITAL FOR STABILIZATION. RICHARD VERDUGO MD Apr 26, 2021 18:28
[2021-04-26] MEDS: 1/2 NS IV SOLUTION 1,000 ML IV SCH (18:55)
[2021-04-26 23:31] LABS: POTASSIUM 5.8 MMOL/L (3.6-5.0)
[2021-04-26 23:32] LABS: CALCIUM 9.7 MG/DL (8.5-10.1)
[2021-04-26 23:36] LABS: CREATININE SERUM 1.81 MG/DL (0.60-1.30)
[2021-04-27] MEDS: 1/2 NS IV SOLUTION 1,000 ML IV SCH (04:17)
[2021-04-27] MEDS: KCL 20 MEQ TAB (K-DUR) PO SCH (05:06)
[2021-04-27] MEDS: MAGNESIUM 1 GM/100 ML IVPB 100 ML IV SCH (05:06)
[2021-04-27] MEDS: POTASSIUM CL 10MEQ/50ML IVPB 50 ML IV SCH (05:07)
[2021-04-27 05:11] LABS: BASOPHILS # (AUTO) 0.1 10^3/uL (0.0-0.1); BASOPHILS % (AUTO) 1 % (0-10); EOSINOPHILS # (AUTO) 0.1 10^3/uL (0.0-0.3); EOSINOPHILS % (AUTO) 1 % (0-10); HEMATOCRIT 30 % (35-52); HEMOGLOBIN 10.4 g/dL (11.5-16.0); LYMPHOCYTES # (AUTO) 1.1 10^3/uL (1.0-4.0); LYMPHOCYTES % (AUTO) 12 % (12-44); MEAN CORPUSCULAR HEMOGLOBIN 31 pg (25-34); MEAN CORPUSCULAR HGB CONC 35 g/dL (32-36); MEAN CORPUSCULAR VOLUME 88 fL (80-99); MEAN PLATELET VOLUME 8.8 fL (9.0-12.2); MONOCYTES # (AUTO) 1.3 10^3/uL (0.0-1.0); MONOCYTES % (AUTO) 14 % (0-12); NEUTROPHILS # (AUTO) 6.6 10^3/uL (1.8-7.8); NEUTROPHILS % (AUTO) 72 % (42-75); PLATELET COUNT 249 10^3/uL (130-400); WHITE BLOOD COUNT 9.2 10^3/uL (4.3-11.0)
[2021-04-27 05:22] LABS: ALBUMIN 3.7 GM/DL (3.2-4.5); POTASSIUM 5.5 MMOL/L (3.6-5.0)
[2021-04-27 05:24] LABS: CALCIUM 9.3 MG/DL (8.5-10.1)
[2021-04-27 05:25] LABS: TOTAL PROTEIN 6.2 GM/DL (6.4-8.2)
[2021-04-27 05:27] LABS: BILIRUBIN,TOTAL 0.5 MG/DL (0.1-1.0)
[2021-04-27 05:28] LABS: PHOSPHORUS 3.5 MG/DL (2.3-4.7)
[2021-04-27 05:29] LABS: CREATININE SERUM 1.69 MG/DL (0.60-1.30)
[2021-04-27 05:32] LABS: MAGNESIUM 2.2 MG/DL (1.6-2.4)
[2021-04-27] MEDS: NS IV 1000 ML 1,000 ML IV SCH ×2 (05:50→17:33)
[2021-04-27] MEDS ORDERED: ALPRAZolam 0.25 MG (XANAX) TAB PO ONE (08:45)
[2021-04-27] MEDS: SODIUM CHLORIDE 1 GM TABLET PO SCH ×3 (09:46→17:33)
--- NOTE | 2021-04-27 10:50 | Tele-ICU Progress Note ---
Subjective Date Seen by a Provider: Apr 27, 2021 Time Seen by a Provider: 10:49 Sepsis Event Evaluation Height, Weight, BMI Height: 5'2.00" Weight: 106lbs. 0.0oz. 48.882973zy; 24.23 BMI Method:Stated Exam Exam Patient acknowledged, consented, and participated in this virtual visit which was conducted using real time audio/video Vital Signs Date Time Temp Pulse Resp B/P (MAP) Pulse Ox O2 Delivery O2 Flow Rate FiO2 04/27/21 10:00 87 19 157/73 Room Air 04/27/21 09:00 72 21 168/65 98 Room Air 04/27/21 08:24 36.3 04/27/21 08:00 74 19 155/59 Room Air 04/27/21 08:00 98 Room Air 04/27/21 07:00 80 21 161/58 92 Room Air 04/27/21 07:00 78 04/27/21 06:00 81 20 156/69 95 Room Air 04/27/21 05:00 85 20 161/84 95 Room Air 04/27/21 04:00 71 20 151/67 96 Room Air 04/27/21 03:10 36.6 Room Air 04/27/21 03:10 93 Room Air 04/27/21 03:00 87 20 127/53 91 Room Air 04/27/21 02:00 82 26 154/62 93 Room Air 04/27/21 01:00 87 04/27/21 01:00 87 25 120/62 95 Room Air 04/27/21 00:00 89 16 150/57 96 Room Air 04/26/21 23:20 37.4 04/26/21 23:10 94 Room Air 04/26/21 23:00 91 19 135/64 93 Room Air 04/26/21 22:00 96 21 154/70 90 Room Air 04/26/21 21:00 61 25 136/56 97 Room Air 04/26/21 20:14 38.2 04/26/21 20:00 36.8 101 24 151/63 93 Room Air 04/26/21 20:00 99 17 156/76 93 Room Air 04/26/21 20:00 93 Room Air 04/26/21 19:00 110 19 154/68 97 Room Air 04/26/21 19:00 110 11/10/21 18:00 102 21 170/71 95 Room Air 04/26/21 17:43 36.3 61 100 04/26/21 17:00 102 15 158/79 Room Air 04/26/21 16:07 93 Room Air 04/26/21 16:00 108 142/75 89 Room Air 04/26/21 16:00 35.3 04/26/21 15:53 113 04/26/21 15:45 134/74 04/26/21 15:40 36.7 97 20 170/69 99 Room Air 04/26/21 14:26 99 Room Air 04/26/21 12:00 36.6 61 22 177/84 (115) 100 Room Air I & O 04/27/21 07:00 Intake Total 1175 ml Output Total 1425 ml Balance -250 ml Height & Weight Height: 5'2.00" Weight: 106lbs. 0.0oz. 48.437414mf; 24.23 BMI Method:Stated General Appearance: No Apparent Distress, Moderate Distress, Thin HEENT: PERRL/EOMI, Other (appears adequately hydrated with moist oral mucosa) Neck: Normal Inspection Respiratory: Lungs Clear, No Accessory Muscle Use, Other (labored breathing and tachypnea o2 sats 100% on RA; no wheezing) Cardiovascular: Regular Rate, Rhythm, Normal Peripheral Pulses Capillary Refill: Less Than 3 Seconds Extremity: Normal Inspection, Normal Range of Motion, Non Tender, No Calf Tenderness, No Pedal Edema Neurologic/Psychiatric: Alert, Disoriented (?); No EOM Palsy, No Facial Droop, No Motor Weakness Skin: Normal Color, Warm/Dry Results Lab Laboratory Tests 04/26/21 12:25 04/26/21 17:35 04/26/21 23:14 04/27/21 05:00 Assessment/Plan Assessment/Plan (Tele-ICU Physician , Progress Note ) Available chart/ vitals / labs / Images reviewed Video assessment done using teleICU camera, rest of exam as per RN Discussed with RN , EXAM PER RN Events overnight : Afebrile FiO2 -ra I/O = neg 1L Drips: ns Pressors: , hemodynamically stable Consultants: Hospital course: 04/26 - to ER with SOB - > dx with hyponatremia 122 on admission and hyperkalemia A/P Hyponatremia - 120 on admission ( with baseline 130 (recurrent , admission on 04/01 with na 123 and similar episode 06/2018 -received 100 ml of 3% - increases Na to 127 - then dropped back to 122 - cu rrently on NS , startedon o NaCl Po - will recheck at noon DINO - CT 1.9 with baseline 1.3 - cont hydration Hyperkalemia due to DINO - 6.7 - treated with IV insulin and Ca , kayaxalate [place] x1 - follow closely , improving Elev d dimer 3.66 A fib - rate controlled -- not candidate for AC with recent hemopericardium Anemia - stable s/p pericardial effusion drained - catheter remived 04/15/21, cultures were negative Persistent cough last few weeks - CT chest 3 week ago - NO PNA - ICS/LABA trail, swallow eval done - no couth now as per RN Lines : periph (Central Line Necessity Reviewed) Carrera: 04/26 - placed in ER OG: Nutrition: Analgesia: Anxiety/ delirium VTE Prophylaxis: SCD for today Stress Ulcer Prophylaxis: Glycemic Control: Plans in collaboration with bedside consultants and IM MDs. Discussed with RN to reach out if any questions or concerns A total of 33 minutes of critical care time was devoted to this patient today, required to treat and/or prevent further deterioration of critical care condition ( as above ) . GEOVANNY PIERCE MD Apr 27, 2021 10:50
[2021-04-27 13:43] LABS: CREATININE SERUM 1.48 MG/DL (0.60-1.30); POTASSIUM 5.1 MMOL/L (3.6-5.0)
--- NOTE | 2021-04-27 17:38 | Progress Note ---
Subjective Subjective Date Seen by Provider: Apr 27, 2021 Time Seen by Provider: 08:00 Pt was drowsy and difficult to get information from. History obtained mainly from her daughter. She was feeling okay this morning, says she was a bit cold. She denied any nausea or vomiting. Her daughter states she was still a bit confused but believes it has improved overall. Review of Systems General: No Night Sweats Gastrointestinal: No: Nausea, Vomiting Objective Exam Vital Signs Vital Signs Date Time Temp Pulse Resp B/P (MAP) Pulse Ox O2 Delivery O2 Flow Rate FiO2 04/27/21 17:00 75 29 140/56 Room Air 04/27/21 16:00 Room Air 04/27/21 16:00 73 10 163/60 Room Air 04/27/21 15:00 73 25 154/65 Room Air 04/27/21 14:00 70 11 147/64 95 Room Air 04/27/21 13:00 72 20 139/62 Room Air 04/27/21 13:00 77 04/27/21 12:51 Room Air 04/27/21 12:00 72 25 147/66 Room Air 04/27/21 11:54 37.2 04/27/21 11:00 78 16 153/66 Room Air 04/27/21 10:00 87 19 157/73 Room Air 04/27/21 09:00 72 21 168/65 98 Room Air 04/27/21 08:24 36.3 04/27/21 08:00 74 19 155/59 Room Air 04/27/21 08:00 98 Room Air 04/27/21 07:00 80 21 161/58 92 Room Air 04/27/21 07:00 78 04/27/21 06:00 81 20 156/69 95 Room Air 04/27/21 05:00 85 20 161/84 95 Room Air 04/27/21 04:00 71 20 151/67 96 Room Air 04/27/21 03:10 36.6 Room Air 04/27/21 03:10 93 Room Air 04/27/21 03:00 87 20 127/53 91 Room Air 04/27/21 02:00 82 26 154/62 93 Room Air 04/27/21 01:00 87 04/27/21 01:00 87 25 120/62 95 Room Air 04/27/21 00:00 89 16 150/57 96 Room Air 04/26/21 23:20 37.4 04/26/21 23:10 94 Room Air 04/26/21 23:00 91 19 135/64 93 Room Air 04/26/21 22:00 96 21 154/70 90 Room Air 04/26/21 21:00 61 25 136/56 97 Room Air 04/26/21 20:14 38.2 04/26/21 20:00 36.8 101 24 151/63 93 Room Air 04/26/21 20:00 99 17 156/76 93 Room Air 04/26/21 20:00 93 Room Air 04/26/21 19:00 110 19 154/68 97 Room Air 04/26/21 19:00 110 04/26/21 18:00 102 21 170/71 95 Room Air 04/26/21 17:43 36.3 61 100 I & O 04/27/21 07:00 Intake Total 1175 ml Output Total 1425 ml Balance -250 ml General Appearance: No Apparent Distress, Moderate Distress, Thin HEENT: PERRL/EOMI, Other (appears adequately hydrated with moist oral mucosa) Neck: Normal Inspection Respiratory: Lungs Clear, No Accessory Muscle Use, Other (labored breathing and tachypnea o2 sats 100% on RA; no wheezing) Cardiovascular: Regular Rate, Rhythm, Normal Peripheral Pulses Gastrointestinal: Non Tender, Soft Extremity: Normal Inspection, Normal Range of Motion, Non Tender, No Calf Tenderness, No Pedal Edema Neurologic/Psychiatric: Alert, Disoriented (?); No EOM Palsy, No Facial Droop, No Motor Weakness Skin: Normal Color, Warm/Dry Results Lab Laboratory Tests 04/26/21 17:35: Sodium Level 127L, Potassium Level 5.4H, Chloride Level 93L, Carbon Dioxide Level 19L, Anion Gap 15H, Blood Urea Nitrogen 30H, Creatinine 1.84H, Estimat Glomerular Filtration Rate 26, BUN/Creatinine Ratio 16, Glucose Level 110H, Calcium Level 10.1 04/26/21 23:14: Sodium Level 125*L, Potassium Level 5.8H, Chloride Level 94L, Carbon Dioxide Level 18L, Anion Gap 13, Blood Urea Nitrogen 29H, Creatinine 1.81H, Estimat Glomerular Filtration Rate 26, BUN/Creatinine Ratio 16, Glucose Level 109H, Calcium Level 9.7 04/27/21 05:00: Sodium Level 122*L, Potassium Level 5.5H, Chloride Level 94L, Carbon Dioxide Level 17L, Anion Gap 11, Blood Urea Nitrogen 28H, Creatinine 1.69H, Estimat Glomerular Filtration Rate 29, BUN/Creatinine Ratio 17, Glucose Level 103, Calcium Level 9.3, White Blood Count 9.2, Red Blood Count 3.38L, Hemoglobin 10.4L, Hematocrit 30L, Mean Corpuscular Volume 88, Mean Corpuscular Hemoglobin 31, Mean Corpuscular Hemoglobin Concent 35, Red Cell Distribution Width 13.2, Pl atelet Count 249, Mean Platelet Volume 8.8L, Immature Granulocyte % (Auto) 1, Neutrophils (%) (Auto) 72, Lymphocytes (%) (Auto) 12, Monocytes (%) (Auto) 14H, Eosinophils (%) (Auto) 1, Basophils (%) (Auto) 1, Neutrophils # (Auto) 6.6, Lymphocytes # (Auto) 1.1, Monocytes # (Auto) 1.3H, Eosinophils # (Auto) 0.1, Basophils # (Auto) 0.1, Immature Granulocyte # (Auto) 0.1, Corrected Calcium 9.5, Phosphorus Level 3.5, Magnesium Level 2.2, Total Bilirubin 0.5, Aspartate Amino Transf (AST/SGOT) 22, Alanine Aminotransferase (ALT/SGPT) 12, Alkaline Phosphatase 65, Total Protein 6.2L, Albumin 3.7 04/27/21 13:10: Sodium Level 124*L, Potassium Level 5.1H, Chloride Level 97L, Carbon Dioxide Level 17L, Anion Gap 10, Blood Urea Nitrogen 21H, Creatinine 1.48H, Estimat Glomerular Filtration Rate 33, BUN/Creatinine Ratio 14, Glucose Level 108H, Calcium Level 9.0 Microbiology 04/26/21 MRSA Screen - Final, Complete MRSA not isolated Assessment/Plan Assessment/Plan Assessment and Plan HYPONATREMIA 120 ON ADMISSION, 125 TODAY AT 1300 HOURS CURRENTLY RECEIVING NS, WITH PO SODIUM SUPPLEMENT DINO - Cr 1.48 at 1300hrs today, with baseline 1.3 - continue hydration HYPERKALEMIA -Likely secondary to DINO - 6.7 on admission - treated with IV insulin and Ca , kayaxalate [place] x1 - follow closely, improved to 5.1 today Afib - rate controlled -not candidate for AC with recent hemopericardium Anemia - stable -Hgb 10.4 today S/P PERICARDIAL EFFUSION-DRAINED - catheter removed 04/15/21, cultures were negative Persistent cough CXR yesterday, no sign of PNA Supervisory-Addendum Brief Verification & Attestation Participated in pt care: history, MDM, physical Personally performed: exam, history, MDM, supervision of care Care discussed with: Medical Student Procedures: n/a Results interpretation: Verified all documentation I HAVE PERSONALLY REVIEWED THE MEDICAL STUDENT'S NOTE AND AGREE WITH DOCUMENTATION NOTED IN PATIENTS CHART DOCUMENTED. HYPONATREMIA ACUTE RENAL FAILURE HYPERKALEMIA ATRIAL FIBRILLATION CHRONIC ANEMIA CHRONIC COUGH HYPONATREMIA - HYPERTONIC SALINE SOLUTION - COMPLETED - CHANGED PATIENT TO NORMAL SALINE AND ORAL SODIUM TABLETS. HYPERKALEMIA - PT GIVEN KAYEXALATE IN THE ER, MONITOR OUTPUT AND POTASSIUM LEVELS SERIALLY. ACUTE RENAL FAILURE - REPLENISH WITH FLUIDS - REPEAT LABS SERIALLY ATRIAL FIBRILLATION - MONITOR HEART RATE, WILL RESTART HOME MEDS IF NEEDED - BP AND HEART RATE LOW ON ADMIT CHRONIC ANEMIA - MONITOR LABS, SUPPORTIVE CARE ONLY AT THIS TIME. CHRONIC COUGH - SUPPORTIVE CARE DYSPNEA ON EXERTION - CONCERN FOR PULMONARY EMBOLUS - DISCUSSED WITH PT'S DTRS - CANNOT GIVE LOVENOX DUE TO HER RECENT HEMOPERICARDIUM, CANNOT CHECK CT ANGIOGRAM DUE TO HER RENAL FUNCTION. PT'S FAMILY AWARE OF DIAGNOSIS - AND WE WILL DISCUSS, AFTER STABILIZATION IF WE WILL CONSIDER HOSPICE OR COMFORT CARE IN THE HOSPITAL VERSUS AT HOME. I WOULD ADVOCATE FOR TREATMENT OF HER HYPONATREMIA AND MONITORING OF HER LABS. JB LÓPEZ Apr 27, 2021 17:38 RICHARD PERALTA MD Apr 28, 2021 14:18
[2021-04-28] MEDS: NS IV 1000 ML 1,000 ML IV SCH ×3 (05:21→15:17)
[2021-04-28 05:36] LABS: BASOPHILS % (AUTO) 1 % (0-10); EOSINOPHILS # (AUTO) 0.3 10^3/uL (0.0-0.3); EOSINOPHILS % (AUTO) 5 % (0-10); HEMATOCRIT 27 % (35-52); HEMOGLOBIN 9.3 g/dL (11.5-16.0); LYMPHOCYTES # (AUTO) 0.9 10^3/uL (1.0-4.0); LYMPHOCYTES % (AUTO) 14 % (12-44); MEAN CORPUSCULAR HEMOGLOBIN 30 pg (25-34); MEAN CORPUSCULAR HGB CONC 34 g/dL (32-36); MEAN CORPUSCULAR VOLUME 89 fL (80-99); MEAN PLATELET VOLUME 8.7 fL (9.0-12.2); MONOCYTES % (AUTO) 15 % (0-12); NEUTROPHILS % (AUTO) 64 % (42-75); PLATELET COUNT 192 10^3/uL (130-400); WHITE BLOOD COUNT 6.3 10^3/uL (4.3-11.0)
[2021-04-28 05:56] LABS: ALBUMIN 3.2 GM/DL (3.2-4.5); POTASSIUM 4.7 MMOL/L (3.6-5.0)
[2021-04-28 05:57] LABS: CALCIUM 8.7 MG/DL (8.5-10.1)
[2021-04-28 05:58] LABS: TOTAL PROTEIN 5.4 GM/DL (6.4-8.2)
[2021-04-28 06:00] LABS: BILIRUBIN,TOTAL 0.4 MG/DL (0.1-1.0)
[2021-04-28 06:02] LABS: CREATININE SERUM 1.13 MG/DL (0.60-1.30); PHOSPHORUS 3.1 MG/DL (2.3-4.7)
[2021-04-28] MEDS: POTASSIUM CL 10MEQ/50ML IVPB 50 ML IV SCH (06:06)
[2021-04-28] MEDS: KCL 20 MEQ TAB (K-DUR) PO SCH (06:06)
[2021-04-28] MEDS: MAGNESIUM 1 GM/100 ML IVPB 100 ML IV SCH (06:06)
[2021-04-28] MEDS: SODIUM CHLORIDE 1 GM TABLET PO SCH ×3 (08:00→18:25)
[2021-04-28 09:34] LABS: FREE T4 (FREE THYROXINE) 1.2 NG/DL (0.70-1.48)
[2021-04-28] MEDS ORDERED: LACT1CAP57 PO (09:53)
[2021-04-28] MEDS ORDERED: MTP25TSR PO (09:53)
[2021-04-28] MEDS ORDERED: FLUT1AER4 IH (09:53)
[2021-04-28] MEDS ORDERED: POTA-179 PO (09:53)
[2021-04-28] MEDS ORDERED: FURO20TA4 PO (09:53)
[2021-04-28] MEDS ORDERED: ACETAMINOPHEN 500 MG TAB (TYLENOL) PO PRN (10:30)
--- NOTE | 2021-04-28 10:54 | Tele-ICU Progress Note ---
Subjective Date Seen by a Provider: Apr 28, 2021 Time Seen by a Provider: 10:31 Subjective/Events-last exam She is a 89-year-old female with past medical history of hypertension and previous history of UTI and hyponatremia presented with altered mental status and shortness of breath. She is found to have a severe hyponatremia. She was on a Lasix at home. Currently being treated with IV normal saline and of oral salt tablets. Her hypokalemia has been corrected. Today her family is considering palliative care and plan to take her home with a hospice. I reviewed with the RN and video visit made Review of Systems ROS PER ATTENDING Sepsis Event Evaluation Height, Weight, BMI Height: 5'2.00" Weight: 106lbs. 0.0oz. 48.598606al; 24.23 BMI Method:Stated Exam Exam Patient acknowledged, consented, and participated in this virtual visit which was conducted using real time audio/video Vital Signs Date Time Temp Pulse Resp B/P (MAP) Pulse Ox O2 Delivery O2 Flow Rate FiO2 04/28/21 09:00 112 15 Room Air 04/28/21 08:30 Room Air 04/28/21 08:00 36.5 04/28/21 08:00 92 12 154/77 Room Air 04/28/21 07:10 95 Room Air 04/28/21 07:00 92 20 173/65 Room Air 04/28/21 07:00 97 04/28/21 06:00 87 21 157/62 Room Air 04/28/21 05:00 87 27 141/56 Room Air 04/28/21 04:27 36.6 04/28/21 04:00 96 Room Air 04/28/21 04:00 98 24 164/79 Room Air 04/28/21 03:00 82 22 147/88 97 Room Air 04/28/21 02:00 85 22 157/70 92 Room Air 04/28/21 01:00 85 20 154/59 Room Air 04/28/21 01:00 82 04/28/21 00:00 Room Air 04/28/21 00:00 80 21 156/64 92 Room Air 04/27/21 23:02 37.2 04/27/21 23:00 82 19 155/63 92 Room Air 04/27/21 22:00 86 30 163/69 92 Room Air 04/27/21 21:00 72 25 159/63 89 Room Air 04/27/21 20:00 94 Room Air 04/27/21 20:00 74 23 152/68 90 Room Air 04/27/21 19:53 36.3 04/27/21 19:00 76 19 158/82 90 Room Air 04/27/21 19:00 76 04/27/21 18:00 73 16 172/65 84 Room Air 04/27/21 17:00 75 29 140/56 Room Air 04/27/21 16:00 Room Air 04/27/21 16:00 73 10 163/60 Room Air 04/27/21 15:00 73 25 154/65 Room Air 04/27/21 14:00 70 11 147/64 95 Room Air 04/27/21 13:00 72 20 139/62 Room Air 04/27/21 13:00 77 04/27/21 12:51 Room Air 04/27/21 12:00 72 25 147/66 Room Air 04/27/21 11:54 37.2 04/27/21 11:00 78 16 153/66 Room Air I & O 04/28/21 07:00 Intake Total 3805 ml Output Total 2250 ml Balance 1555 ml Height & Weight Height: 5'2.00" Weight: 106lbs. 0.0oz. 48.056076pt; 24.23 BMI Method:Stated General Appearance: No Apparent Distress, Moderate Distress, Thin HEENT: PERRL/EOMI, Other (appears adequately hydrated with moist oral mucosa) Neck: Normal Inspection Respiratory: Lungs Clear, No Accessory Muscle Use, Other (labored breathing and tachypnea o2 sats 100% on RA; no wheezing) Cardiovascular: Regular Rate, Rhythm, Normal Peripheral Pulses Capillary Refill: Less Than 3 Seconds Extremity: Normal Inspection, Normal Range of Motion, Non Tender, No Calf Tenderness, No Pedal Edema Neurologic/Psychiatric: Alert, Disoriented (?); No EOM Palsy, No Facial Droop, No Motor Weakness Skin: Normal Color, Warm/Dry Other comments PE PER ATTENDING. Results Lab Laboratory Tests 04/26/21 12:25 04/26/21 17:35 04/26/21 23:14 04/27/21 05:00 04/27/21 13:10 04/28/21 05:25 Assessment/Plan Assessment/Plan 1. Altered mental status probably due to combination of hyponatremia and acute urinary tract infection. 2. Acute kidney injury improving with hydration. 3. Hyponatremia probably due to diuretic therapy in addition to infection. 4. Chronic anemia stable 5. Status post a pericardial effusion drained. 6. Possible urinary tract infection. Recommendations 1. Suggest to hold off diuretic therapy 2. Continue oral salt tablets and antibiotic therapy 3. Suggest to check urine lites and osmolality. 4. Agree with palliative care given her multiple medical problems and advanced age. Critical Care: Critically Ill Patient Time spent with patient (mins): 25 PADMINI SEPULVEDA MD Apr 28, 2021 10:54
[2021-04-28] MEDS: guaiFENesin/DM (ROBITUSSIN DM) 10 ML UDC PO PRN (11:44)
--- NOTE | 2021-04-28 14:17 | Progress Note ---
Subjective Subjective Date Seen by Provider: Apr 28, 2021 Time Seen by Provider: 07:50 Pt states that she is feeling better today. She does not have much of an appetite and has not been eating much solid food the last few days. She has been able to drink water/powerade and Ensure nutritional shakes. Denies any N/V, sweats or chills. Discussion about palliative care was had with the pt and her family today. Review of Systems General: No Chills, No Night Sweats Gastrointestinal: No: Nausea, Vomiting Objective Exam Vital Signs Vital Signs Date Time Temp Pulse Resp B/P (MAP) Pulse Ox O2 Delivery O2 Flow Rate FiO2 04/28/21 13:00 36.0 74 18 131/60 96 Room Air 04/28/21 12:51 112 04/28/21 12:00 133 16 120/68 97 Room Air 04/28/21 11:00 137 21 120/68 97 Room Air 04/28/21 10:00 112 20 107/69 96 Room Air 04/28/21 09:00 112 15 Room Air 04/28/21 08:30 Room Air 04/28/21 08:00 36.5 04/28/21 08:00 92 12 154/77 Room Air 04/28/21 07:10 95 Room Air 04/28/21 07:00 92 20 173/65 Room Air 04/28/21 07:00 97 04/28/21 06:00 87 21 157/62 Room Air 04/28/21 05:00 87 27 141/56 Room Air 04/28/21 04:27 36.6 04/28/21 04:00 96 Room Air 04/28/21 04:00 98 24 164/79 Room Air 04/28/21 03:00 82 22 147/88 97 Room Air 04/28/21 02:00 85 22 157/70 92 Room Air 04/28/21 01:00 85 20 154/59 Room Air 04/28/21 01:00 82 04/28/21 00:00 Room Air 04/28/21 00:00 80 21 156/64 92 Room Air 04/27/21 23:02 37.2 04/27/21 23:00 82 19 155/63 92 Room Air 04/27/21 22:00 86 30 163/69 92 Room Air 04/27/21 21:00 72 25 159/63 89 Room Air 04/27/21 20:00 94 Room Air 04/27/21 20:00 74 23 152/68 90 Room Air 04/27/21 19:53 36.3 04/27/21 19:00 76 19 158/82 90 Room Air 04/27/21 19:00 76 04/27/21 18:00 73 16 172/65 84 Room Air 04/27/21 17:00 75 29 140/56 Room Air 04/27/21 16:00 Room Air 04/27/21 16:00 73 10 163/60 Room Air 04/27/21 15:00 73 25 154/65 Room Air I & O 04/28/21 07:00 Intake Total 3805 ml Output Total 2250 ml Balance 1555 ml General Appearance: Chronically ill, Mild Distress, Thin HEENT: PERRL/EOMI, Other (appears adequately hydrated with moist oral mucosa) Neck: Normal Inspection Respiratory: Lungs Clear, No Accessory Muscle Use Cardiovascular: Irregularly Irregular, Tachycardia Gastrointestinal: Non Tender, Soft Extremity: Normal Inspection, Normal Range of Motion, Non Tender, No Calf Tenderness, No Pedal Edema Neurologic/Psychiatric: Alert, Oriented x3 Skin: Normal Color, Warm/Dry Results Lab Laboratory Tests 04/28/21 05:25: White Blood Count 6.3, Red Blood Count 3.08L, Hemoglobin 9.3L, Hematocrit 27L, Mean Corpuscular Volume 89, Mean Corpuscular Hemoglobin 30, Mean Corpuscular Hemoglobin Concent 34, Red Cell Distribution Width 13.1, Platelet Count 192, Mean Platelet Volume 8.7L, Immature Granulocyte % (Auto) 1, Neutrophils (%) (Auto) 64, Lymphocytes (%) (Auto) 14, Monocytes (%) (Auto) 15H, Eosinophils (%) (Auto) 5, Basophils (%) (Auto) 1, Neutrophils # (Auto) 4.0, Lymphocytes # (Auto) 0.9L, Monocytes # (Auto) 1.0, Eosinophils # (Auto) 0.3, Basophils # (Auto) 0.0, Immature Granulocyte # (Auto) 0.0, Sodium Level 125*L, Potassium Level 4.7, Chloride Level 100, Carbon Dioxide Level 16L, Anion Gap 9, Blood Urea Nitrogen 18, Creatinine 1.13, Estimat Glomerular Filtration Rate 45, BUN/Creatinine Ratio 16, Glucose Level 101, Calcium Level 8.7, Corrected Calcium 9.3, Phosphorus Level 3.1, Magnesium Level 2.0, Total Bilirubin 0.4, Aspartate Amino Transf (AST/SGOT) 17, Alanine Aminotransferase (ALT/SGPT) 8, Alkaline Phosphatase 59, Total Protein 5.4L, Albumin 3.2, Thyroid Stimulating Hormone (TSH) 1.23, Free Thyroxine 1.20 Microbiology 04/26/21 MRSA Screen - Final, Complete MRSA not isolated Assessment/Plan Assessment/Plan Assessment and Plan CHRONICALLY ILL -Discussed w/patient and family at length about her current medical state and the idea of palliative care -Pt and her family were open to the idea of hospice, will speak to hospice care team today HYPONATREMIA -120 on admission, 125 this morning -Currently receiving NS, with PO sodium supplement -Mental status improving, oriented x3, able to understand and respond to questions DINO - Cr improved to 1.13 today - continue hydration, hold diuretics HYPERKALEMIA - Likely secondary to DINO - 6.7 on admission - treated with IV insulin and Ca , kayaxalate [place] x1 - 4.7 today, monitor daily AFIB -not candidate for AC with recent hemopericardium -Pt back in Afib this morning, tachycardic -Started Metoprolol Anemia, chronic - stable - Hgb 9.3 today S/P PERICARDIAL EFFUSION-DRAINED - catheter removed 04/15/21, cultures were negative Persistent cough - CXR 2days ago showed no signs of pneumonia - No signs of pneumonia on examination today Supervisory-Addendum Brief Verification & Attestation Participated in pt care: history, MDM, physical Personally performed: exam, history, MDM, supervision of care Care discussed with: Medical Student Procedures: n/a Results interpretation: Verified all documentation HYPONATREMIA METABOLIC ENCEPHALOPATHY ACUTE RENAL FAILURE HYPERKALEMIA ATRIAL FIBRILLATION CHRONIC ANEMIA CHRONIC COUGH DISCUSSION WITH FAMILY AND PATIENT - THEY HAVE OPTED FOR COMFORT CARE/HOSPICE - WE WILL GET THIS SET UP FOR THE PATIENT, SUPPORT HER WHILE IN HOSPITAL WITH MEDICATION FOR COUGH, SODIUM TABS, AND INITIATE [facility]. JB LÓPEZ Apr 28, 2021 14:17 RICHARD PERALTA MD May 10, 2021 13:25
--- NOTE | 2021-04-28 14:26 | Progress Note ---
Subjective Subjective Date Seen by Provider: Apr 28, 2021 Time Seen by Provider: 09:40 PT REPORTS THAT SHE IS FEELING BETTER TODAY. SHE DENIES CHEST PAIN, SHORTNESS OF BREATH, BUT CONTINUES TO HAVE A PERSISTENT COUGH. FAMILY REPORTS THAT THEY HAVE DECIDED UPON A HOSPICE, [facility], AND WOULD LIKE TO TALK TO THEM PRIOR TO SATURDAY IF POSSIBLE. Review of Systems General: No Night Sweats; Fatigue Pulmonary: No Dyspnea; Cough Cardiovascular: No: Chest Pain Gastrointestinal: No: Nausea, Vomiting Neurological: Weakness; No: Confusion All Other Systems Reviewed All Other Systems Reviewed: Yes Objective Exam Vital Signs Vital Signs Date Time Temp Pulse Resp B/P (MAP) Pulse Ox O2 Delivery O2 Flow Rate FiO2 04/28/21 13:00 36.0 74 18 131/60 96 Room Air 04/28/21 12:51 112 04/28/21 12:00 133 16 120/68 97 Room Air 04/28/21 11:00 137 21 120/68 97 Room Air 04/28/21 10:00 112 20 107/69 96 Room Air 04/28/21 09:00 112 15 Room Air 04/28/21 08:30 Room Air 04/28/21 08:00 36.5 04/28/21 08:00 92 12 154/77 Room Air 04/28/21 07:10 95 Room Air 04/28/21 07:00 92 20 173/65 Room Air 04/28/21 07:00 97 04/28/21 06:00 87 21 157/62 Room Air 04/28/21 05:00 87 27 141/56 Room Air 04/28/21 04:27 36.6 04/28/21 04:00 96 Room Air 04/28/21 04:00 98 24 164/79 Room Air 04/28/21 03:00 82 22 147/88 97 Room Air 04/28/21 02:00 85 22 157/70 92 Room Air 04/28/21 01:00 85 20 154/59 Room Air 04/28/21 01:00 82 04/28/21 00:00 Room Air 04/28/21 00:00 80 21 156/64 92 Room Air 04/27/21 23:02 37.2 04/27/21 23:00 82 19 155/63 92 Room Air 04/27/21 22:00 86 30 163/69 92 Room Air 04/27/21 21:00 72 25 159/63 89 Room Air 04/27/21 20:00 94 Room Air 04/27/21 20:00 74 23 152/68 90 Room Air 04/27/21 19:53 36.3 04/27/21 19:00 76 19 158/82 90 Room Air 04/27/21 19:00 76 04/27/21 18:00 73 16 172/65 84 Room Air 04/27/21 17:00 75 29 140/56 Room Air 04/27/21 16:00 Room Air 04/27/21 16:00 73 10 163/60 Room Air 04/27/21 15:00 73 25 154/65 Room Air I & O 04/28/21 07:00 Intake Total 3805 ml Output Total 2250 ml Balance 1555 ml General Appearance: No Apparent Distress, Moderate Distress, Thin HEENT: PERRL/EOMI, Other (appears adequately hydrated with moist oral mucosa) Neck: Normal Inspection Respiratory: Lungs Clear, No Accessory Muscle Use, Other (labored breathing and tachypnea o2 sats 100% on RA; no wheezing) Cardiovascular: Normal Peripheral Pulses, Irregularly Irregular Gastrointestinal: Non Tender, Soft Rectal: Deferred Back: Normal Inspection Extremity: Normal Inspection, Non Tender, No Calf Tenderness, No Pedal Edema Neurologic/Psychiatric: Alert, Oriented x3; No EOM Palsy, No Facial Droop, No Motor Weakness; Other (IRRITABLE) Skin: Normal Color, Warm/Dry Lymphatic: No Adenopathy Results Lab Laboratory Tests 04/28/21 05:25: White Blood Count 6.3, Red Blood Count 3.08L, Hemoglobin 9.3L, Hematocrit 27L, Mean Corpuscular Volume 89, Mean Corpuscular Hemoglobin 30, Mean Corpuscular Hemoglobin Concent 34, Red Cell Distribution Width 13.1, Platelet Count 192, Mean Platelet Volume 8.7L, Immature Granulocyte % (Auto) 1, Neutrophils (%) (Auto) 64, Lymphocytes (%) (Auto) 14, Monocytes (%) (Auto) 15H, Eosinophils (%) (Auto) 5, Basophils (%) (Auto) 1, Neutrophils # (Auto) 4.0, Lymphocytes # (Auto) 0.9L, Monocytes # (Auto) 1.0, Eosinophils # (Auto) 0.3, Basophils # (Auto) 0.0, Immature Granulocyte # (Auto) 0.0, Sodium Level 125*L, Potassium Level 4.7, Chloride Level 100, Carbon Dioxide Level 16L, Anion Gap 9, Blood Urea Nitrogen 18, Creatinine 1.13, Estimat Glomerular Filtration Rate 45, BUN/Creatinine Ratio 16, Glucose Level 101, Calcium Level 8.7, Corrected Calcium 9.3, Phosphorus Level 3.1, Magnesium Level 2.0, Total Bilirubin 0.4, Aspartate Amino Transf (AST/SGOT) 17, Alanine Aminotransferase (ALT/SGPT) 8, Alkaline Phosphatase 59, Total Protein 5.4L, Albumin 3.2, Thyroid Stimulating Hormone (TSH) 1.23, Free Thyroxine 1.20 Microbiology 04/26/21 MRSA Screen - Final, Complete MRSA not isolated Assessment/Plan Assessment/Plan Admission Dx HYPONATREMIA ACUTE RENAL FAILURE HYPERKALEMIA ATRIAL FIBRILLATION CHRONIC ANEMIA CHRONIC COUGH Assessment and Plan HYPONATREMIA ACUTE RENAL FAILURE HYPERKALEMIA ATRIAL FIBRILLATION CHRONIC ANEMIA CHRONIC COUGH HYPONATREMIA - HYPERTONIC SALINE SOLUTION STOPPED AFTER 6 HOURS, PT SWITCHED TO ORAL HYPERKALEMIA - PT GIVEN KAYEXALATE IN THE ER, MONITOR OUTPUT AND POTASSIUM LEVELS SERIALLY ACUTE RENAL FAILURE - CHECK SERIAL LABS - REPLENISH WITH FLUIDS - - REPEAT LABS SERIALLY ATRIAL FIBRILLATION - HEART RATE ELEVATED, RESTARTED METOPROLOL, MONITOR PRESSURE AND HEART RATE SERIALLY. CHRONIC ANEMIA - SERIAL LABS SHOW SLIGHTLY DECREASED HEMOGLOBIN, CONTINUE TO MONITOR LABS, SUPPORTIVE CARE ONLY AT THIS TIME. CHRONIC COUGH - SUPPORTIVE CARE DYSPNEA ON EXERTION - CONCERN FOR PULMONARY EMBOLUS - DISCUSSED WITH PT'S DTRS - CANNOT GIVE LOVENOX DUE TO HER RECENT HEMOPERICARDIUM, CANNOT CHECK CT ANGIOGRAM DUE TO HER RENAL FUNCTION. PT'S FAMILY AWARE OF DIAGNOSIS - PT'S NURSE DISCUSSED WITH FAMILY YESTERDAY THE DX AND HOSPICE A POSSIBILITY -WE WILL MAKE PLANS FOR THE PATIENT TO START WITH [facility] ON DC - MOST-LIKELY SATURDAY OR SATURDAY. Admission Dx HYPONATREMIA ACUTE RENAL FAILURE HYPERKALEMIA ATRIAL FIBRILLATION CHRONIC ANEMIA CHRONIC COUGH Clinical Quality Measures Admission Status Admission Dx HYPONATREMIA ACUTE RENAL FAILURE HYPERKALEMIA ATRIAL FIBRILLATION CHRONIC ANEMIA CHRONIC COUGH RICHARD PERALTA MD Apr 28, 2021 14:25
[2021-04-28] MEDS: LACTOBACILLUS ACIDOPHILUS (PROBIOTIC) CAPSULE PO SCH ×2 (15:17→20:31)
[2021-04-28 15:19] VITALS: BP 131/62
[2021-04-28] MEDS: RT--FLUTICASONE/SALMETEROL 113-14 (AIRDUO RespiCLICK) IH SCH (18:47)
[2021-04-28 19:02] VITALS: BP 151/53
[2021-04-28] MEDS: PANTOPRAZOLE 40 MG (PROTONIX) TAB PO SCH (20:32)
[2021-04-29] VITALS (7 sets, daily range): BP systolic 132–181; BP diastolic 59–78
[2021-04-29] MEDS: NS IV 1000 ML 1,000 ML IV SCH ×2 (00:45→18:07)
[2021-04-29 04:19] LABS: BASOPHILS % (AUTO) 0 % (0-10); EOSINOPHILS # (AUTO) 0.1 10^3/uL (0.0-0.3); EOSINOPHILS % (AUTO) 2 % (0-10); HEMATOCRIT 26 % (35-52); HEMOGLOBIN 8.8 g/dL (11.5-16.0); LYMPHOCYTES # (AUTO) 0.9 10^3/uL (1.0-4.0); LYMPHOCYTES % (AUTO) 12 % (12-44); MEAN CORPUSCULAR HEMOGLOBIN 31 pg (25-34); MEAN CORPUSCULAR HGB CONC 34 g/dL (32-36); MEAN CORPUSCULAR VOLUME 89 fL (80-99); MEAN PLATELET VOLUME 8.8 fL (9.0-12.2); MONOCYTES # (AUTO) 1.1 10^3/uL (0.0-1.0); MONOCYTES % (AUTO) 15 % (0-12); NEUTROPHILS # (AUTO) 5.4 10^3/uL (1.8-7.8); NEUTROPHILS % (AUTO) 71 % (42-75); PLATELET COUNT 151 10^3/uL (130-400); WHITE BLOOD COUNT 7.7 10^3/uL (4.3-11.0)
[2021-04-29 04:28] LABS: POTASSIUM 4.3 MMOL/L (3.6-5.0)
[2021-04-29 04:29] LABS: CALCIUM 8.4 MG/DL (8.5-10.1)
[2021-04-29 04:33] LABS: BILIRUBIN,TOTAL 0.3 MG/DL (0.1-1.0)
[2021-04-29 04:34] LABS: CREATININE SERUM 0.96 MG/DL (0.60-1.30); PHOSPHORUS 2.2 MG/DL (2.3-4.7)
[2021-04-29 04:37] LABS: MAGNESIUM 1.8 MG/DL (1.6-2.4)
[2021-04-29] MEDS: SODIUM CHLORIDE 1 GM TABLET PO SCH ×3 (06:33→18:06)
[2021-04-29] MEDS: guaiFENesin/DM (ROBITUSSIN DM) 10 ML UDC PO PRN ×3 (06:39→21:37)
[2021-04-29] MEDS: RT--FLUTICASONE/SALMETEROL 113-14 (AIRDUO RespiCLICK) IH SCH ×2 (07:06→21:23)
[2021-04-29] MEDS: LORATADINE (CLARITIN) 10 MG TAB PO SCH (08:37)
[2021-04-29] MEDS: PANTOPRAZOLE 40 MG (PROTONIX) TAB PO SCH ×2 (08:37→21:37)
[2021-04-29] MEDS: LEVOTHYROXINE 50 MCG (LEVOTHROID) TAB PO SCH (08:37)
[2021-04-29] MEDS: ASPIRIN E.C. 81 MG (ECOTRIN) TAB PO SCH (08:37)
[2021-04-29] MEDS: LACTOBACILLUS ACIDOPHILUS (PROBIOTIC) CAPSULE PO SCH ×3 (08:37→21:37)
--- NOTE | 2021-04-29 18:27 | Progress Note - Hospitalist ---
Subjective HPI/CC On Admission Date Seen by Provider: Apr 29, 2021 Time Seen by Provider: 11:20 Subjective/Events-last exam She continues to have a cough. She denies pain. She has no other complaints or concerns. Objective Exam Vital Signs Vital Signs Date Time Temp Pulse Resp B/P (MAP) Pulse Ox O2 Delivery O2 Flow Rate FiO2 04/29/21 16:27 37.6 83 20 157/71 (99) 95 Room Air Capillary Refill : Less Than 3 Seconds General Appearance: No Apparent Distress, Thin Respiratory: Lungs Clear, Normal Breath Sounds, No Respiratory Distress Cardiovascular: Regular Rate, Rhythm, No Edema, No Murmur Gastrointestinal: Normal Bowel Sounds, Non Tender, Soft Extremity: Normal Inspection, Non Tender, No Pedal Edema Neurologic/Psychiatric: Alert, No Motor/Sensory Deficits, Depressed Affect Skin: Normal Color, Warm/Dry Results/Procedures Lab Laboratory Tests 04/29/21 04:00 Patient resulted labs reviewed. Assessment/Plan Assessment and Plan Assess & Plan/Chief Complaint DINO on CKD Hyponatremia Hyperkalemia Improving Continue fluids Atrial fibrillation Continue metoprolol Acute on chronic anemia Likely dilutional due to fluids Monitor Elevated d-dimer Recent hemopericardium Anticoagulation contraindicated due to recent bleed CT not performed due to renal function Not requiring supplemental oxygen at this time Chronic cough Robitussin as needed Advanced age Poor prognosis Planning for [facility] hospice on discharge Diagnosis/Problems Diagnosis/Problems (1) Acute kidney injury superimposed on chronic kidney disease Status: Acute (2) Hyperkalemia Status: Acute (3) Hyponatremia Status: Acute (4) Anemia (5) Afib Status: Chronic (6) Chronic cough Status: Chronic (7) Elevated d-dimer Status: Acute (8) Advanced age Status: Chronic (9) Poor prognosis Status: Acute MARGAUX AVALOS MD Apr 29, 2021 18:27
[2021-04-30] VITALS (7 sets, daily range): BP systolic 123–174; BP diastolic 60–75
[2021-04-30] MEDS: NS IV 1000 ML 1,000 ML IV SCH ×3 (03:45→17:59)
[2021-04-30 05:54] LABS: BASOPHILS % (AUTO) 1 % (0-10); EOSINOPHILS # (AUTO) 0.1 10^3/uL (0.0-0.3); EOSINOPHILS % (AUTO) 1 % (0-10); HEMATOCRIT 26 % (35-52); HEMOGLOBIN 8.6 g/dL (11.5-16.0); LYMPHOCYTES # (AUTO) 0.9 10^3/uL (1.0-4.0); LYMPHOCYTES % (AUTO) 13 % (12-44); MEAN CORPUSCULAR HEMOGLOBIN 30 pg (25-34); MEAN CORPUSCULAR HGB CONC 34 g/dL (32-36); MEAN CORPUSCULAR VOLUME 89 fL (80-99); MEAN PLATELET VOLUME 8.9 fL (9.0-12.2); MONOCYTES % (AUTO) 15 % (0-12); NEUTROPHILS # (AUTO) 4.9 10^3/uL (1.8-7.8); NEUTROPHILS % (AUTO) 70 % (42-75); PLATELET COUNT 147 10^3/uL (130-400)
[2021-04-30 06:05] LABS: ALBUMIN 2.9 GM/DL (3.2-4.5); CHLORIDE 105 MMOL/L (98-107); POTASSIUM 4.1 MMOL/L (3.6-5.0); SODIUM 130 MMOL/L (135-145)
[2021-04-30 06:06] LABS: CALCIUM 8.5 MG/DL (8.5-10.1)
[2021-04-30 06:07] LABS: GLUCOSE 111 MG/DL (70-105)
[2021-04-30 06:08] LABS: CARBON DIOXIDE 16 MMOL/L (21-32)
[2021-04-30 06:09] LABS: BILIRUBIN,TOTAL 0.4 MG/DL (0.1-1.0)
[2021-04-30 06:10] LABS: PHOSPHORUS 2.1 MG/DL (2.3-4.7)
[2021-04-30 06:11] LABS: ALKALINE PHOSPHATASE 57 U/L (40-136); CREATININE SERUM 0.92 MG/DL (0.60-1.30); GFR ESTIMATED 58
[2021-04-30 06:12] LABS: BUN/CREATININE RATIO 10
[2021-04-30 06:13] LABS: MAGNESIUM 1.8 MG/DL (1.6-2.4)
[2021-04-30 06:14] LABS: ALANINE AMINOTRANSFERASE < 6 U/L (0-55)
[2021-04-30] MEDS: LEVOTHYROXINE 50 MCG (LEVOTHROID) TAB PO SCH (07:41)
[2021-04-30] MEDS: ASPIRIN E.C. 81 MG (ECOTRIN) TAB PO SCH (08:42)
[2021-04-30] MEDS: LACTOBACILLUS ACIDOPHILUS (PROBIOTIC) CAPSULE PO SCH ×3 (08:42→19:39)
[2021-04-30] MEDS: PANTOPRAZOLE 40 MG (PROTONIX) TAB PO SCH ×2 (08:42→19:39)
[2021-04-30] MEDS: LORATADINE (CLARITIN) 10 MG TAB PO SCH (08:42)
[2021-04-30] MEDS: SODIUM CHLORIDE 1 GM TABLET PO SCH ×3 (08:43→16:29)
[2021-04-30] MEDS: guaiFENesin/DM (ROBITUSSIN DM) 10 ML UDC PO PRN (08:51)
[2021-04-30] MEDS: RT--FLUTICASONE/SALMETEROL 113-14 (AIRDUO RespiCLICK) IH SCH ×2 (09:45→21:13)
[2021-04-30] MEDS ORDERED: guaiFENesin (MUCINEX) 600 MG TAB PO ONE (10:45)
--- NOTE | 2021-04-30 11:13 | Progress Note - Hospitalist ---
Subjective HPI/CC On Admission Date Seen by Provider: Apr 30, 2021 Time Seen by Provider: 10:35 Subjective/Events-last exam She is still having a cough. She does not think the cough medicine is working. She has been bringing up some phlegm. She is not having any pain. She was able to eat and drink a bit. She has family visiting this morning. Objective Exam Vital Signs Vital Signs Date Time Temp Pulse Resp B/P (MAP) Pulse Ox O2 Delivery O2 Flow Rate FiO2 04/30/21 09:46 93 04/30/21 08:00 Room Air 04/30/21 07:32 37.0 98 24 150/60 (90) 04/29/21 23:01 21 Capillary Refill : Less Than 3 Seconds General Appearance: No Apparent Distress, Chronically ill, Thin Respiratory: Lungs Clear, Normal Breath Sounds, No Respiratory Distress Cardiovascular: Regular Rate, Rhythm, No Edema, No Murmur Gastrointestinal: Normal Bowel Sounds, Non Tender, Soft Extremity: Normal Inspection, Non Tender, No Pedal Edema Neurologic/Psychiatric: Alert, No Motor/Sensory Deficits, Depressed Affect Skin: Normal Color, Warm/Dry Results/Procedures Lab Laboratory Tests 04/30/21 05:20 Patient resulted labs reviewed. Assessment/Plan Assessment and Plan Assess & Plan/Chief Complaint DINO on CKD Hyponatremia Hyperkalemia Improving Continue fluids Atrial fibrillation Continue metoprolol Acute on chronic anemia Likely dilutional due to fluids Monitor Elevated d-dimer Recent hemopericardium Anticoagulation contraindicated due to recent bleed CT not performed due to renal function Not requiring supplemental oxygen at this time Chronic cough Stop Robitussin Add Tessalon, Delsym, and Mucinex Advanced age Poor prognosis Planning for [facility] hospice on discharge Diagnosis/Problems Diagnosis/Problems (1) Acute kidney injury superimposed on chronic kidney disease Status: Acute (2) Hyperkalemia Status: Acute (3) Hyponatremia Status: Acute (4) Anemia (5) Afib Status: Chronic (6) Chronic cough Status: Chronic (7) Elevated d-dimer Status: Acute (8) Advanced age Status: Chronic (9) Poor prognosis Status: Acute MARGAUX AVALOS MD Apr 30, 2021 11:13
[2021-04-30] MEDS: BENZONATATE 100 MG (TESSALON) CAPSULE PO SCH ×2 (12:29→19:39)
[2021-04-30] MEDS: guaiFENesin (MUCINEX) 600 MG TAB PO SCH (19:39)
[2021-04-30] MEDS ORDERED: DEXTROMETHORPHAN SUSP 30 MG/5 ML 30 ML (DELSYM) PO SCH (21:00)
[2021-05-01 03:46] VITALS: BP 156/70
[2021-05-01 05:19] LABS: BASOPHILS % (AUTO) 0 % (0-10); EOSINOPHILS # (AUTO) 0.2 10^3/uL (0.0-0.3); EOSINOPHILS % (AUTO) 4 % (0-10); HEMATOCRIT 24 % (35-52); HEMOGLOBIN 8.1 g/dL (11.5-16.0); LYMPHOCYTES # (AUTO) 0.8 10^3/uL (1.0-4.0); LYMPHOCYTES % (AUTO) 14 % (12-44); MEAN CORPUSCULAR HEMOGLOBIN 30 pg (25-34); MEAN CORPUSCULAR HGB CONC 34 g/dL (32-36); MEAN CORPUSCULAR VOLUME 88 fL (80-99); MEAN PLATELET VOLUME 8.9 fL (9.0-12.2); MONOCYTES # (AUTO) 0.7 10^3/uL (0.0-1.0); MONOCYTES % (AUTO) 13 % (0-12); NEUTROPHILS # (AUTO) 3.6 10^3/uL (1.8-7.8); NEUTROPHILS % (AUTO) 68 % (42-75); PLATELET COUNT 150 10^3/uL (130-400); WHITE BLOOD COUNT 5.3 10^3/uL (4.3-11.0)
[2021-05-01 05:35] LABS: ALBUMIN 2.9 GM/DL (3.2-4.5); POTASSIUM 3.8 MMOL/L (3.6-5.0)
[2021-05-01 05:36] LABS: CALCIUM 8.5 MG/DL (8.5-10.1)
[2021-05-01 05:38] LABS: TOTAL PROTEIN 4.9 GM/DL (6.4-8.2)
[2021-05-01 05:39] LABS: BILIRUBIN,TOTAL 0.3 MG/DL (0.1-1.0)
[2021-05-01 05:41] LABS: CREATININE SERUM 0.87 MG/DL (0.60-1.30); PHOSPHORUS 2.2 MG/DL (2.3-4.7)
[2021-05-01 05:44] LABS: MAGNESIUM 1.9 MG/DL (1.6-2.4)
[2021-05-01] MEDS: SODIUM CHLORIDE 1 GM TABLET PO SCH ×3 (06:23→17:22)
[2021-05-01] MEDS: RT--FLUTICASONE/SALMETEROL 113-14 (AIRDUO RespiCLICK) IH SCH (07:26)
--- NOTE | 2021-05-01 07:35 | Progress Note ---
Subjective Subjective Date Seen by Provider: May 01, 2021 Time Seen by Provider: 07:15 Patients cough has worsened over the weekend. She is experiencing SOB off and on. She denies any pain currently. Still does not have much of an appetite. Denies any N/V, sweats/chills. Review of Systems General: No Chills, No Night Sweats Pulmonary: Dyspnea, Cough Cardiovascular: No: Chest Pain Gastrointestinal: No: Nausea, Vomiting Neurological: Weakness; No: Confusion All Other Systems Reviewed All Other Systems Reviewed: Yes Objective Exam Vital Signs Vital Signs Date Time Temp Pulse Resp B/P (MAP) Pulse Ox O2 Delivery O2 Flow Rate FiO2 05/01/21 03:46 36.7 86 18 156/70 (98) 94 Room Air 05/01/21 01:00 94 04/30/21 23:36 36.5 91 18 154/73 (100) 94 Room Air 04/30/21 21:14 93 04/30/21 19:45 97 Room Air 04/30/21 19:07 36.7 81 20 174/75 (108) 95 Room Air 04/30/21 19:00 82 04/30/21 15:35 36.9 76 22 168/73 (104) 96 Room Air 04/30/21 12:38 77 04/30/21 11:54 36.6 81 22 123/64 (83) 95 Room Air 04/30/21 09:46 93 04/30/21 08:00 93 Room Air 04/30/21 07:32 37.0 98 24 150/60 (90) 95 Room Air I & O 05/01/21 07:00 Intake Total 2300 ml Output Total 3055 ml Balance -755 ml General Appearance: No Apparent Distress, Chronically ill, Thin HEENT: PERRL/EOMI, Moist Mucous Membranes Neck: Normal Inspection Respiratory: Lungs Clear, Normal Breath Sounds, No Respiratory Distress Cardiovascular: No Edema, Irregularly Irregular Gastrointestinal: Normal Bowel Sounds, Non Tender, Soft Rectal: Deferred Back: Normal Inspection Extremity: Normal Inspection, Non Tender, No Pedal Edema Neurologic/Psychiatric: Alert, No Motor/Sensory Deficits, Depressed Affect Skin: Normal Color, Warm/Dry Lymphatic: No Adenopathy Results Lab Laboratory Tests 05/01/21 05:07: White Blood Count 5.3, Red Blood Count 2.68L, Hemoglobin 8.1L, Hematocrit 24L, Mean Corpuscular Volume 88, Mean Corpuscular Hemoglobin 30, Mean Corpuscular Hemoglobin Concent 34, Red Cell Distribution Width 13.2, Platelet Count 150, Mean Platelet Volume 8.9L, Immature Granulocyte % (Auto) 1, Neutrophils (%) (Auto) 68, Lymphocytes (%) (Auto) 14, Monocytes (%) (Auto) 13H, Eosinophils (%) (Auto) 4, Basophils (%) (Auto) 0, Neutrophils # (Auto) 3.6, Lymphocytes # (Auto) 0.8L, Monocytes # (Auto) 0.7, Eosinophils # (Auto) 0.2, Basophils # (Auto) 0.0, Immature Granulocyte # (Auto) 0.0, Sodium Level 132L, Potassium Level 3.8, Chloride Level 107, Carbon Dioxide Level 17L, Anion Gap 8, Blood Urea Nitrogen 8, Creatinine 0.87, Estimat Glomerular Filtration Rate 61, BUN/Creatinine Ratio 9, Glucose Level 104, Calcium Level 8.5, Corrected Calcium 9.4, Phosphorus Level 2.2L, Magnesium Level 1.9, Total Bilirubin 0.3, Aspartate Amino Transf ( AST/SGOT) 14, Alanine Aminotransferase (ALT/SGPT) 6, Alkaline Phosphatase 59, Total Protein 4.9L, Albumin 2.9L Microbiology 04/26/21 MRSA Screen - Final, Complete MRSA not isolated Assessment/Plan Assessment/Plan Assessment and Plan HYPONATREMIA ACUTE RENAL FAILURE HYPERKALEMIA ATRIAL FIBRILLATION CHRONIC ANEMIA CHRONIC COUGH HYPONATREMIA -CONTINUING TO IMPROVE W/IV FLUIDS & ORAL SODIUM SUPPLEMENT HYPERKALEMIA -RESOLVED ACUTE RENAL FAILURE -MAINTAIN HYDRATION -CR WNL ATRIAL FIBRILLATION -METOPROLOL CHRONIC ANEMIA -STABLE, CONTINUE TO MONITOR CHRONIC COUGH - SUPPORTIVE CARE DYSPNEA ON EXERTION - CONCERN FOR PULMONARY EMBOLUS - DISCUSSED WITH PT'S DTRS - CANNOT GIVE LOVENOX DUE TO HER RECENT HEMOPERICARDIUM, CANNOT CHECK CT ANGIOGRAM DUE TO HER RENAL FUNCTION. PT'S FAMILY AWARE OF DIAGNOSIS - PT'S NURSE DISCUSSED WITH FAMILY YESTERDAY THE DX AND HOSPICE A POSSIBILITY -PLANNING TO START WITH [facility] ON DC Supervisory-Addendum Brief Verification & Attestation Participated in pt care: history, MDM, physical Personally performed: exam, history, MDM, supervision of care Care discussed with: Medical Student Procedures: n/a Results interpretation: Verified all documentation HYPONATREMIA METABOLIC ENCEPHALOPATHY ACUTE RENAL FAILURE HYPERKALEMIA ATRIAL FIBRILLATION CHRONIC ANEMIA CHRONIC COUGH DISCUSSION WITH FAMILY AND PATIENT - THEY HAVE OPTED FOR COMFORT CARE/HOSPICE - CONTINUE TO SUPPORT HER WHILE IN HOSPITAL WITH MEDICATION FOR COUGH, SODIUM TABS, AND INITIATE [facility]. JB LÓPEZ May 01, 2021 07:35 RICHARD PERALTA MD May 10, 2021 13:26
[2021-05-01 08:00] VITALS: BP 113/69
[2021-05-01] MEDS: LACTOBACILLUS ACIDOPHILUS (PROBIOTIC) CAPSULE PO SCH ×3 (08:57→22:08)
[2021-05-01] MEDS: guaiFENesin (MUCINEX) 600 MG TAB PO SCH ×2 (08:57→22:08)
[2021-05-01] MEDS: LORATADINE (CLARITIN) 10 MG TAB PO SCH (08:57)
[2021-05-01] MEDS: BENZONATATE 100 MG (TESSALON) CAPSULE PO SCH ×3 (08:57→22:08)
[2021-05-01] MEDS: PANTOPRAZOLE 40 MG (PROTONIX) TAB PO SCH ×2 (08:57→22:17)
[2021-05-01] MEDS: ASPIRIN E.C. 81 MG (ECOTRIN) TAB PO SCH (08:57)
[2021-05-01] MEDS: LEVOTHYROXINE 50 MCG (LEVOTHROID) TAB PO SCH (08:57)
[2021-05-01] MEDS ORDERED: HYDR473S61 PO (08:59)
[2021-05-01] MEDS ORDERED: BENZ100C18 PO (08:59)
[2021-05-01] MEDS ORDERED: METO50TA7 PO (08:59)
[2021-05-01] MEDS ORDERED: NF-NACL1GT PO (08:59)
--- NOTE | 2021-05-01 09:00 | Discharge Inst-Simple/Standard ---
Discharge Inst-Standard Reconcile Patient Problems Problems Reviewed?: Yes Discharge Medications New, Converted or Re-Newed RX: Transmitted to Pharmacy Patient Instructions/Follow Up Plan of Care/Instructions/FU: [facility] Activity as Tolerated: Yes Discharge Diet: Regular Diet Return to The Hospital For: call hospice prior to going to the hospital Medication List: Active Scripts Active Hydrocodone-Chlorphen ER Susp (Hydrocodone/Chlorphen P-Stirex) 473 Ml Ayanna.er.12h 2.5 Ml PO TID Tessalon Perles (Benzonatate) 100 Mg Capsule 200 Mg PO TID Metoprolol Succinate 50 Mg Tab.er.24h 50 Mg PO DAILY Reported Potassium Chloride 20 Meq Tab.er.prt 20 Meq PO DAILY Metoprolol Succinate 25 Mg Tab.er.24h 25 Mg PO DAILY Probiotic & Acidophilus Cap (Lactobac Cmb #3/Fos/Pantethine) 1 Each Capsule 1 Each PO TID Furosemide 20 Mg Tablet 20 Mg PO DAILY Fluticasone-Salmeterol 113-14 (Fluticasone/Salmeterol) 1 Each Aer.pow.ba 1 Each IH BID Levalbuterol Tartrate Hfa (Levalbuterol Tartrate) 15 Gm Hfa.aer.ad 2 Puff INH Q6H PRN Pantoprazole Sodium 40 Mg Tablet. 40 Mg PO BID Guaifenesin Dm Syrup (Guaifenesin/Dextromethorphan) 5 Ml Syrup 10 Ml PO Q4H PRN Aspirin EC (Aspirin) 81 Mg Tablet. 81 Mg PO DAILY Tylenol Extra Strength (Acetaminophen) 500 Mg Tablet 1,000 Mg PO Q8H PRN Vitamin D3 (Cholecalciferol (Vitamin D3)) 50 Mcg Capsule 50 Mcg PO DAILY Zyrtec (Cetirizine HCl) 10 Mg Tablet 10 Mg PO DAILY Levothyroxine Sodium 50 Mcg Tablet 50 Mcg PO DAILY Azo Cranberry Tablet (Cranberry Conc/C/Bacill Coag) 1 Each Tablet 1 Tab PO DAILY Lab results: Laboratory Tests Test 05/01/21 05:07 Range/Units White Blood Count 5.3 4.3-11.0 10^3/uL Red Blood Count 2.68 L 3.80-5.11 10^6/uL Hemoglobin 8.1 L 11.5-16.0 g/dL Hematocrit 24 L 35-52 % Mean Corpuscular Volume 88 80-99 fL Mean Corpuscular Hemoglobin 30 25-34 pg Mean Corpuscular Hemoglobin Concent 34 32-36 g/dL Red Cell Distribution Width 13.2 10.0-14.5 % Platelet Count 150 130-400 10^3/uL Mean Platelet Volume 8.9 L 9.0-12.2 fL Immature Granulocyte % (Auto) 1 % Neutrophils (%) (Auto) 68 42-75 % Lymphocytes (%) (Auto) 14 12-44 % Monocytes (%) (Auto) 13 H 0-12 % Eosinophils (%) (Auto) 4 0-10 % Basophils (%) (Auto) 0 0-10 % Neutrophils # (Auto) 3.6 1.8-7.8 10^3/uL Lymphocytes # (Auto) 0.8 L 1.0-4.0 10^3/uL Monocytes # (Auto) 0.7 0.0-1.0 10^3/uL Eosinophils # (Auto) 0.2 0.0-0.3 10^3/uL Basophils # (Auto) 0.0 0.0-0.1 10^3/uL Immature Granulocyte # (Auto) 0.0 0.0-0.1 10^3/uL Sodium Level 132 L 135-145 MMOL/L Potassium Level 3.8 3.6-5.0 MMOL/L Chloride Level 107 98-107 MMOL/L Carbon Dioxide Level 17 L 21-32 MMOL/L Anion Gap 8 5-14 MMOL/L Blood Urea Nitrogen 8 7-18 MG/DL Creatinine 0.87 0.60-1.30 MG/DL Estimat Glomerular Filtration Rate 61 BUN/Creatinine Ratio 9 Glucose Level 104 70-105 MG/DL Calcium Level 8.5 8.5-10.1 MG/DL Corrected Calcium 9.4 8.5-10.1 MG/DL Phosphorus Level 2.2 L 2.3-4.7 MG/DL Magnesium Level 1.9 1.6-2.4 MG/DL Total Bilirubin 0.3 0.1-1.0 MG/DL Aspartate Amino Transf (AST/SGOT) 14 5-34 U/L Alanine Aminotransferase (ALT/SGPT) 6 0-55 U/L Alkaline Phosphatase 59 40-136 U/L Total Protein 4.9 L 6.4-8.2 GM/DL Albumin 2.9 L 3.2-4.5 GM/DL My orders: Orders - RICHARD PERALTA MD Cbc With Automated Diff (05/01/21 05:00) Comprehensive Metabolic Panel (05/01/21 05:00) Magnesium (05/01/21 05:00) Phosphorus (05/01/21 05:00) Metoprolol Succinate (Xl) Tab (Toprol Xl (05/01/21 09:00) Hydrocodone/Chlorphen Susp (Tussionex [place] (05/01/21 09:00) Catheter(Urinary) Discontinue (05/01/21 08:48) Pending Discharge Order (05/01/21 08:53) RICHARD PERALTA MD May 01, 2021 09:00
--- NOTE | 2021-05-01 09:01 | Discharge Summary ---
Diagnosis/Chief Complaint Date of Admission Apr 26, 2021 at 13:55 Date of Discharge Discharge Date: May 01, 2021 Discharge Time: 1430 Admission Diagnosis Admission Diagnosis HYPONATREMIA METABOLIC ENCEPHALOPATHY ACUTE RENAL FAILURE HYPERKALEMIA ATRIAL FIBRILLATION CHRONIC ANEMIA CHRONIC COUGH Discharge Diagnosis HYPONATREMIA METABOLIC ENCEPHALOPATHY ACUTE RENAL FAILURE HYPERKALEMIA ATRIAL FIBRILLATION CHRONIC ANEMIA CHRONIC COUGH ADVANCED AGE GENERALIZED WEAKNESS Reason Hospital Visit PT IS AN 89 Y/O FEMALE WHO IS KNOWN TO ME FROM CLINIC. SHE REPORTS THAT SHE IS FEELING BETTER THIS EVENING COMPARED TO EARLIER TODAY. PER PATIENT'S DTRS SHE HAS BEEN DOING WELL AT HOME AND THEN THIS MORNING SHE HAD SOME CHEST DISCOMFORT THAT WORSENED AND SHE WAS ACUTELY SHORT OF BREATH, SO HER FAMILY BROUGHT HER TO THE HOSPITAL. Discharge Summary Discharge Physical Examination Allergies: Coded Allergies: Sulfa (Sulfonamide Antibiotics) (Verified Allergy, Severe, ITCH, 12/30/12) carbamazepine (Verified Adverse Reaction, Severe, 04/05/21) codeine (Verified Adverse Reaction, Unknown, "LOOPY", 07/06/14) Vitals & I&Os General Appearance: Alert, Oriented X3, Cooperative, Mild Distress HEENT: Atraumatic Respiratory: Clear to Auscultation Cardiovascular: Other (IRREGULARY IRREGULAR) Abdominal: Normal Bowel Sounds, Soft Psych/Mental Status: Mental Status NL, Mood NL Hospital Course Was the Problem List Reviewed?: Yes HYPONATREMIA METABOLIC ENCEPHALOPATHY ACUTE RENAL FAILURE HYPERKALEMIA ATRIAL FIBRILLATION CHRONIC ANEMIA CHRONIC COUGH ADVANCED AGE GENERALIZED WEAKNESS DISCUSSION WITH FAMILY AND PATIENT - THEY HAVE OPTED FOR COMFORT CARE/HOSPICE - WE WILL GET THIS SET UP FOR THE PATIENT, SUPPORT HER WHILE IN HOSPITAL WITH MEDICATION FOR COUGH, SODIUM TABS, AND [facility] HAS BEEN INITIATED. Pending Labs Discharge Condition at discharge ANTICIPATE WORSENING AND DECLINE AT HOME Instructions to patient/family Please see electronic discharge instructions given to patient. Discharge Medications Reviewed and agree with Discharge Medication list on patient's Discharge Instruction sheet RICHARD PERALTA MD May 01, 2021 09:01
[2021-05-01] MEDS: meTOproloL SUCCINATE 50 MG (TOPROL XL) TAB PO SCH (09:03)
[2021-05-01] MEDS: HYDROcodone/Chlorpen 10MG/5 ML (TUSSIONEX) 5ML UDC PO SCH ×3 (09:48→22:17)
[2021-05-01 12:00] VITALS: BP 121/65
[2021-05-01 16:50] VITALS: BP 155/64
[2021-05-01 20:19] VITALS: BP 173/70
[2021-05-01 23:48] VITALS: BP 177/64
[2021-05-02 04:00] VITALS: BP 134/80
[2021-05-02 05:16] LABS: BASOPHILS % (AUTO) 1 % (0-10); EOSINOPHILS # (AUTO) 0.2 10^3/uL (0.0-0.3); EOSINOPHILS % (AUTO) 3 % (0-10); HEMATOCRIT 23 % (35-52); LYMPHOCYTES # (AUTO) 0.9 10^3/uL (1.0-4.0); LYMPHOCYTES % (AUTO) 15 % (12-44); MEAN CORPUSCULAR HEMOGLOBIN 30 pg (25-34); MEAN CORPUSCULAR HGB CONC 35 g/dL (32-36); MEAN CORPUSCULAR VOLUME 88 fL (80-99); MONOCYTES # (AUTO) 0.7 10^3/uL (0.0-1.0); MONOCYTES % (AUTO) 13 % (0-12); NEUTROPHILS # (AUTO) 3.9 10^3/uL (1.8-7.8); NEUTROPHILS % (AUTO) 68 % (42-75); PLATELET COUNT 178 10^3/uL (130-400); WHITE BLOOD COUNT 5.7 10^3/uL (4.3-11.0)
[2021-05-02 05:33] LABS: ALBUMIN 2.7 GM/DL (3.2-4.5); POTASSIUM 4.1 MMOL/L (3.6-5.0)
[2021-05-02 05:35] LABS: CALCIUM 8.4 MG/DL (8.5-10.1)
[2021-05-02 05:36] LABS: TOTAL PROTEIN 4.9 GM/DL (6.4-8.2)
[2021-05-02 05:38] LABS: BILIRUBIN,TOTAL 0.3 MG/DL (0.1-1.0)
[2021-05-02 05:39] LABS: PHOSPHORUS 2.5 MG/DL (2.3-4.7)
[2021-05-02 05:40] LABS: CREATININE SERUM 0.97 MG/DL (0.60-1.30)
[2021-05-02 05:42] LABS: MAGNESIUM 1.8 MG/DL (1.6-2.4)
[2021-05-02] MEDS: RT--FLUTICASONE/SALMETEROL 113-14 (AIRDUO RespiCLICK) IH SCH (06:57)
[2021-05-02 07:35] VITALS: BP 189/83
--- NOTE | 2021-05-02 07:59 | Progress Note ---
Subjective Subjective Date Seen by Provider: May 02, 2021 Time Seen by Provider: 07:30 Patients cough has improved some today. She states she finally got a good night of sleep last night and feels well this morning. She is not in any pain. Denies N/V, sweats/chills, chest pain or palpitations. Review of Systems General: No Chills, No Night Sweats Pulmonary: No Dyspnea; Cough Cardiovascular: No: Chest Pain Gastrointestinal: No: Nausea, Vomiting Neurological: Weakness; No: Confusion All Other Systems Reviewed All Other Systems Reviewed: Yes Objective Exam Vital Signs Vital Signs Date Time Temp Pulse Resp B/P (MAP) Pulse Ox O2 Delivery O2 Flow Rate FiO2 05/02/21 07:35 36.6 90 26 189/83 (118) 92 Room Air 05/02/21 06:57 92 Room Air 05/02/21 04:00 36.3 82 19 134/80 (98) 99 Room Air 05/01/21 23:48 37.1 98 17 177/64 (101) 95 Room Air 05/01/21 20:19 38.1 94 20 173/70 (104) 91 Room Air 05/01/21 20:00 96 Room Air 05/01/21 16:50 36.2 85 18 155/64 (94) 95 Room Air 05/01/21 12:00 36.5 88 16 121/65 (83) 97 Room Air 05/01/21 08:00 36.7 91 16 113/69 (84) 96 Room Air 05/01/21 08:00 97 Room Air I & O 05/02/21 07:00 Intake Total 1750 ml Output Total 1525 ml Balance 225 ml General Appearance: No Apparent Distress, Chronically ill, Thin HEENT: PERRL/EOMI, Moist Mucous Membranes Neck: Normal Inspection Respiratory: Lungs Clear, Normal Breath Sounds, No Respiratory Distress Cardiovascular: No Edema, Irregularly Irregular Gastrointestinal: Normal Bowel Sounds, Non Tender, Soft Rectal: Deferred Back: Normal Inspection Extremity: Normal Inspection, Non Tender, No Pedal Edema Neurologic/Psychiatric: Alert, No Motor/Sensory Deficits, Depressed Affect Skin: Normal Color, Warm/Dry Lymphatic: No Adenopathy Results Lab Laboratory Tests 05/02/21 05:00: White Blood Count 5.7, Red Blood Count 2.63L, Hemoglobin 8.0L, Hematocrit 23L, Mean Corpuscular Volume 88, Mean Corpuscular Hemoglobin 30, Mean Corpuscular Hemoglobin Concent 35, Red Cell Distribution Width 13.3, Platelet Count 178, Mean Platelet Volume 9.0, Immature Granulocyte % (Auto) 1, Neutrophils (%) (Auto) 68, Lymphocytes (%) (Auto) 15, Monocytes (%) (Auto) 13H, Eosinophils (%) (Auto) 3, Basophils (%) (Auto) 1, Neutrophils # (Auto) 3.9, Lymphocytes # (Auto) 0.9L, Monocytes # (Auto) 0.7, Eosinophils # (Auto) 0.2, Basophils # (Auto) 0.0, Immature Granulocyte # (Auto) 0.1, Sodium Level 131L, Potassium Level 4.1, Chloride Level 105, Carbon Dioxide Level 18L, Anion Gap 8, Blood Urea Nitrogen 12, Creatinine 0.97, Estimat Glomerular Filtration Rate 54, BUN/Creatinine Ratio 12, Glucose Level 112H, Calcium Level 8.4L, Corrected Calcium 9.4, Phosphorus Level 2.5, Magnesium Level 1.8, Total Bilirubin 0.3, Aspartate Amino Transf (AST/SGOT) 13, Alanine Aminotransferase (ALT/SGPT) 6, Alkaline Phosphatase 64, Total Protein 4.9L, Albumin 2.7L Microbiology 04/26/21 MRSA Screen - Final, Complete MRSA not isolated Assessment/Plan Assessment/Plan Assessment and Plan HYPONATREMIA ACUTE RENAL FAILURE HYPERKALEMIA ATRIAL FIBRILLATION CHRONIC ANEMIA CHRONIC COUGH HYPONATREMIA -STABLE HYPERKALEMIA -RESOLVED ACUTE RENAL FAILURE -MAINTAIN HYDRATION -CR WNL ATRIAL FIBRILLATION -METOPROLOL CHRONIC ANEMIA -STABLE, CONTINUE TO MONITOR CHRONIC COUGH - TUSSIGON DYSPNEA ON EXERTION - CONCERN FOR PULMONARY EMBOLUS - DISCUSSED WITH PT'S DTRS - CANNOT GIVE LOVENOX DUE TO HER RECENT HEMOPERICARDIUM, CANNOT CHECK CT ANGIOGRAM DUE TO HER RENAL FUNCTION. PT'S FAMILY AWARE OF DIAGNOSIS -DISCUSSION WAS HAD REGARDING HER LEVEL OF CARE MOVING FORWARD - PLANNING TO START WITH [facility] ON [place] May 02, 2021 07:59
[2021-05-02] MEDS: LORATADINE (CLARITIN) 10 MG TAB PO SCH (08:00)
[2021-05-02] MEDS: ASPIRIN E.C. 81 MG (ECOTRIN) TAB PO SCH (08:00)
[2021-05-02] MEDS: meTOproloL SUCCINATE 50 MG (TOPROL XL) TAB PO SCH (08:00)
[2021-05-02] MEDS: LACTOBACILLUS ACIDOPHILUS (PROBIOTIC) CAPSULE PO SCH ×2 (08:00→13:36)
[2021-05-02] MEDS: BENZONATATE 100 MG (TESSALON) CAPSULE PO SCH ×2 (08:00→13:36)
[2021-05-02] MEDS: LEVOTHYROXINE 50 MCG (LEVOTHROID) TAB PO SCH (08:00)
[2021-05-02] MEDS: guaiFENesin (MUCINEX) 600 MG TAB PO SCH (08:00)
[2021-05-02] MEDS: PANTOPRAZOLE 40 MG (PROTONIX) TAB PO SCH (08:00)
[2021-05-02] MEDS: HYDROcodone/Chlorpen 10MG/5 ML (TUSSIONEX) 5ML UDC PO SCH ×2 (08:01→13:36)
[2021-05-02] MEDS: SODIUM CHLORIDE 1 GM TABLET PO SCH ×2 (08:01→12:17)
[2021-05-02 08:37] VITALS: BP 189/83
--- NOTE | 2021-05-02 12:35 | Physician Query Clarification ---
Physician Query-General Query to Physician: The medical record reflects the following clinical evidence: Clinical Indicators: Admission/Labs: NA 120 improved to 132, GCS 13 on admission, has improved to 15 after treatment, 05/02 alert and oriented X 4 "confused on admission" , Per Dr. Kaylie Tovar " altered mental status probably due to combination of hyponatremia and acute urinary tract infection, acute kidney injury improving with hydration", Risk Factor(s): Electrolyte abnormalities, Renal failure Treatment: 4 L IV fluids, Neuro checks, Frequent electrolyte monitoring, 1. Metabolic encephalopathy, present on admission, now resolved 2. Other explanation of clinical findings 3. Unable to determine (no explanation for clinical findings) Please clarify and document your clinical opinion in the progress notes and discharge summary including the definitive and/or presumptive diagnosis, (suspected or probable), related to the above clinical findings. Please include clinical findings supporting your diagnosis. Ama Rader MSN, RN Clinical Endoscopy Rn [phone] [email or web address] PHYSICIAN RESPONSE: Based on the clinical findings in the record, please respond to the query above on this document as an addendum. Physician Response: Physician Response WILL DOCUMENT IN NOTE METABOLic encEPHALOPATHY If you have questions please contact: Senior Sharepoint Architect: Ext: Thank you for your time and cooperation. Clinical Endoscopy Rn/Senior Sharepoint Architect This is a permanent part of the medical record AMA RADER May 02, 2021 12:35 RICHARD PERALTA MD May 10, 2021 13:22
== END 2021-05-02 13:50 | disposition hospice, home (50) | DRG 682 ==
LOC: EDUNIT# 11:57 → ER 11:59 → ICU 13:55 → 4TH 04-28 12:01 → EDPENDDISTM 05-02 12:30 → EDPENDDISDT 05-02 12:30
PROVIDERS: ADMIT Family Medicine; ATTEND Internal Medicine
DX: N17.9 Acute kidney failure, unspecified (principal); G93.41 Metabolic encephalopathy; E87.1 Hypo-osmolality and hyponatremia; N39.0 Urinary tract infection, site not specified; I48.91 Unspecified atrial fibrillation; I12.9 Hypertensive chronic kidney disease with stage 1 through stage 4 chronic kidney disease, or unspecified chronic kidney disease; N18.9 Chronic kidney disease, unspecified; E87.5 Hyperkalemia; Z66 Do not resuscitate; J45.909 Unspecified asthma, uncomplicated; M19.91 Primary osteoarthritis, unspecified site; H91.90 Unspecified hearing loss, unspecified ear; D64.9 Anemia, unspecified; H54.7 Unspecified visual loss; Z95.0 Presence of cardiac pacemaker; Z87.891 Personal history of nicotine dependence; Z79.82 Long term (current) use of aspirin; Z82.49 Family history of ischemic heart disease and other diseases of the circulatory system; Z88.6 Allergy status to analgesic agent; Z88.5 Allergy status to narcotic agent; Z88.2 Allergy status to sulfonamides
CPT/HCPCS: 36415; 36569; 71045; 76937; 80048; 80053; 81000; 82533; 83735; 84100; 84439; 84443; 84484; 85025; 85379; 87081; 93005; 93306; 94640; 94760; 96374; 96375

== ENCOUNTER → 2021-07-04 | Outpatient (CLI) | payer MEDICARE ==
[~2021-07-04] MED LIST changes: +METO50TA7 PO; +NF-NACL1GT PO; +POTA-179 PO
== END ==
LOC: LABNPT 13:44
PROVIDERS: ATTEND Family Medicine
DX: I11.9 Hypertensive heart disease without heart failure (principal); K21.9 Gastro-esophageal reflux disease without esophagitis; E03.8 Other specified hypothyroidism; J30.2 Other seasonal allergic rhinitis
CPT/HCPCS: 87088